=== PATIENT | male | born 1930 | race Caucasian/White ===

== ENCOUNTER 2017-07-02 06:18 | Inpatient (IN) | payer OTHER ==
[~2017-07-02] VITALS: Ht 182.9 cm; Wt 108.2 kg
[~2017-07-02 06:18] MED LIST: ASPI325T39 PO; BRIN3SUS OPR; CARBSOL4 OPB; CARV12.52 PO; CHOL20009 PO; CYAN500T13 PO; CYCL10TA6 PO; DOCU100C31 PO; DSY50 PO; GABA300C19 PO; HYT/2 PO; INSU100I SC; INSUINJ8 SC; LUTE20CA PO; METF-384 PO; NTRGSL/4 UT; OMEP20CA59 PO; OXGN; SIMV40TA4 PO; SYMIN160 INH; ULT/50 PO
[2017-07-02] MEDS ORDERED: SODIUM CHLORIDE 0.9% 1000ML 500 ML IV STA (06:36)
[2017-07-02] MEDS ORDERED: PIPERACILLIN/TAZOBACTAM 4.5 GM/100ML D5W IV STA (06:42)
--- NOTE | 2017-07-02 06:50 | EMERGENCY ROOM VISIT NOTE ---
History Report prepared by Peter: Carla Lo Under the Supervision of: Dr. Johnie Shah M.D. First contact with patient: 06:37 Chief Complaint: WEAKNESS Stated Complaint: WEAKNESS/FALL Nursing Triage Summary: Pt arrived from home via EMS c/o frequent falls. Pt has fallen twice in the last 2 days. Pt states he was ambulating to the restroom this AM when he started to feel weak and he lowered himself into a chair. Pt states he was also treated Sunday at [facility] for UTI, continues to take Abx. EMS noted oxygen to be low. Pt states he usually wears oxygen at HS. Pulse ox 85% on RA, places on 4L via EMS, Pulse ox 95%. History of Present Illness The patient is an 87 year old male who presents to the Emergency Room with complaints of persistent weakness that began several days ago. Per nursing notes, the patient recently has been experiencing urinary symptoms (burning), noting that the patient was evaluated at [facility] yesterday for his symptoms. The patient's reports that the patient was started on Bactrim for his symptoms. The patient denies wearing a Coughlin Catheter, noting that he can urinate on his own when he sits down. The patient's states that the patient often gets UTIs, noting that his last one was a few months ago. The patient's states that the patient has had several recent falls, including one last night that caused a head injury. The patient denies any other injury from the falls. He denies any loss of consciousness with his falls, noting that he just becomes weak. The patient states that his tetanus is up to date. He denies any fever, headache, vomiting, or diarrhea. Per nursing notes that patient had an oxygen saturation of 85% on room air and was put on 2 liters of nasal cannula oxygen. Nursing notes report that the patient typically ears 2 liters of nasal cannula oxygen at night. Source of History: patient, spouse/significant other (), nursing staff Onset: several days ago Position: other (global) Quality: other (weakness) Timing: other (persistent) Associated Symptoms: + urinary symptoms, No LOC, No fevers, No headache, No vomiting, No diarrhea Review of Systems See HPI for pertinent positives & negatives. A total of 10 systems reviewed and were otherwise negative. Past Medical & Surgical Medical Problems: (1) Anemia (2) Aortic stenosis (3) Benign prostatic hyperplasia (4) Cerebrovascular disease (5) Chronic respiratory failure (6) Coronary artery disease (7) Diabetes mellitus, type II (8) Diabetic retinopathy (9) Dyslipidemia (10) Hyperhomocysteinemia (11) Hypertension Surgical Problems: (1) Status post cardiac catheterization (2) Status post cholecystectomy (3) Status post coronary artery bypass grafting Family History FH: cancer MOTHER FH: diabetes mellitus SISTER FH: heart disease FATHER Social History Smoking Status: Never Smoker Alcohol Use: occasionally Marital Status: , in relationship Occupation Status: retired Current/Historical Medications Scheduled Aspirin (Aspirin Ec), 325 MG PO DAILY Brinzolamide-Brimonidine Tartr (Simbrinza), 1 DROP OPR BID Carboxymethylcellulose Sodium (Theratears), 1 DROP OPB QID Carvedilol (Coreg), 0.5 TAB PO BID Cholecalciferol (Vitamin D), 2,000 INTER.UNIT PO DAILY Cyanocobalamin (Vitamin B12 500MCG), 1,000 MCG PO DAILY Cyclobenzaprine Hcl (Flexeril), 10 MG PO HS Docusate Sodium (Docusate Sodium), 100 MG PO BID Emollient (Eucerin Calming Daily Dvaid), 1 APPLN TOP DAILY Gabapentin (Neurontin), 400 MG PO TID Home O2 Therapy (Oxygen), 2 LITERS NA UD Insulin Human NPH (Novolin N), 50 UNITS SQ QAM Insulin Human NPH (Novolin N), 20 UNITS SQ QPM Lutein (Lutein), 20 MG PO DAILY Metformin Hcl (Glucophage), 1,000 MG PO BIDM Omeprazole (Prilosec), 20 MG PO DAILY Selenium Sulfide (Selsun), 1 APPLN EXT UD Simvastatin (Zocor), 0.5 TAB PO Q2D [Benzoyl Peroxide 10%], 1 APPLN TOP UD Scheduled PRN Hydrocortisone 1% (Hydrocortisone 1%), 1 APPLN TOP TID PRN for Itching Insulin Lispro (Human) (Humalog Kwikpen), SQ UD PRN for SLIDING SCALE Nitroglycerin (Nitrostat), 0.4 MG UT UD PRN for Chest Pain Tramadol Hcl (Ultram), 50 MG PO Q6H PRN for Pain Allergies Coded Allergies: Iodinated Diagnostic Agents (Verified Allergy, Severe, Edema-face/lips/ tongue. Hives/Rash., 07/02/17) Reported by PT. Formaldehyde (Verified Allergy, Intermediate, Hives/Rash, 01/09/14) Reported by PT. Aspirin (Verified Allergy, Unknown, Hallucinations, 07/02/17) Ciprofloxacin (Verified Allergy, Unknown, Hives, 07/02/17) Dipyridamole (Verified Allergy, Unknown, Hallucinations, 07/02/17) Lisinopril (Verified Allergy, Unknown, UNKNOWN, 07/02/17) Uncoded Allergies: yellow socks (Allergy, Intermediate, contact rash (formaldehyde used to preserve yellow color), 07/02/17) Physical Exam Vital Signs Date Time Temp Pulse Resp B/P (MAP) Pulse Ox O2 Delivery O2 Flow Rate FiO2 07/02/17 08:30 96 Room Air 4.0 07/02/17 08:18 82 07/02/17 08:10 82 18 117/60 96 Room Air 07/02/17 06:55 84 116/64 83 137/59 07/02/17 06:39 96 Nasal Cannula 4.0 07/02/17 06:39 Nasal Cannula 07/02/17 06:30 84 07/02/17 06:26 36.8 84 20 135/69 93 Nasal Cannula 5.0 Physical Exam GENERAL: Patient is in no acute distress. HEENT: Abrasion to the right forehead, no laceration requiring repair, mucous membranes dry, no scleral icterus, no nasal congestion NECK: No stridor, no adenopathy, no meningismus, trachea is midline. LUNGS: Clear to auscultation bilaterally, no wheeze, no rhonchi, breath sounds equal. HEART: 4/6 systolic murmur, regular rate and rhythm ABDOMEN: Soft, nontender, bowel sounds positive, no hernias, no peritonitis. EXTREMITIES: No cyanosis or edema, full range of motion of all the joints without pain or difficulty, no signs for acute trauma. NEUROLOGIC: Oriented x 3, no acute motor or sensory deficits, no focal weakness. SKIN: No rash, no jaundice, no diaphoresis. Medical Decision & Procedures ER Provider Diagnostic Interpretation: Radiology results as stated below per my review and radiologist interpretation: CHEST ONE VIEW PORTABLE CLINICAL HISTORY: Change in mental status. Weakness. COMPARISON STUDY: 02/06/2015 FINDINGS: The heart is enlarged. There are postsurgical changes of a midline sternotomy. There are right basilar airspace opacities with air bronchograms. This could represent a pneumonia or focal atelectasis. Clinical and radiographic follow-up is recommended. There is mild central vascular prominence without evidence of overt failure.[ No significant pleural effusions are visualized. IMPRESSION: 1. Cardiomegaly 2. Right basilar airspace opacities, atelectasis versus pneumonia. Clinical and radiographic follow-up is recommended Electronically signed by: Alfredito Callahan M.D. 07/02/2017 7:00 AM Dictated Date/Time: 07/02/2017 6:[address] SCAN OF THE BRAIN WITHOUT IV CONTRAST CLINICAL HISTORY: Change in mental status. Weakness. COMPARISON STUDY: CT of the brain dated 02/06/2015. TECHNIQUE: Unenhanced axial CT scan of the brain is performed from the vertex to the skull base. CT DOSE: 782.75 mGycm FINDINGS: Brain parenchyma: There are age-related involutional changes noting moderate subcortical and periventricular microangiopathic change. Left frontal encephalomalacia is unchanged and consistent with a remote infarct. Chronic lacunar infarcts are seen in the right thalamus and the left basal ganglia. There is no hemorrhage, mass effect, or evidence of acute territorial ischemia by CT criteria. Marley-white matter is preserved. No extra-axial fluid collection is seen. Ventricles, sulci, cisterns: Prominent secondary to involutional change. Intracranial vasculature: There is atherosclerotic calcification of the cavernous carotid and vertebral arteries. Calvarium: Unremarkable. Sinuses and mastoids: Trace mucosal thickening is seen in the maxillary antra. The remaining visualized paranasal sinuses are clear. The mastoid air cells are well pneumatized. Orbits: The bony orbits are grossly intact. There are bilateral ocular lens implants. IMPRESSION: Senescent change and remote left frontal infarct as above. There is no hemorrhage, mass effect, or evidence of acute territorial ischemia by CT criteria. Electronically signed by: Johnie Moore M.D. 07/02/2017 8:10 AM Dictated Date/Time: 07/02/2017 8:00 AM Laboratory Results 07/02/17 07:06 Red Blood Count 4.44, Mean Corpuscular Volume 86.7, Mean Corpuscular Hemoglobin 27.9, Mean Corpuscular Hemoglobin Concent 32.2, Mean Platelet Volume 10.8, Neutrophils (%) (Auto) 80.3, Lymphocytes (%) (Auto) 8.2, Monocytes (%) (Auto) 10.0, Eosinophils (%) (Auto) 1.0, Basophils (%) (Auto) 0.3, Neutrophils # (Auto ) 8.17, Lymphocytes # (Auto) 0.83, Monocytes # (Auto) 1.02, Eosinophils # (Auto ) 0.10, Basophils # (Auto) 0.03 07/02/17 07:06 Test 07/02/17 07:06 07/02/17 07:48 White Blood Count 10.17 K/uL (4.8-10.8) Red Blood Count 4.44 M/uL (4.7-6.1) Hemoglobin 12.4 g/dL (14.0-18.0) Hematocrit 38.5 % (42-52) Mean Corpuscular Volume 86.7 fL (80-100) Mean Corpuscular Hemoglobin 27.9 pg (25-34) Mean Corpuscular Hemoglobin Concent 32.2 g/dl (32-36) Platelet Count 162 K/uL (130-400) Mean Platelet Volume 10.8 fL (7.4-10.4) Neutrophils (%) (Auto) 80.3 % Lymphocytes (%) (Auto) 8.2 % Monocytes (%) (Auto) 10.0 % Eosinophils (%) (Auto) 1.0 % Basophils (%) (Auto) 0.3 % Neutrophils # (Auto) 8.17 K/uL (1.4-6.5) Lymphocytes # (Auto) 0.83 K/uL (1.2-3.4) Monocytes # (Auto) 1.02 K/uL (0.11-0.59) Eosinophils # (Auto) 0.10 K/uL (0-0.5) Basophils # (Auto) 0.03 K/uL (0-0.2) RDW Standard Deviation 47.6 fL (36.4-46.3) RDW Coefficient of Variation 14.8 % (11.5-14.5) Immature Granulocyte % (Auto) 0.2 % Immature Granulocyte # (Auto) 0.02 K/uL (0.00-0.02) Prothrombin Time 10.8 SECONDS (9.0-12.0) Prothromb Time International Ratio 1.0 (0.9-1.1) Activated Partial Thromboplast Time 26.8 SECONDS (21.0-31.0) Partial Thromboplastin Ratio 1.0 Anion Gap 9.0 mmol/L (3-11) Est Creatinine Clear Calc Drug Dose 49.2 ml/min Estimated GFR () 54.9 Estimated GFR (Non- 47.4 BUN/Creatinine Ratio 20.8 (10-20) Lactic Acid Level 1.9 mmol/L (0.4-2.0) Calcium Level 8.5 mg/dl (8.5-10.1) Magnesium Level 1.8 mg/dl (1.8-2.4) Total Bilirubin 0.5 mg/dl (0.2-1) Aspartate Amino Transf (AST/SGOT) 22 U/L (15-37) Alanine Aminotransferase (ALT/SGPT) 18 U/L (12-78) Alkaline Phosphatase 114 U/L (45-117) Troponin I 0.018 ng/ml (0-0.045) Total Protein 7.4 gm/dl (6.4-8.2) Albumin 3.2 gm/dl (3.4-5.0) Globulin 4.2 gm/dl (2.5-4.0) Albumin/Globulin Ratio 0.8 (0.9-2) Thyroid Stimulating Hormone (TSH) 2.230 uIu/ml (0.300-4.500) Urine Color YELLOW Urine Appearance TURBID (CLEAR) Urine pH 5.0 (4.5-7.5) Urine Specific [place] 1.022 (1.000-1.030) Urine Protein 1+ (NEG) Urine Glucose (UA) 3+ (NEG) Urine Ketones NEG (NEG) Urine Occult Blood 1+ (NEG) Urine Nitrite NEG (NEG) Urine Bilirubin NEG (NEG) Urine Urobilinogen NEG (NEG) Urine Leukocyte Esterase LARGE (NEG) Urine WBC (Auto) >30 /hpf (0-5) Urine RBC (Auto) 5-10 /hpf (0-4) Urine Hyaline Casts (Auto) 1-5 /lpf (0-5) Urine Epithelial Cells (Auto) 5-10 /lpf (0-5) Urine Bacteria (Auto) NEG (NEG) Laboratory results reviewed by me. Medications Administered Medications (Trade) Dose Ordered Sig/Dleoris Route Start Time Stop Time Status Last Admin Dose Admin Sodium Chloride 500 ml @ 999 mls/hr Q31M STAT IV 07/02/17 06:36 07/02/17 07:06 DC 07/02/17 07:09 999 MLS/HR Piperacillin Sod/ Tazobactam Sod (Zosyn Iv) 4.5 gm NOW STAT IV 07/02/17 06:42 07/02/17 06:43 DC 07/02/17 07:32 4.5 GM ECG Indication: weakness Rate (beats per minute): 84 Rhythm: sinus rhythm Findings: 1st degree AV block, PAC, no acute ischemic change ED Course 0636: Ordered Zosyn IV 4.5 gm IV. 0638: The patient was evaluated in room A2. A complete history and physical exam was performed. 0642: Ordered Zosyn IV 4.5 gm IV. 0807: I discussed the patients case with Silver Worthy. He is going to evaluate the patient for further treatment. 0815: I reevaluated the patient and he is doing well. I discussed the exam findings with him and his and I discussed the treatment plan. They verbalized complete understanding and agreement. The patient will be evaluated for further treatment. Medical Decision The patient is an 87 year old male who presents to the ED with complaints of weakness. Differential diagnoses considered include UTI, dehydration, sepsis, bacteremia, pneumonia, electrolyte imbalance, anemia, cardiac ischemia. There is no leukocytosis or concerning anemia. No significant electrolyte abnormality, kidney failure or hepatitis. The patient appears to be in a euthyroid state. Orthostatic vital signs are negative. Chest film shows possible atelectasis versus pneumonia, I favor atelectasis. Brain CT shows no acute bleed or mass effect. EKG shows a sinus rhythm, no acute ischemia. Cardiac enzyme testing times one is not consistent with acute cardiac injury. Urinalysis shows infection, urine culture and blood cultures are pending. Lactic acid level is not elevated making sepsis less likely. The patient received IV saline, IV Zosyn. Given the findings of UTI, given the weakness, given the failed outpatient treatment, admission/observation is warranted. I spoke to the patient and case management. The on-call hospitalist was consulted. Medication Reconcilliation Current Medication List: was personally reviewed by me Blood Pressure Screening Patient's blood pressure: Elevated blood pressure Blood pressure disposition: Elevated BP felt to be situational, Did not require urgent referral Consults Time Called: 0800 Consulting Physician: Silver Worthy Returned Call: [phone] I discussed the patients case with Silver Worthy. He is going to evaluate the patient for further treatment. Impression Primary Impression: Weakness Additional Impressions: Falling UTI (urinary tract infection) Failure of outpatient treatment Scribe Attestation The scribe's documentation has been prepared under my direction and personally reviewed by me in its entirety. I confirm that the note above accurately reflects all work, treatment, procedures, and medical decision making performed by me. Departure Information Dispostion Being Evaluated By Hospitalist Referrals Shin Dela Cruz MD (PCP) Problem Qualifiers
[2017-07-02] MEDS ORDERED: TAMS0.4C38 PO (06:54)
[2017-07-02] MEDS ORDERED: GABA1CAP5 PO (06:55)
[2017-07-02] MEDS ORDERED: SIMV20TA2 PO (06:55)
[2017-07-02] MEDS ORDERED: INSU100I2 SQ (06:57)
[2017-07-02] MEDS ORDERED: NVLNI SQ ×2 (06:57)
[2017-07-02] MEDS ORDERED: SLSS EXT (07:00)
[2017-07-02] MEDS ORDERED: EMOL1CRE10 TOP (07:00)
[2017-07-02] MEDS ORDERED: HYDCR1CL TOP (07:01)
--- NOTE | 2017-07-02 07:01 | DIAGNOSTIC IMAGING REPORT ---
CHEST ONE VIEW PORTABLE CLINICAL HISTORY: Change in mental status. Weakness. COMPARISON STUDY: 02/06/2015 FINDINGS: The heart is enlarged. There are postsurgical changes of a midline sternotomy. There are right basilar airspace opacities with air bronchograms. This could represent a pneumonia or focal atelectasis. Clinical and radiographic follow-up is recommended. There is mild central vascular prominence without evidence of overt failure.[ No significant pleural effusions are visualized. IMPRESSION: 1. Cardiomegaly 2. Right basilar airspace opacities, atelectasis versus pneumonia. Clinical and radiographic follow-up is recommended Electronically signed by: Alfredito Callahan M.D. 07/02/2017 7:00 AM Dictated Date/Time: 07/02/2017 6:58 AM
[2017-07-02] MEDS ORDERED: BENZOYL PEROXIDE 10% TOP (07:05)
[2017-07-02 07:26] LABS: BASO % 0.3 %; BASO ABS # 0.03 K/uL (0-0.2); COMPLETE YES; HEMATOCRIT 38.5 % (42-52); IG% 0.2 %; LYMPH % 8.2 %; LYMPH ABS # 0.83 K/uL (1.2-3.4); MEAN CELL VOLUME 86.7 fL (80-100); MEAN CORPUSCULAR HEMOGLOBIN 27.9 pg (25-34); MEAN CORPUSCULAR HGB CONC 32.2 g/dl (32-36); MEAN PLATELET VOLUME 10.8 fL (7.4-10.4); NEUT % 80.3 %; PLATELET COUNT 162 K/uL (130-400); RED BLOOD COUNT 4.44 M/uL (4.7-6.1); WHITE BLOOD COUNT 10.17 K/uL (4.8-10.8)
[2017-07-02 07:34] LABS: PROTHROMBIN TIME (PATIENT) 10.8 SECONDS (9.0-12.0)
[2017-07-02 07:43] LABS: BUN/CREATININE RATIO 20.8 (10-20); CALCIUM 8.5 mg/dl (8.5-10.1); CREATININE 1.33 mg/dl (0.60-1.40); MAGNESIUM 1.8 mg/dl (1.8-2.4); POTASSIUM 4.2 mmol/L (3.5-5.1)
[2017-07-02 07:54] LABS: ALB/GLOB RATIO 0.8 (0.9-2); THYROID STIMULATING HORMONE 2.23 uIu/ml (0.300-4.500)
[2017-07-02 07:58] LABS: MANUAL MICROSCOPIC REQUIRED? NO; REVIEW REQ? NO; URINE APPEARANCE TURBID (CLEAR); URINE BILIRUBIN NEG (NEG); URINE COLOR YELLOW; URINE NITRITE NEG (NEG); URINE SPECIFIC GRAVITY 1.022 (1.000-1.030); UROBILINOGEN NEG (NEG); ZZUR CULT IF INDIC CLEAN CATCH YES
--- NOTE | 2017-07-02 08:11 | DIAGNOSTIC IMAGING REPORT ---
CT SCAN OF THE BRAIN WITHOUT IV CONTRAST CLINICAL HISTORY: Change in mental status. Weakness. COMPARISON STUDY: CT of the brain dated 02/06/2015. TECHNIQUE: Unenhanced axial CT scan of the brain is performed from the vertex to the skull base. CT DOSE: 782.75 mGycm FINDINGS: Brain parenchyma: There are age-related involutional changes noting moderate subcortical and periventricular microangiopathic change. Left frontal encephalomalacia is unchanged and consistent with a remote infarct. Chronic lacunar infarcts are seen in the right thalamus and the left basal ganglia. There is no hemorrhage, mass effect, or evidence of acute territorial ischemia by CT criteria. Marley-white matter is preserved. No extra-axial fluid collection is seen. Ventricles, sulci, cisterns: Prominent secondary to involutional change. Intracranial vasculature: There is atherosclerotic calcification of the cavernous carotid and vertebral arteries. Calvarium: Unremarkable. Sinuses and mastoids: Trace mucosal thickening is seen in the maxillary antra. The remaining visualized paranasal sinuses are clear. The mastoid air cells are well pneumatized. Orbits: The bony orbits are grossly intact. There are bilateral ocular lens implants. IMPRESSION: Senescent change and remote left frontal infarct as above. There is no hemorrhage, mass effect, or evidence of acute territorial ischemia by CT criteria. Electronically signed by: Johnie Moore M.D. 07/02/2017 8:10 AM Dictated Date/Time: 07/02/2017 8:00 AM
[2017-07-02 08:30] VITALS: O2SAT 96; BMI 33.0
[2017-07-02] MEDS ORDERED: GLUCOSE 40% GEL 15 GM TUBE PO PRN (09:00)
[2017-07-02] MEDS ORDERED: ONDANSETRON INJ 2 MG/ML 2 ML VIAL IV PRN (09:00)
[2017-07-02] MEDS ORDERED: TRAMADOL HCL 50 MG TAB PO PRN (09:00)
[2017-07-02] MEDS ORDERED: ACETAMINOPHEN 325 MG TAB PO PRN (09:00)
[2017-07-02] MEDS ORDERED: DEXTROSE 50% 50 ML SYR IV PRN (09:00)
[2017-07-02] MEDS ORDERED: GLUCAGON FOR INJ 1 MG VIAL SQ PRN (09:00)
[2017-07-02] MEDS ORDERED: GLUCOSE 10 TABS/TUBE PO PRN (09:00)
[2017-07-02] MEDS ORDERED: PHARMACY GLYCEMIC MGMT CONSULT PRN (09:35)
[2017-07-02] MEDS ORDERED: PIPERACILL/TAZOBAC CONSULT ACTIVE PRN (09:45)
--- NOTE | 2017-07-02 09:54 | History and Physical ---
History & Physical Date & Time of Service: Jul 02, 2017 at 09:23 Chief Complaint: Weakness/Fall Primary Care Physician: Shin Dela Cruz MD History of Present Illness Source: patient, family, clinic records, hospital records This is an 87 year old male with a PMH of CAD s/p CABG x3, insulin dependent, uncontrolled DM2 with complications including macular degeneration, peripheral neuropathy, and dropped R foot - uses walker for ambulation at baseline; also has a hx. of HTN, HLD, aortic stenosis, orthostatic issues, BPH - presents with weakness and multiple falls. He states that he fell a few times over the weekend due to weakness. He was using the walker each time he fell, but just did not have the strength to stay standing. He went to urgent care on Sunday () and was given Bactrim for a UTI. He has had issues with urinary tract infections in the past. States he had a lot of dysuria and urinary frequency prior to starting Bactrim. He is now doing better with urination. He has a history of aortic stenosis with recent echo confirming no change in aortic valve. No other issues currently; denies shortness of breath or chest pain. Past Medical/Surgical History Medical Problems: (1) Anemia Status: Chronic (2) Aortic stenosis Permanent Comment: 1.1 cm2 by echo 2011 and cath 2012 Status: Chronic (3) Benign prostatic hyperplasia Status: Chronic (4) Cerebrovascular disease Permanent Comment: s/p stroke with right hemiparesis Status: Chronic (5) Chronic respiratory failure Permanent Comment: home O2 2 LPM at night + PRN Status: Chronic (6) Coronary artery disease Permanent Comment: PCI + stenting LAD 1997 CABG x 3 2000 cath 03/11/13 showed patent LAD graft, patent SVG to circ marginal, occluded SVG to RCA Status: Chronic (7) Diabetes mellitus, type II Status: Chronic (8) Diabetic retinopathy Status: Chronic (9) Dyslipidemia Status: Chronic (10) Hyperhomocysteinemia Status: Chronic (11) Hypertension Status: Chronic Surgical Problems: (1) Status post cardiac catheterization Permanent Comment: 03/11/[address] [facility] [address] [place]ant patent LAD graft, patent SVG to circ marginal, occluded SVG to RCA Status: Chronic (2) Status post cholecystectomy Status: Chronic (3) Status post coronary artery bypass grafting Permanent Comment: radial artery to LAD, SVG to circ marginal, SVG to RCA Status: Chronic Family History FH: cancer MOTHER FH: diabetes mellitus SISTER FH: heart disease FATHER Social History Smoking Status: Never Smoker Marital Status: , in relationship Housing status: lives with significant other Occupational Status: retired Immunizations History of Influenza Vaccine: Yes Influenza Vaccine Date: Jun 01, 2013 History of Tetanus Vaccine?: Yes History of Pneumococcal: Yes Pneumococcal Date: Jul 22, 1996 History of Hepatitis B Vaccine: No Allergies Coded Allergies: Iodinated Diagnostic Agents (Verified Allergy, Severe, Edema-face/lips/ tongue. Hives/Rash., 07/02/17) Reported by PT. Formaldehyde (Verified Allergy, Intermediate, Hives/Rash, 01/09/14) Reported by PT. Aspirin (Verified Allergy, Unknown, Hallucinations, 07/02/17) Ciprofloxacin (Verified Allergy, Unknown, Hives, 07/02/17) Dipyridamole (Verified Allergy, Unknown, Hallucinations, 07/02/17) Lisinopril (Verified Allergy, Unknown, UNKNOWN, 07/02/17) Uncoded Allergies: yellow socks (Allergy, Intermediate, contact rash (formaldehyde used to preserve yellow color), 07/02/17) Home Medications Scheduled Aspirin (Aspirin Ec), 325 MG PO DAILY Brinzolamide-Brimonidine Tartr (Simbrinza), 1 DROP OPR BID Carboxymethylcellulose Sodium (Theratears), 1 DROP OPB QID Carvedilol (Coreg), 0.5 TAB PO BID Cholecalciferol (Vitamin D), 2,000 INTER.UNIT PO DAILY Cyanocobalamin (Vitamin B12 500MCG), 1,000 MCG PO DAILY Cyclobenzaprine Hcl (Flexeril), 10 MG PO HS Docusate Sodium (Docusate Sodium), 100 MG PO BID Emollient (Eucerin Calming Daily David), 1 APPLN TOP DAILY Gabapentin (Neurontin), 400 MG PO TID Home O2 Therapy (Oxygen), 2 LITERS NA UD Insulin Human NPH (Novolin N), 50 UNITS SQ QAM Insulin Human NPH (Novolin N), 20 UNITS SQ QPM Lutein (Lutein), 20 MG PO DAILY Metformin Hcl (Glucophage), 1,000 MG PO BIDM Omeprazole (Prilosec), 20 MG PO DAILY Selenium Sulfide (Selsun), 1 APPLN EXT UD Simvastatin (Zocor), 0.5 TAB PO Q2D [Benzoyl Peroxide 10%], 1 APPLN TOP UD Scheduled PRN Hydrocortisone 1% (Hydrocortisone 1%), 1 APPLN TOP TID PRN for Itching Insulin Lispro (Human) (Humalog Kwikpen), SQ UD PRN for SLIDING SCALE Nitroglycerin (Nitrostat), 0.4 MG UT UD PRN for Chest Pain Tramadol Hcl (Ultram), 50 MG PO Q6H PRN for Pain Review of Systems Constitutional: + weakness, No fever, No chills, No sweats Respiratory: No cough, No sputum, No wheezing, No shortness of breath, No dyspnea on exertion, No dyspnea at rest, No hemoptysis Cardiovascular: No chest pain, No orthopnea, No PND, No edema, No palpitations Abdomen: No pain, No nausea, No vomiting, No diarrhea Musculoskeletal: No joint pain, No muscle pain, No swelling, No calf pain Genitourinary - Male: + dysuria, + urinary frequency, + urinary urgency, + urinary hesitancy, + urinary retention, No hematuria, No urinary incontinence Neurologic: + weakness, + numbness/tingling, + balance problems, No memory loss , No paralysis, No vertigo Psychiatric: No depression symptoms, No anxiety, No insomnia Endocrine: No fatigue Hematologic / Lymphatic: No abnormal bleeding/bruising Integumentary: No rash Allergic / Immunologic: No environmental allergies, No seasonal allergies Physical Exam Vital Signs Date Time Temp Pulse Resp B/P (MAP) Pulse Ox O2 Delivery O2 Flow Rate FiO2 07/02/17 08:18 82 07/02/17 08:10 82 18 117/60 96 Room Air 07/02/17 06:55 84 116/64 83 137/59 07/02/17 06:39 96 Nasal Cannula 4.0 07/02/17 06:39 Nasal Cannula 07/02/17 06:30 84 07/02/17 06:26 36.8 84 20 135/69 93 Nasal Cannula 5.0 General Appearance: no apparent distress Head: normocephalic, atraumatic, + pertinent finding (bruising noted on R forehead) Eyes: + pertinent finding (decreased visual acuity; chronic) ENT: + pertinent finding (hard of hearing; hearing aids in place) Neck: supple Respiratory/Chest: chest non-tender, lungs clear, normal breath sounds, no respiratory distress, no accessory muscle use Cardiovascular: regular rate, rhythm, no edema, + systolic murmur Abdomen/GI: normal bowel sounds, non tender, soft Back: no CVA tenderness, no muscle spasm Extremities/Musculoskelatal: normal inspection, no calf tenderness, normal capillary refill, no pedal edema, normal range of motion, + pertinent finding ( R dropped foot) Neurologic/Psych: no motor/sensory deficits, alert, normal mood/affect, oriented x 3 Skin: normal color Lymphatic: no adenopathy Diagnostics Laboratory Results Results Past 24 Hours Test 07/02/17 07:06 07/02/17 07:48 Range/Units White Blood Count 10.17 4.8-10.8 K/uL Red Blood Count 4.44 4.7-6.1 M/uL Hemoglobin 12.4 14.0-18.0 g/dL Hematocrit 38.5 42-52 % Mean Corpuscular Volume 86.7 80-100 fL Mean Corpuscular Hemoglobin 27.9 25-34 pg Mean Corpuscular Hemoglobin Concent 32.2 32-36 g/dl Platelet Count 162 130-400 K/uL Mean Platelet Volume 10.8 7.4-10.4 fL Neutrophils (%) (Auto) 80.3 % Lymphocytes (%) (Auto) 8.2 % Monocytes (%) (Auto) 10.0 % Eosinophils (%) (Auto) 1.0 % Basophils (%) (Auto) 0.3 % Neutrophils # (Auto) 8.17 1.4-6.5 K/uL Lymphocytes # (Auto) 0.83 1.2-3.4 K/uL Monocytes # (Auto) 1.02 0.11-0.59 K/uL Eosinophils # (Auto) 0.10 0-0.5 K/uL Basophils # (Auto) 0.03 0-0.2 K/uL RDW Standard Deviation 47.6 36.4-46.3 fL RDW Coefficient of Variation 14.8 11.5-14.5 % Immature Granulocyte % (Auto) 0.2 % Immature Granulocyte # (Auto) 0.02 0.00-0.02 K/uL Prothrombin Time 10.8 9.0-12.0 SECONDS Prothromb Time International Ratio 1.0 0.9-1.1 Activated Partial Thromboplast Time 26.8 21.0-31.0 SECONDS Partial Thromboplastin Ratio 1.0 Sodium Level 137 136-145 mmol/L Potassium Level 4.2 3.5-5.1 mmol/L Chloride Level 102 98-107 mmol/L Carbon Dioxide Level 26 21-32 mmol/L Anion Gap 9.0 3-11 mmol/L Blood Urea Nitrogen 28 7-18 mg/dl Creatinine 1.33 0.60-1.40 mg/dl Est Creatinine Clear Calc Drug Dose 49.2 ml/min Estimated GFR () 54.9 Estimated GFR (Non- 47.4 BUN/Creatinine Ratio 20.8 10-20 Random Glucose 151 70-99 mg/dl Lactic Acid Level 1.9 0.4-2.0 mmol/L Calcium Level 8.5 8.5-10.1 mg/dl Magnesium Level 1.8 1.8-2.4 mg/dl Total Bilirubin 0.5 0.2-1 mg/dl Aspartate Amino Transf (AST/SGOT) 22 15-37 U/L Alanine Aminotransferase (ALT/SGPT) 18 12-78 U/L Alkaline Phosphatase 114 45-117 U/L Troponin I 0.018 0-0.045 ng/ml Total Protein 7.4 6.4-8.2 gm/dl Albumin 3.2 3.4-5.0 gm/dl Globulin 4.2 2.5-4.0 gm/dl Albumin/Globulin Ratio 0.8 0.9-2 Thyroid Stimulating Hormone (TSH) 2.230 0.300-4.500 uIu/ml Urine Color YELLOW Urine Appearance TURBID CLEAR Urine pH 5.0 4.5-7.5 Urine Specific [place] 1.022 1.000-1.030 Urine Protein 1+ NEG Urine Glucose (UA) 3+ NEG Urine Ketones NEG NEG Urine Occult Blood 1+ NEG Urine Nitrite NEG NEG Urine Bilirubin NEG NEG Urine Urobilinogen NEG NEG Urine Leukocyte Esterase LARGE NEG Urine WBC (Auto) >30 0-5 /hpf Urine RBC (Auto) 5-10 0-4 /hpf Urine Hyaline Casts (Auto) 1-5 0-5 /lpf Urine Epithelial Cells (Auto) 5-10 0-5 /lpf Urine Bacteria (Auto) NEG NEG Microbiology Results 07/02/17 Blood Culture, Received Pending 07/02/17 Blood Culture, Received Pending 07/02/17 Urine Culture, Received Pending Diagnostic Radiology CT SCAN OF THE BRAIN WITHOUT IV CONTRAST CLINICAL HISTORY: Change in mental status. Weakness. COMPARISON STUDY: CT of the brain dated 02/06/2015. TECHNIQUE: Unenhanced axial CT scan of the brain is performed from the vertex to the skull base. CT DOSE: 782.75 mGycm FINDINGS: Brain parenchyma: There are age-related involutional changes noting moderate subcortical and periventricular microangiopathic change. Left frontal encephalomalacia is unchanged and consistent with a remote infarct. Chronic lacunar infarcts are seen in the right thalamus and the left basal ganglia. There is no hemorrhage, mass effect, or evidence of acute territorial ischemia by CT criteria. Marley-white matter is preserved. No extra-axial fluid collection is seen. Ventricles, sulci, cisterns: Prominent secondary to involutional change. Intracranial vasculature: There is atherosclerotic calcification of the cavernous carotid and vertebral arteries. Calvarium: Unremarkable. Sinuses and mastoids: Trace mucosal thickening is seen in the maxillary antra. The remaining visualized paranasal sinuses are clear. The mastoid air cells are well pneumatized. Orbits: The bony orbits are grossly intact. There are bilateral ocular lens implants. IMPRESSION: Senescent change and remote left frontal infarct as above. There is no hemorrhage, mass effect, or evidence of acute territorial ischemia by CT criteria. CHEST ONE VIEW PORTABLE CLINICAL HISTORY: Change in mental status. Weakness. COMPARISON STUDY: 02/06/2015 FINDINGS: The heart is enlarged. There are postsurgical changes of a midline sternotomy. There are right basilar airspace opacities with air bronchograms. This could represent a pneumonia or focal atelectasis. Clinical and radiographic follow-up is recommended. There is mild central vascular prominence without evidence of overt failure.[ No significant pleural effusions are visualized. IMPRESSION: 1. Cardiomegaly 2. Right basilar airspace opacities, atelectasis versus pneumonia. Clinical and radiographic follow-up is recommended EKG Sinus rhythm with 1st degree A-V block with Premature atrial complexes Left axis deviation Impression Assessment and Plan This is an 87 year old male with a PMH of CAD s/p CABG x3, insulin dependent, uncontrolled DM2 with complications including macular degeneration, peripheral neuropathy, and dropped R foot - uses walker for ambulation at baseline; also has a hx. of HTN, HLD, aortic stenosis, orthostatic issues, BPH - presents with weakness and multiple falls. Multiple Falls possibly secondary to UTI patient presents with multiple falls he has multiple risk factors for falling: * R foot drop * Peripheral Neuropathy * ambulatory dysfunction with walker use at baseline * macular degeneration and decreased visual acuity * severe aortic stenosis * recent UTI check blood cultures, urine culture monitor in tele PT/OT Zosyn for now - has had multiple organisms in the past, including PCN resistant Proteus and Quinolone resistant E. coli IVFs may need placement Hx. of CAD s/p CABG x3 no acute issues to note monitor in tele and trend enzymes recent echo performed showing good LVEF, with severe aortic stenosis cont. ASA, b-emani, statin Insulin Dependent DM2 last Ha1c > 9% Uses Novolin 70/30 at home (50 units in AM and 20 units in the PM for a total of 70 units) will switch to Lantus 20 units BID and sliding scale pharmacy glycemic control consultation HTN blood pressure stable; monitor check orthostatics DVT ppx subq heparin FULL CODE Advanced Directives Existing Living Will: Yes Existing Power of Supply Aide: Yes VTE Prophylaxis VTE Risk Assessment Done? Y/N: Yes Risk Level: Moderate
[2017-07-02 10:45] VITALS: BP 152/84; PULSE 85; TEMP 36.8; O2SAT 96
[2017-07-02 11:27] VITALS: BP 152/84; PULSE 85; TEMP 36.8; O2SAT 96
[2017-07-02] MEDS: SODIUM CHLORIDE 0.9% 1000ML 1,000 ML IV SCH ×2 (11:35→22:28)
--- NOTE | 2017-07-02 12:27 | Pharmacy Progress Note ---
Glycemic Control Intl Consult Date of Service Jul 02, 2017. Scope Glycemic Pharmacist consulted by Dr Mcclain on 07/02/17 for glycemic control and to write orders per [facility] inpatient glycemic control protocol Objective Weight (Kilograms): 110.300 Accuchecks BSG (last 24hrs): Test 07/02/17 07:06 07/02/17 11:16 Random Glucose 151 mg/dl (70-99) Bedside Glucose 220 mg/dl (70-99) Laboratory Data (last 24hrs) Test 07/02/17 07:06 Anion Gap 9.0 mmol/L BUN/Creatinine Ratio 20.8 Blood Urea Nitrogen 28 mg/dl Creatinine 1.33 mg/dl Potassium Level 4.2 mmol/L Sodium Level 137 mmol/L White Blood Count 10.17 K/uL Red Blood Count 4.44 M/uL Hemoglobin 12.4 g/dL Hematocrit 38.5 % Mean Corpuscular Volume 86.7 fL Mean Corpuscular Hemoglobin 27.9 pg Mean Corpuscular Hemoglobin Concent 32.2 g/dl Platelet Count 162 K/uL Mean Platelet Volume 10.8 fL Neutrophils (%) (Auto) 80.3 % Lymphocytes (%) (Auto) 8.2 % Monocytes (%) (Auto) 10.0 % Eosinophils (%) (Auto) 1.0 % Basophils (%) (Auto) 0.3 % Neutrophils # (Auto) 8.17 K/uL Lymphocytes # (Auto) 0.83 K/uL Monocytes # (Auto) 1.02 K/uL Eosinophils # (Auto) 0.10 K/uL Basophils # (Auto) 0.03 K/uL Recent Pertinent Medications Outpatient Anti-diabetic Regimen: * Novolin 70/30 - 50 units in morning and 20 units in evening * A1c = 8.9 % 02/07/15 Risk Factors for Insulin Resistance: * Infection: UTI? on Zosyn * Diet: type 2 diabetic diet Assessment & Plan ASSESSMENT: * ADA & AACE recommend a goal blood sugar range 140-180 mg/dl for the majority of critically ill & non-critically ill patients. However, more stringent targets may be selected in individual cases. Will utilize more stringent goal of 110-140 mg/dl based on patient age & comorbidities. Additionally, tighter glycemic control is warranted to facilitate infection healing. * Mr Go is an 87 y/o M with a PMH of CVA, CAD s/p CABG x 3, and anemia who presents with a several day history of weakness and falls. As an outpatient he was diagnosed with a UTI and given Bactrim. He did not take his insulin today. * For more appropriate glycemic control, the patient will be placed on Lantus + Novolog for duration of hospital stay. 70% of home dose (70 units) represents basal dosing. Will reduce dose by 20% to accommodate for patient admission so Lantus 20 units twice daily will be ordered (also correlates to weight-based stress of 2 dosing). * For correctional insulin, weight-based stress of 2 insulin will also be ordered. PLAN FOR INPATIENT GLYCEMIC CONTROL: * Basal insulin with LANTUS 20 units SQ BID * Correctional Insulin with NOVOLOG per scale ACHS or Q6hrs while NPO * Goal Range: Low 110 mg/dL - High 140 mg/dL * Correction Factor: 20 mg/dL/unit * Nutritional / Prandial insulin per carb ratio of 1 unit per 7 grams CHO consumed * Please note that the plan above was derived based on current level of insulin resistance and hospital stress. These recommendations are appropriate for inpatient admission only. Plan of care upon discharge will need to be reassessed to avoid potential outpatient hypo/hyperglycemia. Thank you.
[2017-07-02] MEDS: INSULIN GLARGINE SOLOSTAR 100 UNITS/ML 3 ML PEN SC SCH ×2 (12:35→20:30)
[2017-07-02] MEDS: INSULIN ASPART 100 UNITS/ML 3 ML PEN SC SCH ×3 (12:38→20:30)
[2017-07-02] MEDS: DOCUSATE SODIUM 100 MG CAP PO SCH ×2 (15:04→20:26)
[2017-07-02] MEDS: CARVEDILOL 12.5 MG TAB PO SCH ×2 (15:08→20:26)
[2017-07-02] MEDS: ASPIRIN 325 MG ECTAB PO SCH (15:10)
[2017-07-02] MEDS: PANTOprazole SOD 40 MG TAB PO SCH (15:11)
[2017-07-02] MEDS: CYANOCOBALAMIN 500 MCG TAB (VIT B-12) PO SCH (15:12)
[2017-07-02] MEDS: SIMVASTATIN 20 MG TAB PO SCH (15:13)
[2017-07-02] MEDS: PIPERACILL/TAZOBAC IV 3.375 GM in DEXTROSE 5% 100ML 100 ML IV SCH ×2 (15:14→22:01)
[2017-07-02] MEDS: GABAPENTIN 400 MG CAP PO SCH ×2 (15:14→20:26)
[2017-07-02] MEDS: HEPARIN SOD 5000 UNIT/0.5 ML CARP SQ SCH ×2 (15:15→20:31)
[2017-07-02 16:07] VITALS: BP 161/104; PULSE 86; TEMP 36.9; O2SAT 91
[2017-07-02 16:32] LABS: CKMB/CK RATIO 1.6 (0-3.0)
[2017-07-02 19:06] VITALS: BP 106/62; PULSE 86; TEMP 38.1; O2SAT 94
[2017-07-02 21:48] LABS: CKMB/CK RATIO 1.3 (0-3.0)
[2017-07-03] VITALS (8 sets, daily range): BP systolic 105–173; BP diastolic 53–75; PULSE 62–98; TEMP 36.4–37.3; O2SAT 93–99; BMI 32.8
[2017-07-03 03:23] LABS: HEMATOCRIT 34.9 % (42-52); MEAN CELL VOLUME 87.3 fL (80-100); MEAN CORPUSCULAR HEMOGLOBIN 27.3 pg (25-34); MEAN CORPUSCULAR HGB CONC 31.2 g/dl (32-36); MEAN PLATELET VOLUME 10.5 fL (7.4-10.4); PLATELET COUNT 144 K/uL (130-400); WHITE BLOOD COUNT 6.12 K/uL (4.8-10.8)
[2017-07-03 03:41] LABS: CALCIUM 7.7 mg/dl (8.5-10.1); CREATININE 1.52 mg/dl (0.60-1.40)
[2017-07-03] MEDS: PIPERACILL/TAZOBAC IV 3.375 GM in DEXTROSE 5% 100ML 100 ML IV SCH ×3 (05:09→21:11)
[2017-07-03] MEDS: HEPARIN SOD 5000 UNIT/0.5 ML CARP SQ SCH ×2 (05:10→21:18)
[2017-07-03 07:38] LABS: ESTIMATED AVERAGE GLUCOSE 217 mg/dl; HA1C FLAG Normal (Normal)
--- NOTE | 2017-07-03 08:22 | Pharmacy Progress Note ---
Glycemic Control Progress Note Date of Service Jul 03, 2017. Scope Glycemic Pharmacist consulted for glycemic control to write orders per [facility] inpatient glycemic control protocol. Objective Accuchecks BSG (last 24hrs): Test 07/02/17 11:16 07/02/17 16:20 07/02/17 20:01 07/03/17 03:16 Bedside Glucose 220 mg/dl (70-99) 159 mg/dl (70-99) 219 mg/dl (70-99) Random Glucose 258 mg/dl (70-99) Test 07/03/17 06:59 Bedside Glucose 230 mg/dl (70-99) HbA1c: Test 07/03/17 03:16 Hemoglobin A1c 9.2 % (4.5-5.6) H Recent Pertinent Medications The patient is currently receiving: * Basal insulin: Lantus 20 units every 12 hours * Correctional Insulin: Novolog Correction per scale ACHS Goal Range: Low 110 mg/dL - High 140 mg/dL Correction Factor: 20 mg/dL/unit * Prandial insulin: Per carb ratio of 1 unit per 7 grams CHO consumed * Oral Agents: None currently Outpatient Anti-Diabetic Meds Novolin N 50 units w/ breakfast + 20 units w/ dinner Humalog per sliding scale Metformin 1gm PO BID Assessment & Plan ASSESSMENT: 07/03/17 * A1c results from today (9.2%) show less than adequate control w/ outpt regimen * BSGs did initially respond to correctional and prandial insulin given yesterday w/ lunch, however later in the day BSG rebounded * Fasting BSG elevated this AM w/ 40 units of basal insulin on board, will titrate the basal insulin dose upwards * Post-prandial BSG control w/ current CR difficult to evaluate as only 1 meal consumed yesterday. Will adjust the dose slightly to allow for additional units of insulin w/ meals as I anticipate the patient's daily insulin requirement to be ~80-90 units/day when tolerating a full diet. PLAN FOR INPATIENT GLYCEMIC CONTROL: * Increasing Lantus to 24 units SQ BID * Changing correction factor to 18 mg/dl/unit * Changing carb ratio to 1 unit per 6 grams CHO consumed * Continue goal range of Low 110 mg/dL - High 140 mg/dL * Check BSG at 0200 and cover w/ Novolog as above * Please note that the plan above was derived based on current level of insulin resistance and hospital stress. These recommendations are appropriate for inpatient admission only. Plan of care upon discharge will need to be reassessed to avoid potential outpatient hypo/hyperglycemia. Thank you.
[2017-07-03] MEDS: DOCUSATE SODIUM 100 MG CAP PO SCH ×2 (08:46→21:11)
[2017-07-03] MEDS: CARVEDILOL 12.5 MG TAB PO SCH ×2 (08:46→21:12)
[2017-07-03] MEDS: PANTOprazole SOD 40 MG TAB PO SCH (08:47)
[2017-07-03] MEDS: GABAPENTIN 400 MG CAP PO SCH ×3 (08:47→21:12)
[2017-07-03] MEDS: CYANOCOBALAMIN 500 MCG TAB (VIT B-12) PO SCH (08:47)
[2017-07-03] MEDS: ASPIRIN 325 MG ECTAB PO SCH (08:47)
[2017-07-03] MEDS: INSULIN ASPART 100 UNITS/ML 3 ML PEN SC SCH ×4 (08:48→21:16)
[2017-07-03] MEDS ORDERED: INSULIN GLARGINE SOLOSTAR 100 UNITS/ML 3 ML PEN SC SCH (09:00)
--- NOTE | 2017-07-03 11:37 | Progress Note ---
Medicine Progress Note Date & Time of Visit: Jul 03, 2017 at 11:36. Subjective seen with Suad at bedside states he feels better today ambulating better, leg weakness has resolved denies dizziness, syncope denies abdominal pain, problems with urination, chills no other symptoms Objective Last 8 Hrs Date Time Temp Pulse Resp B/P (MAP) Pulse Ox O2 Delivery O2 Flow Rate FiO2 07/03/17 11:05 99 Nasal Cannula 2.5 07/03/17 08:12 37.3 66 12 150/73 (98) 99 Nasal Cannula 2.5 07/03/17 08:00 Nasal Cannula 5.0 07/03/17 04:13 36.4 62 20 125/66 (85) 93 Nasal Cannula 4.0 07/03/17 04:00 Nasal Cannula 5.0 Physical Exam: General- oriented x 2. not in distress, speaks in sentences with no effort Head- atraumatic Eyes- PERRL, EOMI, anicteric ENT- oropharynx clear Neck- supple, no JVD, no adenopathy, no thyromegaly Lungs- faint wheeze right base, no rales; clear on the left Heart- regular rhythm; no murmur, normal rate Abdomen- normal bowel sounds, soft, nontender, non distended Extremities- no pretibial edema, no calf tenderness; peripheral pulses intact Neuro- alert, oriented x 3; poor hearing, otherwise no other gross focal neuro deficits Skin- warm & dry Laboratory Results: Last 24 Hours Test 07/02/17 15:35 07/02/17 16:20 07/02/17 20:01 07/02/17 20:52 Total Creatine Kinase 193 U/L 217 U/L Creatine Kinase MB 3.1 ng/ml 2.8 ng/ml Creatine Kinase MB Ratio 1.6 1.3 Troponin I < 0.015 ng/ml 0.037 ng/ml Bedside Glucose 159 mg/dl 219 mg/dl Test 07/03/17 03:16 07/03/17 06:59 07/03/17 10:46 White Blood Count 6.12 K/uL Red Blood Count 4.00 M/uL Hemoglobin 10.9 g/dL Hematocrit 34.9 % Mean Corpuscular Volume 87.3 fL Mean Corpuscular Hemoglobin 27.3 pg Mean Corpuscular Hemoglobin Concent 31.2 g/dl RDW Standard Deviation 48.0 fL RDW Coefficient of Variation 14.9 % Platelet Count 144 K/uL Mean Platelet Volume 10.5 fL Sodium Level 134 mmol/L Potassium Level 4.0 mmol/L Chloride Level 100 mmol/L Carbon Dioxide Level 28 mmol/L Anion Gap 6.0 mmol/L Blood Urea Nitrogen 26 mg/dl Creatinine 1.52 mg/dl Est Creatinine Clear Calc Drug Dose 43.1 ml/min Estimated GFR () 46.7 Estimated GFR (Non- 40.3 BUN/Creatinine Ratio 17.0 Random Glucose 258 mg/dl Estimated Average Glucose 217 mg/dl Hemoglobin A1c 9.2 % Calcium Level 7.7 mg/dl Total Creatine Kinase 318 U/L Creatine Kinase MB 3.3 ng/ml Creatine Kinase MB Ratio 1.0 Troponin I 0.031 ng/ml Bedside Glucose 230 mg/dl 350 mg/dl Assessment & Plan This is an 87 year old male with a PMH of CAD s/p CABG x3, insulin dependent, uncontrolled DM2 with complications including macular degeneration, peripheral neuropathy, and dropped R foot - uses walker for ambulation at baseline; also has a hx. of HTN, HLD, aortic stenosis, orthostatic issues, BPH - presents with weakness and multiple falls. Multiple Falls likely secondary to UTI patient presents with multiple falls he has multiple risk factors for falling: * R foot drop * Peripheral Neuropathy * ambulatory dysfunction with walker use at baseline * macular degeneration and decreased visual acuity * severe aortic stenosis cultures: blood: negative so far urine: negative so far urine from Urgent Care 07/01/17: Strep, sens pending -- on Zosyn IV improving clinically ff up cultures -- check Orthostatic VS -- PT/OT in progress Acute Renal Failure -- crea increased to 1.5 on gentle IV fluids monitor Hx. of CAD s/p CABG x3 denies cardiac symptoms cardiac markers negative recent echo performed showing good LVEF, with severe aortic stenosis cont. ASA, b-emani, statin Insulin Dependent DM2 last Ha1c > 9% Uses Novolin 70/30 at home (50 units in AM and 20 units in the PM for a total of 70 units) on Lantus and [facility] pharmacy glycemic control on board HTN blood pressure stable; monitor check orthostatics DVT ppx subq heparin FULL CODE Disposition lives with at home PT/OT in progress may be able to go home with home health services PCP Dr. Dela Cruz Current Inpatient Medications: Current Inpatient Medications Medications (Trade) Dose Ordered Sig/Deloris Route Start Time Stop Time Status Last Admin Dose Admin Sodium Chloride 1,000 ml @ 60 mls/hr [id number] IV 07/02/17 08:54 07/03/17 18:00 07/02/17 22:28 80 MLS/HR Acetaminophen (Tylenol Tab) 650 mg Q4H PRN PO 07/02/17 09:00 08/01/17 08:59 07/02/17 20:33 650 MG Ondansetron HCl (Zofran Inj) 4 mg Q6H PRN IV 07/02/17 09:00 08/01/17 08:59 07/02/17 17:03 4 MG Insulin Aspart (novoLOG ASPART) SLIDING SCALE If C... ACHS SC 07/02/17 12:00 08/01/17 11:59 07/03/17 08:48 13 UNITS Glucose (Glucose 40% Gel) 15-30 GRAMS 15 GRAMS... UD PRN PO 07/02/17 09:00 08/01/17 08:59 Glucose (Glucose Chew Tab) 4-8 Tablets 4 Tabl... UD PRN PO 07/02/17 09:00 08/01/17 08:59 Dextrose (Dextrose 50% 50ML Syringe) 25-50ML OF 50% DW IV FOR... UD PRN IV 07/02/17 09:00 08/01/17 08:59 Glucagon (Glucagon Inj) 1 mg UD PRN SQ 07/02/17 09:00 08/01/17 08:59 Miscellaneous Information (Consult Glycemic Management Pharmacy) 1 ea UD PRN N/A 07/02/17 09:35 08/01/17 09:34 Aspirin (Ecotrin Tab) 325 mg DAILY PO 07/02/17 13:00 08/01/17 12:59 07/03/17 08:47 325 MG Carvedilol (Coreg Tab) 6.25 mg BID PO 07/02/17 13:00 08/01/17 12:59 07/03/17 08:46 6.25 MG Cyanocobalamin (Vitamin B-12 Tab) 1,000 mcg DAILY PO 07/02/17 13:00 08/01/17 12:59 07/03/17 08:47 1,000 MCG Docusate Sodium (coLACE CAP) 100 mg BID PO 07/02/17 13:00 08/01/17 12:59 07/03/17 08:46 100 MG Gabapentin (Neurontin Cap) 400 mg TID PO 07/02/17 14:00 08/01/17 13:59 07/03/17 08:47 400 MG Simvastatin (Zocor Tab) 10 mg Q2D@0900 PO 07/02/17 13:00 08/01/17 12:59 07/02/17 15:13 10 MG Tramadol HCl (Ultram Tab) 50 mg Q6H PRN PO 07/02/17 09:00 08/01/17 08:59 Pantoprazole Sodium (Protonix Tab) 40 mg QAM PO 07/02/17 13:00 08/01/17 12:59 07/03/17 08:47 40 MG Piperacillin Sod/ Tazobactam Sod 3.375 gm/Dextrose 115 ml @ 28.75 mls/ hr Q8H IV 07/02/17 14:00 07/12/17 13:59 07/03/17 05:09 28.75 MLS/HR Piperacillin Sod/ Tazobactam Sod (Consult) 1 ea UD PRN N/A 07/02/17 09:45 08/01/17 09:44 Insulin Glargine (Lantus Solostar Pen) 24 units Q12 SC 07/03/17 09:00 08/02/17 08:59 07/03/17 08:49 24 UNITS Insulin Aspart (novoLOG ASPART) SLIDING SCALE If C... TODAY@0200 ONCE SC 07/04/17 02:00 07/04/17 02:01 Heparin Sodium (Porcine) (Heparin Sq 5000 Unit/0.5ml) 5,000 unit Q12 SQ 07/03/17 21:00 08/01/17 13:59
[2017-07-03] MEDS ORDERED: INSULIN GLARGINE SOLOSTAR 100 UNITS/ML 3 ML PEN SC STA (12:07)
[2017-07-03] MEDS ORDERED: INSULIN REGULAR IV ONE (12:15)
[2017-07-03] MEDS: SODIUM CHLORIDE 0.9% 1000ML 1,000 ML IV SCH (13:49)
[2017-07-03] MEDS ORDERED: INSULIN HUMAN NPH SC ONE (20:30)
[2017-07-04] MEDS: INSULIN ASPART 100 UNITS/ML 3 ML PEN SC SCH ×4 (00:20→13:33)
[2017-07-04] MEDS ORDERED: INSULIN ASPART 100 UNITS/ML 3 ML PEN SC ONE (02:00)
[2017-07-04 04:00] VITALS: BP 128/67; PULSE 67; TEMP 36.6; O2SAT 94
[2017-07-04] MEDS: PIPERACILL/TAZOBAC IV 3.375 GM in DEXTROSE 5% 100ML 100 ML IV SCH ×2 (05:48→13:33)
[2017-07-04 06:44] LABS: BASO % 0.7 %; BASO ABS # 0.03 K/uL (0-0.2); COMPLETE YES; EOS % 3.4 %; HEMATOCRIT 36.6 % (42-52); IG% 0.2 %; LYMPH % 33.2 %; LYMPH ABS # 1.48 K/uL (1.2-3.4); MEAN CELL VOLUME 87.8 fL (80-100); MEAN CORPUSCULAR HEMOGLOBIN 27.6 pg (25-34); MEAN CORPUSCULAR HGB CONC 31.4 g/dl (32-36); MEAN PLATELET VOLUME 10.6 fL (7.4-10.4); MONO % 15.9 %; NEUT % 46.6 %; PLATELET COUNT 150 K/uL (130-400); RED BLOOD COUNT 4.17 M/uL (4.7-6.1); WHITE BLOOD COUNT 4.46 K/uL (4.8-10.8)
[2017-07-04 07:13] LABS: BUN/CREATININE RATIO 17.4 (10-20); CALCIUM 8.6 mg/dl (8.5-10.1); CREATININE 1.28 mg/dl (0.60-1.40); POTASSIUM 4.1 mmol/L (3.5-5.1)
[2017-07-04 07:43] VITALS: BP 153/68; PULSE 61; TEMP 36.2; O2SAT 99
[2017-07-04] MEDS: HEPARIN SOD 5000 UNIT/0.5 ML CARP SQ SCH (08:40)
[2017-07-04] MEDS: ASPIRIN 325 MG ECTAB PO SCH (08:41)
[2017-07-04] MEDS: CARVEDILOL 12.5 MG TAB PO SCH (08:43)
[2017-07-04] MEDS: PANTOprazole SOD 40 MG TAB PO SCH (08:43)
[2017-07-04] MEDS: SIMVASTATIN 20 MG TAB PO SCH (08:43)
[2017-07-04] MEDS: GABAPENTIN 400 MG CAP PO SCH ×2 (08:43→13:25)
[2017-07-04] MEDS: DOCUSATE SODIUM 100 MG CAP PO SCH (08:44)
[2017-07-04] MEDS: CYANOCOBALAMIN 500 MCG TAB (VIT B-12) PO SCH (08:44)
[2017-07-04] MEDS ORDERED: INSULIN HUMAN NPH SC SCH ×2 (09:00→21:00)
[2017-07-04 09:57] VITALS: O2SAT 86
--- NOTE | 2017-07-04 10:18 | Pharmacy Progress Note ---
Glycemic Control Progress Note Date of Service Jul 04, 2017. Scope Glycemic Pharmacist consulted for glycemic control to write orders per [facility] inpatient glycemic control protocol. Objective Accuchecks BSG (last 24hrs): Test 07/03/17 10:46 07/03/17 15:15 07/03/17 16:39 07/03/17 20:00 Bedside Glucose 350 mg/dl (70-99) 224 mg/dl (70-99) 251 mg/dl (70-99) 300 mg/dl (70-99) Test 07/03/17 23:59 07/04/17 04:08 07/04/17 05:52 07/04/17 07:04 Bedside Glucose 293 mg/dl (70-99) 210 mg/dl (70-99) 118 mg/dl (70-99) Random Glucose 169 mg/dl (70-99) HbA1c: Test 07/03/17 03:16 Hemoglobin A1c 9.2 % (4.5-5.6) H Recent Pertinent Medications The patient is currently receiving: * Basal insulin: NPH 50 units with breakfast + 20 units at bedtime * Correctional Insulin: Novolog Correction per scale ACHS Goal Range: Low 110 mg/dL - High 140 mg/dL Correction Factor: 10 mg/dL/unit * Prandial insulin: Per carb ratio of 1 unit per 4 grams CHO consumed * Oral Agents: None currently Outpatient Anti-Diabetic Meds Novolin-N 50 units SQ in the AM + 20 units SQ in the PM Humalog SQ per sliding scale Metformin 1gm PO BID Assessment & Plan ASSESSMENT: 07/03/17 * A1c results from today (9.2%) show less than adequate control w/ outpt regimen * BSGs did initially respond to correctional and prandial insulin given yesterday w/ lunch, however later in the day BSG rebounded * Fasting BSG elevated this AM w/ 40 units of basal insulin on board, will titrate the basal insulin dose upwards * Post-prandial BSG control w/ current CR difficult to evaluate as only 1 meal consumed yesterday. Will adjust the dose slightly to allow for additional units of insulin w/ meals as I anticipate the patient's daily insulin requirement to be ~80-90 units/day when tolerating a full diet. 07/04/17 * BSGs poorly controlled yesterday despite escalating doses of Lantus + Novolog. * BSGs did begin to trend down after lunchtime adjustments however quickly rebounded by bedtime. Patient's spouse stated the patient's glycemic control is poor when Lantus is used. Second shift pharmacist restarted the outpatient dose of NPH and gave a 50unit dose of NPH at bedtime last night given poor control during the day. * Over the last 24 hrs the patient has received 171 units of SQ insulin + 5 units IV Regular insulin, much more than his home regimen provides. * Fasting BSG 118 this AM after having received 50 units NPH last evening + 32 units of Lantus yesterday + 23 units of Novolog correction overnight. * He is highly insulin resistant. Plan is to continue the changes made last evening and see if he is better controlled w/ NPH at his home dose. * Will need to monitor for pre-dinner hypoglycemia as we are now providing prandial insulin w/ meals 3 times daily. NPH does have a peak, thus lunchtime prandial insulin requirements may be less than other meals. Will follow BSG pattern today and adjust PRN. PLAN FOR INPATIENT GLYCEMIC CONTROL: * Continue NPH 50 units AM + 20 units PM * Continue correction factor of 10 mg/dl/unit * Continue carb ratio of 1 unit per 4 grams CHO consumed * Continue goal range of Low 110 mg/dL - High 140 mg/dL * Check BSG at 0200 and cover w/ Novolog as above * Please note that the plan above was derived based on current level of insulin resistance and hospital stress. These recommendations are appropriate for inpatient admission only. Plan of care upon discharge will need to be reassessed to avoid potential outpatient hypo/hyperglycemia. Thank you.
[2017-07-04 10:53] VITALS: BP 129/61; PULSE 71; TEMP 36.9; O2SAT 98
[2017-07-04 11:37] VITALS: Ht 182.9 cm; Wt 108.2 kg
[2017-07-04 15:09] VITALS: BP 151/70; PULSE 65; TEMP 36.7; O2SAT 99
--- NOTE | 2017-07-04 15:31 | Progress Note ---
Medicine Progress Note Date & Time of Visit: Jul 04, 2017 at 15:22. Subjective patient seen resting in bed, comfortable alert, in good spirits states he feels better overall back to baseline denies abdominal pain, urinary problems, fever/chills, nausea/vomiting denies chest pain, dyspnea, palpitations, dizziness ambulating with no problems states he is ready and would like to be discharged today at bedside is agreeable Objective Last 8 Hrs Date Time Temp Pulse Resp B/P (MAP) Pulse Ox O2 Delivery O2 Flow Rate FiO2 07/04/17 15:09 36.7 65 20 151/70 (97) 99 Nasal Cannula 2.0 07/04/17 12:15 Nasal Cannula 3.0 07/04/17 10:53 36.9 71 20 129/61 (83) 98 Nasal Cannula 3.0 07/04/17 10:07 Nasal Cannula 3.0 07/04/17 09:57 86 07/04/17 07:43 36.2 61 18 153/68 (96) 99 Nasal Cannula 3.0 61 Physical Exam: General- oriented x 2. not in distress, speaks in sentences with no effort Eyes- EOMI, anicteric Neck- no JVD Lungs-clear breath sounds bilaterally, no rales/wheezing Heart- regular rhythm; no murmur, normal rate Abdomen- normal bowel sounds, soft, nontender, non distended Extremities- no pretibial edema, no calf tenderness Neuro- alert, oriented x 3; poor hearing, otherwise no other gross focal neuro deficits Skin- warm & dry Laboratory Results: Last 24 Hours Test 07/03/17 16:39 07/03/17 20:00 07/03/17 23:59 07/04/17 04:08 Bedside Glucose 251 mg/dl 300 mg/dl 293 mg/dl 210 mg/dl Test 07/04/17 05:52 07/04/17 07:04 07/04/17 10:54 White Blood Count 4.46 K/uL Red Blood Count 4.17 M/uL Hemoglobin 11.5 g/dL Hematocrit 36.6 % Mean Corpuscular Volume 87.8 fL Mean Corpuscular Hemoglobin 27.6 pg Mean Corpuscular Hemoglobin Concent 31.4 g/dl Platelet Count 150 K/uL Mean Platelet Volume 10.6 fL Neutrophils (%) (Auto) 46.6 % Lymphocytes (%) (Auto) 33.2 % Monocytes (%) (Auto) 15.9 % Eosinophils (%) (Auto) 3.4 % Basophils (%) (Auto) 0.7 % Neutrophils # (Auto) 2.08 K/uL Lymphocytes # (Auto) 1.48 K/uL Monocytes # (Auto) 0.71 K/uL Eosinophils # (Auto) 0.15 K/uL Basophils # (Auto) 0.03 K/uL RDW Standard Deviation 47.7 fL RDW Coefficient of Variation 14.9 % Immature Granulocyte % (Auto) 0.2 % Immature Granulocyte # (Auto) 0.01 K/uL Sodium Level 138 mmol/L Potassium Level 4.1 mmol/L Chloride Level 105 mmol/L Carbon Dioxide Level 26 mmol/L Anion Gap 7.0 mmol/L Blood Urea Nitrogen 22 mg/dl Creatinine 1.28 mg/dl Est Creatinine Clear Calc Drug Dose 50.7 ml/min Estimated GFR () 57.5 Estimated GFR (Non- 49.6 BUN/Creatinine Ratio 17.4 Random Glucose 169 mg/dl Calcium Level 8.6 mg/dl Bedside Glucose 118 mg/dl 147 mg/dl Assessment & Plan This is an 87 year old male with a PMH of CAD s/p CABG x3, insulin dependent, uncontrolled DM2 with complications including macular degeneration, peripheral neuropathy, and dropped R foot - uses walker for ambulation at baseline; also has a hx. of HTN, HLD, aortic stenosis, orthostatic issues, BPH - presents with weakness and multiple falls. Multiple Falls, likely secondary to UTI -patient presents with multiple falls -he has multiple risk factors for falling: * R foot drop * Peripheral Neuropathy * ambulatory dysfunction with walker use at baseline * macular degeneration and decreased visual acuity * severe aortic stenosis -cultures: blood: negative so far urine: negative so far urine from Urgent Care 07/01/17: Strep, sens to pen g, resistant to tetracycline -- given Zosyn IV x 2 days markedly improved clinically transition to Augmentin 875mg po BID x 7 days may need to repeat UA to confirm clearance -- ff up with PCP in 3-5 days Acute Renal Failure -- crea increased to 1.5 given gentle IV fluids crea back to baseline Hx. of CAD s/p CABG x3 denies cardiac symptoms cardiac markers negative recent echo performed showing good LVEF, with severe aortic stenosis cont. ASA, b-emani, statin Insulin Dependent DM2 a1c 9.2 Uses Novolin 70/30 at home (50 units in AM and 20 units in the PM for a total of 70 units) on Lantus and [facility] glycemic control consulted HTN blood pressure stable; monitor Disposition lives with at home PT recommends return home PCP Dr. Dela Cruz- ff up in 3-5 days Current Inpatient Medications: Current Inpatient Medications Medications (Trade) Dose Ordered Sig/Deloris Route Start Time Stop Time Status Last Admin Dose Admin Acetaminophen (Tylenol Tab) 650 mg Q4H PRN PO 07/02/17 09:00 08/01/17 08:59 07/02/17 20:33 650 MG Ondansetron HCl (Zofran Inj) 4 mg Q6H PRN IV 07/02/17 09:00 08/01/17 08:59 07/02/17 17:03 4 MG Insulin Aspart (novoLOG ASPART) SLIDING SCALE If C... ACHS SC 07/02/17 12:00 08/01/17 11:59 07/04/17 13:33 14 UNITS Glucose (Glucose 40% Gel) 15-30 GRAMS 15 GRAMS... UD PRN PO 07/02/17 09:00 08/01/17 08:59 Glucose (Glucose Chew Tab) 4-8 Tablets 4 Tabl... UD PRN PO 07/02/17 09:00 08/01/17 08:59 Dextrose (Dextrose 50% 50ML Syringe) 25-50ML OF 50% DW IV FOR... UD PRN IV 07/02/17 09:00 08/01/17 08:59 Glucagon (Glucagon Inj) 1 mg UD PRN SQ 07/02/17 09:00 08/01/17 08:59 Miscellaneous Information (Consult Glycemic Management Pharmacy) 1 ea UD PRN N/A 07/02/17 09:35 08/01/17 09:34 Aspirin (Ecotrin Tab) 325 mg DAILY PO 07/02/17 13:00 08/01/17 12:59 07/04/17 08:41 325 MG Carvedilol (Coreg Tab) 6.25 mg BID PO 07/02/17 13:00 08/01/17 12:59 07/04/17 08:43 6.25 MG Cyanocobalamin (Vitamin B-12 Tab) 1,000 mcg DAILY PO 07/02/17 13:00 08/01/17 12:59 07/04/17 08:44 1,000 MCG Docusate Sodium (coLACE CAP) 100 mg BID PO 07/02/17 13:00 08/01/17 12:59 07/04/17 08:44 100 MG Gabapentin (Neurontin Cap) 400 mg TID PO 07/02/17 14:00 08/01/17 13:59 07/04/17 13:25 400 MG Simvastatin (Zocor Tab) 10 mg Q2D@0900 PO 07/02/17 13:00 08/01/17 12:59 07/04/17 08:43 10 MG Tramadol HCl (Ultram Tab) 50 mg Q6H PRN PO 07/02/17 09:00 08/01/17 08:59 Pantoprazole Sodium (Protonix Tab) 40 mg QAM PO 07/02/17 13:00 08/01/17 12:59 07/04/17 08:43 40 MG Piperacillin Sod/ Tazobactam Sod 3.375 gm/Dextrose 115 ml @ 28.75 mls/ hr Q8H IV 07/02/17 14:00 07/12/17 13:59 07/04/17 13:33 28.75 MLS/HR Piperacillin Sod/ Tazobactam Sod (Consult) 1 ea UD PRN N/A 07/02/17 09:45 08/01/17 09:44 Heparin Sodium (Porcine) (Heparin Sq 5000 Unit/0.5ml) 5,000 unit Q12 SQ 07/03/17 21:00 08/01/17 13:59 07/04/17 08:40 5,000 UNIT Insulin Human NPH (novoLIN-N NPH) 50 units QAM SC 07/04/17 09:00 08/03/17 08:59 07/04/17 08:41 50 UNITS Insulin Human NPH (novoLIN-N NPH) 20 units PM SC 07/04/17 21:00 08/03/17 20:59 Insulin Aspart (novoLOG ASPART) SLIDING SCALE If C... TODAY@0200 ONCE SC 07/05/17 02:00 07/05/17 02:01
[2017-07-04] MEDS ORDERED: AMOX875T PO (15:33)
[2017-07-04] MEDS ORDERED: CYCL10TA6 PO (15:33)
--- NOTE | 2017-07-04 15:38 | Discharge Instructions ---
Discharge Instructions Date of Service Jul 04, 2017. Admission Reason for Admission: Aortic Stenosis, Uti Discharge Discharge Diagnosis / Problem: URINARY TRACT INFECTION Discharge Goals Goal(s): Diagnostic testing, Therapeutic intervention Activity Recommendations Activity Limitations: as noted below (INCREASE ACTIVITY GRADUALLY TOLERATED) . Instructions / Follow-Up Instructions / Follow-Up PLEASE REVIEW YOUR NEW MEDICATION- AUGMENTIN AND FOLLOW INSTRUCTIONS CAREFULLY. TAKE YOGURT OR PROBIOTIC DAILY WHILE ON ANTIBIOTICS, AND 1 WEEK AFTER FINISHING ANTIBIOTIC COURSE. CALL PRIMARY CARE PHYSICIAN OR RETURN TO ER IMMEDIATELY IF WITH RECURRENCE OF SYMPTOMS. FOLLOW UP WITH PRIMARY CARE PHYSICIAN DR. JOHN PAUL COOK (ASSOCIATE OF DR. ARMSTRONG) ON SUNDAY JULY 09, 2017 AT 10:05 AM. Current Hospital Diet Patient's current hospital diet: Diabetes Type 2 Diet Discharge Diet Recommended Diet: AHA Diet (Heart Healthy), Diabetes Type 2 Diet Pending Studies Studies pending at discharge: no Laboratory Results Hemoglobin A1c Test 07/03/17 03:16 Range/Units Estimated Average Glucose 217 mg/dl Hemoglobin A1c 9.2 H 4.5-5.6 % Medical Emergencies . Who to Call and When: Medical Emergencies: If at any time you feel your situation is an emergency, please call 911 immediately. . Non-Emergent Contact Non-Emergency issues call your: Primary Care Provider Call Non-Emergent contact if: you have a fever, your pain is not controlled, your pain is worsening, you have any medication questions . . "Provider Documentation" section prepared by Oumar Wells. . VTE Core Measure Inpt VTE Proph given/why not?: Unfractionated heparin SQ
--- NOTE | 2017-07-04 15:43 | Discharge Summary ---
Discharge Summary Date of Service Jul 04, 2017. Discharge Summary Admission Date: Jul 02, 2017 at 09:20 Discharge Date: Jul 04, 2017 Principal Diagnosis: WEAKNESS SECONDARY TO UTI- BETA STREP GROUP B (RECURRENT UTI'S) Secondary Diagnoses/Problems: Please refer to hospital course below. Procedures: CT SCAN OF THE BRAIN WITHOUT IV CONTRAST CLINICAL HISTORY: Change in mental status. Weakness. COMPARISON STUDY: CT of the brain dated 02/06/2015. TECHNIQUE: Unenhanced axial CT scan of the brain is performed from the vertex to the skull base. CT DOSE: 782.75 mGycm FINDINGS: Brain parenchyma: There are age-related involutional changes noting moderate subcortical and periventricular microangiopathic change. Left frontal encephalomalacia is unchanged and consistent with a remote infarct. Chronic lacunar infarcts are seen in the right thalamus and the left basal ganglia. There is no hemorrhage, mass effect, or evidence of acute territorial ischemia by CT criteria. Marley-white matter is preserved. No extra-axial fluid collection is seen. Ventricles, sulci, cisterns: Prominent secondary to involutional change. Intracranial vasculature: There is atherosclerotic calcification of the cavernous carotid and vertebral arteries. Calvarium: Unremarkable. Sinuses and mastoids: Trace mucosal thickening is seen in the maxillary antra. The remaining visualized paranasal sinuses are clear. The mastoid air cells are well pneumatized. Orbits: The bony orbits are grossly intact. There are bilateral ocular lens implants. IMPRESSION: Senescent change and remote left frontal infarct as above. There is no hemorrhage, mass effect, or evidence of acute territorial ischemia by CT criteria. CHEST ONE VIEW PORTABLE CLINICAL HISTORY: Change in mental status. Weakness. COMPARISON STUDY: 02/06/2015 FINDINGS: The heart is enlarged. There are postsurgical changes of a midline sternotomy. There are right basilar airspace opacities with air bronchograms. This could represent a pneumonia or focal atelectasis. Clinical and radiographic follow-up is recommended. There is mild central vascular prominence without evidence of overt failure.[ No significant pleural effusions are visualized. IMPRESSION: 1. Cardiomegaly 2. Right basilar airspace opacities, atelectasis versus pneumonia. Clinical and radiographic follow-up is recommended Pending Studies/Follow-Up: Please refer to hospital course below. Medication Reconciliation New Medications: Amoxicillin & Pot Clavulanate (Augmentin 875-125 mg) 1 Tab Tab 875 MG PO BID for 7 Days, #14 TAB 0 Refills Changed Medications: Cyclobenzaprine Hcl (Flexeril) 10 Mg Tab 10 MG PO HS PRN for muscle spasm for 10 Days, TAB (Medication details modified) Continued Medications: Aspirin (Aspirin Ec) 325 Mg Tab 325 MG PO DAILY Brinzolamide-Brimonidine Tartr (Simbrinza) 1 Batool Batool 1 DROP OPR BID Carboxymethylcellulose Sodium (Theratears) 0.25 % Lori 1 DROP OPB QID Carvedilol (Coreg) 12.5 Mg Tab 0.5 TAB PO BID Cholecalciferol (Vitamin D) 2,000 Unit Tab 2000 INTER.UNIT PO DAILY Cyanocobalamin (Vitamin B12 500MCG) 500 Mcg Tab 1000 MCG PO DAILY, TAB Docusate Sodium (Docusate Sodium) 100 Mg Cap 100 MG PO BID Emollient (Eucerin Calming Daily David) 1 Cre Cre 1 APPLN TOP DAILY Gabapentin (Neurontin) 400 Mg Cap 400 MG PO TID, CAP Home O2 Therapy (Oxygen) Gas 2 LITERS NA UD WITH EXERTION AND AT NIGHT. Hydrocortisone 1% (Hydrocortisone 1%) 90 Appln/30 Gm Cr 1 APPLN TOP TID PRN for Itching Insulin Human NPH (Novolin N) 100 Units/Ml Susp 50 UNITS SQ QAM Insulin Human NPH (Novolin N) 100 Units/Ml Susp 20 UNITS SQ QPM Insulin Lispro (Human) (Humalog Kwikpen) 100 Unit/Ml Inj SQ UD PRN for SLIDING SCALE Lutein (Lutein) 20 Mg Cap 20 MG PO DAILY Metformin Hcl (Glucophage) 1,000 Mg Tab 1000 MG PO BIDM, TAB Nitroglycerin (Nitrostat) 0.4 Mg Tab 0.4 MG UT UD PRN for Chest Pain PLACE ONE TABLET UNDER THE TONGUE EVERY 5 MINUTES FOR UP TO 3 DOSES IF NEEDED FOR CHEST PAIN. Omeprazole (Prilosec) 20 Mg Capcr 20 MG PO DAILY Selenium Sulfide (Selsun) 2.5 % Lot 1 APPLN EXT UD Simvastatin (Zocor) 20 Mg Tab 0.5 TAB PO Q2D, TAB Tramadol Hcl (Ultram) 50 Mg Tab 50 MG PO Q6H PRN for Pain PRN PAIN [Benzoyl Peroxide 10%] () 1 APPLN TOP UD Admission Information HPI (per Admitting provider): This is an 87 year old male with a PMH of CAD s/p CABG x3, insulin dependent, uncontrolled DM2 with complications including macular degeneration, peripheral neuropathy, and dropped R foot - uses walker for ambulation at baseline; also has a hx. of HTN, HLD, aortic stenosis, orthostatic issues, BPH - presents with weakness and multiple falls. He states that he fell a few times over the weekend due to weakness. He was using the walker each time he fell, but just did not have the strength to stay standing. He went to urgent care on Sunday () and was given Bactrim for a UTI. He has had issues with urinary tract infections in the past. States he had a lot of dysuria and urinary frequency prior to starting Bactrim. He is now doing better with urination. He has a history of aortic stenosis with recent echo confirming no change in aortic valve. No other issues currently; denies shortness of breath or chest pain. Physical Exam (per Admitting): General Appearance: no apparent distress Head: normocephalic, atraumatic, + pertinent finding (bruising noted on R forehead) Eyes: + pertinent finding (decreased visual acuity; chronic) ENT: + pertinent finding (hard of hearing; hearing aids in place) Neck: supple Respiratory/Chest: chest non-tender, lungs clear, normal breath sounds, no respiratory distress, no accessory muscle use Cardiovascular: regular rate, rhythm, no edema, + systolic murmur Abdomen/GI: normal bowel sounds, non tender, soft Back: no CVA tenderness, no muscle spasm Extremities/Musculoskelatal: normal inspection, no calf tenderness, normal capillary refill, no pedal edema, normal range of motion, + pertinent finding ( R dropped foot) Neurologic/Psych: no motor/sensory deficits, alert, normal mood/affect, oriented x 3 Skin: normal color Lymphatic: no adenopathy Hospital Course This is an 87 year old male with a PMH of CAD s/p CABG x3, insulin dependent, uncontrolled DM2 with complications including macular degeneration, peripheral neuropathy, and dropped R foot - uses walker for ambulation at baseline; also has a hx. of HTN, HLD, aortic stenosis, orthostatic issues, BPH - presents with weakness and multiple falls. Multiple Falls, likely secondary to UTI -patient presents with multiple falls -he has multiple risk factors for falling: * R foot drop * Peripheral Neuropathy * ambulatory dysfunction with walker use at baseline * macular degeneration and decreased visual acuity * severe aortic stenosis -cultures: blood: negative so far urine: negative so far urine from Urgent Care 07/01/17: Strep, sens to pen g, resistant to tetracycline -- given Zosyn IV x 2 days markedly improved clinically transition to Augmentin 875mg po BID x 7 days may need to repeat UA and Urine Culture to confirm clearance patient has recurrent UTIs -- ff up with PCP in 3-5 days Acute Renal Failure -- crea increased to 1.5 given gentle IV fluids crea back to baseline Hx. of CAD s/p CABG x3 denies cardiac symptoms cardiac markers negative recent echo performed showing good LVEF, with severe aortic stenosis cont. ASA, b-emani, statin Insulin Dependent DM2 a1c 9.2 Uses Novolin 70/30 at home (50 units in AM and 20 units in the PM for a total of 70 units) ff up as outpatient HTN blood pressure stable monitor Disposition lives with at home PT recommends return home PCP Dr. Armstrong- ff up in 3-5 days Total time spent on discharge = 30 minutes This includes examination of the patient, discharge planning, medication reconciliation, and communication with other providers. Discharge Instructions Discharge Instructions Date of Service Jul 04, 2017. Admission Reason for Admission: Aortic Stenosis, Uti Discharge Discharge Diagnosis / Problem: URINARY TRACT INFECTION Discharge Goals Goal(s): Diagnostic testing, Therapeutic intervention Activity Recommendations Activity Limitations: as noted below (INCREASE ACTIVITY GRADUALLY TOLERATED) . Instructions / Follow-Up Instructions / Follow-Up PLEASE REVIEW YOUR NEW MEDICATION- AUGMENTIN AND FOLLOW INSTRUCTIONS CAREFULLY. TAKE YOGURT OR PROBIOTIC DAILY WHILE ON ANTIBIOTICS, AND 1 WEEK AFTER FINISHING ANTIBIOTIC COURSE. CALL PRIMARY CARE PHYSICIAN OR RETURN TO ER IMMEDIATELY IF WITH RECURRENCE OF SYMPTOMS. FOLLOW UP WITH PRIMARY CARE PHYSICIAN DR. JOHN PAUL COOK (ASSOCIATE OF DR. ARMSTRONG) ON SUNDAY JULY 09, 2017 AT 10:05 AM. Current Hospital Diet Patient's current hospital diet: Diabetes Type 2 Diet Discharge Diet Recommended Diet: AHA Diet (Heart Healthy), Diabetes Type 2 Diet Pending Studies Studies pending at discharge: no Laboratory Results Hemoglobin A1c Test 07/03/17 03:16 Range/Units Estimated Average Glucose 217 mg/dl Hemoglobin A1c 9.2 H 4.5-5.6 % Medical Emergencies . Who to Call and When: Medical Emergencies: If at any time you feel your situation is an emergency, please call 911 immediately. . Non-Emergent Contact Non-Emergency issues call your: Primary Care Provider Call Non-Emergent contact if: you have a fever, your pain is not controlled, your pain is worsening, you have any medication questions . . "Provider Documentation" section prepared by Oumar Wells. . VTE Core Measure Inpt VTE Proph given/why not?: Unfractionated heparin SQ
[2017-07-04 15:49] VITALS: BP 151/70; PULSE 65; TEMP 36.7; O2SAT 99
[2017-07-05] MEDS ORDERED: INSULIN ASPART 100 UNITS/ML 3 ML PEN SC ONE (02:00)
== END 2017-07-04 16:10 | disposition home health service (06) | DRG 690 ==
LOC: C.EDA 06:18 → EDBD 06:18 → C.2E 09:20 → ENRESERV 09:59
PROVIDERS: ADMIT Family Medicine; ATTEND Internal Medicine
DX: N39.0 Urinary tract infection, site not specified (principal); J96.10 Chronic respiratory failure, unspecified whether with hypoxia or hypercapnia; N40.0 Benign prostatic hyperplasia without lower urinary tract symptoms; I67.9 Cerebrovascular disease, unspecified; I25.10 Atherosclerotic heart disease of native coronary artery without angina pectoris; H35.30 Unspecified macular degeneration; E11.9 Type 2 diabetes mellitus without complications; E78.5 Hyperlipidemia, unspecified; I10 Essential (primary) hypertension; M21.371 Foot drop, right foot; G62.9 Polyneuropathy, unspecified; Z87.440 Personal history of urinary (tract) infections; Z90.49 Acquired absence of other specified parts of digestive tract; Z91.81 History of falling; Z79.82 Long term (current) use of aspirin; Z79.4 Long term (current) use of insulin; Z80.9 Family history of malignant neoplasm, unspecified; Z83.3 Family history of diabetes mellitus; Z82.49 Family history of ischemic heart disease and other diseases of the circulatory system

== ENCOUNTER 2018-01-02 19:25 | Observation (INO) | payer OTHER ==
[~2018-01-02] VITALS: Ht 182.9 cm; Wt 103.0 kg
[~2018-01-02 19:25] MED LIST changes: -ASPI325T39 PO; -CARBSOL4 OPB; -CYAN500T13 PO; -DSY50 PO; +EMOL1CRE10 TOP; +FLM4 PO; +GABA-1220 PO; -GABA300C19 PO; +HYDCR1CL TOP; -HYT/2 PO; -INSU100I SC; +INSU100I2 SQ; -INSUINJ8 SC; +LVQ750 PO; +NF1094 PO; +NVLNI SQ; +NYST100033 TOP; +SIMV20TA2 PO; -SIMV40TA4 PO; +SLSS EXT; -SYMIN160 INH; -ULT/50 PO
[2018-01-02] MEDS ORDERED: SODIUM CHLORIDE 0.9% 1000ML 1,000 ML IV STA (19:43)
[2018-01-02 20:06] LABS: BASO % 0.5 %; BASO ABS # 0.03 K/uL (0-0.2); EOS % 2.8 %; EOS ABS # 0.16 K/uL (0-0.5); HEMATOCRIT 42.1 % (42-52); IG# 0.01 K/uL (0.00-0.02); LYMPH % 37.5 %; LYMPH ABS # 2.12 K/uL (1.2-3.4); MEAN CELL VOLUME 85.9 fL (80-100); MEAN CORPUSCULAR HEMOGLOBIN 28.6 pg (25-34); MEAN CORPUSCULAR HGB CONC 33.3 g/dl (32-36); MEAN PLATELET VOLUME 11.6 fL (7.4-10.4); MONO % 8.7 %; MONO ABS # 0.49 K/uL (0.11-0.59); NEUT % 50.3 %; NEUT ABS # 2.85 K/uL (1.4-6.5); PLATELET COUNT 161 K/uL (130-400); RED CELL DISTRIBUTION WIDTH CV 14.8 % (11.5-14.5); RED CELL DISTRIBUTION WIDTH SD 46.5 fL (36.4-46.3); WHITE BLOOD COUNT 5.66 K/uL (4.8-10.8)
--- NOTE | 2018-01-02 20:08 | DIAGNOSTIC IMAGING REPORT ---
CHEST ONE VIEW PORTABLE CLINICAL HISTORY: 87 years-old Male presenting with EVALUATE WEAKNESS. TECHNIQUE: Portable upright AP view of the chest was obtained. COMPARISON: 07/17/2017. FINDINGS: Median sternotomy wires unchanged. Atherosclerosis of the aortic arch. Cardiac silhouette moderately enlarged, unchanged. Pulmonary vascular prominence. Bronchial wall thickening. Prominent lung markings with a mid to basilar hazy opacity. Trace bilateral pleural effusions suggested. No large pneumothorax. IMPRESSION: 1. Cardiomegaly with findings suggestive of volume overload and congestive change/early pulmonary edema. Electronically signed by: Karthik Espinoza M.D. 01/02/2018 8:06 PM Dictated Date/Time: 01/02/2018 8:05 PM
[2018-01-02 20:24] LABS: PTT PATIENT 24.7 SECONDS (21.0-31.0)
[2018-01-02] MEDS ORDERED: ULT/50 PO (20:25)
[2018-01-02] MEDS ORDERED: CYAN500T13 PO (20:25)
[2018-01-02] MEDS ORDERED: ASPI325T39 PO (20:25)
[2018-01-02] MEDS ORDERED: CARBSOL4 OPB (20:25)
[2018-01-02 20:29] LABS: ALBUMIN 3.6 gm/dl (3.4-5.0); CALCIUM 9.1 mg/dl (8.5-10.1); CREATININE 1.08 mg/dl (0.60-1.40); POTASSIUM 3.4 mmol/L (3.5-5.1)
[2018-01-02 20:38] LABS: CKMB 2.9 ng/ml (0.5-3.6); TOTAL PROTEIN 8.2 gm/dl (6.4-8.2)
--- NOTE | 2018-01-02 20:46 | DIAGNOSTIC IMAGING REPORT ---
HEAD WITHOUT CONTRAST (CT) CLINICAL HISTORY: 87 years-old Male presenting with EVALUATE WEAKNESS, altered mental status. TECHNIQUE: Multidetector CT imaging of the head was performed without the use of intravenous contrast. IV contrast: None. A dose lowering technique was used consistent with the principles of ALARA (as low as reasonably achievable). COMPARISON: 07/15/2017. CT DOSE (mGy.cm): The estimated cumulative dose is 537.48 mGy.cm. FINDINGS: Equipment Validation Specialist topogram: Unremarkable. Proportional ventricular and sulcal prominence, likely age-related parenchymal volume loss. Periventricular and subcortical white matter hypoattenuation, nonspecific but likely indicative of chronic small vessel ischemic change. Old infarct noted in the left frontal region near the vertex. Old lacunar infarct in the left basal ganglia also noted. No mass effect or midline shift. No hemorrhage or acute territorial infarct. No extra-axial fluid collection. Paranasal sinuses and mastoid air cells clear. Calvarium intact. Bilateral shosh[place]-bannock lenses are absent. IMPRESSION: 1. No significant change compared to the prior study. No acute intracranial abnormality. Electronically signed by: Karthik Espinoza M.D. 01/02/2018 8:44 PM Dictated Date/Time: 01/02/2018 8:42 PM
[2018-01-02] MEDS ORDERED: POTASSIUM CHLORIDE 10 MEQ TABCR PO STA (22:07)
[2018-01-02] MEDS ORDERED: CYCL10TA6 PO (22:11)
[2018-01-02] MEDS ORDERED: GABA-1220 PO ×2 (22:11)
[2018-01-02] MEDS ORDERED: INSU100I SC (22:11)
[2018-01-02] MEDS ORDERED: OMEP20CA9 PO (22:25)
[2018-01-02] MEDS ORDERED: CARV6.252 PO (22:25)
[2018-01-02] MEDS ORDERED: CHOL2000 PO (22:25)
[2018-01-02] MEDS ORDERED: SIMV10TA5 PO (22:25)
[2018-01-02] MEDS ORDERED: CYAN100020 PO (22:25)
[2018-01-02] MEDS ORDERED: FINA5TAB PO (22:26)
[2018-01-02] MEDS ORDERED: ZIOPTAN OPR (22:42)
[2018-01-02] MEDS ORDERED: ACET-1311 PO (22:43)
[2018-01-02] MEDS ORDERED: CARVEDILOL 3.125 MG TAB ONE (23:06)
[2018-01-02] MEDS ORDERED: IV FLUIDS COMPLETED PRN (23:15)
[2018-01-02] MEDS ORDERED: ASPIRIN 81 MG ECTAB PO STA (23:21)
[2018-01-02] MEDS ORDERED: INSULIN ASPART 100 UNITS/ML 3 ML PEN SC ONE (23:21)
[2018-01-02] MEDS ORDERED: GLUCOSE 40% GEL 15 GM TUBE PO PRN (23:30)
[2018-01-02] MEDS ORDERED: GLUCOSE 10 TABS/TUBE PO PRN (23:30)
[2018-01-02] MEDS ORDERED: SIMVASTATIN 10 MG TAB PO SCH (23:30)
[2018-01-02] MEDS ORDERED: GLUCAGON FOR INJ 1 MG VIAL SQ PRN (23:30)
[2018-01-02] MEDS ORDERED: PROCHLORPERAZINE INJ 5 MG in SYRINGE 4 ML IV PRN (23:30)
[2018-01-02] MEDS ORDERED: DEXTROSE 50% 50 ML SYR IV PRN (23:30)
[2018-01-02] MEDS ORDERED: DOCUSATE SODIUM 100 MG CAP PO PRN (23:30)
[2018-01-02] MEDS ORDERED: ACETAMINOPHEN 325 MG TAB PO PRN (23:30)
[2018-01-02] MEDS ORDERED: NITROGLYCERIN 0.4 MG SL PER TAB CHARGE SL PRN (23:30)
[2018-01-02] MEDS ORDERED: CARVEDILOL 3.125 MG TAB PO STA (23:30)
[2018-01-02] MEDS ORDERED: TRAMADOL HCL 50 MG TAB PO PRN ×2 (23:30→23:45)
[2018-01-02] MEDS ORDERED: MAGNESIUM SULFATE 1GM / D5W 1 GM in PREMIXED IN D5W 100 ML IV STA (23:46)
[2018-01-02 23:50] VITALS: BP 218/115; PULSE 73; TEMP 36.9; O2SAT 92; BMI 31.0
[2018-01-02] MEDS ORDERED: NSS + 20MEQ KCL 1000ML 1,000 ML IV ONE (23:59)
[2018-01-03] VITALS (12 sets, daily range): BP systolic 128–203; BP diastolic 64–102; PULSE 63–96; TEMP 36.5–37.1; O2SAT 95–97; Ht 182.9 cm; Wt 103.0 kg
--- NOTE | 2018-01-03 02:43 | EMERGENCY ROOM VISIT NOTE ---
History Report prepared by Peter: Jaguar Penaloza Under the Supervision of: Dr. August Church M.D. First contact with patient: 19:31 Chief Complaint: ALTERED MENTAL STATUS Stated Complaint: ALTERED MENTAL STATUS History of Present Illness The patient is a 87 year old male who presents to the Emergency Room with complaints of resolved altered mental status that began 2.5 hours ago. The patient is accompanied by his who states that the patient was normal today until they both when grocery shopping. She reports he was in the car and started to become mentally altered. His states the patient did not know who she was or where he was. She states he kept repeating "Thank you Simone". His states the patient started to come back to normal in the ambulance on his way to the ED. The patient states he currently feels "a little off". The patient denies LOC, headache, fevers, chills, diaphoresis, visual changes, neck pain, chest pain, breathing difficulties, nausea, vomiting, abdominal pain, back pain, melena, hematochezia, urinary symptoms, numbness, weakness, lymphadenopathy, rash, or other complaints. His reports the patient has a history of UTI and C. Diff. Source of History: patient, spouse/significant other Onset: 2.5 hours ago Position: other (global) Quality: other (confused) Timing: resolved Review of Systems See HPI for pertinent positives and negatives. A total of ten systems were reviewed and were otherwise negative. Past Medical & Surgical Medical Problems: (1) Aortic stenosis (2) Benign prostatic hyperplasia (3) Cerebrovascular disease (4) Chronic respiratory failure (5) Coronary artery disease (6) Diabetes mellitus, type II (7) Diabetic foot ulcer (8) Diabetic peripheral neuropathy associated with type 2 diabetes mellitus (9) Diabetic retinopathy (10) Dyslipidemia (11) Foot deformity (12) Foot drop (13) History of diabetic ulcer of foot (14) Hyperhomocysteinemia (15) Hypertension (16) Hypertensive urgency (17) Loss of sensation Surgical Problems: (1) Status post cardiac catheterization (2) Status post cholecystectomy (3) Status post coronary artery bypass grafting Family History FH: cancer MOTHER FH: diabetes mellitus SISTER FH: heart disease FATHER Social History Smoking Status: Never Smoker Alcohol Use: occasionally Drug Use: none Marital Status: in relationship Occupation Status: retired Current/Historical Medications Scheduled Acetaminophen (Tylenol), 325 MG PO AMHS Carvedilol (Coreg), 6.25 MG PO BID Cholecalciferol (Vitamin D3), 2,000 INTER.UNIT PO DAILY Cyanocobalamin (Vitamin B12), 1,000 MCG PO DAILY Cyclobenzaprine Hcl (Flexeril), 10 MG PO HS Emollient (Eucerin Calming Daily David), 1 APPLN TOP DAILY Finasteride (Proscar), 5 MG PO DAILY Gabapentin (Neurontin), 400 MG PO TID Home O2 Therapy (Oxygen), 2 LITERS NA UD Insulin Human NPH (Novolin N), 50 UNITS SQ QAM Insulin Human NPH (Novolin N), 17 UNITS SQ QPM Insulin Lispro (Human) (Humalog), 1 DOSE SC UD Lutein (Lutein), 20 MG PO DAILY Nystatin (Topical) (Nystatin), 1 APPLN TOP UD Omeprazole (Prilosec), 20 MG PO DAILY Selenium Sulfide (Selsun), 1 APPLN EXT UD Simvastatin (Zocor), 10 MG PO Q2D Tamsulosin HCl (Tamsulosin HCl), 0.4 MG PO DAILY [Zioptan], 1 DROP OPR HS Scheduled PRN Docusate Sodium (Docusate Sodium), 100 MG PO DAILY PRN for Constipation Hydrocortisone 1% (Hydrocortisone 1%), 1 APPLN TOP TID PRN for Itching Nitroglycerin (Nitrostat), 0.4 MG UT UD PRN for Chest Pain Tramadol Hcl (Ultram), 50 MG PO Q6H PRN for Pain Allergies Coded Allergies: Iodinated Diagnostic Agents (Verified Allergy, Severe, Edema-face/lips/ tongue. Hives/Rash., 07/15/17) Reported by PT. Formaldehyde (Verified Allergy, Intermediate, Hives/Rash, 01/09/14) Reported by PT. Ciprofloxacin (Verified Allergy, Unknown, Hives, 07/15/17) Dipyridamole (Verified Allergy, Unknown, Hallucinations, 07/15/17) Lisinopril (Verified Allergy, Unknown, UNKNOWN, 07/15/17) Uncoded Allergies: yellow socks (Allergy, Intermediate, contact rash (formaldehyde used to preserve yellow color), 07/02/17) Physical Exam Vital Signs Date Time Temp Pulse Resp B/P (MAP) Pulse Ox O2 Delivery O2 Flow Rate FiO2 01/02/18 22:58 73 18 201/120 93 Room Air 01/02/18 21:08 71 18 178/81 92 Room Air 01/02/18 20:02 72 01/02/18 19:40 92 Room Air 01/02/18 19:36 37.2 70 18 175/85 92 Room Air Physical Exam GENERAL: Awake, alert, well appearing, no distress HENT: Normocephalic, atraumatic. TM's normal. Oropharynx unremarkable. EYES: PERRL. EOMI. Normal conjunctiva. Sclera non-icteric. NECK: Supple. No nuchal rigidity. FROM. No bruit. RESPIRATORY: Breath sounds equal. No wheezes. No rhonchi. Normal respiratory effort. CARDIAC: Normal rate. Regular rhythm. Systolic ejection murmur. No rubs. No JVD. GI: Soft, non distended. No tenderness to palpation. No rebound or guarding. No masses. RECTAL: Deferred. MUSCULOSKELETAL: Unremarkable. No edema. No discoloration. Gross motor strength symmetric. Dropped foot on the right. NEURO: Cranial nerves 2-12 grossly intact. Normal sensorium. No sensory or motor deficits noted. Speech normal. No pronator drift. Gait normal. Negative rhomberg. No drift. SKIN: No rash or jaundice noted. LYMPH: No adenopathy. Medical Decision & Procedures ER Provider Diagnostic Interpretation: Radiology results as stated below per my review and radiologist interpretation: HEAD WITHOUT CONTRAST (CT) CLINICAL HISTORY: 87 years-old Male presenting with EVALUATE WEAKNESS, altered mental status. TECHNIQUE: Multidetector CT imaging of the head was performed without the use of intravenous contrast. IV contrast: None. A dose lowering technique was used consistent with the principles of ALARA (as low as reasonably achievable). COMPARISON: 07/15/2017. CT DOSE (mGy.cm): The estimated cumulative dose is 537.48 mGy.cm. FINDINGS: Esthetician topogram: Unremarkable. Proportional ventricular and sulcal prominence, likely age-related parenchymal volume loss. Periventricular and subcortical white matter hypoattenuation, nonspecific but likely indicative of chronic small vessel ischemic change. Old infarct noted in the left frontal region near the vertex. Old lacunar infarct in the left basal ganglia also noted. No mass effect or midline shift. No hemorrhage or acute territorial infarct. No extra-axial fluid collection. Paranasal sinuses and mastoid air cells clear. Calvarium intact. Bilateral three affiliated lenses are absent. IMPRESSION: 1. No significant change compared to the prior study. No acute intracranial abnormality. Electronically signed by: Karthik Espinoza M.D. 01/02/2018 8:44 PM Dictated Date/Time: 01/02/2018 8:42 PM CHEST ONE VIEW PORTABLE CLINICAL HISTORY: 87 years-old Male presenting with EVALUATE WEAKNESS. TECHNIQUE: Portable upright AP view of the chest was obtained. COMPARISON: 07/17/2017. FINDINGS: Median sternotomy wires unchanged. Atherosclerosis of the aortic arch. Cardiac silhouette moderately enlarged, unchanged. Pulmonary vascular prominence. Bronchial wall thickening. Prominent lung markings with a mid to basilar hazy opacity. Trace bilateral pleural effusions suggested. No large pneumothorax. IMPRESSION: 1. Cardiomegaly with findings suggestive of volume overload and congestive change/early pulmonary edema. Electronically signed by: Karthik Espinoza M.D. 01/02/2018 8:06 PM Dictated Date/Time: 01/02/2018 8:05 PM Laboratory Results 01/02/18 19:05 Red Blood Count 4.90, Mean Corpuscular Volume 85.9, Mean Corpuscular Hemoglobin 28.6, Mean Corpuscular Hemoglobin Concent 33.3, Mean Platelet Volume 11.6, Neutrophils (%) (Auto) 50.3, Lymphocytes (%) (Auto) 37.5, Monocytes (%) (Auto) 8.7, Eosinophils (%) (Auto) 2.8, Basophils (%) (Auto) 0.5, Neutrophils # (Auto) 2.85, Lymphocytes # (Auto) 2.12, Monocytes # (Auto) 0.49, Eosinophils # (Auto) 0.16, Basophils # (Auto) 0.03 01/02/18 19:05 Test 01/02/18 19:05 White Blood Count 5.66 K/uL (4.8-10.8) Red Blood Count 4.90 M/uL (4.7-6.1) Hemoglobin 14.0 g/dL (14.0-18.0) Hematocrit 42.1 % (42-52) Mean Corpuscular Volume 85.9 fL (80-100) Mean Corpuscular Hemoglobin 28.6 pg (25-34) Mean Corpuscular Hemoglobin Concent 33.3 g/dl (32-36) Platelet Count 161 K/uL (130-400) Mean Platelet Volume 11.6 fL (7.4-10.4) Neutrophils (%) (Auto) 50.3 % Lymphocytes (%) (Auto) 37.5 % Monocytes (%) (Auto) 8.7 % Eosinophils (%) (Auto) 2.8 % Basophils (%) (Auto) 0.5 % Neutrophils # (Auto) 2.85 K/uL (1.4-6.5) Lymphocytes # (Auto) 2.12 K/uL (1.2-3.4) Monocytes # (Auto) 0.49 K/uL (0.11-0.59) Eosinophils # (Auto) 0.16 K/uL (0-0.5) Basophils # (Auto) 0.03 K/uL (0-0.2) RDW Standard Deviation 46.5 fL (36.4-46.3) RDW Coefficient of Variation 14.8 % (11.5-14.5) Immature Granulocyte % (Auto) 0.2 % Immature Granulocyte # (Auto) 0.01 K/uL (0.00-0.02) Prothrombin Time 10.7 SECONDS (9.0-12.0) Prothromb Time International Ratio 1.0 (0.9-1.1) Activated Partial Thromboplast Time 24.7 SECONDS (21.0-31.0) Partial Thromboplastin Ratio 1.0 Urine Color YELLOW Urine Appearance CLEAR (CLEAR) Urine pH 8.0 (4.5-7.5) Urine Specific [place] 1.014 (1.000-1.030) Urine Protein NEG (NEG) Urine Glucose (UA) 3+ (NEG) Urine Ketones NEG (NEG) Urine Occult Blood NEG (NEG) Urine Nitrite NEG (NEG) Urine Bilirubin NEG (NEG) Urine Urobilinogen NEG (NEG) Urine Leukocyte Esterase NEG (NEG) Anion Gap 5.0 mmol/L (3-11) Est Creatinine Clear Calc Drug Dose 58.2 ml/min Estimated GFR () 70.6 Estimated GFR (Non- 61.0 BUN/Creatinine Ratio 17.0 (10-20) Calcium Level 9.1 mg/dl (8.5-10.1) Magnesium Level 1.6 mg/dl (1.8-2.4) Total Bilirubin 0.7 mg/dl (0.2-1) Direct Bilirubin 0.2 mg/dl (0-0.2) Aspartate Amino Transf (AST/SGOT) 30 U/L (15-37) Alanine Aminotransferase (ALT/SGPT) 35 U/L (12-78) Alkaline Phosphatase 169 U/L (45-117) Total Creatine Kinase 118 U/L (39-308) Creatine Kinase MB 2.9 ng/ml (0.5-3.6) Creatine Kinase MB Ratio 2.5 (0-3.0) Troponin I 0.031 ng/ml (0-0.045) Pro-B-Type Natriuretic Peptide 1240 pg/ml (0-1800) Total Protein 8.2 gm/dl (6.4-8.2) Albumin 3.6 gm/dl (3.4-5.0) Lipase 46 U/L (73-393) Thyroid Stimulating Hormone (TSH) 2.380 uIu/ml (0.300-4.500) Laboratory results reviewed by me Medications Administered Medications (Trade) Dose Ordered Sig/Deloris Route Start Time Stop Time Status Last Admin Dose Admin Sodium Chloride 1,000 ml @ 125 mls/hr Q8H STAT IV 01/02/18 19:43 01/02/18 23:35 DC 01/02/18 19:53 125 MLS/HR Potassium Chloride (Klor-Con M10) 20 meq NOW STAT PO 01/02/18 22:07 01/02/18 22:10 DC 01/02/18 22:07 20 MEQ ECG Per My Interpretation Indication: altered mental status Rate (beats per minute): 70 Rhythm: normal sinus Findings: 1st degree AV block, LBBB (incomplete), left axis deviation, other ( Premature supraventricular complex) ED Course 1934: The patient was evaluated in room B05. A complete history and physical exam was performed. 1942: Ordered Sodium Chloride 1000 ml 125 mls/hr IV. 2204: I reevaluated the patient and he is doing well. I updated him on his results and treatment plan. He will be further evaluated. 2205: I discussed the patients case with Dr. Ayala, [facility] Hospitalist. He understands the patients condition and agrees to accept the patient. The patient will be further evaluated. Medical Decision Prior records/ancillary studies reviewed and summarized above. Nursing notes reviewed and agree them. Additional history obtained from family. The patient's history was concerning for altered mental status. Differential diagnosis: Etiologies such as infection, hypoglycemia, electrolyte abnormalities, cardiac sources, intracerebral event, toxicologic, neurologic, as well as others were entertained. Physical examination: As above. Nonfocal. Oriented. ER treatment provided: IV Lock Normal saline hydration at 125 mL an hour. On reassessment the patient felt well. Diagnostics interpretation by me: ECG: Sinus as above. The labs revealed an unremarkable CBC, chemistry panel, and urinalysis. Imaging studies: CT scan and chest x-ray as above. Consultation: A consultation was placed with the hospitalist. The case was discussed and diagnostics were reviewed. The patient was evaluated in the ER for further treatment. Medication Reconcilliation Current Medication List: was personally reviewed by me Blood Pressure Screening Patient's blood pressure: Elevated blood pressure Referred to Hospitalist Consults Time Called: 2203 [facility] Returned Call: 2205 I discussed the [facility] case with [facility] He understands the patients condition and agrees to accept the patient. The patient will be further evaluated. Impression Primary Impression: Altered mental status Scribe Attestation The scribe's documentation has been prepared under my direction and personally reviewed by me in its entirety. I confirm that the note above accurately reflects all work, treatment, procedures, and medical decision making performed by me. Departure Information Dispostion Being Evaluated By Hospitalist Referrals Shin Dela Cruz MD (PCP) Patient Instructions [facility]
[2018-01-03 06:22] LABS: BASO % 0.4 %; BASO ABS # 0.02 K/uL (0-0.2); EOS % 2.4 %; EOS ABS # 0.12 K/uL (0-0.5); HEMATOCRIT 37.9 % (42-52); HEMOGLOBIN 12.3 g/dL (14.0-18.0); IG# 0.01 K/uL (0.00-0.02); LYMPH % 41.9 %; LYMPH ABS # 2.07 K/uL (1.2-3.4); MEAN CELL VOLUME 85.2 fL (80-100); MEAN CORPUSCULAR HEMOGLOBIN 27.6 pg (25-34); MEAN CORPUSCULAR HGB CONC 32.5 g/dl (32-36); MEAN PLATELET VOLUME 11.2 fL (7.4-10.4); MONO % 9.9 %; MONO ABS # 0.49 K/uL (0.11-0.59); NEUT % 45.2 %; NEUT ABS # 2.23 K/uL (1.4-6.5); PLATELET COUNT 134 K/uL (130-400); RED CELL DISTRIBUTION WIDTH CV 14.9 % (11.5-14.5); RED CELL DISTRIBUTION WIDTH SD 46.2 fL (36.4-46.3); WHITE BLOOD COUNT 4.94 K/uL (4.8-10.8)
[2018-01-03 06:49] LABS: ALBUMIN 2.9 gm/dl (3.4-5.0); CALCIUM 8.4 mg/dl (8.5-10.1); CREATININE 1.05 mg/dl (0.60-1.40); POTASSIUM 3.8 mmol/L (3.5-5.1)
[2018-01-03 06:52] LABS: TOTAL PROTEIN 6.9 gm/dl (6.4-8.2)
[2018-01-03] MEDS ORDERED: INSULIN HUMAN NPH SQ SCH (08:00)
[2018-01-03] MEDS: FINASTERIDE 5 MG TAB PO SCH (08:17)
[2018-01-03] MEDS: TAMSULOSIN HCL 0.4 MG CAP PO SCH (08:17)
[2018-01-03] MEDS: GABAPENTIN 400 MG CAP PO SCH ×3 (08:17→21:39)
[2018-01-03] MEDS: PANTOprazole SOD 40 MG TAB PO SCH (08:18)
[2018-01-03] MEDS: CARVEDILOL 6.25 MG TAB PO SCH ×2 (08:18→21:39)
[2018-01-03] MEDS: ENOXAPARIN 40 MG/0.4 ML SYR SC SCH (08:19)
[2018-01-03] MEDS: INSULIN ASPART 100 UNITS/ML 3 ML PEN SC SCH ×4 (08:27→21:00)
--- NOTE | 2018-01-03 08:44 | HISTORY & PHYSICAL EXAMINATION ---
DATE OF ADMISSION: 01/02/2018 PRIMARY CARE DOCTOR: Dr. Dela Cruz. [facility] in [place] (Dr. Camilo Koch) CHIEF COMPLAINT: Altered mental status as per partner. History obtained from the patient, partner, and records. Limited history from patient due to marked hearing impairment. HISTORY OF PRESENT ILLNESS: Medical history is significant for recurrent CVA, CAD sp CABG, status post stenting, hx of aortic stenosis, chronic resp failure secondary to COPD, on home O2 at night and as needed, DM2, insulin requiring, chronic anemia (baseline hemoglobin of 11), past tobacco abuse. Recent confinement in last July 2017 for weakness, C. diff colitis, diabetic foot ulcer. Patient had just returned from [place] last week Patient was seen by [place] PCP prior to departure. Right toe wound noted. Wound care recommended. This afternoon, patient noted to be confused and was not acting normal as per partner. Patient just kept on saying "Thank you Simone, thank you Simone". No chest pain, no shortness of breath. Usual L facial asymmetry as per partner. Blood pressure high at home as per partner. Patient was brought to the Emergency Room. Received IV fluids. Current mentation at baseline. MEDICAL HISTORY: As above. Patient's aspirin stopped by [place] doctors as per "because of kidney issues" SURGERIES: He has had CABG, cholecystectomy, skin cancer surgery, cataract surgery, tracheostomy. HOME MEDICATIONS: Include Zosyn, Zocor, Ultram, Flomax, Novolin, Humalog, Lutein, Nitrostat, Nystatin, Prilosec, brinzolamide, Coreg, vitamin D3, B12, Flexeril, docusate sodium, Proscar, Neurontin, oxygen, Novolin N. ALLERGIES: ALLERGIC TO DIPYRIDAMOLE, AGGRENOX, FORMALDEHYDE, CIPROFLOXACIN, LISINOPRIL, DYE FAMILY HISTORY: Parkinson's. PERSONAL AND SOCIAL HISTORY: Past tobacco abuse. No EtOH intake, retired experimental outboard motors mechanic. Lives with his /partner. REVIEW OF SYSTEMS: Cannot be fully obtained. PHYSICAL EXAMINATION: VITAL SIGNS: Blood pressure was noted to be 201/120, pulse rate 70, RR 18, sats 90 on room air. GENERAL: Noted to be obese, hard of hearing, in no respiratory distress, oriented. SKIN: Normal color, warm. HEENT: Alopecia . Pale palpebral conjunctivae, no ptosis. L facial asymmetry noted on speech (chronic as per partner) NECK: Short neck, supple. CHEST: Decreased effort. No tenderness. HEART: Regular rate and rhythm, systolic murmur. ABDOMEN: Some distention, nontender. EXTREMITIES: No edema, no tenderness. Dressing on the right toe. NEUROLOGIC: Coherent, except for old facial asymmetry, hearing impairment, Equal MMTs, gait and stance not assessed. LABORATORY: Hemoglobin was noted to be 14, white blood cell count 5.6, platelets 161. Sodium noted to be 138, potassium 3.4, chloride noted to be 103, CO2 30, BUN 18, creatinine 1, glucose was noted to be 137. Normal BNP. Hemoglobin A1c from 05/2017 was 9.2. UA clear. IMAGING: CT head, no significant change, old infarct, left frontal. Chest x-ray, congestion. EKG as per my interpretation, rate 70, NSR, first-degree AVblock, PVCs, some ST depressions in the lateral leads, PRWP. ASSESSMENT: 1. Transient encephalopathy multifactorial : hypertensive urgency mild dehydration (hemoconcentration on CBC) Home medications (Flexeril, Gabapentin) possibly contributory. 2. Coronary artery disease status post CABG/stenting 3. history recurrent CVA (home ASA stopped as per patient partner by [place] doctors secondary to " kidney issues") 4. hx severe TTE 2016 5. DM2, on insulin suboptimal control as per recent inpatient hemoglobin A1c Occasional hypoglycemic episodes at home as per . 6. Chronic respiratory failure secondary to COPD on home O2. Pulmonary status at baseline. 7. Past tobacco abuse 8. Diabetic foot wound, R, no sepsis 9. Hypokalemia secondary to home insulin PLAN: Observation PCU. Facilitate antihypertensive meds and titrate as needed. Gentle IV hydration. Hold parameters for gabapentin, home Flexeril for sedation and confusion. Resume the patient's home ASA for secondary CAD, CVA prevention (Patient partner agreeable to baby ASA.) Retrieve recent outpatient visit records from patient PCP in [place]. Replace K PT, OT evaluation. Basal insulin. ISS BG goal 140; patient due for HgA1c recheck. Wound care nurse consult RE diabetic foot wound, R. DVT prophylaxis with Lovenox subQ. Full code. Patient's partner is requesting for updates from providers. Ms. Suad Mar at [phone]. [facility]
[2018-01-03] MEDS ORDERED: PHARMACY GLYCEMIC MGMT CONSULT PRN (09:11)
[2018-01-03 09:35] LABS: HEMOGLOBIN A1C 10.1 % (4.5-5.6)
--- NOTE | 2018-01-03 09:50 | Progress Note ---
Medicine Progress Note Date & Time of Visit: Jan 03, 2018 at 09:50. Subjective Seen resting in bed, comfortable, alert, oriented 2, answering all questions appropriately Patient significant other is at the bedside, states patient is at his baseline mental state now Patient recalls that he was very confused yesterday said they were driving back from groceries, she started to note the patient was confused and disoriented, to the point that he could not get out of the car when they got home Patient's confusion lasted for about an hour and a half He apparently started to improve while being observed in the ER No similar episodes in the past Patient regularly takes medications as supervised by his significant other Aspirin has been discontinued about 2 weeks ago by his physician in [place] due to concerns of renal dysfunction On my exam, patient is already alert and oriented Denies having any focal weakness or numbness Denies chest pain, shortness of breath, palpitations, dizziness No fevers or chills, abdominal pain, problems with urination Objective Last 8 Hrs Date Time Temp Pulse Resp B/P (MAP) Pulse Ox O2 Delivery O2 Flow Rate FiO2 01/03/18 07:09 36.6 63 20 148/77 (100) 97 Nasal Cannula 2.0 01/03/18 04:17 36.6 65 20 155/64 (94) 97 Nasal Cannula 2.0 01/03/18 04:00 Nasal Cannula 2.0 Physical Exam: General-oriented 3, not in distress, speaking in sentences, no accessory muscle use Head- atraumatic Eyes- PERRL, EOMI, anicteric ENT- oropharynx clear Neck- supple, no JVD, no adenopathy, no thyromegaly; carotids +2/2, no bruits appreciated Lungs- clear breath sounds bilaterally, no rales or wheezes Heart-normal rate, regular rhythm, grade 4 out of 6 holosystolic murmur Abdomen- normal bowel sounds, soft, nontender, nondistended Extremities- no pretibial edema, no calf tenderness; peripheral pulses intact Neuro- alert, oriented x 3; PERRL, EOMI; no facial palsy; no dysarthria; motor 5 /5 bilaterally; sensation 100% all extremities Skin- warm & dry Laboratory Results: Last 24 Hours Test 01/02/18 19:05 01/03/18 00:01 01/03/18 00:24 01/03/18 06:05 White Blood Count 5.66 K/uL 4.94 K/uL Red Blood Count 4.90 M/uL 4.45 M/uL Hemoglobin 14.0 g/dL 12.3 g/dL Hematocrit 42.1 % 37.9 % Mean Corpuscular Volume 85.9 fL 85.2 fL Mean Corpuscular Hemoglobin 28.6 pg 27.6 pg Mean Corpuscular Hemoglobin Concent 33.3 g/dl 32.5 g/dl Platelet Count 161 K/uL 134 K/uL Mean Platelet Volume 11.6 fL 11.2 fL Neutrophils (%) (Auto) 50.3 % 45.2 % Lymphocytes (%) (Auto) 37.5 % 41.9 % Monocytes (%) (Auto) 8.7 % 9.9 % Eosinophils (%) (Auto) 2.8 % 2.4 % Basophils (%) (Auto) 0.5 % 0.4 % Neutrophils # (Auto) 2.85 K/uL 2.23 K/uL Lymphocytes # (Auto) 2.12 K/uL 2.07 K/uL Monocytes # (Auto) 0.49 K/uL 0.49 K/uL Eosinophils # (Auto) 0.16 K/uL 0.12 K/uL Basophils # (Auto) 0.03 K/uL 0.02 K/uL RDW Standard Deviation 46.5 fL 46.2 fL RDW Coefficient of Variation 14.8 % 14.9 % Immature Granulocyte % (Auto) 0.2 % 0.2 % Immature Granulocyte # (Auto) 0.01 K/uL 0.01 K/uL Prothrombin Time 10.7 SECONDS Prothromb Time International Ratio 1.0 Activated Partial Thromboplast Time 24.7 SECONDS Partial Thromboplastin Ratio 1.0 Urine Color YELLOW Urine Appearance CLEAR Urine pH 8.0 Urine Specific [place] 1.014 Urine Protein NEG Urine Glucose (UA) 3+ Urine Ketones NEG Urine Occult Blood NEG Urine Nitrite NEG Urine Bilirubin NEG Urine Urobilinogen NEG Urine Leukocyte Esterase NEG Sodium Level 138 mmol/L 136 mmol/L Potassium Level 3.4 mmol/L 3.8 mmol/L Chloride Level 103 mmol/L 105 mmol/L Carbon Dioxide Level 30 mmol/L 27 mmol/L Anion Gap 5.0 mmol/L 4.0 mmol/L Blood Urea Nitrogen 18 mg/dl 15 mg/dl Creatinine 1.08 mg/dl 1.05 mg/dl Est Creatinine Clear Calc Drug Dose 58.2 ml/min 60.5 ml/min Estimated GFR () 70.6 73.1 Estimated GFR (Non- 61.0 63.1 BUN/Creatinine Ratio 17.0 14.4 Random Glucose 137 mg/dl 203 mg/dl Estimated Average Glucose 243 mg/dl Hemoglobin A1c 10.1 % Calcium Level 9.1 mg/dl 8.4 mg/dl Magnesium Level 1.6 mg/dl 1.8 mg/dl Total Bilirubin 0.7 mg/dl 0.5 mg/dl Direct Bilirubin 0.2 mg/dl 0.2 mg/dl Aspartate Amino Transf (AST/SGOT) 30 U/L 23 U/L Alanine Aminotransferase (ALT/SGPT) 35 U/L 27 U/L Alkaline Phosphatase 169 U/L 136 U/L Total Creatine Kinase 118 U/L Creatine Kinase MB 2.9 ng/ml Creatine Kinase MB Ratio 2.5 Troponin I 0.031 ng/ml Pro-B-Type Natriuretic Peptide 1240 pg/ml Total Protein 8.2 gm/dl 6.9 gm/dl Albumin 3.6 gm/dl 2.9 gm/dl Lipase 46 U/L Thyroid Stimulating Hormone (TSH) 2.380 uIu/ml Bedside Glucose 68 mg/dl 73 mg/dl Test 01/03/18 07:24 Bedside Glucose 175 mg/dl Date/Time Source Procedure Growth Status 01/02/18 19:05 Urine , Clean Catch Urine Culture Pending Received Assessment & Plan 87-year-old male with history of coronary artery disease status post CABG, diabetes, hypertension, CVA, severe aortic stenosis, presenting with an episode of altered mental status. TRANSIENT ENCEPHALOPATHY Rule out acute CVA versus TIA Apparently aspirin has been discontinued 2 weeks ago by his physician in [place] for concerns of renal dysfunction No other new medications has been added recently Blood pressure was elevated at the ER upon arrival, but the patient takes his medications regularly, and the blood pressure improved with no additional blood pressure medicines administered Symptoms concerning for possible TIA Brain MRI cannot be tolerated by the patient according to the Repeat CT head ordered Plavix added to aspirin Neurology consulted 2. Coronary artery disease status post CABG/stenting No cardiac symptoms 3. history recurrent CVA (home ASA stopped as per patient partner by [place] doctors secondary to " kidney issues") 4. hx severe TTE 2017 Denies presyncope/syncope 5. DM2, on insulin Pharmacy glycemic control 6. Chronic respiratory failure secondary to COPD on home O2. Pulmonary status at baseline. 7. Past tobacco abuse 8. Diabetic foot wound, R, no sepsis DVT prophylaxis with Lovenox subQ. Disposition Pending PT OT ordered Usually lives with significant other at home Current Inpatient Medications: Current Inpatient Medications Medications (Trade) Dose Ordered Sig/Deloris Route Start Time Stop Time Status Last Admin Dose Admin Carvedilol (Coreg Tab) 6.25 mg BID PO 01/03/18 09:00 02/02/18 08:59 01/03/18 08:18 6.25 MG Miscellaneous (Iv Fluids Completed) 1 ea PRN PRN N/A 01/02/18 23:15 01/02/19 23:14 Potassium Chloride/Sodium Chloride 1,000 ml @ 60 mls/hr [id number] ONCE IV 01/02/18 23:59 01/03/18 16:38 01/03/18 00:29 60 MLS/HR Enoxaparin Sodium (Lovenox Inj) 40 mg Q24H SC 01/03/18 09:00 02/02/18 08:59 01/03/18 08:19 40 MG Acetaminophen (Tylenol Tab) 650 mg Q4H PRN PO 01/02/18 23:30 02/01/18 23:29 Nitroglycerin (Nitrostat Tab) 0.4 mg UD PRN SL 01/02/18 23:30 02/01/18 23:29 Insulin Aspart (novoLOG ASPART) SLIDING SCALE If C... ACHS SC 01/03/18 06:30 02/02/18 06:59 01/03/18 08:27 2 UNITS Glucose (Glucose 40% Gel) 15-30 GRAMS 15 GRAMS... UD PRN PO 01/02/18 23:30 02/01/18 23:29 Glucose (Glucose Chew Tab) 4-8 Tablets 4 Tabl... UD PRN PO 01/02/18 23:30 02/01/18 23:29 Dextrose (Dextrose 50% 50ML Syringe) 25-50ML OF 50% DW IV FOR... UD PRN IV 01/02/18 23:30 02/01/18 23:29 Glucagon (Glucagon Inj) 1 mg UD PRN SQ 01/02/18 23:30 02/01/18 23:29 Prochlorperazine Edisylate 5 mg/ Syringe 5 ml @ 5 mls/min Q6H PRN IV 01/02/18 23:30 02/01/18 23:29 Docusate Sodium (coLACE CAP) 100 mg DAILY PRN PO 01/02/18 23:30 02/01/18 23:29 Finasteride (Proscar Tab) 5 mg DAILY PO 01/03/18 09:00 02/02/18 08:59 01/03/18 08:17 5 MG Gabapentin (Neurontin Cap) 400 mg TID PO 01/03/18 09:00 02/02/18 08:59 01/03/18 08:17 400 MG Simvastatin (Zocor Tab) 10 mg Q2D@2100 PO 01/02/18 23:30 02/01/18 23:29 01/03/18 00:42 10 MG Tamsulosin HCl (Flomax Cap) 0.4 mg DAILY PO 01/03/18 09:00 02/02/18 08:59 01/03/18 08:17 0.4 MG Pantoprazole Sodium (Protonix Tab) 40 mg QAM PO 01/03/18 09:00 02/02/18 08:59 01/03/18 08:18 40 MG Miscellaneous Information (Order Awaiting Action) 1 ea QS N/A 01/03/18 08:00 02/02/18 07:59 Aspirin (Ecotrin Tab) 81 mg QAM PO 01/04/18 09:00 02/03/18 08:59 Tramadol HCl (Ultram Tab) not relieved by tylenol @ Q6H PRN PO 01/02/18 23:45 02/01/18 23:29 Insulin Human NPH (novoLIN-N NPH) 5 units BIDM SQ 01/03/18 08:00 02/02/18 07:59 01/03/18 08:28 5 UNITS Miscellaneous Information (Consult Glycemic Management Pharmacy) 1 ea UD PRN N/A 01/03/18 09:11 02/02/18 09:10
[2018-01-03] MEDS ORDERED: INSULIN HUMAN NPH SQ ONE ×2 (10:00→17:00)
--- NOTE | 2018-01-03 10:16 | Pharmacy Progress Note ---
Glycemic Control Intl Consult Date of Service Jan 03, 2018. Scope Glycemic Pharmacist consulted by Dr Wells on 01/03 for glycemic control and to write orders per [facility] inpatient glycemic control protocol Objective Weight (Kilograms): 103.600 Accuchecks BSG (last 24hrs): Test 01/02/18 19:05 01/03/18 00:01 01/03/18 00:24 01/03/18 06:05 Random Glucose 137 mg/dl (70-99) 203 mg/dl (70-99) Bedside Glucose 68 mg/dl (70-99) 73 mg/dl (70-99) Test 01/03/18 07:24 Bedside Glucose 175 mg/dl (70-99) Laboratory Data (last 24hrs) Test 01/02/18 19:05 01/03/18 06:05 Anion Gap 5.0 mmol/L 4.0 mmol/L BUN/Creatinine Ratio 17.0 14.4 Blood Urea Nitrogen 18 mg/dl 15 mg/dl Creatinine 1.08 mg/dl 1.05 mg/dl Hemoglobin A1c 10.1 % Potassium Level 3.4 mmol/L 3.8 mmol/L Sodium Level 138 mmol/L 136 mmol/L White Blood Count 5.66 K/uL 4.94 K/uL Red Blood Count 4.90 M/uL 4.45 M/uL Hemoglobin 14.0 g/dL 12.3 g/dL Hematocrit 42.1 % 37.9 % Mean Corpuscular Volume 85.9 fL 85.2 fL Mean Corpuscular Hemoglobin 28.6 pg 27.6 pg Mean Corpuscular Hemoglobin Concent 33.3 g/dl 32.5 g/dl Platelet Count 161 K/uL 134 K/uL Mean Platelet Volume 11.6 fL 11.2 fL Neutrophils (%) (Auto) 50.3 % 45.2 % Lymphocytes (%) (Auto) 37.5 % 41.9 % Monocytes (%) (Auto) 8.7 % 9.9 % Eosinophils (%) (Auto) 2.8 % 2.4 % Basophils (%) (Auto) 0.5 % 0.4 % Neutrophils # (Auto) 2.85 K/uL 2.23 K/uL Lymphocytes # (Auto) 2.12 K/uL 2.07 K/uL Monocytes # (Auto) 0.49 K/uL 0.49 K/uL Eosinophils # (Auto) 0.16 K/uL 0.12 K/uL Basophils # (Auto) 0.03 K/uL 0.02 K/uL HbA1c Test 01/02/18 19:05 Hemoglobin A1c 10.1 % (4.5-5.6) H Recent Pertinent Medications Outpatient Anti-diabetic Regimen: * NPH 50 units qAM, 17 units QPM, Humalog Sliding Scale * A1c = 10.1 % 01/02/18 The patient is currently receiving: * Basal insulin: NPH 5 units BID * Correctional Insulin: Novolog Correction per scale ACHS Goal Range: Low 140 mg/dL - High 180 mg/dL Correction Factor: 25 mg/dL/unit * Prandial insulin: Per carb ratio of 1 unit per 15 grams CHO consumed Risk Factors for Insulin Resistance: * Diet: T2DM, AHA Assessment & Plan ASSESSMENT: * 87 yo male with type 2 diabetes admitted for altered mental status * Past medical history for CVA, CAD post stenting, CABG, COPD w/ home O2, diabetic foot ulcer * Hypoglycemic episode overnight resolved PLAN FOR INPATIENT GLYCEMIC CONTROL: * Increasing NPH to 35 units this AM, 15 units with dinner * Changing correction factor to 20 mg/dl/unit * Changing carb ratio to 1 unit per 7 grams CHO consumed * Continuing goal range to Low 140 mg/dL - High 180 mg/dL * Please note that the plan above was derived based on current level of insulin resistance and hospital stress. These recommendations are appropriate for inpatient admission only. Plan of care upon discharge will need to be reassessed to avoid potential outpatient hypo/hyperglycemia. Thank you.
--- NOTE | 2018-01-03 10:48 | DIAGNOSTIC IMAGING REPORT ---
HEAD WITHOUT CONTRAST (CT) CT DOSE: 614.27 mGy.cm HISTORY: Stroke r/o cva TECHNIQUE: Multiaxial CT images of the head were performed without the use of intravenous contrast. A dose lowering technique was utilized adhering to the principles of ALARA. Comparison: 01/02/2018 Findings: The paranasal sinuses and mastoid air cells are clear. The calvarium and skull base are intact. The ventricles and sulci are within normal limits. There is no mass, hematoma, midline shift, or acute infarct. Findings of considerable chronic small vessel change. Several scattered old regions of infarction. Moderate chronic small vessel change. No evidence for acute intracranial hemorrhage. Impression: No acute intracranial abnormality. Chronic ischemic and small vessel change. No change from the prior study. The above report was generated using voice recognition software. It may contain grammatical, syntax or spelling errors. Electronically signed by: Elías Basilio M.D. 01/03/2018 10:46 AM Dictated Date/Time: 01/03/2018 10:44 AM
--- NOTE | 2018-01-03 15:05 | Neurology Consultation ---
Neurology Consultation Date of Consultation: Jan 03, 2018. Attending Physician: Oumar Wells MD Primary Care Physician: Shin Dela Cruz MD Reason for Consultation: episode of confusion, r/o TIA History of Present Illness Source: patient, family, spouse Bairon is a 87 year old male with PMH recurrent CVA with, secondary CAD, status post stenting, chronic resp failure secondary to COPD, on home O2 at night and as needed, diabetes type, insulin requiring, chronic anemia, baseline hemoglobin of 11, past tobacco abuse, previous CAD, status post CABG and legally blind. He had an admission 07/2017 for weakness, C. diff colitis, diabetic foot ulcer. His states they returned from [place] last week, . He was not acting normal 01/02 very confused. She states he was saying " Thank you Simone, thank you Simone". She brought him to the ED and received fluid. Past Medical/Surgical History Medical Problems: (1) Altered mental status Status: Acute (2) Failure of outpatient treatment Status: Acute (3) Falling Status: Acute (4) Generalized weakness Status: Acute (5) Hypomagnesemia Status: Acute (6) Weakness Status: Acute Family History Father: heart disease Mother: cancer Sibling(s): diabetes, pertinent history of Social History Smoking Status: Never smoker Drug Use: none Marital Status: in relationship Occupation Status: retired Allergies Coded Allergies: Iodinated Diagnostic Agents (Verified Allergy, Severe, Edema-face/lips/ tongue. Hives/Rash., 07/15/17) Reported by PT. Formaldehyde (Verified Allergy, Intermediate, Hives/Rash, 01/09/14) Reported by PT. Ciprofloxacin (Verified Allergy, Unknown, Hives, 07/15/17) Dipyridamole (Verified Allergy, Unknown, Hallucinations, 07/15/17) Lisinopril (Verified Allergy, Unknown, UNKNOWN, 07/15/17) Uncoded Allergies: yellow socks (Allergy, Intermediate, contact rash (formaldehyde used to preserve yellow color), 07/02/17) Current Inpatient Medications Current Inpatient Medications Medications (Trade) Dose Ordered Sig/Deloris Route Start Time Stop Time Status Last Admin Dose Admin Carvedilol (Coreg Tab) 6.25 mg BID PO 01/03/18 09:00 02/02/18 08:59 01/03/18 08:18 6.25 MG Miscellaneous (Iv Fluids Completed) 1 ea PRN PRN N/A 01/02/18 23:15 01/02/19 23:14 Potassium Chloride/Sodium Chloride 1,000 ml @ 60 mls/hr [id number] ONCE IV 01/02/18 23:59 01/03/18 16:38 01/03/18 00:29 60 MLS/HR Enoxaparin Sodium (Lovenox Inj) 40 mg Q24H SC 01/03/18 09:00 02/02/18 08:59 01/03/18 08:19 40 MG Acetaminophen (Tylenol Tab) 650 mg Q4H PRN PO 01/02/18 23:30 02/01/18 23:29 Nitroglycerin (Nitrostat Tab) 0.4 mg UD PRN SL 01/02/18 23:30 02/01/18 23:29 Insulin Aspart (novoLOG ASPART) SLIDING SCALE If C... ACHS SC 01/03/18 06:30 02/02/18 06:59 01/03/18 13:18 6 UNITS Glucose (Glucose 40% Gel) 15-30 GRAMS 15 GRAMS... UD PRN PO 01/02/18 23:30 02/01/18 23:29 Glucose (Glucose Chew Tab) 4-8 Tablets 4 Tabl... UD PRN PO 01/02/18 23:30 02/01/18 23:29 Dextrose (Dextrose 50% 50ML Syringe) 25-50ML OF 50% DW IV FOR... UD PRN IV 01/02/18 23:30 02/01/18 23:29 Glucagon (Glucagon Inj) 1 mg UD PRN SQ 01/02/18 23:30 02/01/18 23:29 Prochlorperazine Edisylate 5 mg/ Syringe 5 ml @ 5 mls/min Q6H PRN IV 01/02/18 23:30 02/01/18 23:29 Docusate Sodium (coLACE CAP) 100 mg DAILY PRN PO 01/02/18 23:30 02/01/18 23:29 Finasteride (Proscar Tab) 5 mg DAILY PO 01/03/18 09:00 02/02/18 08:59 01/03/18 08:17 5 MG Gabapentin (Neurontin Cap) 400 mg TID PO 01/03/18 09:00 02/02/18 08:59 01/03/18 08:17 400 MG Simvastatin (Zocor Tab) 10 mg Q2D@2100 PO 01/02/18 23:30 02/01/18 23:29 01/03/18 00:42 10 MG Tamsulosin HCl (Flomax Cap) 0.4 mg DAILY PO 01/03/18 09:00 02/02/18 08:59 01/03/18 08:17 0.4 MG Pantoprazole Sodium (Protonix Tab) 40 mg QAM PO 01/03/18 09:00 02/02/18 08:59 01/03/18 08:18 40 MG Miscellaneous Information (Order Awaiting Action) 1 ea QS N/A 01/03/18 08:00 02/02/18 07:59 Aspirin (Ecotrin Tab) 81 mg QAM PO 01/04/18 09:00 02/03/18 08:59 Tramadol HCl (Ultram Tab) not relieved by tylenol @ Q6H PRN PO 01/02/18 23:45 02/01/18 23:29 Miscellaneous Information (Consult Glycemic Management Pharmacy) 1 ea UD PRN N/A 01/03/18 09:11 02/02/18 09:10 Insulin Human NPH (novoLIN-N NPH) 15 units QDD ONCE SQ 01/03/18 17:00 01/03/18 17:01 Physical Exam Vital Signs (Past 24 Hrs): Date Time Temp Pulse Resp B/P (MAP) Pulse Ox O2 Delivery O2 Flow Rate FiO2 01/03/18 12:00 95 Nasal Cannula 2.0 01/03/18 11:44 37.1 70 20 177/91 (119) 95 01/03/18 08:00 97 Nasal Cannula 2.0 01/03/18 07:09 36.6 63 20 148/77 (100) 97 Nasal Cannula 2.0 01/03/18 04:17 36.6 65 20 155/64 (94) 97 Nasal Cannula 2.0 01/03/18 04:00 Nasal Cannula 2.0 01/03/18 01:15 68 156/75 (102) 01/03/18 00:15 203/102 (135) 01/02/18 23:50 36.9 73 20 218/115 92 Room Air 01/02/18 23:20 195/115 01/02/18 22:58 73 18 201/120 93 Room Air 01/02/18 21:08 71 18 178/81 92 Room Air 01/02/18 20:02 72 01/02/18 19:40 92 Room Air 01/02/18 19:36 37.2 70 18 175/85 92 Room Air Physical Exam: Constitutional: appearance ill appearing Ears, Nose, Mouth and Throat: staring gauze decreased blink Cardiovascular: normal S-1 and S-2 and regular rate and rhythm Respiratory: clear to auscultation (CTA) and no rales, rhonchi or wheeze Musculoskeletal: no peripheral edema and good distal pulses Skin: no stigmata of neurocutaneous disease noted and normal and intact Eyes: extraocular muscles intact (EOMI) and pupils equal, round and reactive to light (PERRL) NEUROLOGIC EXAMINATION: Mental status: Alert and interactive Oriented to full date and location Oriented to person Speech fluent with no evidence of aphasia Cranial Nerves smile eye brow raise, symmetric Reflexes: Deep tendon reflexes were symmetrical and graded 2/5 UE, decreased LE plantar absent Sensory: decreased sensation from knees to toes, cool touch, vibration. GT proprioception absent Coordination: unable to finger to nose due to vision Gait/Stance: Posture standing bedside and helped by DIGITAL FIELD SERVICE TECHNICIAN to get into bed max assist Motor: Negative for pronator drift of out stretched arms with eyes closed. Strength: biceps triceps hand director [employer] on aging bilaterally 5/5, hip flex 5/5 bilaterally R plantar ext absent, left intact Laboratory Results Past 24 Hours: 01/03/18 06:05 Red Blood Count 4.45, Mean Corpuscular Volume 85.2, Mean Corpuscular Hemoglobin 27.6, Mean Corpuscular Hemoglobin Concent 32.5, Mean Platelet Volume 11.2, Neutrophils (%) (Auto) 45.2, Lymphocytes (%) (Auto) 41.9, Monocytes (%) (Auto) 9.9, Eosinophils (%) (Auto) 2.4, Basophils (%) (Auto) 0.4, Neutrophils # (Auto) 2.23, Lymphocytes # (Auto) 2.07, Monocytes # (Auto) 0.49, Eosinophils # (Auto) 0.12, Basophils # (Auto) 0.02 01/03/18 06:05 Test 01/02/18 19:05 01/03/18 06:05 01/03/18 11:12 Prothrombin Time 10.7 SECONDS (9.0-12.0) Prothromb Time International Ratio 1.0 (0.9-1.1) Activated Partial Thromboplast Time 24.7 SECONDS (21.0-31.0) Partial Thromboplastin Ratio 1.0 Urine Color YELLOW Urine Appearance CLEAR (CLEAR) Urine pH 8.0 (4.5-7.5) Urine Specific [place] 1.014 (1.000-1.030) Urine Protein NEG (NEG) Urine Glucose (UA) 3+ (NEG) Urine Ketones NEG (NEG) Urine Occult Blood NEG (NEG) Urine Nitrite NEG (NEG) Urine Bilirubin NEG (NEG) Urine Urobilinogen NEG (NEG) Urine Leukocyte Esterase NEG (NEG) Estimated Average Glucose 243 mg/dl Hemoglobin A1c 10.1 % (4.5-5.6) Total Creatine Kinase 118 U/L (39-308) Creatine Kinase MB 2.9 ng/ml (0.5-3.6) Creatine Kinase MB Ratio 2.5 (0-3.0) Troponin I 0.031 ng/ml (0-0.045) Pro-B-Type Natriuretic Peptide 1240 pg/ml (0-1800) Lipase 46 U/L (73-393) Thyroid Stimulating Hormone (TSH) 2.380 uIu/ml (0.300-4.500) White Blood Count 4.94 K/uL (4.8-10.8) Red Blood Count 4.45 M/uL (4.7-6.1) Hemoglobin 12.3 g/dL (14.0-18.0) Hematocrit 37.9 % (42-52) Mean Corpuscular Volume 85.2 fL (80-100) Mean Corpuscular Hemoglobin 27.6 pg (25-34) Mean Corpuscular Hemoglobin Concent 32.5 g/dl (32-36) Platelet Count 134 K/uL (130-400) Mean Platelet Volume 11.2 fL (7.4-10.4) Neutrophils (%) (Auto) 45.2 % Lymphocytes (%) (Auto) 41.9 % Monocytes (%) (Auto) 9.9 % Eosinophils (%) (Auto) 2.4 % Basophils (%) (Auto) 0.4 % Neutrophils # (Auto) 2.23 K/uL (1.4-6.5) Lymphocytes # (Auto) 2.07 K/uL (1.2-3.4) Monocytes # (Auto) 0.49 K/uL (0.11-0.59) Eosinophils # (Auto) 0.12 K/uL (0-0.5) Basophils # (Auto) 0.02 K/uL (0-0.2) RDW Standard Deviation 46.2 fL (36.4-46.3) RDW Coefficient of Variation 14.9 % (11.5-14.5) Immature Granulocyte % (Auto) 0.2 % Immature Granulocyte # (Auto) 0.01 K/uL (0.00-0.02) Anion Gap 4.0 mmol/L (3-11) Est Creatinine Clear Calc Drug Dose 60.5 ml/min Estimated GFR () 73.1 Estimated GFR (Non- 63.1 BUN/Creatinine Ratio 14.4 (10-20) Calcium Level 8.4 mg/dl (8.5-10.1) Magnesium Level 1.8 mg/dl (1.8-2.4) Total Bilirubin 0.5 mg/dl (0.2-1) Direct Bilirubin 0.2 mg/dl (0-0.2) Aspartate Amino Transf (AST/SGOT) 23 U/L (15-37) Alanine Aminotransferase (ALT/SGPT) 27 U/L (12-78) Alkaline Phosphatase 136 U/L (45-117) Total Protein 6.9 gm/dl (6.4-8.2) Albumin 2.9 gm/dl (3.4-5.0) Bedside Glucose 196 mg/dl (70-99) Imaging CT head- 01/02- Proportional ventricular and sulcal prominence, likely age- related parenchymal volume loss. Periventricular and subcortical white matter hypoattenuation, nonspecific but likely indicative of chronic small vessel ischemic change. Old infarct noted in the left frontal region near the vertex. Old lacunar infarct in the left basal ganglia also noted. No mass effect or midline shift. No hemorrhage or acute territorial infarct. No extra-axial fluid collection. Paranasal sinuses and mastoid air cells clear. Calvarium intact. Bilateral lower brule lenses are absent. CXR- . Cardiomegaly with findings suggestive of volume overload and congestive change/early pulmonary edema. CT head -01/01- No acute intracranial abnormality. Chronic ischemic and small vessel change. No change from the prior study Impression 87 year old acute confusion, chronic gait issues, legally blind Plan 1. CT head with no new acute findings- MRI refused 2. cardiology - strong history of aortic stenosis Dr Ward who follows patient feels there is not further intervention needed at this time- if primary team feels he would benefit from carotid doppler will defer 3. patient and feels he is back to his baseline 4. chronic foot ulcer - wound care is managing 5. may have been dehydrated fluid resuscitation helped with MS 6. no one sided weakness, slurred speech new facial droop report by patient 7. folate, B12, RPR, for reversible causes of confusion TSH within normal limits. 8. PT/OT for any discharge needs 9. EEG - ordered further recommendations to follow I have seen and discussed above patient with Dr Ligia Coley, neurology Pt with hx of prior stroke, sudden confusion, dysarthria, difficulty understanding what is being said. No headache or sz activity. Asa was dced 2 weeks ago. Exam is surprisingly nonfocal given his significant vasc disease on CT. Pt declines MRI and would not be a candidate for carotid surgery given significant heart disease, therefore will not order carotid. Rec EEG, resume asa. ELENA Coley MD
[2018-01-04] VITALS (8 sets, daily range): BP systolic 119–163; BP diastolic 74–82; PULSE 62–76; TEMP 36.3–37; O2SAT 93–99
[2018-01-04] MEDS ORDERED: INSULIN HUMAN NPH SQ SCH ×2 (08:00→17:00)
[2018-01-04] MEDS: GABAPENTIN 400 MG CAP PO SCH ×2 (08:26→14:00)
[2018-01-04] MEDS: TAMSULOSIN HCL 0.4 MG CAP PO SCH (08:26)
[2018-01-04] MEDS: ENOXAPARIN 40 MG/0.4 ML SYR SC SCH (08:26)
[2018-01-04] MEDS: PANTOprazole SOD 40 MG TAB PO SCH (08:26)
[2018-01-04] MEDS: FINASTERIDE 5 MG TAB PO SCH (08:27)
[2018-01-04] MEDS: CARVEDILOL 6.25 MG TAB PO SCH (08:27)
[2018-01-04] MEDS: INSULIN ASPART 100 UNITS/ML 3 ML PEN SC SCH ×2 (08:31→12:57)
[2018-01-04] MEDS ORDERED: ASPIRIN 81 MG ECTAB PO SCH (09:00)
--- NOTE | 2018-01-04 10:54 | Pharmacy Progress Note ---
Pharmacy Glycemic Short Note 2 Date of Service Jan 04, 2018. Outpatient Anti-diabetic Regimen: * NPH 50 units qAM, 17 units QPM * Humalog Sliding Scale * A1c = 10.1% (01/02/18) ASSESSMENT: 01/04/18: * Fasting BSG looked good this morning, but is elevated pre-lunch. * Will adjust Novolog parameters to provide additional prandial coverage. * Patient is currently receiving slightly less NPH than his home dose. Will continue to adjust if needed. 01/03/18 * 87 yo male with type 2 diabetes admitted for altered mental status * Past medical history for CVA, CAD post stenting, CABG, COPD w/ home O2, diabetic foot ulcer * Hypoglycemic episode overnight resolved PLAN FOR INPATIENT GLYCEMIC CONTROL: * Basal insulin * NPH 45 units SQ qAM, 15 units SQ qPM * Bolus insulin * NovoLog per scale ACHS or Q6hrs while NPO * Goal Range: Low 120 mg/dL - High 160 mg/dL * Correction Factor: 15 mg/dL/unit * Nutritional / Prandial insulin per carb ratio of 1 unit per 5 grams CHO consumed PLAN FOR DISCHARGE: * Current A1c (10.1%) indicates sub-optimal glycemic control. * Target A1c for this 87yo patient with multiple comorbidities would likely be closer to ~8.5%. * Consider adjusting insulin regimen on discharge to decrease hyperglycemia. * as long as patient does not report having episodes of hypoglycemia at home * Recommend f/u with PCP/ferry hand JEREMIAH after discharge to work toward optimizing A1c. * Please note that the plan above was derived based on current level of insulin resistance and hospital stress. These recommendations are appropriate for inpatient admission only. Plan of care upon discharge will need to be reassessed to avoid potential outpatient hypo/hyperglycemia. Thank you.
--- NOTE | 2018-01-04 15:02 | Neurology Progress Notes ---
Neurology Progress Note Date of Service Jan 04, 2018. Sonya Waddell is a 87 year old male with PMH recurrent CVA with, secondary CAD, status post stenting, chronic resp failure secondary to COPD, on home O2 at night and as needed, diabetes type, insulin requiring, chronic anemia, baseline hemoglobin of 11, past tobacco abuse, previous CAD, status post CABG and legally blind. He had an admission 07/2017 for weakness, C. diff colitis, diabetic foot ulcer. His states they returned from [place] last week, . He was not acting normal 01/02 very confused. She states he was saying " Thank you Simone, thank you Simone". She brought him to the ED and received fluid. Today he is sleeping and his partner who is bedside states he is at his baseline. no new complaints no other episodes of confusion Objective Date Time Temp Pulse Resp B/P (MAP) Pulse Ox O2 Delivery O2 Flow Rate FiO2 01/04/18 14:56 36.3 76 18 125/75 (92) 94 Room Air 01/04/18 12:00 93 2.0 01/04/18 11:43 37.0 72 18 119/77 (91) 99 2.0 01/04/18 08:00 93 Room Air 2.0 01/04/18 07:38 36.3 62 18 162/82 (108) 93 Room Air 01/04/18 04:20 36.5 62 20 163/74 (103) 98 Nasal Cannula 2.0 01/04/18 04:00 Nasal Cannula 2.0 01/04/18 00:00 97 Nasal Cannula 2.0 01/03/18 23:33 36.5 68 20 152/84 (106) 97 2.0 01/03/18 20:00 97 Nasal Cannula 2.0 01/03/18 19:28 36.8 96 19 128/80 (96) 97 Nasal Cannula 2.0 01/03/18 16:00 97 Nasal Cannula 2.0 01/03/18 15:17 36.8 70 20 136/84 (101) 96 Nasal Cannula 2.0 Last 24 Hours Test 01/03/18 16:11 01/03/18 21:14 01/04/18 06:28 01/04/18 07:27 Bedside Glucose 194 mg/dl 145 mg/dl 108 mg/dl Vitamin B12 Level 927 pg/mL Folate 21.27 ng/mL Test 01/04/18 11:43 Bedside Glucose 271 mg/dl EEG-global slowing with no epileptic focus Exam: gen: sleeping normal respiratory effort CV RRR Impression / Plan 87 year old acute confusion, chronic gait issues, legally blind 1. CT head with no new acute findings- MRI refused 2. cardiology - strong history of aortic stenosis Dr Ward who follows patient feels there is not further intervention needed at this time- if primary team feels he would benefit from carotid doppler will defer 3. patient and feels he is back to his baseline 4. chronic foot ulcer - wound care is managing 5. may have been dehydrated fluid resuscitation helped with MS 6. no one sided weakness, slurred speech new facial droop report by patient 7. folate, B12, RPR, for reversible causes of confusion TSH within normal limits. 8. PT/OT for any discharge needs 9. EEG - no focal seizures will sign off for now will be available for further in put as needed. will see in our office as needed. I have seen and discussed above patient with Dr August Arriaga, neurology Above reviewed patient seen and history reviewed eeg normal but event could have been a partial seizure with ictal confusion At this time however he is back to his baseline state and will in all likelihood be discharged so neurology does not need a follow up unless the event recurs and in that case a oysterman 72 hour eeg would be needed We can see as needed August Arriaga MD
[2018-01-04] MEDS ORDERED: ASPI-320 PO (15:59)
--- NOTE | 2018-01-04 16:09 | Discharge Instructions ---
Discharge Instructions Date of Service Jan 04, 2018. Admission Reason for Admission: Hypertensive Urgency Discharge Discharge Diagnosis / Problem: EPISODE OF ALTERED MENTAL STATUS Discharge Goals Goal(s): Diagnostic testing, Therapeutic intervention Activity Recommendations Activity Limitations: as noted below (NO HEAVY EXERTION UNTIL RE-EVALUATED BY PRIMARY CARE PHYSICIAN.) Lifting Limitations: until after follow-up appointment Exercise/Sports Limitations: until after follow-up appointment Driving or Machine Use: NO DRIVING UNTIL RE-EVALUATED BY PRIMARY CARE PHYSICIAN. . Instructions / Follow-Up Instructions / Follow-Up . Who to Call and When: Medical Emergencies: Call 911 immediately if you experience any of the following warning signs and symptoms of Stroke: * Sudden numbness or weakness of the face, arm or leg, especially on one side of the body * Sudden confusion, trouble speaking or understanding * Sudden trouble seeing in one or both eyes * Sudden trouble walking, dizziness, loss of balance or coordination * Sudden severe headache with no cause Do not delay calling 911 if you experience any warning signs or symptoms of a stroke. Delay in seeking medical attention may affect what treatments can be given to you. PLEASE REVIEW YOUR NEW MEDICATION LIST AND FOLLOW INSTRUCTIONS CAREFULLY. ALWAYS TAKE ASPIRIN WITH FULL STOMACH. CALL 911 IMMEDIATELY IF WITH RECURRENCE OF SYMPTOMS. ENSURE ADEQUATE DAILY FLUID INTAKE. FOLLOW UP WITH DR. RYAN (ASSOCIATE OF DR. ARMSTRONG) ON Sunday01/09/18 AT 10:45AM. Current Hospital Diet Patient's current hospital diet: Diabetes Type 2 Diet, AHA Diet (Heart Healthy) Discharge Diet Recommended Diet: AHA Diet (Heart Healthy), Diabetes Type 2 Diet Procedures Procedures Performed: CT HEAD Pending Studies Studies pending at discharge: no Laboratory Results Hemoglobin A1c Test 01/02/18 19:05 Range/Units Estimated Average Glucose 243 mg/dl Hemoglobin A1c 10.1 H 4.5-5.6 % Medical Emergencies . Who to Call and When: Medical Emergencies: If at any time you feel your situation is an emergency, please call 911 immediately. . Non-Emergent Contact Non-Emergency issues call your: Primary Care Provider Call Non-Emergent contact if: you have a fever, you have any medication questions . . "Provider Documentation" section prepared by Oumar Wells. .
--- NOTE | 2018-01-04 16:55 | Progress Note ---
Medicine Progress Note Date & Time of Visit: Jan 04, 2018 at 16:46. Subjective seen resting in bed, comfortable, alert, oriented 3, answering all questions appropriately significant other at the bedside, states patient is back to his baseline mental status No recurrence of confusion, dysarthria Denies any other focal neurologic deficits Denies other symptoms States he is ready and would like to be discharged today Objective Last 8 Hrs Date Time Temp Pulse Resp B/P (MAP) Pulse Ox O2 Delivery O2 Flow Rate FiO2 01/04/18 16:28 36.3 76 18 94 Room Air 01/04/18 14:56 36.3 76 18 125/75 (92) 94 Room Air 01/04/18 12:00 93 2.0 01/04/18 11:43 37.0 72 18 119/77 (91) 99 2.0 Physical Exam: General-oriented 3, not in distress, speaking in sentences, no accessory muscle use Eyes- anicteric Neck- supple, no JVD Lungs- clear breath sounds bilaterally Heart-normal rate, regular rhythm, grade 4 out of 6 holosystolic murmur Abdomen- normal bowel sounds, soft, nontender, nondistended Extremities- no pretibial edema, no calf tenderness Neuro- alert, oriented x 3; decreased hearing but otherwise no other gross focal neurologic deficits Skin- warm & dry Laboratory Results: Last 24 Hours Test 01/03/18 21:14 01/04/18 06:28 01/04/18 07:27 01/04/18 11:43 Bedside Glucose 145 mg/dl 108 mg/dl 271 mg/dl Vitamin B12 Level 927 pg/mL Folate 21.27 ng/mL Assessment & Plan 87-year-old male with history of coronary artery disease status post CABG, diabetes, hypertension, CVA, severe aortic stenosis, presenting with an episode of altered mental status. TRANSIENT ENCEPHALOPATHY Possible TIA, component of dehydration Patient has a history of recurrent CVA, and has been on aspirin Apparently aspirin has been discontinued 2 weeks ago by his physician in [place] for concerns of renal dysfunction No other new medications has been added recently Blood pressure was elevated at the ER upon arrival, but the patient takes his medications regularly, and the blood pressure improved with no additional blood pressure medicines administered Initial CT head at the ER: Several old infarcts, no acute findings Repeat CT head on hospital day 2: No acute findings Brain MRI cannot be tolerated by the patient according to the Symptoms concerning for TIA, neurology consulted: Seen by Dr. Estrada and nurse practitioner Ligia Short Patient symptoms resolved and no recurrence during observation while admitted No further workup per neurology Recommend to resume aspirin 81 mg p.o. daily Follow-up with primary care physician in 3-5 days Coronary artery disease status post CABG/stenting No cardiac symptoms hx severe TTE 2017 Denies presyncope/syncope Follows with cardiology DM2, on insulin Resume usual regimen Follow-up as an outpatient Chronic respiratory failure secondary to COPD Pulmonary status at baseline. Past tobacco abuse Disposition Discharge to home Follow-up with PCP in 3-5 days Current Inpatient Medications: Current Inpatient Medications Medications (Trade) Dose Ordered Sig/Deloris Route Start Time Stop Time Status Last Admin Dose Admin Carvedilol (Coreg Tab) 6.25 mg BID PO 01/03/18 09:00 02/02/18 08:59 01/04/18 08:27 6.25 MG Miscellaneous (Iv Fluids Completed) 1 ea PRN PRN N/A 01/02/18 23:15 01/02/19 23:14 Enoxaparin Sodium (Lovenox Inj) 40 mg Q24H SC 01/03/18 09:00 02/02/18 08:59 01/04/18 08:26 40 MG Acetaminophen (Tylenol Tab) 650 mg Q4H PRN PO 01/02/18 23:30 02/01/18 23:29 Nitroglycerin (Nitrostat Tab) 0.4 mg UD PRN SL 01/02/18 23:30 02/01/18 23:29 Insulin Aspart (novoLOG ASPART) SLIDING SCALE If C... ACHS SC 01/03/18 06:30 02/02/18 06:59 01/04/18 12:57 23 UNITS Glucose (Glucose 40% Gel) 15-30 GRAMS 15 GRAMS... UD PRN PO 01/02/18 23:30 02/01/18 23:29 Glucose (Glucose Chew Tab) 4-8 Tablets 4 Tabl... UD PRN PO 01/02/18 23:30 02/01/18 23:29 Dextrose (Dextrose 50% 50ML Syringe) 25-50ML OF 50% DW IV FOR... UD PRN IV 01/02/18 23:30 02/01/18 23:29 Glucagon (Glucagon Inj) 1 mg UD PRN SQ 01/02/18 23:30 02/01/18 23:29 Prochlorperazine Edisylate 5 mg/ Syringe 5 ml @ 5 mls/min Q6H PRN IV 01/02/18 23:30 02/01/18 23:29 Docusate Sodium (coLACE CAP) 100 mg DAILY PRN PO 01/02/18 23:30 02/01/18 23:29 Finasteride (Proscar Tab) 5 mg DAILY PO 01/03/18 09:00 02/02/18 08:59 01/04/18 08:27 5 MG Gabapentin (Neurontin Cap) 400 mg TID PO 01/03/18 09:00 02/02/18 08:59 01/04/18 14:00 400 MG Simvastatin (Zocor Tab) 10 mg Q2D@2100 PO 01/02/18 23:30 02/01/18 23:29 01/03/18 00:42 10 MG Tamsulosin HCl (Flomax Cap) 0.4 mg DAILY PO 01/03/18 09:00 02/02/18 08:59 01/04/18 08:26 0.4 MG Pantoprazole Sodium (Protonix Tab) 40 mg QAM PO 01/03/18 09:00 02/02/18 08:59 01/04/18 08:26 40 MG Miscellaneous Information (Order Awaiting Action) 1 ea QS N/A 01/03/18 08:00 02/02/18 07:59 Aspirin (Ecotrin Tab) 81 mg QAM PO 01/04/18 09:00 02/03/18 08:59 01/04/18 08:27 81 MG Tramadol HCl (Ultram Tab) not relieved by tylenol @ Q6H PRN PO 01/02/18 23:45 02/01/18 23:29 Miscellaneous Information (Consult Glycemic Management Pharmacy) 1 ea UD PRN N/A 01/03/18 09:11 02/02/18 09:10 Insulin Human NPH (novoLIN-N NPH) 45 units QDB SQ 01/04/18 08:00 02/03/18 07:59 01/04/18 08:32 45 UNITS Insulin Human NPH (novoLIN-N NPH) 15 units QDD SQ 01/04/18 17:00 5/20/18 16:59
--- NOTE | 2018-01-04 16:59 | Discharge Summary ---
Discharge Summary Date of Service Jan 04, 2018. Discharge Summary Admission Date: Jan 02, 2018 at 22:59 Discharge Date: Jan 04, 2018 Discharge Disposition: Home Principal Diagnosis: TRANSIENT ENCEPHALOPATHY; Possible TIA, component of dehydration Secondary Diagnoses/Problems: Please refer to hospital course below. Procedures: HEAD WITHOUT CONTRAST (CT) CLINICAL HISTORY: 87 years-old Male presenting with EVALUATE WEAKNESS, altered mental status. TECHNIQUE: Multidetector CT imaging of the head was performed without the use of intravenous contrast. IV contrast: None. A dose lowering technique was used consistent with the principles of ALARA (as low as reasonably achievable). COMPARISON: 07/15/2017. CT DOSE (mGy.cm): The estimated cumulative dose is 537.48 mGy.cm. FINDINGS: Lead Recreation Assistant topogram: Unremarkable. Proportional ventricular and sulcal prominence, likely age-related parenchymal volume loss. Periventricular and subcortical white matter hypoattenuation, nonspecific but likely indicative of chronic small vessel ischemic change. Old infarct noted in the left frontal region near the vertex. Old lacunar infarct in the left basal ganglia also noted. No mass effect or midline shift. No hemorrhage or acute territorial infarct. No extra-axial fluid collection. Paranasal sinuses and mastoid air cells clear. Calvarium intact. Bilateral [place] lenses are absent. IMPRESSION: 1. No significant change compared to the prior study. No acute intracranial abnormality. HEAD WITHOUT CONTRAST (CT) CLINICAL HISTORY: 87 years-old Male presenting with EVALUATE WEAKNESS, altered mental status. TECHNIQUE: Multidetector CT imaging of the head was performed without the use of intravenous contrast. IV contrast: None. A dose lowering technique was used consistent with the principles of ALARA (as low as reasonably achievable). COMPARISON: 07/15/2017. CT DOSE (mGy.cm): The estimated cumulative dose is 537.48 mGy.cm. FINDINGS: Lead Recreation Assistant topogram: Unremarkable. Proportional ventricular and sulcal prominence, likely age-related parenchymal volume loss. Periventricular and subcortical white matter hypoattenuation, nonspecific but likely indicative of chronic small vessel ischemic change. Old infarct noted in the left frontal region near the vertex. Old lacunar infarct in the left basal ganglia also noted. No mass effect or midline shift. No hemorrhage or acute territorial infarct. No extra-axial fluid collection. Paranasal sinuses and mastoid air cells clear. Calvarium intact. Bilateral [place] lenses are absent. IMPRESSION: 1. No significant change compared to the prior study. No acute intracranial abnormality. EEG: no epileptogenic focus Consultations: Neurology Pending Studies/Follow-Up: Please refer to hospital course below. Medication Reconciliation New Medications: Aspirin (Aspirin EC Low Dose) 81 Mg Ectab 81 MG PO QAM for 30 Days with full stomach Continued Medications: Carvedilol (Coreg) 6.25 Mg Tab 6.25 MG PO BID, TAB Cholecalciferol (Vitamin D3) 2,000 Unit Cap 2000 INTER.UNIT PO DAILY, CAP Cyanocobalamin (Vitamin B12) 1,000 Mcg Tab 1000 MCG PO DAILY Docusate Sodium (Docusate Sodium) 100 Mg Cap 100 MG PO DAILY PRN for Constipation Emollient (Eucerin Calming Daily David) 1 Cre Cre 1 APPLN TOP DAILY Finasteride (Proscar) 5 Mg Tab 5 MG PO DAILY, TAB Gabapentin (Neurontin) 400 Mg Cap 400 MG PO TID, CAP Home O2 Therapy (Oxygen) Gas 2 LITERS NA UD WITH EXERTION AND AT NIGHT. Hydrocortisone 1% (Hydrocortisone 1%) 90 Appln/30 Gm Cr 1 APPLN TOP TID PRN for Itching Insulin Human NPH (Novolin N) 100 Units/Ml Susp 50 UNITS SQ QAM Insulin Human NPH (Novolin N) 100 Units/Ml Susp 17 UNITS SQ QPM Insulin Lispro (Human) (Humalog) 100 Unit/Ml Inj 1 DOSE SC UD COVERAGE NEEDED AND DIRECTED BY SLIDING SCALE Lutein (Lutein) 20 Mg Cap 20 MG PO DAILY Nitroglycerin (Nitrostat) 0.4 Mg Tab 0.4 MG UT UD PRN for Chest Pain PLACE ONE TABLET UNDER THE TONGUE EVERY 5 MINUTES FOR UP TO 3 DOSES IF NEEDED FOR CHEST PAIN. Nystatin (Topical) (Nystatin) 100,000 Unit/Gm Pow 1 APPLN TOP UD APPLY TO SCROTUM NEEDED Omeprazole (Prilosec) 20 Mg Cap 20 MG PO DAILY, CAP Selenium Sulfide (Selsun) 2.5 % Lot 1 APPLN EXT UD Simvastatin (Zocor) 10 Mg Tab 10 MG PO Q2D, TAB Tamsulosin HCl (Tamsulosin HCl) 0.4 Mg Cap 0.4 MG PO DAILY Tramadol Hcl (Ultram) 50 Mg Tab 50 MG PO Q6H PRN for Pain [Zioptan] () 1 DROP OPR HS Discontinued Medications: Acetaminophen (Tylenol) 325 Mg Tab 325 MG PO AMHS, TAB Cyclobenzaprine Hcl (Flexeril) 10 Mg Tab 10 MG PO HS, TAB Admission Information HPI (per Admitting provider): CHIEF COMPLAINT: Altered mental status as per partner. History obtained from the patient, partner, and records. Limited history from patient due to marked hearing impairment. HISTORY OF PRESENT ILLNESS: Medical history is significant for recurrent CVA, CAD sp CABG, status post stenting, hx of aortic stenosis, chronic resp failure secondary to COPD, on home O2 at night and as needed, DM2, insulin requiring, chronic anemia (baseline hemoglobin of 11), past tobacco abuse. Recent confinement in last July 2017 for weakness, C. diff colitis, diabetic foot ulcer. Patient had just returned from [place] last week Patient was seen by [place] PCP prior to departure. Right toe wound noted. Wound care recommended. This afternoon, patient noted to be confused and was not acting normal as per partner. Patient just kept on saying "Thank you Simone, thank you Simone". No chest pain, no shortness of breath. Usual L facial asymmetry as per partner. Blood pressure high at home as per partner. Patient was brought to the Emergency Room. Received IV fluids. Current mentation at baseline. Physical Exam (per Admitting): VITAL SIGNS: Blood pressure was noted to be 201/120, pulse rate 70, RR 18, sats 90 on room air. GENERAL: Noted to be obese, hard of hearing, in no respiratory distress, oriented. SKIN: Normal color, warm. HEENT: Alopecia . Pale palpebral conjunctivae, no ptosis. L facial asymmetry noted on speech (chronic as per partner) NECK: Short neck, supple. CHEST: Decreased effort. No tenderness. HEART: Regular rate and rhythm, systolic murmur. ABDOMEN: Some distention, nontender. EXTREMITIES: No edema, no tenderness. Dressing on the right toe. NEUROLOGIC: Coherent, except for old facial asymmetry, hearing impairment, Equal MMTs, gait and stance not assessed. Hospital Course 87-year-old male with history of coronary artery disease status post CABG, diabetes, hypertension, CVA, severe aortic stenosis, presenting with an episode of altered mental status. TRANSIENT ENCEPHALOPATHY Possible TIA, component of dehydration Patient has a history of recurrent CVA, and has been on aspirin Apparently aspirin has been discontinued 2 weeks ago by his physician in [place] for concerns of renal dysfunction No other new medications has been added recently Blood pressure was elevated at the ER upon arrival, but the patient takes his medications regularly, and the blood pressure improved with no additional blood pressure medicines administered Initial CT head at the ER: Several old infarcts, no acute findings Repeat CT head on hospital day 2: No acute findings Brain MRI cannot be tolerated by the patient according to the EEG: no epileptogenic focus Symptoms concerning for TIA, neurology consulted: Seen by Dr. Estrada and nurse practitioner Ligia Short Patient symptoms resolved and no recurrence during observation while admitted No further workup per neurology Recommend to resume aspirin 81 mg p.o. daily Follow-up with primary care physician in 3-5 days Coronary artery disease status post CABG/stenting No cardiac symptoms History of severe aortic stenosis Denies presyncope/syncope Follows with cardiology DM2, on insulin Resume usual regimen Follow-up as an outpatient Chronic respiratory failure secondary to COPD Pulmonary status at baseline. Past tobacco abuse Disposition Discharge to home Follow-up with PCP in 3-5 days Total time spent on discharge = 30 minutes This includes examination of the patient, discharge planning, medication reconciliation, and communication with other providers. Discharge Instructions Discharge Instructions Date of Service Jan 04, 2018. Admission Reason for Admission: Hypertensive Urgency Discharge Discharge Diagnosis / Problem: EPISODE OF ALTERED MENTAL STATUS Discharge Goals Goal(s): Diagnostic testing, Therapeutic intervention Activity Recommendations Activity Limitations: as noted below (NO HEAVY EXERTION UNTIL RE-EVALUATED BY PRIMARY CARE PHYSICIAN.) Lifting Limitations: until after follow-up appointment Exercise/Sports Limitations: until after follow-up appointment Driving or Machine Use: NO DRIVING UNTIL RE-EVALUATED BY PRIMARY CARE PHYSICIAN. . Instructions / Follow-Up Instructions / Follow-Up . Who to Call and When: Medical Emergencies: Call 911 immediately if you experience any of the following warning signs and symptoms of Stroke: * Sudden numbness or weakness of the face, arm or leg, especially on one side of the body * Sudden confusion, trouble speaking or understanding * Sudden trouble seeing in one or both eyes * Sudden trouble walking, dizziness, loss of balance or coordination * Sudden severe headache with no cause Do not delay calling 911 if you experience any warning signs or symptoms of a stroke. Delay in seeking medical attention may affect what treatments can be given to you. PLEASE REVIEW YOUR NEW MEDICATION LIST AND FOLLOW INSTRUCTIONS CAREFULLY. ALWAYS TAKE ASPIRIN WITH FULL STOMACH. CALL 911 IMMEDIATELY IF WITH RECURRENCE OF SYMPTOMS. ENSURE ADEQUATE DAILY FLUID INTAKE. FOLLOW UP WITH DR. RYAN (ASSOCIATE OF DR. ARMSTRONG) ON Sunday01/09/18 AT 10:45AM. Current Hospital Diet Patient's current hospital diet: Diabetes Type 2 Diet, AHA Diet (Heart Healthy) Discharge Diet Recommended Diet: AHA Diet (Heart Healthy), Diabetes Type 2 Diet Procedures Procedures Performed: CT HEAD Pending Studies Studies pending at discharge: no Laboratory Results Hemoglobin A1c Test 01/02/18 19:05 Range/Units Estimated Average Glucose 243 mg/dl Hemoglobin A1c 10.1 H 4.5-5.6 %
--- NOTE | 2018-01-07 07:43 | ELECTROENCEPHALOGRAPH REPORT ---
REQUESTING PHYSICIANS: Ligia Coley MD and Ligia Short PA-C CLINICAL DIAGNOSIS: Acute confusional episode. EEG DIAGNOSIS: Essentially normal during wakefulness, but a very technically limited study due to muscle movement artifacts. DESCRIPTION OF TRACING: This EEG was done as a bedside recording. No clear activation procedure utilized. A video analysis of patient movement and behavior is obtained and drowsiness and light sleep were not seen. The video does document quite a bit of muscle movement artifact reflected in the EEG leads as well. Between these episodes; however, the tracing is interpretable and reveals evidence for a background rhythm in the lower alpha range of about 9 Hz of maximum frequency and up to 20-30 microvolts of maximum amplitude. This is maximum posterior head regions and bilaterally symmetrical. Polymorphic mid frequency to slightly lower frequency modest amplitude theta activity is seen over all head regions, maximum in the central regions in a symmetrical fashion and occasional waveforms in the delta range are seen, but rhythmic or focal. Beta activity is seen bifrontally. At no time during the tracing is there evidence for clearcut potentially epileptogenic activity in the form of polyspike or spike wave bursts, focal sharp waves, or focal spikes. INTERPRETATION: This EEG is essentially normal during wakefulness without evidence for focal or generalized encephalopathy, despite the history of a prior left middle cerebral artery infarction and reveals no evidence for potentially epileptogenic activity, although the absence of the latter does not exclude the diagnosis of seizure disorder.
== END 2018-01-04 16:59 | disposition home or self-care (01) ==
LOC: EDBD 19:25 → C.EDB 19:27 → C.MED 22:59 → ENRESERV 23:07
PROVIDERS: ADMIT Internal Medicine; ATTEND Internal Medicine
DX: E86.0 Dehydration (principal); G93.40 Encephalopathy, unspecified; E11.42 Type 2 diabetes mellitus with diabetic polyneuropathy; E11.319 Type 2 diabetes mellitus with unspecified diabetic retinopathy without macular edema; E87.6 Hypokalemia; J44.9 Chronic obstructive pulmonary disease, unspecified; L97.519 Non-pressure chronic ulcer of other part of right foot with unspecified severity; E78.5 Hyperlipidemia, unspecified; R26.89 Other abnormalities of gait and mobility; N40.0 Benign prostatic hyperplasia without lower urinary tract symptoms; E72.11 Homocystinuria; H54.8 Legal blindness, as defined in USA; E11.621 Type 2 diabetes mellitus with foot ulcer; I35.0 Nonrheumatic aortic (valve) stenosis; J96.10 Chronic respiratory failure, unspecified whether with hypoxia or hypercapnia; I25.10 Atherosclerotic heart disease of native coronary artery without angina pectoris; I10 Essential (primary) hypertension; M21.371 Foot drop, right foot; Z90.49 Acquired absence of other specified parts of digestive tract; Z79.4 Long term (current) use of insulin; Z83.3 Family history of diabetes mellitus; Z82.49 Family history of ischemic heart disease and other diseases of the circulatory system; Z86.73 Personal history of transient ischemic attack (TIA), and cerebral infarction without residual deficits; Z79.82 Long term (current) use of aspirin; Z79.899 Other long term (current) drug therapy; Z91.041 Radiographic dye allergy status; Z88.8 Allergy status to other drugs, medicaments and biological substances; Z88.1 Allergy status to other antibiotic agents; Z95.1 Presence of aortocoronary bypass graft; Z87.891 Personal history of nicotine dependence

== ENCOUNTER 2018-09-13 18:29 | Inpatient (IN) ==
--- NOTE | 2018-09-13 18:47 | Emergency Department Note ---
Entered by Rosaura Carballo acting as a scribe for Durga Gutierres DO History of Present Illness General Chief complaint: Fever Stated complaint: FEVER, POSSIBLE UTI Source: patient and family () History of Present Illness Onset (ago): hour(s) (Prior to arrival) Location: abdomen Severity: similar to prior episodes Pain Consistency: + other (persistent) Quality: + other (Dysuria) Relieved By: + medication (Amoxicillin) Exacerbated By: + movement Associated symptoms: + fever/chills; no nausea/vomiting and no other (Abdominal pain, back pain, lower extremity edema) The patient is a 88 year old male who presents to the Emergency Room with complaints of persistent dysuria starting [employer]. The patient reports that he has a fever. He notes that he had surgery 1 day ago and was not experiencing any of these symptoms. He states that he usually uses 2L of oxygen via nasal cannula at home. The patients reports that the patient had been taking Amoxicillin for his reoccurring UTIs. She explains that the patients PCP is on vacation and that the patient was not able to get another prescription for his Amoxicillin and was advised to come into the ED. The patient denies vomiting, abdominal pain, back pain and lower extremity edema. Home Medications Home Medications Medication Instructions Recorded Confirmed Type Novolin R Regular U-100 Insuln 50 units SC DAILYBB 09/13/18 09/13/18 History amoxicillin 500 mg PO TID 09/13/18 09/13/18 History aspirin [Aspir-81] 81 mg PO DAILY 09/13/18 09/13/18 History benzoyl peroxide 1 applic TOPICAL DAILY PRN 09/13/18 09/13/18 History brinzolamide-brimonidine 1 drp OPR BID 09/13/18 09/13/18 History [Simbrinza] carboxymethylcellulose sodium 1 drp OPHTHALMIC (EYE) QID 09/13/18 09/13/18 History [TheraTears] carvedilol [Coreg] 6.25 mg PO BID 09/13/18 09/13/18 History cholecalciferol (vitamin D3) 2,000 unit PO DAILY 09/13/18 09/13/18 History [Vitamin D3] cyanocobalamin (vitamin B-12) 1,000 mcg PO DAILY 09/13/18 09/13/18 History cyclobenzaprine 10 mg PO HS 09/13/18 09/13/18 History docusate sodium 100 mg PO DAILY 09/13/18 09/13/18 History emollient combination no.69 1 applic TOPICAL UD 09/13/18 09/13/18 History [Eucerin Skin Calming] finasteride 5 mg PO DAILY 09/13/18 09/13/18 History gabapentin 400 mg PO TID 09/13/18 09/13/18 History hydrocortisone 1 applic TOPICAL BID 09/13/18 09/13/18 History insulin aspart U-100 [Novolog 0 unit SUBCUT TIDM 09/13/18 09/13/18 History U-100 Insulin aspart] insulin regular human [Novolin R 13 unit SUBCUT DAILYBD 09/13/18 09/13/18 History Regular U-100 Insuln] lutein 20 mg PO DAILY 09/13/18 09/13/18 History metformin 1,000 mg PO BIDM 09/13/18 09/13/18 History nitroglycerin [Nitrostat] 0.4 mg SUBLINGUAL UD PRN 09/13/18 09/13/18 History nystatin 1 applic TOPICAL UD PRN 09/13/18 09/13/18 History oxybutynin chloride [Ditropan XL] 10 mg PO DAILY 09/13/18 09/13/18 History selenium sulfide 1 applic TOPICAL UD 09/13/18 09/13/18 History simvastatin [Zocor] 10 mg PO PM 09/13/18 09/13/18 History tamsulosin 0.4 mg PO DAILY 09/13/18 09/13/18 History tramadol [Ultram] 50 mg PO Q6 PRN 09/13/18 09/13/18 History Allergies Allergy/AdvReac Type Severity Reaction Status Date / Time Iodinated Contrast- Oral and Allergy Severe Edema-face/lips/tongue. Verified 19:52 IV Dye Hives/Rash. formaldehyde Allergy Intermediate Hives/Rash Verified 09/13/18 19:52 Cipro Allergy Unknown Hives Verified 07/15/17 11:48 dipyridamole Allergy Unknown Hallucinati Verified 09/13/18 19:52 ons lisinopril Allergy Unknown UNKNOWN Verified 09/13/18 19:52 ciprofloxacin AdvReac Unknown CONSTIPATIO Verified 09/13/18 19:52 N yellow socks Allergy Intermediate contact Uncoded 09/13/18 19:52 rash (formaldehyde used to preserve yellow color) Past Med/Surg History Medical History Coronary artery disease (Chronic) "PCI + stenting LAD 1997 CABG x 3 2000 cath 03/11/13 showed patent LAD graft, patent SVG to circ marginal, occluded SVG to RCA" Hypertension (Chronic) Benign prostatic hyperplasia (Chronic) Diabetes mellitus, type II (Chronic) Chronic respiratory failure (Chronic) "home O2 2 LPM at night + PRN" Dyslipidemia (Chronic) Hyperhomocysteinemia (Chronic) Diabetic retinopathy (Chronic) Cerebrovascular disease (Chronic) "s/p stroke with right hemiparesis" Aortic stenosis (Chronic) "1.1 cm2 by echo 2011 and cath 2012" Surgical History Status post coronary artery bypass grafting (Chronic) "radial artery to LAD, SVG to circ marginal, SVG to RCA" Status post cardiac catheterization (Chronic) "03/11/[address] [facility] [address] Durant patent LAD graft, patent SVG to circ marginal, occluded SVG to RCA" Status post cholecystectomy (Chronic) Social History Current Living Situation: Significant Other Feels Safe at Home: Yes Safety Concerns: Feels Safe At This Time Smoking Status: Never smoker Hx Alcohol Use: Yes ("very rarely") Hx Substance Use: No Beliefs That Will Affect Care: None Preferred Language: Syrian [employer] Required: No Review of Systems See HPI for pertinent positives & negatives. and A total of 10 systems reviewed and were otherwise negative Physical Exam Vital Signs Vital Signs - 24 hr 09/13/18 19:12 09/13/18 20:45 09/13/18 21:20 Temperature 37.4 C 36.8 C Temperature Source Oral Oral Sepsis Recent Fever Within 48 Hours Yes Sepsis New/Unexplained Change in Mental Status No Sepsis Action Taken by Nursing No Action Required Pulse Rate 84 Pulse Rate [Apical] 78 77 Respiratory Rate 19 15 Respiratory Effort / Characteristics Non-Labored Respiratory Depth Normal Respiratory Pattern Regular Blood Pressure 145/83 H Blood Pressure [Left Arm] 123/71 Blood Pressure Mean 103 Blood Pressure Mean [Left Arm] 88 Pulse Oximetry 94 92 92 Oxygen Delivery Method Nasal Cannula Nasal Cannula Nasal Cannula Oxygen Flow Rate 3 3 3 09/13/18 22:16 09/13/18 22:38 12/28/18 22:50 Temperature 37.4 C Temperature Source Oral Sepsis Recent Fever Within 48 Hours Sepsis New/Unexplained Change in Mental Status Sepsis Action Taken by Nursing Pulse Rate 74 Pulse Rate [Apical] 75 75 Respiratory Rate 15 20 20 Respiratory Effort / Characteristics Spontaneous Respiratory Depth Normal Respiratory Pattern Regular Blood Pressure 123/64 Blood Pressure [Left Arm] 151/92 H 155/85 H Blood Pressure Mean Blood Pressure Mean [Left Arm] 111 108 Pulse Oximetry 95 98 94 Oxygen Delivery Method Nasal Cannula Nasal Cannula Nasal Cannula Oxygen Flow Rate 3 3 3 GENERAL: Patient is listless but responds to questions. Patient is able to follow commands. EYES: The conjunctivae are clear. The pupils are round and reactive. EARS, NOSE, MOUTH AND THROAT: The nose is without any evidence of any deformity. Mucous membranes are moist tongue is midline NECK: The neck is nontender and supple. RESPIRATORY: Normal respiratory effort is noted there is no evidence of wheezing rhonchi or rales CARDIOVASCULAR: Regular rate and rhythm was noted to auscultation. There was a systolic murmur appreciated. GASTROINTESTINAL: The abdomen is soft. Bowel sounds are present in all quadrants. Abdomen is nontender MUSCULOSKELETAL/EXTREMITIES: There is no evidence of gross deformity full range of motion is noted in the hips and shoulders SKIN: Pedal edema was noted bilaterally. There is a wound dressing on the right upper extremity. There is edema distal to this. NEUROLOGIC: Patient is oriented to person place and situation. Strength is symmetric but diminished. Course 183: Past medical records reviewed. The patient was evaluated in room B6, and a complete history and physical examination were performed. 2100: I reevaluated the patient at this time. 2107: I reviewed the patient's case with Dr. Chris Sheppard hospitalist. He will evaluate the patient for further management. Administered Medications Sodium Chloride (Nss 1000ml) 1,000 mls @ 80 mls/hr IV .[id number] COUNTS INCLUDE 234 BEDS AT THE [facility] Stop: 10/13/18 23:11 Last Admin: 09/13/18 23:56 Dose: 80 mls/hr Vancomycin HCl 2,500 mg/ (Sodium Chloride) 550 mls @ 200 mls/hr IV TODAY@0000 COUNTS INCLUDE 234 BEDS AT THE [facility] Stop: 09/14/18 02:44 Last Admin: 09/13/18 23:57 Dose: 200 mls/hr Insulin Glargine (Lantus Solostar Pen) 18 units SC BID COUNTS INCLUDE 234 BEDS AT THE [facility] Stop: 10/14/18 00:14 Last Admin: 09/14/18 00:21 Dose: 18 units Miscellaneous (Order Awaiting Action) 1 ea N/A QS OREN Stop: 10/14/18 00:00 Last Admin: 09/14/18 00:09 Dose: Not Given Discontinued Medications Sodium Chloride (Nss 1000ml) 1,000 mls @ 999 mls/hr IV .Q1H1M ONE Stop: 09/13/18 21:57 Last Infusion: 09/13/18 22:16 Dose: 0 mls/hr Admin: 09/13/18 21:07 Dose: 999 mls/hr Ceftriaxone Sodium (Rocephin) 1,000 mg in 50 mls @ 100 mls/hr IV NOW STA Stop: 09/13/18 21:26 Last Infusion: 09/13/18 21:47 Dose: 0 mls/hr Admin: 09/13/18 21:07 Dose: 100 mls/hr Magnesium Sulfate/Dextrose (Magnesium Sulfate / D5w) 1 gm in 100 mls @ 100 mls/ hr IV ONE ONE Stop: 09/13/18 22:04 Last Infusion: 09/13/18 22:30 Dose: 0 mls/hr Admin: 09/13/18 21:27 Dose: 100 mls/hr Cefepime HCl 2,000 mg/ Syringe 20 mls @ 5.5 mls/min IV TODAY@0000 OREN Stop: 09/14/18 00:04 Last Admin: 09/13/18 23:56 Dose: 5.5 mls/min Insulin Aspart (Novolog Flexpen) 0 units SC NOW STA Stop: 09/13/18 23:42 Last Admin: 09/14/18 00:04 Dose: 9 units Medical Decision Making Differential Diagnosis Differential includes viral illness, influenza, streptococcal pharyngitis, meningitis, pneumonia, sinusitis, UTI, pyelonephritis, otitis media. Medical Records Attestation: I reviewed the patient's medical records. Home Medications Current Medication List: was personally reviewed by me Laboratory Data Attestation: I reviewed the patient's lab results. Result diagrams: 09/13/18 18:15 09/13/18 18:15 Lab Results 12/28/18 12/28/18 12/28/18 Range/Units 18:15 18:15 18:15 WBC 9.09 (4.8-10.8) K/uL RBC 4.51 L (4.7-6.1) M/uL Hgb 12.6 L (14.0-18.0) g/dL Hct 40.2 L (42-52) % MCV 89.1 (80-100) fL MCH 27.9 (25-34) pg MCHC 31.3 L (32-36) g/dL RDW Std Deviation 47.3 H (36.4-46.3) fL RDW Coeff of Arjun 14.5 (11.5-14.5) % Plt Count 145 (130-400) K/uL MPV 12.0 H (7.4-10.4) fL Immature Gran % (Auto) 0.4 % Neut % (Auto) 71.5 % Lymph % (Auto) 14.9 % [place] % (Auto) 10.8 % Eos % (Auto) 2.2 % Baso % (Auto) 0.2 % Immature Gran # (Auto) 0.04 H (0.00-0.02) K/uL Neut # (Auto) 6.50 (1.4-6.5) K/uL Lymph # (Auto) 1.35 (1.2-3.4) K/uL [place] # (Auto) 0.98 H (0.11-0.59) K/uL Eos # (Auto) 0.20 (0-0.5) K/uL Baso # (Auto) 0.02 (0-0.2) K/uL ESR (0-14) mm/hr PT Cancelled INR Cancelled APTT Cancelled PTT Ratio Cancelled Sodium 130 L (136-145) mmol/L Potassium 5.0 (3.5-5.1) mmol/L Chloride 94 L (98-107) mmol/L Carbon Dioxide 27 (21-32) mmol/L Anion Gap 9.0 (3-11) BUN 27 H (7-18) mg/dl Creatinine 1.59 H (0.6-1.4) mg/dl Est Cr Clr Drug Dosing Not Reportable Est GFR ( Amer) 44.0 Est GFR (Non-Af Amer) 37.9 BUN/Creatinine Ratio 16.9 (10-20) Glucose 337 H (70-99) mg/dl POC Glucose (70-99) Lactate (0.4-2.0) mmol/L Calcium 8.5 (8.5-10.1) mg/dl Magnesium 1.4 L (1.8-2.4) mg/dl Total Bilirubin 0.8 (0.1-1) mg/dl AST 20 (15-37) U/L ALT 21 (12-78) U/L Alkaline Phosphatase 124 H (45-117) U/L Troponin I < 0.015 (0-0.045) ng/ml C-Reactive Protein 11.00 H (0-0.29) mg/dl Total Protein 7.4 (6.4-8.2) gm/dl Albumin 3.1 L (3.4-5.0) gm/dl Globulin 4.3 H (2.5-4.0) gm/dl Albumin/Globulin Ratio 0.7 L (0.9-2) Beta-Hydroxybutyric Acd 3.01 H (0.2-2.81) mg/dl Urine Color Urine Appearance (Clear) Urine pH (4.5-7.5) Ur Specific [place] (1.000-1.030) Urine Protein (Negative) Urine Glucose (UA) (Negative) Urine Ketones (Negative) Urine Blood (Negative) Urine Nitrite (Negative) Urine Bilirubin (Negative) Urine Urobilinogen (Negative) Ur Leukocyte Esterase (Negative) Urine WBC (Auto) (0-5) /hpf Urine RBC (Auto) (0-4) /hpf U Hyaline Cast (Auto) (0-5) /lpf U Epithel Cells (Auto) (0-5) /lpf Urine Bacteria (Auto) (Negative) 09/13/18 09/13/18 09/13/18 Range/Units 18:15 19:05 19:45 WBC (4.8-10.8) K/uL RBC (4.7-6.1) M/uL Hgb (14.0-18.0) g/dL Hct (42-52) % MCV (80-100) fL MCH (25-34) pg MCHC (32-36) g/dL RDW Std Deviation (36.4-46.3) fL RDW Coeff of Arjun (11.5-14.5) % Plt Count (130-400) K/uL MPV (7.4-10.4) fL Immature Gran % (Auto) % Neut % (Auto) % Lymph % (Auto) % [place] % (Auto) % Eos % (Auto) % Baso % (Auto) % Immature Gran # (Auto) (0.00-0.02) K/uL Neut # (Auto) (1.4-6.5) K/uL Lymph # (Auto) (1.2-3.4) K/uL [place] # (Auto) (0.11-0.59) K/uL Eos # (Auto) (0-0.5) K/uL Baso # (Auto) (0-0.2) K/uL ESR 71 H (0-14) mm/hr PT INR APTT PTT Ratio Sodium (136-145) mmol/L Potassium (3.5-5.1) mmol/L Chloride (98-107) mmol/L Carbon Dioxide (21-32) mmol/L Anion Gap (3-11) BUN (7-18) mg/dl Creatinine (0.6-1.4) mg/dl Est Cr Clr Drug Dosing Est GFR ( Amer) Est GFR (Non-Af Amer) BUN/Creatinine Ratio (10-20) Glucose (70-99) mg/dl POC Glucose (70-99) Lactate 1.2 (0.4-2.0) mmol/L Calcium (8.5-10.1) mg/dl Magnesium (1.8-2.4) mg/dl Total Bilirubin (0.1-1) mg/dl AST (15-37) U/L ALT (12-78) U/L Alkaline Phosphatase (45-117) U/L Troponin I (0-0.045) ng/ml C-Reactive Protein (0-0.29) mg/dl Total Protein (6.4-8.2) gm/dl Albumin (3.4-5.0) gm/dl Globulin (2.5-4.0) gm/dl Albumin/Globulin Ratio (0.9-2) Beta-Hydroxybutyric Acd (0.2-2.81) mg/dl Urine Color Yellow Urine Appearance Turbid H (Clear) Urine pH 5.0 (4.5-7.5) Ur Specific [place] 1.023 (1.000-1.030) Urine Protein 1+ H (Negative) Urine Glucose (UA) 3+ H (Negative) Urine Ketones Trace H (Negative) Urine Blood 2+ H (Negative) Urine Nitrite Negative (Negative) Urine Bilirubin Negative (Negative) Urine Urobilinogen Negative (Negative) Ur Leukocyte Esterase 2+ H (Negative) Urine WBC (Auto) >30 H (0-5) /hpf Urine RBC (Auto) 10-30 H (0-4) /hpf U Hyaline Cast (Auto) 0 (0-5) /lpf U Epithel Cells (Auto) 5-10 H (0-5) /lpf Urine Bacteria (Auto) 4+ H (Negative) 09/14/18 Range/Units 00:02 WBC (4.8-10.8) K/uL RBC (4.7-6.1) M/uL Hgb (14.0-18.0) g/dL Hct (42-52) % MCV (80-100) fL MCH (25-34) pg MCHC (32-36) g/dL RDW Std Deviation (36.4-46.3) fL RDW Coeff of Arjun (11.5-14.5) % Plt Count (130-400) K/uL MPV (7.4-10.4) fL Immature Gran % (Auto) % Neut % (Auto) % Lymph % (Auto) % [place] % (Auto) % Eos % (Auto) % Baso % (Auto) % Immature Gran # (Auto) (0.00-0.02) K/uL Neut # (Auto) (1.4-6.5) K/uL Lymph # (Auto) (1.2-3.4) K/uL [place] # (Auto) (0.11-0.59) K/uL Eos # (Auto) (0-0.5) K/uL Baso # (Auto) (0-0.2) K/uL ESR (0-14) mm/hr PT INR APTT PTT Ratio Sodium (136-145) mmol/L Potassium (3.5-5.1) mmol/L Chloride (98-107) mmol/L Carbon Dioxide (21-32) mmol/L Anion Gap (3-11) BUN (7-18) mg/dl Creatinine (0.6-1.4) mg/dl Est Cr Clr Drug Dosing Est GFR ( Amer) Est GFR (Non-Af Amer) BUN/Creatinine Ratio (10-20) Glucose (70-99) mg/dl POC Glucose 292 H (70-99) Lactate (0.4-2.0) mmol/L Calcium (8.5-10.1) mg/dl Magnesium (1.8-2.4) mg/dl Total Bilirubin (0.1-1) mg/dl AST (15-37) U/L ALT (12-78) U/L Alkaline Phosphatase (45-117) U/L Troponin I (0-0.045) ng/ml C-Reactive Protein (0-0.29) mg/dl Total Protein (6.4-8.2) gm/dl Albumin (3.4-5.0) gm/dl Globulin (2.5-4.0) gm/dl Albumin/Globulin Ratio (0.9-2) Beta-Hydroxybutyric Acd (0.2-2.81) mg/dl Urine Color Urine Appearance (Clear) Urine pH (4.5-7.5) Ur Specific [place] (1.000-1.030) Urine Protein (Negative) Urine Glucose (UA) (Negative) Urine Ketones (Negative) Urine Blood (Negative) Urine Nitrite (Negative) Urine Bilirubin (Negative) Urine Urobilinogen (Negative) Ur Leukocyte Esterase (Negative) Urine WBC (Auto) (0-5) /hpf Urine RBC (Auto) (0-4) /hpf U Hyaline Cast (Auto) (0-5) /lpf U Epithel Cells (Auto) (0-5) /lpf Urine Bacteria (Auto) (Negative) Imaging Data Radiologist's Impression: Radiology results as stated below per my review and the radiologist's interpretation: CT head/brain wo con CLINICAL HISTORY: 88 years-old Male with confused. Acutely altered mental status TECHNIQUE: Multiple axial CT images of the head were obtained without contrast. A dose lowering technique was utilized adhering to the principles of ALARA. CT DOSE: 614.27 mGy.cm COMPARISON: CT head 03/18/2018. FINDINGS: No acute intracranial hemorrhage, midline shift, intracranial mass, hydrocephalus, territorial ischemia or abnormal extra-axial collection. Moderate atrophy with extensive chronic microvascular ischemic changes. Encephalomalacia about the left frontal lobe redemonstrated from remote infarction. Remote lacunar infarctions about the basal ganglia. The calvarium is intact. Mastoid air cells and middle ear cavities are clear. Mild mucosal thickening of the maxillary sinuses. Rightward bowing and spurring of the nasal septum. Prior bilateral cataract repair. Soft tissues are unremarkable. IMPRESSION: No acute intracranial abnormality. The above report was generated using voice recognition software. It may contain grammatical, syntax or spelling errors. Electronically signed by: Bryce Flynn M.D. 09/13/2018 8:28 PM XR chest 1V portable HISTORY: 88 years-old Male fever acute fever COMPARISON: Chest radiograph 03/18/2018 TECHNIQUE: Portable AP view of the chest FINDINGS: Cardiac and ankle with pulmonary vascular congestion. Prior median sternotomy. Trace bilateral pleural effusions. No pneumothorax. Interstitial coarsening with subsegmental bibasilar opacities. Linear scarring/atelectasis about the right midlung, unchanged. Hypoinflated lungs. Degenerative changes about the shoulders and spine. IMPRESSION: 1. Cardiomegaly with mild pulmonary edema. 2. Trace pleural effusions. 3. Subsegmental bibasilar opacities suggest atelectasis or pneumonitis. The above report was generated using voice recognition software. It may contain grammatical, syntax or spelling errors. Electronically signed by: Bryce Flynn M.D. 09/13/2018 7:32 PM [address] AND PELVIS CT WITHOUT CONTRAST CT DOSE: 987.90 mGy.cm HISTORY: Acute nausea and vomiting vomiting TECHNIQUE: Multiaxial CT images of the abdomen and pelvis were performed without contrast. A dose lowering technique was utilized adhering to the principles of ALARA. COMPARISON STUDY: CT abdomen and pelvis 03/18/2018. FINDINGS: Bibasilar subpleural reticular opacities redemonstrated compatible with fibrosis. No pneumatosis or pneumoperitoneum. Imaged cardiac chambers are moderately enlarged. Prior median sternotomy. Coronary arterial and mitral annular calcifications are partially imaged. Calcified granulomata about the hepatic and splenic parenchyma. Liver is otherwise unremarkable. Prior cholecystectomy. Mild dilation of the common bile duct, likely postsurgical. Adrenal glands are unremarkable. Moderate to severe generalized pancreatic atrophy with scattered parenchymal calcifications suggesting sequela of chronic pancreatitis. Mild cortical thinning of the bilateral kidneys with mild atrophy and mild perinephric stranding. Mild prominence about the mid and distal portions of the left ureter. No obstructing urolith or hydronephrosis. Circumferential wall thickening of the urinary bladder with perivesicular stranding. Prostamegaly. Small fat filled left inguinal hernia. Extensive calcification of the aorta without aneurysm. Likely reactive retroperitoneal lymph nodes measure up to 7 mm. No bowel obstruction. Scattered air-fluid levels noted throughout the small bowel. No bowel wall thickening. Appendix appears normal. No ascites. Soft tissues appear unremarkable. No suspicious lytic or blastic bony lesions. Degenerative changes of the spine and pelvis. Age-indeterminate 20% anterior endplate compression deformity of the L3 vertebral body, progressed from comparison. No retropulsion. IMPRESSION: 1. Prostamegaly with moderate circumferential wall thickening of the urinary bladder and associated perivesicular stranding. Correlate with urinalysis to exclude cystitis. 2. No bowel obstruction or focal bowel wall thickening. 3. Prior cholecystectomy. 4. Anterior endplate compression deformity of the L3 vertebral body has progressively worsened from 03/18/2018 suggesting acute or subacute injury without retropulsion. Correlate with patient history and point tenderness. 5. Additional findings as above. Electronically signed by: Bryce Flynn M.D. 09/13/2018 8:39 PM ECG Data Attestation: I personally reviewed and interpreted this ECG as follows: Indication: weakness Rate (beats per minute): 79 Rhythm: sinus rhythm Findings: + other (Poor R wave progression) and + 1st degree AV block Comparison ECG Date: from (03/18/18) Change: no significant change Blood Pressure Blood Pressure Findings: Normal blood pressure Blood Pressure Disposition: further management by hospitalist [facility] Jae The patient is an 88-year-old male who presented to the emergency department for an evaluation of altered mental status. The patient was brought to the emergency department by ambulance at the request of his significant other. The patient has a history of chronic urinary tract infections. He does have some bladder outlet obstruction issues and I would wonder how much of his condition is secondary to a chronic urinary retention status. The patient was found to have signs of urinary tract infection. He was treated with IV fluids and IV antibiotics. I discussed his other laboratory and radiographic studies with him and his significant other. He does appear to have some signs of higher tract infection. He was also found to have low magnesium. For this reason I discussed his case with the on-call [facility] hospitalist. They have agreed to evaluate the patient in the emergency department for further management and disposition. The patient was reevaluated multiple times. He was feeling much better on subsequent reevaluation. Impression & Plan Acute pyelonephritis, Altered mental status, Hypomagnesemia, Acute urinary retention Discharge Plan Visit Data *Final* Discharge Date/Time: 09/13/18 22:38 Chief Complaint: Fever Stated Complaint: FEVER, POSSIBLE UTI ED Provider: Durga Gutierres Discharge Problem: Acute pyelonephritis, Altered mental status, Hypomagnesemia, Acute urinary retention Patient Disposition: Admitted As Inpatient Discharge Instructions Interventions: ED Discharge Assessment Last Done: 09/13/18 22:38 The scribe's documentation has been prepared under my direction and personally reviewed by me in its entirety. I confirm that the note above accurately reflects all work, treatment, procedures, and medical decision making performed by me.
[2018-09-13 19:00] LABS: Basophils # (auto) 0.02 K/uL (0-0.2); Basophils % (auto) 0.2 %; Eosinophils % (auto) 2.2 %; Hematocrit (blood only) 40.2 % (42-52); Hemoglobin 12.6 g/dL (14.0-18.0); Immature Granulocytes # (auto) 0.04 K/uL (0.00-0.02); Immature Granulocytes % (auto) 0.4 %; Lymphocytes # (auto) 1.35 K/uL (1.2-3.4); Lymphocytes % (auto) 14.9 %; Mean Corpuscular Hgb Conc 31.3 g/dL (32-36); Mean Corpuscular Volume 89.1 fL (80-100); Monocytes # (auto) 0.98 K/uL (0.11-0.59); Monocytes % (auto) 10.8 %; Neutrophils % (auto) 71.5 %; Platelet Count 145 K/uL (130-400); RDW Coefficient of Variation 14.5 % (11.5-14.5); RDW Standard Deviation 47.3 fL (36.4-46.3); Red Blood Count 4.51 M/uL (4.7-6.1); White Blood Count 9.09 K/uL (4.8-10.8)
[2018-09-13 19:17] LABS: Alanine Aminotransferase 21 U/L (12-78); Albumin Level 3.1 gm/dl (3.4-5.0); Aspartate Aminotransferase 20 U/L (15-37); BUN Creatinine Ratio 16.9 (10-20); Blood Urea Nitrogen 27 mg/dl (7-18); Calcium 8.5 mg/dl (8.5-10.1); Carbon Dioxide 27 mmol/L (21-32); Chloride 94 mmol/L (98-107); Est GFR (Non-African American) 37.9; Glucose 337 mg/dl (70-99); Magnesium 1.4 mg/dl (1.8-2.4); Sodium 130 mmol/L (136-145)
[2018-09-13 19:19] LABS: Albumin Globulin Ratio 0.7 (0.9-2); Bilirubin,Total 0.8 mg/dl (0.1-1); Globulin 4.3 gm/dl (2.5-4.0); Total Protein 7.4 gm/dl (6.4-8.2)
[2018-09-13 19:27] LABS: Alkaline Phosphatase 124 U/L (45-117); Troponin I < 0.015 ng/ml (0-0.045)
--- NOTE | 2018-09-13 19:33 | XRay Report ---
XR chest 1V portable HISTORY: 88 years-old Male fever acute fever COMPARISON: Chest radiograph 03/18/2018 TECHNIQUE: Portable AP view of the chest FINDINGS: Cardiac and ankle with pulmonary vascular congestion. Prior median sternotomy. Trace bilateral pleura l effusions. No pneumothorax. Interstitial coarsening with subsegmental bibasilar opacities. Linear s carring/atelectasis about the right midlung, unchanged. Hypoinflated lungs. Degenerative changes about the shoulders and spine. IMPRESSION: 1. Cardiomegaly with mild pulmonary edema. 2. Trace pleural effusions. 3. Subsegmental bibasilar opacities suggest atelectasis or pneumonitis. The above report was generated using voice recognition software. It may contain grammatical, syntax o r spelling errors. Electronically signed by: Bryce Flynn M.D. 09/13/2018 7:32 PM
[2018-09-13 19:35] LABS: Appearance Urine Turbid (Clear); Bacteria Urine Automated 4+ (Negative); Bilirubin Urine Negative (Negative); Cast Urine Automated 0 /lpf (0-5); Color Urine Yellow; Glucose Urine UA 3+ (Negative); Ketones Urine Trace (Negative); Leukocyte Esterase Urine 2+ (Negative); Nitrite Urine Negative (Negative); Protein Urine 1+ (Negative); Specific Gravity Urine 1.023 (1.000-1.030); Urobilinogen Urine Negative (Negative); WBC Urine Automated >30 /hpf (0-5)
--- NOTE | 2018-09-13 20:29 | CT Scan Report ---
CT head/brain wo con CLINICAL HISTORY: 88 years-old Male with confused. Acutely altered mental status TECHNIQUE: Multiple axial CT images of the head were obtained without contrast. A dose lowering tech nique was utilized adhering to the principles of ALARA. CT DOSE: 614.27 mGy.cm COMPARISON: CT head 03/18/2018. FINDINGS: No acute intracranial hemorrhage, midline shift, intracranial mass, hydrocephalus, territorial ischem ia or abnormal extra-axial collection. Moderate atrophy with extensive chronic microvascular ischemic changes. Encephalomalacia about the left frontal lobe redemonstrated from remote infarction. Remote lacunar infarctions about the basal ganglia. The calvarium is intact. Mastoid air cells and middle ear cavities are clear. Mild mucosal thickenin g of the maxillary sinuses. Rightward bowing and spurring of the nasal septum. Prior bilateral catara ct repair. Soft tissues are unremarkable. IMPRESSION: No acute intracranial abnormality. The above report was generated using voice recognition software. It may contain grammatical, syntax o r spelling errors. Electronically signed by: Bryce Flynn M.D. 09/13/2018 8:28 PM
--- NOTE | 2018-09-13 20:40 | CT Scan Report ---
ABDOMEN AND PELVIS CT WITHOUT CONTRAST CT DOSE: 987.90 mGy.cm HISTORY: Acute nausea and vomiting vomiting TECHNIQUE: Multiaxial CT images of the abdomen and pelvis were performed without contrast. A dose lo wering technique was utilized adhering to the principles of ALARA. COMPARISON STUDY: CT abdomen and pelvis 03/18/2018. FINDINGS: Bibasilar subpleural reticular opacities redemonstrated compatible with fibrosis. No pneumatosis or p neumoperitoneum. Imaged cardiac chambers are moderately enlarged. Prior median sternotomy. Coronary a rterial and mitral annular calcifications are partially imaged. Calcified granulomata about the hepatic and splenic parenchyma. Liver is otherwise unremarkable. Prio r cholecystectomy. Mild dilation of the common bile duct, likely postsurgical. Adrenal glands are unr emarkable. Moderate to severe generalized pancreatic atrophy with scattered parenchymal calcification s suggesting sequela of chronic pancreatitis. Mild cortical thinning of the bilateral kidneys with mild atrophy and mild perinephric stranding. Mil d prominence about the mid and distal portions of the left ureter. No obstructing urolith or hydronep hrosis. Circumferential wall thickening of the urinary bladder with perivesicular stranding. Prostame braden. Small fat filled left inguinal hernia. Extensive calcification of the aorta without aneurysm. L ikely reactive retroperitoneal lymph nodes measure up to 7 mm. No bowel obstruction. Scattered air-fl uid levels noted throughout the small bowel. No bowel wall thickening. Appendix appears normal. No as cites. Soft tissues appear unremarkable. No suspicious lytic or blastic bony lesions. Degenerative ch anges of the spine and pelvis. Age-indeterminate 20% anterior endplate compression deformity of the L 3 vertebral body, progressed from comparison. No retropulsion. IMPRESSION: 1. Prostamegaly with moderate circumferential wall thickening of the urinary bladder and associated perivesicular stranding. Correlate with urinalysis to exclude cystitis. 2. No bowel obstruction or focal bowel wall thickening. 3. Prior cholecystectomy. 4. Anterior endplate compression deformity of the L3 vertebral body has progressively worsened from suggesting acute or subacute injury without retropulsion. Correlate with patient history and point tenderness. 5. Additional findings as above. Electronically signed by: Bryce Flynn M.D. 09/13/2018 8:39 PM
[2018-09-13] MEDS ORDERED: cefTRIAXone SODIUM 1,000 MG/50 ML BAG IV STA (20:57)
[2018-09-13] MEDS ORDERED: SODIUM CHLORIDE 0.9% 1000ML 1,000 ML IV ONE (20:57)
[2018-09-13] MEDS ORDERED: MAGNESIUM SULFATE / D5W 1 GM/100 ML BAG IV ONE (21:05)
[2018-09-13] MEDS ORDERED: NYSTATIN CR 15 GM TUBE EXT PRN (23:12)
[2018-09-13] MEDS ORDERED: VANCOMYCIN HCL 1,000 MG in SODIUM CHLORIDE 0.9% 250 ML IV SCH (23:12)
[2018-09-13] MEDS ORDERED: ONDANSETRON INJ 2 MG/ML 2 ML VIAL IV PRN (23:12)
[2018-09-13] MEDS ORDERED: NITROGLYCERIN SL 0.4 MG/TAB TAB SL PRN (23:12)
[2018-09-13] MEDS ORDERED: ACETAMINOPHEN 325 MG TAB PO PRN (23:12)
[2018-09-13] MEDS ORDERED: VANCOMYCIN CONSULT ACTIVE PRN (23:12)
[2018-09-13] MEDS ORDERED: CEFEPIME CONSULT ACTIVE PRN (23:32)
[2018-09-13] MEDS ORDERED: INSULIN ASPART 100 UNITS/ML 3 ML PEN SC STA (23:41)
[2018-09-13] MEDS ORDERED: PHARMACY GLYCEMIC MGMT CONSULT PRN (23:44)
[2018-09-13] MEDS ORDERED: GLUCAGON FOR INJ 1 MG VIAL SQ PRN (23:48)
[2018-09-13] MEDS ORDERED: DEXTROSE 50% 50 ML SYRINGE IV PRN (23:48)
[2018-09-13] MEDS ORDERED: GLUCOSE 10 TABS/TUBE PO PRN (23:48)
[2018-09-13] MEDS ORDERED: CARBOHYDRATES FOR HYPOGLYCEMIA PO PRN (23:48)
[2018-09-13] MEDS ORDERED: GLUCOSE 40% GEL 15 GM TUBE PO PRN (23:48)
[2018-09-13] MEDS: SODIUM CHLORIDE 0.9% 1000ML 1,000 ML IV SCH (23:56)
[2018-09-14] MEDS ORDERED: CEFEPIME 2,000 MG in SYRINGE 7.5 ML IV SCH
[2018-09-14] MEDS ORDERED: VANCOMYCIN HCL 2,500 MG in SODIUM CHLORIDE 0.9% 500 ML IV SCH
[2018-09-14] MEDS ORDERED: INSULIN GLARGINE SOLOSTAR 100 UNITS/ML 3 ML PEN SC SCH (00:15)
[2018-09-14] MEDS ORDERED: INSULIN ASPART 100 UNITS/ML 3 ML PEN SC SCH (04:00)
[2018-09-14 05:58] LABS: Basophils # (auto) 0.02 K/uL (0-0.2); Basophils % (auto) 0.3 %; Eosinophils # (auto) 0.21 K/uL (0-0.5); Eosinophils % (auto) 2.9 %; Hematocrit (blood only) 37.9 % (42-52); Hemoglobin 12.4 g/dL (14.0-18.0); Immature Granulocytes # (auto) 0.01 K/uL (0.00-0.02); Immature Granulocytes % (auto) 0.1 %; Lymphocytes # (auto) 1.85 K/uL (1.2-3.4); Mean Corpuscular Hgb Conc 32.7 g/dL (32-36); Mean Corpuscular Volume 87.9 fL (80-100); Mean Platelet Volume 11.1 fL (7.4-10.4); Monocytes # (auto) 0.82 K/uL (0.11-0.59); Monocytes % (auto) 11.5 %; Neutrophils # (auto) 4.21 K/uL (1.4-6.5); Neutrophils % (auto) 59.2 %; Platelet Count 134 K/uL (130-400); RDW Coefficient of Variation 14.3 % (11.5-14.5); RDW Standard Deviation 46.3 fL (36.4-46.3); Red Blood Count 4.31 M/uL (4.7-6.1); White Blood Count 7.12 K/uL (4.8-10.8)
[2018-09-14] MEDS ORDERED: [UNRECOGNIZED DRUG - OTHER] SC SCH (06:30)
[2018-09-14] MEDS ORDERED: INSULIN REGULAR SC SCH (06:30)
[2018-09-14 06:31] LABS: BUN Creatinine Ratio 19.4 (10-20); Creatinine Clr Calc Pharmacy 55.4 ml/min; Est GFR (African American) 65.7; Est GFR (Non-African American) 56.7; Magnesium 1.8 mg/dl (1.8-2.4); Potassium 4.3 mmol/L (3.5-5.1)
[2018-09-14 06:33] LABS: Albumin Level 2.8 gm/dl (3.4-5.0); Bilirubin Direct 0.2 mg/dl (0-0.2); Bilirubin,Total 0.6 mg/dl (0.1-1)
[2018-09-14 06:46] LABS: Estimated Average Glucose 237 mg/dl
--- NOTE | 2018-09-14 06:58 | History and Physical Report ---
DATE OF ADMISSION: 09/13/2018 CHIEF COMPLAINT: Altered mental status, UTI. HISTORY OF PRESENT ILLNESS: An 88-year-old male with past medical history significant for diabetes with diabetic retinopathy, tunnel vision, seborrheic dermatitis, actinic keratoses, CAD s/p CABG, CVA, type 2 diabetes, hyperlipidemia, aortic stenosis, B12 deficiency, hypertension, BPH, GERD, major depression, was brought in by because of lethargy. Patient has a history of recurrent UTIs. He has issues with micturition, he wets himself most of the time. His uses pull ups. He goes to bathroom frequently in small amounts. He has issues with urinary retention. He follows with the [facility]. He is on medications which were not helping much. A couple of days ago, he was having burning micturition, and called the PCP office, they wanted to come to the office for prescribed antibiotic, which did not happen, and since today morning, patient was getting more lethargic. He slept whole day until 3:00 p.m., and also, he sat on the chair and he was drowsy, which is why the patient's brought him to the ER. He is afebrile. Blood pressure is okay. Urinalysis was positive. Currently, patient is very hard of hearing, resting comfortably, hemodynamically stable. Denies any belly pain. He has no nausea, but he was a little nauseous earlier. Denies any chest pain, no shortness of breath, no cough, no fever, no chills, no headaches, no runny nose, no sore throat, no difficulty swallowing. Normal bowel movements. He has a history of constipation, he says he has on and off constipation. Ambulates with the help of walker. On and off he has some difficulty swallowing because of a history of tracheostomy in the past. ALLERGIES: AGGRENOX, IV DIAGNOSTIC AGENTS, CIPROFLOXACIN, LISINOPRIL FORMALDEHYDE. PAST MEDICAL HISTORY: As mentioned above. PAST SURGICAL HISTORY: CABG, colonoscopy, cholecystectomy, removal of the ear lesions, bilateral cataract surgeries, status post tracheostomy after extended period of vent after CABG, treatment of extensive retinopathy with photocoagulation, vitrectomy with laser coagulation, history of skin lesion excision on the right arm. MEDICATIONS: Patient is on amoxicillin 500 mg p.o. t.i.d., Ditropan XL 10 mg p.o. daily, tramadol 50 mg p.o. q.6 h. p.r.n., Flexeril 10 mg p.o. daily, Proscar 5 mg p.o. daily, cortisone 1% b.i.d., Colace 100 mg p.o. daily, metformin 1000 mg p.o. b.i.d., brimonidine 1 drop into right eye b.i.d., aspirin 81 mg p.o. daily, gabapentin 400 mg p.o. t.i.d., insulin regular human 15 units in the a.m. and 30 units in the p.m., NovoLog sliding scale, Coreg 6.25 mg b.i.d., Zocor 10 mg p.o. daily, Flomax 0.4 mg p.o. daily, carboxymethylcellulose 0.25% one drop into both eyes q.i.d., cyanocobalamin 500 mcg daily, Eucerin daily, nystatin cream p.r.n., Lutein 20 mg p.o. daily, nitroglycerin 0.4 mg sublingual p.r.n., vitamin D 2000 units p.o. daily, oxygen 2 L at bedtime. FAMILY HISTORY: Significant for mother who has cancer, father who has heart disorder. Sister has diabetes and arthritis. SOCIAL HISTORY: No smoking history. Alcohol occasional. No drug use. REVIEW OF SYSTEMS: As per HPI. Rest of review of systems negative. PHYSICAL EXAMINATION: GENERAL: Patient is obese, not in acute distress, oriented, somewhat drowsy. VITAL SIGNS: Temperature 36.8, pulse 75, respiratory 15, blood pressure 151/92, oxygen saturation 95% on 3 L. HEENT: No pallor, no icterus. Pupils equal, round, and reactive to light. NECK: No JVD, no neck masses, no carotid bruits. CARDIOVASCULAR SYSTEM: S1 and S2 heard. Systolic ejection murmur in the aortic area heard. RESPIRATORY SYSTEM: Normal AP diameter. No accessory muscle use. No wheezing, no crackles. GASTROINTESTINAL: Abdomen is soft, bowel sounds present, nontender, no distention. CENTRAL NERVOUS SYSTEM: Alert and oriented. Nonfocal. EXTREMITIES: No edema seen. Status post right arm skin lesion excision, in dressing. LABORATORY DATA: WBC 9, hemoglobin 12.6, hematocrit 40.2, platelets 145. Sodium 130, potassium 5, chloride 94, CO2 of 27, BUN 27, creatinine 1.59, serum glucose 337. Lactate 1.2. Calcium 8.5, magnesium 1.4. Total bilirubin 0.8, AST 20, ALT 21, alkaline phosphatase 124. C-reactive protein 11. Urinalysis positive for leukocyte esterase. IMAGING: CT of his head: No acute intracranial abnormalities seen. Chest x-ray: Cardiomegaly, with mild pulmonary edema, trace pleural effusions, subsegmental bibasilar atelectasis. CT of the abdomen and pelvis: Prostatomegaly with moderate circumferential wall thickening of the urinary bladder as well as perivesical stranding correlating with urinalysis to exclude cystitis, no bowel obstruction or focal bowel wall thickening, prior cholecystectomy, anterior endplate compression deformity of L3 vertebral body. EKG: Sinus rhythm with first degree AV block with rate of 79, no acute ST changes seen. ASSESSMENT AND PLAN: This is an 88-year-old male presents with lethargy, most likely secondary to urinary tract infection. 1. Lethargy, most likely secondary to urinary tract infection, history of recurrent urinary tract infection, history of benign prostatic hyperplasia, history of chronic urinary retention, mostly wets himself. Family uses pull overs. Follows with [facility]. It was difficult to catheterize in the ER, we will check a bladder scan q. shift to monitor retention.He is able to urinate in small amounts for now. Will empirically place him on IV vancomycin and IV cefepime. Follow the cultures. Could be early sepsis. Closely monitor on the tele floor. Consult Urology for further recommendations. 2. Chronic urinary retention. Positive for benign prostatic hyperplasia. Continue home medications of Proscar, Flomax, and Ditropan. Await urology inputs. 3. Skin lesion excision recently on right arm, , seems to be benign. Needs daily dressing . Consult Wound care . 4. Hypomagnesemia. Will replace. 5. Hyponatremia. Continue gentle fluids. Will follow the labs in the a.m. 6. Aortic stenosis. Monitor for any volume overload. Patient has been given fluids. 7. Diabetes. Continue his home Novolin, insulin sliding scale, hold metformin, monitor blood sugars, follow HbA1c. Will consult pharmacy for glycemic management. 8. Ambulatory dysfunction. Patient walks with a walker at home. PT/OT when patient is stable. 9. History of coronary artery disease, status post coronary artery bypass graft. Patient is on aspirin, Coreg, and statin. Currently stable. 10. History of hypertension, on Coreg. Will monitor the blood pressure. 11. Hyperlipidemia, on statin. 12. Obesity, nocturnal hypoxia. Oxygen at bedtime. 13. Deep venous thrombosis prophylaxis. Sequential compression devices for now. 14. Disposition: Admit to tele floor. PT/OT prior to discharge. Social Service to help with discharge planning. Level 1 full code only if there is chance of recovery, only for a short period of time. MTDD
--- NOTE | 2018-09-14 08:16 | Pharmacy Report ---
Pharmacy Abx Dose Short Note - Date of Service September 14, 2018 - Assessment & Plan Assessment * 88 year old M receiving VANCOMYCIN + CEFEPIME for treatment of complicated UTI , concern for early sepsis * Pt does have a h/o recurrent UTIs, BPH, urinary incontinence and urinary retention * UA suggestive of infection, UCx pending, BLCX's also pending * HUA resolving (SCr 1.6-->1.14) * Currently afebrile, non-hypotensive, non-tachycardic Plan Vancomycin * 2500mg load (~24mg/kg) x 1 given overnight * Maint dose: 1500mg (~14mg/kg) IV Q 18 hrs * Goal trough level for UTI : 10 to 20 mcg/mL * Will check trough level w/ 3rd dose if therapy not d/c'd prior * P'kinetic estimates: Vd 0.7L/kg, half-life ~14 hrs (possibly less given improving renal fxn over last 24 hrs) Cefepime * Current dose of 2gm IV Q 24 hrs acceptable for eCrCl 30-60cc/min; no change needed Pharmacy will continue to follow and will adjust dose/frequency as necessary. Thank you.
[2018-09-14] MEDS: CARVEDILOL 6.25 MG TAB PO SCH ×2 (08:30→21:09)
[2018-09-14] MEDS: DOCUSATE SODIUM 100 MG CAP PO SCH (08:30)
[2018-09-14] MEDS: TAMSULOSIN HCL 0.4 MG CAP PO SCH (08:30)
[2018-09-14] MEDS: ASPIRIN 81 MG ECTAB PO SCH (08:30)
[2018-09-14] MEDS: GABAPENTIN 400 MG CAP PO SCH ×3 (08:30→21:07)
[2018-09-14] MEDS: CYANOCOBALAMIN 500 MCG TABLET (VITAMIN B-12) PO SCH (08:31)
[2018-09-14] MEDS: SIMBRINZA~NON-FORMULARY PATIENT'S OWN MED OP SCH ×2 (08:31→21:06)
[2018-09-14] MEDS: CHOLECALCIFEROL 1,000 UNITS TAB PO SCH (08:32)
[2018-09-14] MEDS: FINASTERIDE 5 MG TAB PO SCH (08:32)
[2018-09-14] MEDS: INSULIN ASPART 100 UNITS/ML 3 ML PEN SC SCH ×5 (08:36→23:58)
[2018-09-14] MEDS ORDERED: EUCERIN CR 120 GM JAR TOP PRN (09:00)
[2018-09-14] MEDS ORDERED: NON-FORMULARY MEDICATION (Lutein [Lutein] 20 MG) PO SCH (09:00)
[2018-09-14] MEDS ORDERED: NovoLIN-N (NPH) PER UNIT CHARGE SQ STA (09:54)
[2018-09-14] MEDS: ARTIFICIAL TEARS OP SCH ×4 (10:04→21:06)
[2018-09-14] MEDS: SODIUM CHLORIDE 0.9% 1000ML 1,000 ML IV SCH (12:39)
--- NOTE | 2018-09-14 14:48 | Pharmacy Report ---
Glycemic Control Consultation - Date of Service September 14, 2018 - Scope Scope: Glycemic Pharmacist consulted by Dr Perez on 09/14/18 for glycemic control and to write orders per [facility] inpatient glycemic control protocol - Objective Weight: 106.5 kg Accuchecks BSG (last 24hrs): 09/13/18 09/14/18 09/14/18 18:15 00:02 03:41 Glucose 337 H POC Glucose 292 H 212 H 09/14/18 09/14/18 09/14/18 05:23 07:31 11:24 Glucose 207 H POC Glucose 214 H 213 H Laboratory Data (last 24hrs): 09/13/18 09/14/18 18:15 05:23 Potassium 5.0 4.3 Carbon Dioxide 27 27 Anion Gap 9.0 6.0 Creatinine 1.59 H 1.14 D Est Cr Clr Drug Dosing Not Reportable 55.4 Beta-Hydroxybutyric Acd 3.01 H HbA1c: Hemoglobin A1c 9.9 % (4.5-5.6) H 09/14/18 05:23 - Recent Pertinent Medications Outpatient Anti-diabetic Regimen: * NPH 50u AM 13u PM, Novolog SSI, Metformin * A1c = 9.9 % 09/14/18 - Assessment & Plan Assessment & Plan: ASSESSMENT: * Mr. Go is an 88yo M p/w AMS, cUTI, early sepsis. His PMHx is consistent with DM-II, CAD, CVA, HLD, among others. He is known to the pharmacy glycemic service from previous admissions. Will continue with NPH for his metabolic coverage. He was admitted overnight. BSGs all in the low 200s. Unable to obtain last doses of insulin. * Sustained hyperglycemia likely 2/2 to physiologic stress response to infxn and possible basal deficiency. PLAN FOR INPATIENT GLYCEMIC CONTROL: * Holding outpatient oral diabetes medications * Basal insulin * Lantus NPH 45 units given this AM SQ * NPH scale on for tonight * give 10 units for BSGs <180mg/dL * give 15 units for BSGs >/=180mg/dL * Bolus insulin * NovoLog per scale ACHS or Q6hrs while NPO * Goal Range: Low 110 mg/dL - High 140 mg/dL * Correction Factor: 20 mg/dL/unit * Nutritional / Prandial insulin per carb ratio of 1 unit per 7 grams CHO consumed * 00,04 checks * Please note that the plan above was derived based on current level of insulin resistance and hospital stress. These recommendations are appropriate for inpatient admission only. Plan of care upon discharge will need to be reassessed to avoid potential outpatient hypo/hyperglycemia. Thank you.
[2018-09-14] MEDS ORDERED: NovoLIN-R INSULIN PER UNIT CHARGE SQ SCH (15:30)
--- NOTE | 2018-09-14 16:48 | Urology Consultation ---
Date of Consultation September 14, 2018 Assessment & Plan (1) Acute pyelonephritis: Pt has recurrent urinary infection. Cultures pending. Broad spectrum abx started. Await results. In the future, may be reasonable to consider daily abx for prophylaxis. (2) Acute urinary retention: Continue to check PVRs every shift. As long as volume is less than 350cc, will hold off on oshea catheter. History of Present Illness Attending Physician: August Garrett MD 88 y/o male with hx of BPH and recurrent UTIs presents with UTI and possible sepsis. Pt reports sxs began several days ago. Worsening urge, freq, and dysuria. Pt has urinary incont at baseline and wears depends to stay dry. He has had several UTIs over the last year. He is being admitted for treatment of UTI. He is very hard of hearing. Recent weakness and mailase. In the ED, attempts were made at catheterizing with a oshea but were unsuccessful. Subsequent PVRs have been within normal range of 200-300cc. Urine appears susp for another infx. Culture sent. Started on broad spec abx. Allergies Allergy/AdvReac Type Severity Reaction Status Date / Time Iodinated Contrast- Oral and Allergy Severe Edema-face/lips/tongue. Verified 19:52 IV Dye Hives/Rash. formaldehyde Allergy Intermediate Hives/Rash Verified 09/13/18 19:52 Cipro Allergy Unknown Hives Verified 07/15/17 11:48 dipyridamole Allergy Unknown Hallucinati Verified 09/13/18 19:52 ons lisinopril Allergy Unknown UNKNOWN Verified 09/13/18 19:52 ciprofloxacin AdvReac Unknown CONSTIPATIO Verified 09/13/18 19:52 N yellow socks Allergy Intermediate contact Uncoded 09/13/18 19:52 rash (formaldehyde used to preserve yellow color) Home Medications Home Medications Medication Instructions Recorded Confirmed Type Novolin R Regular U-100 Insuln 50 units SC DAILYBB 09/13/18 09/13/18 History amoxicillin 500 mg PO TID 09/13/18 09/13/18 History aspirin [Aspir-81] 81 mg PO DAILY 09/13/18 09/13/18 History benzoyl peroxide 1 applic TOPICAL DAILY PRN 09/13/18 09/13/18 History brinzolamide-brimonidine 1 drp OPR BID 09/13/18 09/13/18 History [Simbrinza] carboxymethylcellulose sodium 1 drp OPHTHALMIC (EYE) QID 09/13/18 09/13/18 History [TheraTears] carvedilol [Coreg] 6.25 mg PO BID 09/13/18 09/13/18 History cholecalciferol (vitamin D3) 2,000 unit PO DAILY 09/13/18 09/13/18 History [Vitamin D3] cyanocobalamin (vitamin B-12) 1,000 mcg PO DAILY 09/13/18 09/13/18 History cyclobenzaprine 10 mg PO HS 09/13/18 09/13/18 History docusate sodium 100 mg PO DAILY 09/13/18 09/13/18 History emollient combination no.69 1 applic TOPICAL UD 09/13/18 09/13/18 History [Eucerin Skin Calming] finasteride 5 mg PO DAILY 09/13/18 09/13/18 History gabapentin 400 mg PO TID 09/13/18 09/13/18 History hydrocortisone 1 applic TOPICAL BID 09/13/18 09/13/18 History insulin aspart U-100 [Novolog 0 unit SUBCUT TIDM 09/13/18 09/13/18 History U-100 Insulin aspart] insulin regular human [Novolin R 13 unit SUBCUT DAILYBD 09/13/18 09/13/18 History Regular U-100 Insuln] lutein 20 mg PO DAILY 09/13/18 09/13/18 History metformin 1,000 mg PO BIDM 09/13/18 09/13/18 History nitroglycerin [Nitrostat] 0.4 mg SUBLINGUAL UD PRN 09/13/18 09/13/18 History nystatin 1 applic TOPICAL UD PRN 09/13/18 09/13/18 History oxybutynin chloride [Ditropan XL] 10 mg PO DAILY 09/13/18 09/13/18 History selenium sulfide 1 applic TOPICAL UD 09/13/18 09/13/18 History simvastatin [Zocor] 10 mg PO PM 09/13/18 09/13/18 History tamsulosin 0.4 mg PO DAILY 09/13/18 09/13/18 History tramadol [Ultram] 50 mg PO Q6 PRN 09/13/18 09/13/18 History Patient History Medical History Coronary artery disease (Chronic) "PCI + stenting LAD 1997 CABG x 3 2000 cath 03/11/13 showed patent LAD graft, patent SVG to circ marginal, occluded SVG to RCA" Hypertension (Chronic) Benign prostatic hyperplasia (Chronic) Diabetes mellitus, type II (Chronic) Chronic respiratory failure (Chronic) "home O2 2 LPM at night + PRN" Dyslipidemia (Chronic) Hyperhomocysteinemia (Chronic) Diabetic retinopathy (Chronic) Cerebrovascular disease (Chronic) "s/p stroke with right hemiparesis" Aortic stenosis (Chronic) "1.1 cm2 by echo 2011 and cath 2012" Surgical History Status post coronary artery bypass grafting (Chronic) "radial artery to LAD, SVG to circ marginal, SVG to RCA" Status post cardiac catheterization (Chronic) "03/11/13 [facility] Dr. Durant patent LAD graft, patent SVG to circ marginal, occluded SVG to RCA" Status post cholecystectomy (Chronic) Social History marital status: Current Living Situation: Significant Other Feels Safe at Home: Yes Safety Concerns: Feels Safe At This Time Smoking Status: Never smoker Hx Alcohol Use: Yes ("very rarely") Hx Substance Use: No Beliefs That Will Affect Care: None Communication Ability: very [place] Review of Systems All others reviewed in HPI and otherwise neg Physical Exam 2 Vital Signs (Past 24 Hours): Last Vital Signs Temp 37.0 C 09/14/18 15:05 Pulse 69 09/14/18 15:05 Resp 18 09/14/18 15:05 BP 124/60 09/14/18 15:05 Pulse Ox 94 09/14/18 15:05 Constitutional: WD/WN, vitals as above well developed Eyes: PERRL, conjunctivae normal, anicteric sclerae Cardiovascular: RRR, no murmur, no edema Gastrointestinal (Abdomen): normal bowel sounds, soft, nontender, no hepatosplenomegaly Skin: no rashes, warm and dry Genitourinary: no testicular masses, no penis abnormality Lymphatic: no cervical or axillary lymphadenopathy
[2018-09-14] MEDS ORDERED: INSULIN HUMAN NPH SC SCH (17:00)
[2018-09-14] MEDS ORDERED: INSULIN HUMAN NPH SC ONE (17:00)
[2018-09-14] MEDS ORDERED: VANCOMYCIN HCL 1,500 MG in SODIUM CHLORIDE 0.9% 500 ML IV SCH (18:00)
[2018-09-14] MEDS: SIMVASTATIN 20 MG TAB PO SCH (21:08)
[2018-09-14] MEDS: CYCLOBENZAPRINE HCL 10 MG TAB PO SCH (21:08)
--- NOTE | 2018-09-14 21:29 | Hospitalist Progress Note ---
Date of Service September 14, 2018 Assessment & Plan (1) Urinary tract infection: Presented to ED with confusion, dysuria, urinary frequency / urgency. UA showed leukocyte esterase, WBC's, RBC's, bacteria. CT demonstrated prostatomegaly and probable cystitis. May have prostatitis. Receiving IV vancomycin and cefepime. Urine culture growing gamma strep, not enterococcus. DC vancomycin; continue cefepime. Urolology consulted. (2) Benign prostatic hyperplasia: Continue tamsulosin and finasteride. (3) Altered mental status: Probable encephalopathy secondary to UTI. Improved. (4) Coronary artery disease: No anginal symptoms. Continue usual meds. (5) Hypertension: Hemodynamically stable. (6) Chronic respiratory failure: Chronic hypoxic respiratory failure. Continue O2. (7) Diabetes mellitus, type II: FBS 214. Hgb A1C 9.9. Pharmacy consulted for glycemic management. (8) DVT prophylaxis: No anticoagulants at this time due to hematuria and attempted urethral catheterization. SCD's. Ambulate. (9) Discharge planning issues: Anticipated discharge to home. Internal medicine follow-up with Dr. Dela Cruz. Also follow-up at [facility]. Cardiology follow-up with Dr. Ward. Subjective Recheck for confusion, urinary symptoms, and other problems. Patient was seen in his room around 1400. Family visiting. Feels better today. Less confused. Dysuria improved. Still experiencing urinary urgency. T-max since admission 37.4. No chest pain. No cough or shortness of breath. No nausea or vomiting. No diarrhea. Physical Exam 2 Vital Signs (Past 24 Hours): Last Vital Signs Temp 37.2 C 09/14/18 19:27 Pulse 68 09/14/18 19:27 Resp 18 09/14/18 19:27 BP 150/76 H 09/14/18 19:27 Pulse Ox 94 09/14/18 19:27 Constitutional: no acute distress Respiratory: no respiratory distress Auscultation: lungs clear to auscultation bilaterally Cardiovascular: Rate/Rhythm: regular rate and regular rhythm Heart Sounds: + murmur (III/ systolic murmur at base); no gallop and no cardiac rub Vessels: no JVD Extremities: + edema (1+ pretibial); no calf tenderness Gastrointestinal (Abdomen): normal bowel sounds, soft, nontender, no hepatosplenomegaly Skin: no rashes, warm and dry Psychiatric: Orientation: alert and oriented x 3 (essentially oriented x 3; missed day of week by 1 day) Results & Data Laboratory Results Short CBC 09/14/18 Range/Units 05:23 WBC 7.12 (4.8-10.8) K/uL Hgb 12.4 L (14.0-18.0) g/dL Hct 37.9 L (42-52) % Plt Count 134 (130-400) K/uL BMP 09/14/18 05:23 Sodium 133 L Potassium 4.3 Chloride 100 Carbon Dioxide 27 BUN 22 H Creatinine 1.14 D Glucose 207 H Calcium 8.0 L Liver Function 09/14/18 Range/Units 05:23 Total Bilirubin 0.6 (0.1-1) mg/dl Direct Bilirubin 0.2 (0-0.2) mg/dl AST 19 (15-37) U/L ALT 18 (12-78) U/L Alkaline Phosphatase 102 (45-117) U/L Albumin 2.8 L (3.4-5.0) gm/dl _ (1) Altered mental status Altered mental status type: unspecified Coma depth: Coma timing: Qualified Code(s): R41.82 - Altered mental status, unspecified
[2018-09-15] MEDS: SODIUM CHLORIDE 0.9% 1000ML 1,000 ML IV SCH ×2 (02:09→13:55)
[2018-09-15] MEDS: INSULIN ASPART 100 UNITS/ML 3 ML PEN SC SCH ×5 (04:08→20:24)
[2018-09-15 05:11] LABS: BUN Creatinine Ratio 17.1 (10-20); Calcium 8.1 mg/dl (8.5-10.1); Creatinine Clr Calc Pharmacy 68.6 ml/min; Est GFR (African American) 85.2; Est GFR (Non-African American) 73.5; Potassium 4.1 mmol/L (3.5-5.1)
[2018-09-15] MEDS ORDERED: INSULIN HUMAN NPH SC SCH (07:30)
[2018-09-15] MEDS: CARVEDILOL 6.25 MG TAB PO SCH ×2 (07:53→20:17)
[2018-09-15] MEDS: DOCUSATE SODIUM 100 MG CAP PO SCH (07:53)
[2018-09-15] MEDS: ARTIFICIAL TEARS OP SCH ×4 (07:53→20:18)
[2018-09-15] MEDS: ASPIRIN 81 MG ECTAB PO SCH (07:54)
[2018-09-15] MEDS: SIMBRINZA~NON-FORMULARY PATIENT'S OWN MED OP SCH ×2 (07:54→20:23)
[2018-09-15] MEDS: FINASTERIDE 5 MG TAB PO SCH (07:54)
[2018-09-15] MEDS: CHOLECALCIFEROL 1,000 UNITS TAB PO SCH (07:54)
[2018-09-15] MEDS: TAMSULOSIN HCL 0.4 MG CAP PO SCH (07:54)
[2018-09-15] MEDS: CYANOCOBALAMIN 500 MCG TABLET (VITAMIN B-12) PO SCH (07:54)
[2018-09-15] MEDS: GABAPENTIN 400 MG CAP PO SCH ×3 (07:54→20:16)
[2018-09-15] MEDS ORDERED: CEFEPIME 2,000 MG in SYRINGE 7.5 ML IV SCH ×2 (12:00)
--- NOTE | 2018-09-15 12:01 | Urology Progress Note ---
Date of Service September 15, 2018 Pt continues to have issues emptying bladder. Overnight PVR was 600cc. Attempts made at passing oshea were unsuccesful. Subsequent PVRs were lower, but still elevated. He denies any pain related to the bladder. Today he related a hx of traumatic oshea placement/removal in the past. Normally sees Dr. Cazares at the [facility]. Assessment & Plan (1) Acute pyelonephritis: Pt has recurrent urinary infection. Cultures pending. Broad spectrum abx started. Await results. In the future, may be reasonable to consider daily abx for prophylaxis. (2) Acute urinary retention: At the bedside today, cysto and oshea placement was performed. The patient has phimosis with distal urethral stricture. This was dilated and a 14F oshea was placed. Leave oshea for 5 days to allow healing. Can f/u as outpatient for void trial. Physical Exam 2 Vital Signs (Past 24 Hours): Last Vital Signs Temp 37.2 C 09/15/18 10:59 Pulse 81 09/15/18 10:59 Resp 22 09/15/18 10:59 BP 169/70 H 09/15/18 10:59 Pulse Ox 93 09/15/18 10:59 Constitutional: WD/WN, vitals as above well developed Eyes: PERRL, conjunctivae normal, anicteric sclerae Cardiovascular: RRR, no murmur, no edema Gastrointestinal (Abdomen): normal bowel sounds, soft, nontender, no hepatosplenomegaly Skin: no rashes, warm and dry Genitourinary: no testicular masses, no penis abnormality Lymphatic: no cervical or axillary lymphadenopathy
--- NOTE | 2018-09-15 13:41 | Pharmacy Report ---
Glycemic Control Progress Note - Date of Service September 15, 2018 - Scope Glycemic Pharmacist consulted for glycemic control to write orders per [facility] inpatient glycemic control protocol. - Objective Accuchecks BSG(last 24 hours):: 09/14/18 09/14/18 09/14/18 16:10 20:40 23:47 Glucose POC Glucose 75 100 H 139 H 09/15/18 09/15/18 09/15/18 03:56 04:33 07:37 Glucose 144 H POC Glucose 127 H 154 H 09/15/18 11:20 Glucose POC Glucose 246 H HbA1c:: Hemoglobin A1c 9.9 % (4.5-5.6) H 09/14/18 05:23 - Recent Pertinent Medications The patient is currently receiving: * Basal insulin: NPH units every 45 x 1 and lantus 18 units X 1 * Correctional Insulin: Novolog Correction per scale ACHS Goal Range: Low 140 mg/dL - High 180 mg/dL Correction Factor: 20 mg/dL/unit * Prandial insulin: Per carb ratio of 1 unit per 7 grams CHO consumed - Outpatient Anti-Diabetic Meds NPH 50 units in the morning and 13 units before dinner; Novolog scale metformin - Assessment & Plan ASSESSMENT: * See progress note from 09/14/18 for more background info, in short: * Pt receiving SQ basal bolus insulin regimen for hyperglycemia secondary to baseline DM (outpatient regimen on hold),stress/infection (possible UTI currently on cefepime). * Patient is currently receiving an average of 84 units of insulin per day * 63 units of basal insulin * 21 units of prandial/correctional insulin * BSGs ranging 75 - 214 mg/dl over the past 24hrs * Changes needed to insulin regimen: * AM Fasting BSG = 154 mg/dl. This is slightly above goal range for patient based on inpatient targets and co-morbidities. Therefore Basal insulin will be continued at different doses. Patient received only one dose of NPH yesterday secondary to lower blood sugars in the second half-of the day. Therefore will give lower dose of NPH this morning and start a scale of Lantus for this afternoon. Will leave a zero dose available. * Post-prandial BSGs trended downwards yesterday but it did not appear that carbohydrates were covered appropriately. Reviewed previous inpatient data and utilized parameters from those admissions. * Total daily dose = ~80 units. * Additional notes / comments: hold metformin while inpatient and has acute infection PLAN FOR INPATIENT GLYCEMIC CONTROL: * Starting NPH to 30 units in the morning and 0-15 units with dinner * 0 units if blood sugar under 140 mg/dl * 10 units if blood sugar 140-180 mg/dl * 15 units if blood sugar greater than 180 mg/dL * Changing correction factor to 15 mg/dl/unit * Changing carb ratio to 1 unit per 5 grams CHO consumed * Changing goal range to Low 110 mg/dL - High 140 mg/dL RECOMMENDATIONS FOR DISCHARGE: * Patient's HbA1C remains uncontrolled. Recommend working with outpatient provider to maximize insulin dosing. Patient may require more Novolog dosing with meals. Thank you.
--- NOTE | 2018-09-15 17:20 | Hospitalist Progress Note ---
Date of Service September 15, 2018 Assessment & Plan (1) Urinary tract infection: Presented to ED with confusion, dysuria, urinary frequency / urgency. UA showed leukocyte esterase, WBC's, RBC's, bacteria. CT demonstrated prostatomegaly and probable cystitis. May have prostatitis. Urolology consulted. Initially received IV vancomycin and cefepime. Urine culture growing group B beta hemolytic strep. Change antibiotic therapy to amoxicillin. (2) Benign prostatic hyperplasia: Continue tamsulosin and finasteride. (3) Urinary retention: Significant postvoid residuals. Underlying BPH; may have urethral disease as well. Staff unable to pass Coughlin. Continue tamsulosin and finasteride. Further management per Urology. (4) Altered mental status: Probable encephalopathy secondary to UTI. Improved. (5) Coronary artery disease: No anginal symptoms. Continue usual meds. (6) Hypertension: Hemodynamically stable. (7) Chronic respiratory failure: Chronic hypoxic respiratory failure. Continue O2. (8) Diabetes mellitus, type II: Hgb A1C 9.9. Pharmacy consulted for glycemic management. FBS this morning = 154. (9) DVT prophylaxis: No anticoagulants at this time due to hematuria and attempted urethral catheterization. SCD's. Ambulate. (10) Discharge planning issues: Anticipated discharge to home. Internal medicine follow-up with Dr. Dela Cruz. Also follow-up at [facility]. Cardiology follow-up with Dr. Ward. Subjective Recheck for confusion, urinary symptoms, and other problems. Patient was seen in his room around 1010. Life partner visiting. Confused last night, better this morning. No fever. Dysuria improved. Still experiencing urinary urgency. Post void residuals vary, but have been > 500 mls. No chest pain. No cough or shortness of breath. No nausea or vomiting. No diarrhea. Physical Exam 2 Vital Signs (Past 24 Hours): Last Vital Signs Temp 37.2 C 09/15/18 10:59 Pulse 81 09/15/18 10:59 Resp 22 09/15/18 10:59 BP 169/70 H 09/15/18 10:59 Pulse Ox 93 09/15/18 10:59 Constitutional: no acute distress Respiratory: no respiratory distress Auscultation: lungs clear to auscultation bilaterally Cardiovascular: Rate/Rhythm: regular rate and regular rhythm Heart Sounds: + murmur (III/ systolic murmur at base); no gallop and no cardiac rub Vessels: no JVD Extremities: + edema (1+ pretibial); no calf tenderness Gastrointestinal (Abdomen): normal bowel sounds, soft, nontender, no hepatosplenomegaly Skin: no rashes, warm and dry Psychiatric: Orientation: alert and oriented x 3 (essentially oriented x 3; thought that it was Sat instead of Sun) Results & Data Laboratory Results [facility] 09/15/18 04:33 Sodium 137 Potassium 4.1 Chloride 105 Carbon Dioxide 26 BUN 16 Creatinine 0.92 Glucose 144 H Calcium 8.1 L Microbiology 09/13/18 19:05 Urine Culture - Final Urine,Clean Catch Group B Beta Strep 09/13/18 19:56 Blood Culture - Preliminary Blood No growth to date. 09/13/18 19:45 Blood Culture - Preliminary Blood No growth to date. _ (1) Altered mental status Altered mental status type: unspecified Coma depth: Coma timing: Qualified Code(s): R41.82 - Altered mental status, unspecified
[2018-09-15] MEDS: INSULIN HUMAN NPH SC SCH (17:45)
[2018-09-15] MEDS: SIMVASTATIN 20 MG TAB PO SCH (20:17)
[2018-09-15] MEDS: AMOXICILLIN 500 MG CAP PO SCH (20:19)
[2018-09-15] MEDS: CYCLOBENZAPRINE HCL 10 MG TAB PO SCH (20:19)
[2018-09-16 06:58] LABS: BUN Creatinine Ratio 12.3 (10-20); Calcium 8.8 mg/dl (8.5-10.1); Creatinine Clr Calc Pharmacy 68.9 ml/min; Est GFR (African American) 86.3; Est GFR (Non-African American) 74.5; Potassium 3.6 mmol/L (3.5-5.1)
[2018-09-16] MEDS: ARTIFICIAL TEARS OP SCH ×4 (08:54→22:14)
[2018-09-16] MEDS: SIMBRINZA~NON-FORMULARY PATIENT'S OWN MED OP SCH ×2 (08:55→22:13)
[2018-09-16] MEDS: GABAPENTIN 400 MG CAP PO SCH ×3 (08:55→22:15)
[2018-09-16] MEDS: AMOXICILLIN 500 MG CAP PO SCH ×3 (08:55→22:15)
[2018-09-16] MEDS: CHOLECALCIFEROL 1,000 UNITS TAB PO SCH (08:56)
[2018-09-16] MEDS: ASPIRIN 81 MG ECTAB PO SCH (08:56)
[2018-09-16] MEDS: CARVEDILOL 6.25 MG TAB PO SCH ×2 (08:56→22:13)
[2018-09-16] MEDS: DOCUSATE SODIUM 100 MG CAP PO SCH (08:56)
[2018-09-16] MEDS: CYANOCOBALAMIN 500 MCG TABLET (VITAMIN B-12) PO SCH (08:56)
[2018-09-16] MEDS: FINASTERIDE 5 MG TAB PO SCH (08:56)
[2018-09-16] MEDS: TAMSULOSIN HCL 0.4 MG CAP PO SCH (08:57)
[2018-09-16] MEDS: INSULIN HUMAN NPH SC SCH ×2 (08:58→17:43)
[2018-09-16] MEDS: INSULIN ASPART 100 UNITS/ML 3 ML PEN SC SCH ×4 (09:50→22:13)
[2018-09-16] MEDS ORDERED: POLYETHYLENE (MIRALAX) 17 GM PACK PO PRN (09:52)
[2018-09-16] MEDS ORDERED: TRAMADOL HCL 50 MG TABLET PO PRN (09:57)
--- NOTE | 2018-09-16 09:57 | Hospitalist Progress Note ---
Date of Service September 16, 2018 Assessment & Plan (1) Urinary tract infection: Presented to ED with confusion, dysuria, urinary frequency / urgency. UA showed leukocyte esterase, WBC's, RBC's, bacteria. CT demonstrated prostatomegaly and probable cystitis. May have prostatitis. Urolology consulted. Initially received IV vancomycin and cefepime. Urine culture grew group B beta hemolytic strep. Changed antibiotic therapy to amoxicillin. (2) Benign prostatic hyperplasia: Continue tamsulosin and finasteride. (3) Urinary retention: Significant postvoid residuals. Underlying BPH; may have urethral disease as well. Staff unable to pass Coughlin. Persistent urinary retention. Coughlin cath placed by Urology. Continue tamsulosin and finasteride. Will probably need to be discharged with catheter. Catheter placement was very uncomfortable- will need analgesics before re- insertion in future. Further management per Urology. (4) Altered mental status: Probable encephalopathy secondary to UTI. Improved. (5) Coronary artery disease: No anginal symptoms. Continue usual meds. (6) Hypertension: Hemodynamically stable. (7) Chronic respiratory failure: Chronic hypoxic respiratory failure. Continue O2. (8) Diabetes mellitus, type II: Hgb A1C 9.9. Pharmacy consulted for glycemic management. FBS this morning = 146. (9) DVT prophylaxis: No anticoagulants at this time due to hematuria and attempted urethral catheterization. SCD's. Ambulate. (10) Discharge planning issues: Anticipated discharge to home. Internal Medicine follow-up with Dr. Dela Cruz. Also followed by Dr. Padilla at [facility] and Urologist at [facility]. Cardiology follow-up with Dr. Ward. Subjective Recheck for confusion, urinary symptoms, and other problems. Patient was seen in his room around 0940. Life partner visiting. Coughlin cath placed by Urology yesterday for persistent urinary retention. No problems with confusion last night. No fever. No chest pain. No cough or shortness of breath. No nausea or vomiting. No BM for 2 days. Physical Exam 2 Vital Signs (Past 24 Hours): Last Vital Signs Temp 37.2 C 09/16/18 07:37 Pulse 79 09/16/18 07:37 Resp 22 09/16/18 07:37 BP 180/77 H 09/16/18 07:37 Pulse Ox 93 12/31/18 07:37 Constitutional: no acute distress Respiratory: no respiratory distress Auscultation: lungs clear to auscultation bilaterally Cardiovascular: Rate/Rhythm: regular rate and regular rhythm Heart Sounds: + murmur (III/ systolic murmur at base); no gallop and no cardiac rub Vessels: no JVD Extremities: + edema (1+ pretibial); no calf tenderness Gastrointestinal (Abdomen): normal bowel sounds, soft, nontender, no hepatosplenomegaly Musculoskeletal: SCD's applied. Skin: no rashes, warm and dry Psychiatric: Orientation: alert and oriented x 3 Results & Data Laboratory Results [facility] 09/16/18 05:56 Sodium 138 Potassium 3.6 Chloride 105 Carbon Dioxide 25 BUN 11 Creatinine 0.91 Glucose 137 H Calcium 8.8 _ (1) Altered mental status Altered mental status type: unspecified Coma depth: Coma timing: Qualified Code(s): R41.82 - Altered mental status, unspecified
[2018-09-16] MEDS: CYCLOBENZAPRINE HCL 10 MG TAB PO SCH (22:14)
[2018-09-16] MEDS: SIMVASTATIN 20 MG TAB PO SCH (22:27)
[2018-09-17 06:51] LABS: BUN Creatinine Ratio 15.1 (10-20); Creatinine Clr Calc Pharmacy 61.4 ml/min; Est GFR (African American) 75.2; Est GFR (Non-African American) 64.9; Potassium 3.5 mmol/L (3.5-5.1)
[2018-09-17] MEDS: FINASTERIDE 5 MG TAB PO SCH (07:37)
[2018-09-17] MEDS: GABAPENTIN 400 MG CAP PO SCH ×3 (07:37→20:37)
[2018-09-17] MEDS: AMOXICILLIN 500 MG CAP PO SCH ×3 (07:37→20:37)
[2018-09-17] MEDS: CYANOCOBALAMIN 500 MCG TABLET (VITAMIN B-12) PO SCH (07:38)
[2018-09-17] MEDS: CHOLECALCIFEROL 1,000 UNITS TAB PO SCH (07:38)
[2018-09-17] MEDS: CARVEDILOL 6.25 MG TAB PO SCH ×2 (07:38→20:37)
[2018-09-17] MEDS: TAMSULOSIN HCL 0.4 MG CAP PO SCH (07:39)
[2018-09-17] MEDS: ARTIFICIAL TEARS OP SCH ×4 (07:39→20:37)
[2018-09-17] MEDS: ASPIRIN 81 MG ECTAB PO SCH (07:39)
[2018-09-17] MEDS: SIMBRINZA~NON-FORMULARY PATIENT'S OWN MED OP SCH ×2 (07:40→20:38)
[2018-09-17] MEDS: DOCUSATE SODIUM 100 MG CAP PO SCH ×2 (07:50→09:30)
[2018-09-17] MEDS: INSULIN HUMAN NPH SC SCH ×3 (09:15→18:21)
[2018-09-17] MEDS: INSULIN ASPART 100 UNITS/ML 3 ML PEN SC SCH ×4 (09:17→21:42)
--- NOTE | 2018-09-17 10:49 | Hospitalist Progress Note ---
Date of Service September 17, 2018 Assessment & Plan (1) Urinary tract infection: Presented to ED with confusion, dysuria, urinary frequency / urgency. UA showed leukocyte esterase, WBC's, RBC's, bacteria. CT demonstrated prostatomegaly and probable cystitis. May have prostatitis. Urolology consulted. Initially received IV vancomycin and cefepime. Urine culture grew group B beta hemolytic strep. Changed antibiotic therapy to amoxicillin. (2) Benign prostatic hyperplasia: Continue tamsulosin and finasteride. (3) Urinary retention: Significant postvoid residuals. Underlying BPH; may have urethral disease as well. Staff unable to pass Coughlin. Persistent urinary retention. Coughlin cath placed by Urology. Continue tamsulosin and finasteride. Will probably need to be discharged with catheter. Catheter placement was very uncomfortable- will need analgesics before re- insertion in future. Further management per Urology. (4) Altered mental status: Probable encephalopathy secondary to UTI. Improved. (5) Coronary artery disease: No anginal symptoms. Continue usual meds. (6) Hypertension: Hemodynamically stable. (7) Chronic respiratory failure: Chronic hypoxic respiratory failure. Continue O2. (8) Diabetes mellitus, type II: Hgb A1C 9.9. Pharmacy consulted for glycemic management. FBS this morning = 164. (9) DVT prophylaxis: No anticoagulants at this time due to hematuria and attempted urethral catheterization. SCD's. Ambulate. (10) Discharge planning issues: Anticipated discharge to home with services. Internal Medicine follow-up with Dr. Dela Cruz. Also followed by Dr. Padilla at [facility] and Urologist at [facility]. Cardiology follow-up with Dr. Ward. Subjective Recheck for confusion, urinary symptoms, and other problems. Patient was seen in his room around 0940. Life partner visiting. Worked with PT yesterday. No problems with Coughlin cath- feels better since it was placed. Confusion improved. No fever. No chest pain. No cough or shortness of breath. No nausea or vomiting. Moving bowels. Physical Exam 2 Vital Signs (Past 24 Hours): Last Vital Signs Temp 37.1 C 09/17/18 08:00 Pulse 81 09/17/18 08:00 Resp 18 09/17/18 08:00 BP 169/80 H 09/17/18 08:00 Pulse Ox 94 09/17/18 08:00 Constitutional: no acute distress Respiratory: no respiratory distress Auscultation: lungs clear to auscultation bilaterally Cardiovascular: Rate/Rhythm: regular rate and regular rhythm Heart Sounds: + murmur (III/ systolic murmur at base); no gallop and no cardiac rub Vessels: no JVD Extremities: + edema (1+ pretibial); no calf tenderness Gastrointestinal (Abdomen): normal bowel sounds, soft, nontender, no hepatosplenomegaly Skin: no rashes, warm and dry Psychiatric: Orientation: alert and oriented x 3 Genitourinary: + external exam abnormal (Coughlin cath draining clear urine.) Results & Data Laboratory Results [facility] 09/17/18 06:01 Sodium 137 Potassium 3.5 Chloride 104 Carbon Dioxide 25 BUN 15 Creatinine 1.02 Glucose 185 H Calcium 9.0 _ (1) Altered mental status Altered mental status type: unspecified Coma depth: Coma timing: Qualified Code(s): R41.82 - Altered mental status, unspecified
--- NOTE | 2018-09-17 14:30 | Pharmacy Report ---
Pharmacy Glycemic Short Note 2 - Date of Service September 17, 2018 - Glycemic Short BSG Results (Last 24 hours): 09/16/18 09/16/18 09/17/18 16:37 20:37 06:01 Glucose 185 H POC Glucose 195 H 273 H 09/17/18 09/17/18 07:50 11:59 Glucose POC Glucose 164 H 220 H ASSESSMENT: See progress note from 09/14/18 for more background info, in short: 09-17-18: * Patient received total of 108 units of insulin yesterday, 45 of which were NPH * BSGs yesterday elevated throughout the day - tend to increase throughout the day; This am fasting BSG 164 mg/dL - will increase NPH dose this am since anticipate BSGs to rise * BSG at lunchtime 220 mg/dL - will further tighten CR to provide additional coverage and continue to trend PLAN FOR INPATIENT GLYCEMIC CONTROL: * Hold outpatient oral diabetes medications * NPH - increase morning from 30 to 35 units * continue with same scale for dinner: -NPH 0 units for BSG less than 140 mg/dL -NPH 10 units for BSG 140-180 mg/dL -NPH 15 units for BSG greater 180 mg/dL * Bolus insulin - adjusted CR * NovoLog per scale ACHS or Q6hrs while NPO * Goal Range: Low 110 mg/dL - High 140 mg/dL * Correction Factor: 15 mg/dL/unit * Nutritional / Prandial insulin per carb ratio of 1 unit per 3.5 grams CHO consumed
[2018-09-17] MEDS: CYCLOBENZAPRINE HCL 10 MG TAB PO SCH (20:37)
[2018-09-17] MEDS: SIMVASTATIN 20 MG TAB PO SCH (20:37)
[2018-09-18 05:51] LABS: Hematocrit (blood only) 40.6 % (42-52); Hemoglobin 13.1 g/dL (14.0-18.0); Mean Corpuscular Hgb Conc 32.3 g/dL (32-36); Mean Corpuscular Volume 87.1 fL (80-100); Mean Platelet Volume 10.5 fL (7.4-10.4); Platelet Count 171 K/uL (130-400); RDW Coefficient of Variation 14.4 % (11.5-14.5); RDW Standard Deviation 45.5 fL (36.4-46.3); Red Blood Count 4.66 M/uL (4.7-6.1); White Blood Count 6.24 K/uL (4.8-10.8)
[2018-09-18 06:12] LABS: Calcium 8.6 mg/dl (8.5-10.1); Creatinine Clr Calc Pharmacy 61.2 ml/min; Est GFR (African American) 76.1; Est GFR (Non-African American) 65.6; Potassium 4.1 mmol/L (3.5-5.1)
--- NOTE | 2018-09-18 07:30 | XRay Report ---
XR chest 1V portable CLINICAL HISTORY: suspected aspiration dyspnea COMPARISON STUDY: 09/13/2018 FINDINGS: Mild cardiomegaly. This is improved from the prior exam. Diminished pulmonary vasculature. Persistent basilar parenchymal prominence. IMPRESSION: Improving congestive failure. The above report was generated using voice recognition software. It may contain grammatical, syntax or spelling errors. Electronically signed by: Elías Basilio M.D. 09/18/2018 7:28 AM
[2018-09-18] MEDS: INSULIN HUMAN NPH SC SCH ×2 (08:05→17:02)
[2018-09-18] MEDS: TAMSULOSIN HCL 0.4 MG CAP PO SCH (08:07)
[2018-09-18] MEDS: DOCUSATE SODIUM 100 MG CAP PO SCH (08:07)
[2018-09-18] MEDS: CYANOCOBALAMIN 500 MCG TABLET (VITAMIN B-12) PO SCH (08:07)
[2018-09-18] MEDS: AMOXICILLIN 500 MG CAP PO SCH ×3 (08:07→19:30)
[2018-09-18] MEDS: SIMBRINZA~NON-FORMULARY PATIENT'S OWN MED OP SCH ×2 (08:07→19:31)
[2018-09-18] MEDS: CARVEDILOL 6.25 MG TAB PO SCH ×2 (08:07→19:30)
[2018-09-18] MEDS: GABAPENTIN 400 MG CAP PO SCH ×3 (08:07→19:30)
[2018-09-18] MEDS: ASPIRIN 81 MG ECTAB PO SCH (08:07)
[2018-09-18] MEDS: FINASTERIDE 5 MG TAB PO SCH (08:07)
[2018-09-18] MEDS: ARTIFICIAL TEARS OP SCH ×4 (08:08→19:30)
[2018-09-18] MEDS: CHOLECALCIFEROL 1,000 UNITS TAB PO SCH (08:08)
[2018-09-18] MEDS: INSULIN ASPART 100 UNITS/ML 3 ML PEN SC SCH ×4 (08:14→20:57)
--- NOTE | 2018-09-18 10:03 | Urology Progress Note ---
Date of Service September 18, 2018 Assessment & Plan (1) Urinary retention: long standing problem we might want to keep the Oshea catheter indefinitely could be changed monthly in office Present on Admission?: Yes (2) Acquired urinary meatal stenosis: had a urethral dilation and oshea placement difficult over a wire with all the stenosis isolated to the distal ureter. This is quite likely to recur so we might want to keep oshea in and change it monthly to avoid having to do another dilation procedure like he had this weekend. Present on Admission?: Yes Subjective patient sleeping, stirred minimally when I examined Oshea catheter. Offered no vocalization or communication. Patients sig other at bedside and agitated about dietary concerns. Patient might have had an aspiration last night right after dinner. A swallowing study is anticipated soon. His oshea is in place and has had the securing device changed twice. His initial adhesive disc fell off. A leg strap was tried next and fell down and pulled on catheter. He now has a new adhesive patch and it seems to be functioning. Review of Systems Unobtainable due to reduced consciousness Physical Exam 2 Vital Signs (Past 24 Hours): Last Vital Signs Temp 36.8 C 09/18/18 08:00 Pulse 78 09/18/18 08:00 Resp 18 09/18/18 08:00 BP 145/84 H 09/18/18 08:00 Pulse Ox 95 09/18/18 08:00 Genitourinary: 14 fr silastic oshea in place draining mostly clear urine with some old blood in the dependent tubing. Left thigh adhesive strap securing device adequately.
--- NOTE | 2018-09-18 13:11 | Pharmacy Report ---
Pharmacy Glycemic Short Note 2 - Date of Service September 18, 2018 - Glycemic Short BSG Results (Last 24 hours): 09/17/18 09/17/18 09/18/18 16:48 21:03 05:28 Glucose 199 H POC Glucose 96 153 H 09/18/18 09/18/18 07:27 11:19 Glucose POC Glucose 182 H 273 H ASSESSMENT: See progress note from 09/14/18 for more background info, in short: 09-18-18: * Patient received a total of 74 units of insulin yesterday with decent BSG control: * 35 units of basal * 39 units of bolus * Fasting BSG was elevated today, 182 mg/dL. I suspect this is partially due to evening NPH being held on 09/17 for BSG less than 140 mg/dL. I will edit the NPH PM scale so that [place] receives a minimum of 5 units. * Lunchtime BSG continues to be elevated despite tightening Novolog carb ratio yesterday. * Will tighten correction factor and carb ratio with breakfast only in attempt to combat lunchtime BSG elevation PLAN FOR INPATIENT GLYCEMIC CONTROL: * Hold outpatient oral diabetes medications * NPH - increase * NPH 35 units SQ qAM * NPH per scale SQ @ dinner: -NPH 5 units for BSG less than 100 mg/dL -NPH 7 units for BSG 100-180 mg/dL -NPH 12 units for BSG greater 180 mg/dL * Bolus insulin * NovoLog per scale ACHS or Q6hrs while NPO * Goal Range: Low 110 mg/dL - High 140 mg/dL Breakfast: * Correction Factor: 12 mg/dL/unit * Nutritional / Prandial insulin per carb ratio of 1 unit per 3 grams CHO consumed Lunch/dinner/HS: * Correction Factor: 15 mg/dL/unit * Nutritional / Prandial insulin per carb ratio of 1 unit per 3.5 grams CHO consumed PLAN FOR DISCHARGE: * A1c of 9.9% is above goal * Consider the addition of a set dose of Novolog with meals (patient currently only takes Novolog at dinnertime) * start at 5 units SQ AC and titrate per outpatient provider
--- NOTE | 2018-09-18 14:48 | Hospitalist Progress Note ---
Date of Service September 18, 2018 Assessment & Plan (1) Urinary tract infection: Complicated UTI in setting of Urinary retention/urethral meatal stenosis CT demonstrated prostatomegaly and probable cystitis. Urine Culture: group B beta hemolytic strep. Received IV vancomycin and cefepime. Changed antibiotic therapy to amoxicillin. Appreciate Urology Input (2) Benign prostatic hyperplasia: Continue tamsulosin, finasteride. (3) Urinary retention: Urinary meatal stenosis Underlying BPH S/P Urethral dilatation and oshea placement Plan to continue oshea Appreciate Urology Input Needs monthly oshea replaced at Urology office as outpatient continue tamsulosin and finasteride Plan to discontinue Ditropan (4) Altered mental status: Probable encephalopathy secondary to UTI. Mental status Improved. Syncopal Episode: Possible aspiration Speech and swallow eval Tele monitor: PACs, PVCs monitor electrolytes (5) Coronary artery disease: No anginal symptoms. Continue home meds. (6) Hypertension: Stable. Monitor (7) Chronic respiratory failure: Chronic hypoxic respiratory failure Continue O2 (8) Diabetes mellitus, type II: Hgb A1C 9.9. Pharmacy consulted for glycemic management. Monitor BGs (9) DVT prophylaxis: SCD's Re: Hematuria (10) Discharge planning issues: Patient/family prefers to be discharged home Needs home with home health services. Internal Medicine follow-up with Dr. Dela Cruz. Also followed by Dr. Padilla at [facility] and Urologist at [facility]. Cardiology follow-up with Dr. Ward. Subjective Patient is seen and examined at bedside Reports chronic cough Speech and swallow eval planned today Patient offers no complaints Urology following Denies chest pain, dyspnea, dizziness PACs, PVCs on monitor Physical Exam 2 Vital Signs (Past 24 Hours): Last Vital Signs Temp 36.7 C 09/18/18 11:45 Pulse 78 09/18/18 11:45 Resp 18 09/18/18 11:45 BP 92/58 L 09/18/18 11:45 Pulse Ox 95 09/18/18 13:54 Physical Exam: Physical Exam: Vitals signs as noted above General Appearance:Moderately built and nourished, no apparent distress Head: normocephalic, Atraumatic Eyes: normal inspection, EOMI Neck: supple, Trachea midline Respiratory/Chest: Normal breath sounds, CTA Cardiovascular: S1, S2, +systolic murmur Abdomen/GI:Soft, Non tender, Bowel sounds present Extremities/Musculoskelatal:normal inspection, Trace edema Neurologic/Psych:AAOX3, grossly no focal neurological deficits Skin: normal color, warm Results & Data Laboratory Results Short CBC 09/18/18 Range/Units 05:28 WBC 6.24 (4.8-10.8) K/uL Hgb 13.1 L (14.0-18.0) g/dL Hct 40.6 L (42-52) % Plt Count 171 (130-400) K/uL BMP 09/18/18 05:28 Sodium 137 Potassium 4.1 D Chloride 105 Carbon Dioxide 27 BUN 16 Creatinine 1.01 Glucose 199 H Calcium 8.6 _ (1) Altered mental status Altered mental status type: unspecified Coma depth: Coma timing: Qualified Code(s): R41.82 - Altered mental status, unspecified
[2018-09-18] MEDS: POLYETHYLENE (MIRALAX) 17 GM PACK PO PRN (14:49)
[2018-09-18] MEDS: CYCLOBENZAPRINE HCL 10 MG TAB PO SCH (19:30)
[2018-09-18] MEDS: SIMVASTATIN 20 MG TAB PO SCH (19:30)
[2018-09-19 06:44] LABS: BUN Creatinine Ratio 20.5 (10-20); Calcium 8.6 mg/dl (8.5-10.1); Creatinine Clr Calc Pharmacy 64.7 ml/min; Est GFR (African American) 80.9; Est GFR (Non-African American) 69.8; Magnesium 1.8 mg/dl (1.8-2.4); Potassium 3.9 mmol/L (3.5-5.1)
[2018-09-19] MEDS ORDERED: INSULIN ASPART 100 UNITS/ML 3 ML PEN SC SCH (07:30)
[2018-09-19] MEDS: CHOLECALCIFEROL 1,000 UNITS TAB PO SCH (08:35)
[2018-09-19] MEDS: CARVEDILOL 6.25 MG TAB PO SCH (08:35)
[2018-09-19] MEDS: ASPIRIN 81 MG ECTAB PO SCH (08:36)
[2018-09-19] MEDS: FINASTERIDE 5 MG TAB PO SCH (08:36)
[2018-09-19] MEDS: AMOXICILLIN 500 MG CAP PO SCH ×2 (08:36→15:30)
[2018-09-19] MEDS: TAMSULOSIN HCL 0.4 MG CAP PO SCH (08:36)
[2018-09-19] MEDS: CYANOCOBALAMIN 500 MCG TABLET (VITAMIN B-12) PO SCH (08:36)
[2018-09-19] MEDS: GABAPENTIN 400 MG CAP PO SCH ×2 (08:36→15:30)
[2018-09-19] MEDS: ARTIFICIAL TEARS OP SCH ×2 (08:38→12:37)
[2018-09-19] MEDS: SIMBRINZA~NON-FORMULARY PATIENT'S OWN MED OP SCH (08:39)
--- NOTE | 2018-09-19 08:47 | Pharmacy Report ---
Pharmacy Glycemic Short Note 2 - Date of Service September 19, 2018 - Glycemic Short BSG Results (Last 24 hours): 09/18/18 09/18/18 09/18/18 11:19 16:21 20:23 Glucose POC Glucose 273 H 130 H 161 H 09/19/18 09/19/18 05:42 07:33 Glucose 121 H POC Glucose 134 H ASSESSMENT: See progress note from 09/14/18 for more background info, in short: 09-19-18: * Patient received a total of 99 units of insulin yesterday with decent BSG control (42 units of basal/57 units of bolus) * Fasting BSG significantly improved today after increasing evening NPH dose. * Lunchtime BSG has also improved but remains above goal. Will further increase evening NPH dose. PLAN FOR INPATIENT GLYCEMIC CONTROL: * NPH * NPH 35 units SQ qAM * NPH per scale SQ @ dinner - increase -NPH 7 units for BSG less than 100 mg/dL -NPH 9 units for BSG 100-180 mg/dL -NPH 12 units for BSG greater 180 mg/dL * Bolus insulin * NovoLog per scale ACHS or Q6hrs while NPO * Goal Range: Low 110 mg/dL - High 140 mg/dL Breakfast: * Correction Factor: 12 mg/dL/unit * Nutritional / Prandial insulin per carb ratio of 1 unit per 3 grams CHO consumed Lunch/dinner/HS: * Correction Factor: 15 mg/dL/unit * Nutritional / Prandial insulin per carb ratio of 1 unit per 3.5 grams CHO consumed PLAN FOR DISCHARGE: * A1c of 9.9% is above goal * Consider the addition of a set dose of Novolog with meals (patient currently only takes Novolog at dinnertime) * start at 5 units SQ AC and titrate per outpatient provider
[2018-09-19] MEDS: INSULIN HUMAN NPH SC SCH (08:48)
[2018-09-19] MEDS: DOCUSATE SODIUM 100 MG CAP PO SCH (10:41)
[2018-09-19 11:32] VITALS: BP 111/73; TEMP 98.2
[2018-09-19] MEDS: INSULIN ASPART 100 UNITS/ML 3 ML PEN SC SCH (12:37)
--- NOTE | 2018-09-19 13:49 | Hospitalist Progress Note ---
Date of Service September 19, 2018 Assessment & Plan (1) Urinary tract infection: Complicated UTI in setting of Urinary retention/urethral meatal stenosis CT demonstrated prostatomegaly and probable cystitis. Urine Culture: group B beta hemolytic strep. Received IV vancomycin and cefepime. Changed antibiotic therapy to amoxicillin. Appreciate Urology Input (2) Benign prostatic hyperplasia: Continue tamsulosin, finasteride. (3) Urinary retention: Urinary meatal stenosis Underlying BPH S/P Urethral dilatation and oshea placement Plan to continue oshea Appreciate Urology Input Needs monthly oshea replaced at Urology office as outpatient continue tamsulosin and finasteride Plan to discontinue Ditropan upon discharge (4) Altered mental status: Probable encephalopathy secondary to UTI. Mental status back to baseline Syncopal Episode: Possible aspiration Speech and swallow eval Tele monitor: PACs, PVCs Short run of NSVT, asymptomatic, No recurrence Discussed with cardiology monitor electrolytes Advised patient to follow up with Cardiology upon discharge Continue Coreg (5) Coronary artery disease: No anginal symptoms. Continue home meds. (6) Hypertension: Stable. Monitor (7) Chronic respiratory failure: Chronic hypoxic respiratory failure Continue O2 (8) Diabetes mellitus, type II: Hgb A1C 9.9. Pharmacy consulted for glycemic management. Monitor BGs (9) DVT prophylaxis: SCD's Re: Hematuria (10) Discharge planning issues: Patient/family prefers to be discharged home with Home Health today Internal Medicine follow-up with Dr. Dela Cruz. Also followed by Dr. Padilla at [facility] and Urologist at [facility]. Cardiology follow-up with Dr. Ward. Subjective Patient is seen and examined at bedside Doing much better today Offers no complaints today Family at bedside Reports chronic cough No issues with swallowing Denies chest pain, dyspnea, dizziness Physical Exam 2 Vital Signs (Past 24 Hours): Last Vital Signs Temp 36.8 C 09/19/18 11:04 Pulse 81 09/19/18 11:04 Resp 20 09/19/18 11:04 BP 111/73 09/19/18 11:04 Pulse Ox 91 09/19/18 11:04 Physical Exam: Physical Exam: Vitals signs as noted above General Appearance:Moderately built and nourished, no apparent distress Head: normocephalic, Atraumatic Eyes: normal inspection, EOMI Neck: supple, Trachea midline Respiratory/Chest: Normal breath sounds, CTA Cardiovascular: S1, S2, +systolic murmur Abdomen/GI:Soft, Non tender, Bowel sounds present Extremities/Musculoskelatal:normal inspection, Trace edema Neurologic/Psych:AAOX3, grossly no focal neurological deficits Skin: normal color, warm Results & Data Laboratory Results [facility] 09/19/18 05:42 Sodium 138 Potassium 3.9 Chloride 105 Carbon Dioxide 27 BUN 20 H Creatinine 0.96 Glucose 121 H Calcium 8.6 _ (1) Altered mental status Altered mental status type: unspecified Coma depth: Coma timing: Qualified Code(s): R41.82 - Altered mental status, unspecified
[2018-09-19] MEDS: POLYETHYLENE (MIRALAX) 17 GM PACK PO PRN (13:57)
--- NOTE | 2018-09-19 14:00 | Discharge Summary ---
Date of Service September 19, 2018 Admission HPI Per Admitting Provider DATE OF ADMISSION: 09/13/2018 CHIEF COMPLAINT: Altered mental status, UTI. HISTORY OF PRESENT ILLNESS: An 88-year-old male with past medical history significant for diabetes with diabetic retinopathy, tunnel vision, seborrheic dermatitis, actinic keratoses, CAD s/p CABG, CVA, type 2 diabetes, hyperlipidemia, aortic stenosis, B12 deficiency, hypertension, BPH, GERD, major depression, was brought in by because of lethargy. Patient has a history of recurrent UTIs. He has issues with micturition, he wets himself most of the time. His uses pull ups. He goes to bathroom frequently in small amounts. He has issues with urinary retention. He follows with the [facility]. He is on medications which were not helping much. A couple of days ago, he was having burning micturition, and called the PCP office, they wanted to come to the office for prescribed antibiotic, which did not happen, and since today morning, patient was getting more lethargic. He slept whole day until 3:00 p.m., and also, he sat on the chair and he was drowsy, which is why the patient's brought him to the ER. He is afebrile. Blood pressure is okay. Urinalysis was positive. Currently, patient is very hard of hearing, resting comfortably, hemodynamically stable. Denies any belly pain. He has no nausea, but he was a little nauseous earlier. Denies any chest pain, no shortness of breath, no cough, no fever, no chills, no headaches, no runny nose, no sore throat, no difficulty swallowing. Normal bowel movements. He has a history of constipation, he says he has on and off constipation. Ambulates with the help of walker. On and off he has some difficulty swallowing because of a history of tracheostomy in the past. Admission Exam Per Admitting Provider PHYSICAL EXAMINATION: GENERAL: Patient is obese, not in acute distress, oriented, somewhat drowsy. VITAL SIGNS: Temperature 36.8, pulse 75, respiratory 15, blood pressure 151/92, oxygen saturation 95% on 3 L. HEENT: No pallor, no icterus. Pupils equal, round, and reactive to light. NECK: No JVD, no neck masses, no carotid bruits. CARDIOVASCULAR SYSTEM: S1 and S2 heard. Systolic ejection murmur in the aortic area heard. RESPIRATORY SYSTEM: Normal AP diameter. No accessory muscle use. No wheezing, no crackles. GASTROINTESTINAL: Abdomen is soft, bowel sounds present, nontender, no distention. CENTRAL NERVOUS SYSTEM: Alert and oriented. Nonfocal. EXTREMITIES: No edema seen. Status post right arm skin lesion excision, in dressing. Principal Diagnosis Discharge Information Discharge Diagnosis Complicated UTI Metabolic Encephalopathy Urinary retention/urethral meatal stenosis Discharge Goals Decrease discomfort,Improve disease control, Improve function Discharge Activity Limitations Resume your previous activity Discharge Data Allergies Allergy/AdvReac Type Severity Reaction Status Date / Time Iodinated Contrast- Oral and Allergy Severe Edema-face/lips/tongue. Verified 19:52 IV Dye Hives/Rash. formaldehyde Allergy Intermediate Hives/Rash Verified 09/13/18 19:52 Cipro Allergy Unknown Hives Verified 07/15/17 11:48 dipyridamole Allergy Unknown Hallucinati Verified 09/13/18 19:52 ons lisinopril Allergy Unknown UNKNOWN Verified 09/13/18 19:52 ciprofloxacin AdvReac Unknown CONSTIPATIO Verified 09/13/18 19:52 N yellow socks Allergy Intermediate contact Uncoded 09/13/18 19:52 rash (formaldehyde used to preserve yellow color) Consultations 09/13/18 21:20 ED Decision to Admit Stat 09/13/18 23:12 Consult Case Management - Discharge Planning Routine 09/14/18 08:00 Consult Urology Routine 09/16/18 10:01 Consult Case Management - Discharge Planning Routine Procedures Performed CT ABD: 1. Prostamegaly with moderate circumferential wall thickening of the urinary bladder and associated perivesicular stranding. Correlate with urinalysis to exclude cystitis. 2. No bowel obstruction or focal bowel wall thickening. 3. Prior cholecystectomy. 4. Anterior endplate compression deformity of the L3 vertebral body has progressively worsened from 03/18/2018 suggesting acute or subacute injury without retropulsion. Correlate with patient history and point tenderness. 5. Additional findings as above. CT head: No acute intracranial abnormality. CXR: 1. Cardiomegaly with mild pulmonary edema. 2. Trace pleural effusions. 3. Subsegmental bibasilar opacities suggest atelectasis or pneumonitis. Ordered Studies 09/13/18 18:34 CT abd pelvis wo con Stat 09/13/18 18:38 CT head/brain wo con Stat Hospital Course (1) Urinary tract infection: Complicated UTI in setting of Urinary retention/urethral meatal stenosis CT demonstrated prostatomegaly and probable cystitis. Urine Culture: group B beta hemolytic strep. Received IV vancomycin and cefepime. Changed antibiotic therapy to amoxicillin. Appreciate Urology Input (2) Benign prostatic hyperplasia: Continue tamsulosin, finasteride. (3) Urinary retention: Urinary meatal stenosis Underlying BPH S/P Urethral dilatation and oshea placement Plan to continue oshea Appreciate Urology Input Needs monthly oshea replaced at Urology office as outpatient continue tamsulosin and finasteride Plan to discontinue Ditropan upon discharge (4) Altered mental status: Probable encephalopathy secondary to UTI. Mental status back to baseline Syncopal Episode: Possible aspiration Speech and swallow eval Tele monitor: PACs, PVCs Short run of NSVT, asymptomatic, No recurrence Discussed with cardiology monitor electrolytes Advised patient to follow up with Cardiology upon discharge Continue Coreg (5) Coronary artery disease: No anginal symptoms. Continue home meds. (6) Hypertension: Stable. Monitor (7) Chronic respiratory failure: Chronic hypoxic respiratory failure Continue O2 (8) Diabetes mellitus, type II: Hgb A1C 9.9. Pharmacy consulted for glycemic management. Monitor BGs (9) DVT prophylaxis: SCD's Re: Hematuria (10) Discharge planning issues: Patient/family prefers to be discharged home with Home Health today Internal Medicine follow-up with Dr. Dela Cruz. Also followed by Dr. Padilla at [facility] and Urologist at [facility]. Cardiology follow-up with Dr. Ward. Total Time Total Time Spent Total Time Spent (In Minutes): 39 minutes Total Time Includes: Examination of the Patient, Discharge Planning, Medication Reconciliation, Communication With Other Providers and Other Discharge Plan Discharge Items Patient Disposition: Home - Home Health Services Reason For Visit: AMS,UTI Discharge Diagnosis: Complicated UTI Metabolic Encephalopathy Urinary retention/urethral meatal stenosis Discharge Goals: Decrease discomfort, Improve disease control and Improve function Activity: Resume your previous activity Non-emergency contact: Primary Care Provider and Urologist Call non-emergency contact if: you have any medication questions, your symptoms worsen, your pain is not controlled, your pain is worsening, your pain is unusual for you and you have a fever Diet: Carb Consistent or DM2 and Heart Healthy Addtl Provider Instructions: Follow up with your PCP on 09/23/18 at 10:45AM Follow up with your [employer] on 09/26/18 at 12:45AM Follow up with your Urologist at [facility] in 2 weeks Get Urinary Catheter changed monthly as per the recommendations from your Urologist Complete the antibiotic course as prescribed You are discontinued on Oxybutynin (Ditropan) as you have developed Urinary retention Seek immediate medical attention if your symptoms reoccur or worsen Prescriptions: New amoxicillin 500 mg Capsule 500 mg PO TID 3 Days Qty: 9 RF: 0 Continue cyclobenzaprine 10 mg Tablet 10 mg PO HS RF: 0 carvedilol [Coreg] 12.5 mg Tablet 6.25 mg PO BID RF: 0 hydrocortisone 1 % Lotion 1 applic TOPICAL BID RF: 0 gabapentin 400 mg Capsule 400 mg PO TID RF: 0 aspirin [Aspir-81] 81 mg Tablet,Delayed Release (Dr/Ec) 81 mg PO DAILY RF: 0 tramadol [Ultram] 50 mg tablet 50 mg PO Q6 PRN (Reason: Pain, Moderate) RF: 0 carboxymethylcellulose sodium [TheraTears] 0.25 % Drops 1 drp OPHTHALMIC (EYE) QID RF: 0 benzoyl peroxide 10 % Lotion 1 applic TOPICAL DAILY PRN (Reason: WHEN SHOWERS) RF: 0 cyanocobalamin (vitamin B-12) 500 mcg Tablet 1,000 mcg PO DAILY RF: 0 tamsulosin 0.4 mg Capsule 0.4 mg PO DAILY RF: 0 simvastatin [Zocor] 20 mg Tablet 10 mg PO PM RF: 0 metformin 1,000 mg Tablet 1,000 mg PO BIDM RF: 0 nystatin 100,000 unit/gram Cream 1 applic TOPICAL UD PRN (Reason: Unknown) RF: 0 nitroglycerin [Nitrostat] 0.4 mg Tablet, Sublingual 0.4 mg Sublingual UD PRN (Reason: Chest Pain) RF: 0 docusate sodium 100 mg Tablet 100 mg PO DAILY RF: 0 finasteride 5 mg Tablet 5 mg PO DAILY RF: 0 lutein 20 mg Capsule 20 mg PO DAILY RF: 0 cholecalciferol (vitamin D3) [Vitamin D3] 2,000 unit Capsule 2,000 unit PO DAILY RF: 0 emollient combination no.69 [Eucerin Skin Calming] Cream 1 applic topical UD RF: 0 brinzolamide-brimonidine [Simbrinza] 1-0.2 % Drops,Suspension 1 drp OPR BID RF: 0 selenium sulfide 2.5 % Lotion 1 applic topical UD RF: 0 insulin NPH isoph U-100 human [Humulin N NPH U-100 Insulin] 100 unit/mL Suspension SUBCUT BID RF: 0 insulin aspart U-100 [Novolog Flexpen U-100 Insulin] 100 unit/mL Insulin Pen subcut QDD RF: 0 Discontinued amoxicillin 500 mg capsule 500 mg PO TID RF: 0 oxybutynin chloride [Ditropan XL] 10 mg Tablet Extended Release 24hr 10 mg PO DAILY RF: 0 Stand-Alone Forms: [facility] Discharge Orders: Discharge Order (Routine); Ordered 09/19/18 Ordered By: Barry Rodriguez Admission Data Admit Date/Time: 09/13/18 22:09 Attending Provider: Barry Rodriguez Admit Provider: Kane Perez Primary Care Provider: Shin Dela Cruz Other Providers: Kane Perez ; Claudine Lares ; August Garrett Service: Telemetry Other Interventions: Discharge Summary Assessment (RN) Last Done: 09/19/18 14:19 Pending Studies at Discharge: No DC Date/Time DO NOT enter until pt leaves facility: 09/19/18 17:19
[2018-09-19 14:23] VITALS: PULSE 78
[2018-09-19 15:50] VITALS: O2SAT 92
== END 2018-09-19 17:19 | disposition home health service (06) | DRG 689 ==
LOC: ED 18:29 → SUATTDRO 22:09 → 2E 22:09 → 4E 09-15 15:26 → 2S 09-17 18:23

== ENCOUNTER 2018-10-29 21:14 | Inpatient (IN) ==
[2018-10-29 22:03] LABS: Appearance Urine Clear (Clear); Bacteria Urine Automated Negative (Negative); Bilirubin Urine Negative (Negative); Color Urine Yellow; Glucose Urine UA Trace (Negative); Ketones Urine Trace (Negative); Leukocyte Esterase Urine Trace (Negative); Nitrite Urine Negative (Negative); Specific Gravity Urine 1.016 (1.000-1.030); Urobilinogen Urine Negative (Negative); pH Urine 7.5 (4.5-7.5)
[2018-10-29 22:07] LABS: Protein Urine Trace (Negative)
[2018-10-29 22:10] LABS: Basophils # (auto) 0.01 K/uL (0-0.2); Basophils % (auto) 0.1 %; Eosinophils # (auto) 0.08 K/uL (0-0.5); Hematocrit (blood only) 39.8 % (42-52); Hemoglobin 12.9 g/dL (14.0-18.0); Immature Granulocytes # (auto) 0.01 K/uL (0.00-0.02); Immature Granulocytes % (auto) 0.1 %; Lymphocytes # (auto) 1.17 K/uL (1.2-3.4); Lymphocytes % (auto) 15.2 %; Mean Corpuscular Hgb Conc 32.4 g/dL (32-36); Mean Corpuscular Volume 85.6 fL (80-100); Mean Platelet Volume 10.7 fL (7.4-10.4); Monocytes # (auto) 0.91 K/uL (0.11-0.59); Monocytes % (auto) 11.8 %; Neutrophils % (auto) 71.8 %; Platelet Count 179 K/uL (130-400); RDW Coefficient of Variation 14.3 % (11.5-14.5); RDW Standard Deviation 44.4 fL (36.4-46.3); Red Blood Count 4.65 M/uL (4.7-6.1); White Blood Count 7.68 K/uL (4.8-10.8)
--- NOTE | 2018-10-29 22:18 | CT Scan Report ---
CT head/brain wo con CT DOSE: 614.27 mGy.cm HISTORY: Mental status change confusion TECHNIQUE: Multiaxial CT images of the head were performed without the use of intravenous contrast. A dose lowering technique was utilized adhering to the principles of ALARA. Comparison: 09/13/2018 Findings: The paranasal sinuses and mastoid air cells are clear. The calvarium and skull base are int act. The ventricles and sulci are within normal limits. There is no mass, hematoma, midline shift, or acute infarct. Findings of generalized cerebral atrophy. Considerable chronic small vessel change th roughout both cerebral hemispheres. Impression: No acute intracranial abnormality. Extensive chronic changes as noted. The above report was generated using voice recognition software. It may contain grammatical, syntax or spelling errors. Electronically signed by: Elías Basilio M.D. 10/29/2018 10:16 PM
[2018-10-29 22:31] LABS: Albumin Level 2.7 gm/dl (3.4-5.0); Calcium 8.6 mg/dl (8.5-10.1); Creatinine Clr Calc Pharmacy 65.7 ml/min; Est GFR (African American) 81.9; Est GFR (Non-African American) 70.7; Potassium 4.1 mmol/L (3.5-5.1)
[2018-10-29 22:42] LABS: Albumin Globulin Ratio 0.6 (0.9-2); Bilirubin,Total 0.8 mg/dl (0.2-1); Globulin 4.5 gm/dl (2.5-4.0); Total Protein 7.2 gm/dl (6.4-8.2); Troponin I 0.016 ng/ml (0-0.045)
--- NOTE | 2018-10-29 22:47 | XRay Report ---
XR chest 1V portable CLINICAL HISTORY: weakness dyspnea COMPARISON STUDY: 09/18/2017 FINDINGS: Moderate cardiomegaly. Prior median sternotomy. Increased pulmonary vasculature. Diaphragms smooth. Chronic atelectasis right base. IMPRESSION: Developing congestive heart failure. The above report was generated using voice recognition software. It may contain grammatical, syntax or spelling errors. Electronically signed by: Elías Basilio M.D. 10/29/2018 10:46 PM
[2018-10-29] MEDS ORDERED: FUROSEMIDE 40 MG/4 ML VIAL IV STA (23:21)
--- NOTE | 2018-10-30 01:20 | Emergency Department Note ---
Entered by Johnie Ortega acting as a scribe for Sonido Sanchez M.D. History of Present Illness General Chief complaint: Confusion Stated complaint: CONFUSION Source: patient and family () History of Present Illness Provider complaint: Confusion Onset (ago): hour(s) Location: left and right Associated symptoms: + confusion and + loss of appetite; no shortness of breath Treatments prior to arrival: other The patient is a 88 year old male who presents to the Emergency Room with complaints of confusion. He denies complaint but is somewhat slow in answering. The patient's , who was bedside, states that the patient seemed "off" today, but was fine yesterday. She adds that the patient started to fall earlier prior to arrival, but she caught him. Did not strike his head. The adds that the patient complains to her that he does not feel right, but that he does not know what is wrong. The patient adds that he does not have an appetite and has not been eating much. The adds that the patient had a UTI 1 month ago and was hospitalized but not having the pain he had then today. Home Medications Home Medications Medication Instructions Recorded Confirmed Type aspirin [Aspir-81] 81 mg PO DAILY 09/13/18 10/29/18 History benzoyl peroxide 1 applic TOPICAL DAILY PRN 09/13/18 10/29/18 History brinzolamide-brimonidine 1 drp OPR BID 09/13/18 10/29/18 History [Simbrinza] carboxymethylcellulose sodium 1 drp OPHTHALMIC (EYE) QID 09/13/18 10/29/18 History [TheraTears] carvedilol [Coreg] 6.25 mg PO BID 09/13/18 10/29/18 History cholecalciferol (vitamin D3) 2,000 unit PO DAILY 09/13/18 10/29/18 History [Vitamin D3] cyanocobalamin (vitamin B-12) 1,000 mcg PO DAILY 09/13/18 10/29/18 History cyclobenzaprine 10 mg PO HS 09/13/18 10/29/18 History docusate sodium 100 mg PO DAILY 09/13/18 10/29/18 History emollient combination no.69 1 applic TOPICAL UD 09/13/18 10/29/18 History [Eucerin Skin Calming] finasteride 5 mg PO DAILY 09/13/18 10/29/18 History gabapentin 400 mg PO TID 09/13/18 10/29/18 History hydrocortisone 1 applic TOPICAL BID 09/13/18 10/29/18 History lutein 20 mg PO DAILY 09/13/18 10/29/18 History metformin 1,000 mg PO BIDM 09/13/18 10/29/18 History nitroglycerin [Nitrostat] 0.4 mg SUBLINGUAL UD PRN 09/13/18 10/29/18 History nystatin 1 applic TOPICAL UD PRN 09/13/18 10/29/18 History selenium sulfide 1 applic TOPICAL UD 09/13/18 10/29/18 History simvastatin [Zocor] 10 mg PO PM 09/13/18 10/29/18 History tamsulosin 0.4 mg PO DAILY 09/13/18 10/29/18 History tramadol [Ultram] 50 mg PO Q6 PRN 09/13/18 10/29/18 History insulin NPH isoph U-100 human 0 unit SUBCUT BID 09/16/18 10/29/18 History [Humulin N NPH U-100 Insulin] insulin aspart U-100 [Novolog 0 units SUBCUT QDD 09/16/18 10/29/18 History Flexpen U-100 Insulin] Allergies Allergy/AdvReac Type Severity Reaction Status Date / Time Iodinated Contrast- Oral and Allergy Severe Edema-face/lips/tongue. Verified 09/04 23:28 IV Dye Hives/Rash. formaldehyde Allergy Intermediate Hives/Rash Verified 10/29/18 23:28 Cipro Allergy Unknown Hives Verified 07/15/17 11:48 dipyridamole Allergy Unknown Hallucinati Verified 10/29/18 23:28 ons lisinopril Allergy Unknown UNKNOWN Verified 10/29/18 23:28 ciprofloxacin AdvReac Unknown CONSTIPATIO Verified 10/29/18 23:28 N yellow socks Allergy Intermediate contact Uncoded 10/29/18 23:28 rash (formaldehyde used to preserve yellow color) Past Med/Surg History Medical History Coronary artery disease (Chronic) "PCI + stenting LAD 1997 CABG x 3 2000 cath 03/11/13 showed patent LAD graft, patent SVG to circ marginal, occluded SVG to RCA" Hypertension (Chronic) Benign prostatic hyperplasia (Chronic) Diabetes mellitus, type II (Chronic) Chronic respiratory failure (Chronic) "home O2 2 LPM at night + PRN" Dyslipidemia (Chronic) Hyperhomocysteinemia (Chronic) Diabetic retinopathy (Chronic) Cerebrovascular disease (Chronic) "s/p stroke with right hemiparesis" Aortic stenosis (Chronic) "1.1 cm2 by echo 2011 and cath 2012" Arthritis COPD (chronic obstructive pulmonary disease) GERD (gastroesophageal reflux disease) Surgical History Status post coronary artery bypass grafting (Chronic) "radial artery to LAD, SVG to circ marginal, SVG to RCA" Status post cardiac catheterization (Chronic) "03/11/13 [facility] Dr. [place] patent LAD graft, patent SVG to circ marginal, occluded SVG to RCA" Status post cholecystectomy (Chronic) Hx of CABG Social History marital status: Current Living Situation: Spouse Other Information That Helps Us Care for You: No Feels Safe at Home: Yes Safety Concerns: Feels Safe At This Time Smoking Status: Never smoker Do You Dip or Chew Tobacco: No Second Hand Exposure: No Tobacco Cessation Education Requested by Patient: No Hx Alcohol Use: Yes ("very rarely") Alcohol type: beer and wine Alcohol Intake Frequency: holidays/special occasions only Hx Substance Use: No Beliefs That Will Affect Care: None Preferred Language: Slovak Communication Ability: Impaired Bookkeeper Receptionist Required: No Review of Systems See HPI for pertinent positives & negatives. and A total of 10 systems reviewed and were otherwise negative Physical Exam Vital Signs Vital Signs - 24 hr 10/29/18 21:22 10/29/18 21:24 10/29/18 21:28 Temperature 36.9 C Temperature Source Oral Sepsis Recent Fever Within 48 Hours No Sepsis Action Taken by Nursing No Action Required Pulse Rate 90 76 Pulse Rate [Finger] Respiratory Rate 18 18 Blood Pressure 147/104 H Blood Pressure [Right Arm] Blood Pressure Mean 118 Blood Pressure Mean [Right Arm] Pulse Oximetry 95 95 95 Oxygen Delivery Method Nasal Cannula Nasal Cannula Nasal Cannula Oxygen Flow Rate 2 2 2 10/29/18 22:41 10/29/18 23:25 10/30/18 01:42 Temperature 37.2 C Temperature Source Oral Sepsis Recent Fever Within 48 Hours Sepsis Action Taken by Nursing Pulse Rate Pulse Rate [Finger] 76 73 68 Respiratory Rate 18 18 16 Blood Pressure Blood Pressure [Right Arm] 159/84 H 123/59 L 168/98 H Blood Pressure Mean Blood Pressure Mean [Right Arm] 109 80 121 Pulse Oximetry 94 96 96 Oxygen Delivery Method Nasal Cannula Nasal Cannula Nasal Cannula Oxygen Flow Rate 2 2 GENERAL: Awake, alert, in no distress. Oriented to person and month, not year. HENT: Normocephalic, atraumatic. EYES: Normal conjunctiva. Sclera non-icteric. PERRL NECK: Supple. No nuchal rigidity. RESPIRATORY: Clear to auscultation. No wheezes. Normal respiratory effort. CARDIAC: Normal rate. Normal rhythm. Extremities warm and well perfused. GI: Soft, non-distended. No tenderness to palpation. No rebound or guarding. No masses. RECTAL: Deferred. : Coughlin catheter MUSCULOSKELETAL: Atraumatic. Chest examination reveals no tenderness. LOWER EXTREMITIES: Calves are equal size bilaterally and non-tender. No edema NEURO: Normal sensorium with limited peripheral vision. No sensory or motor deficits noted. No facial droop. No slurred speech, responses to questions slightly delayed SKIN: Warm and dry. No rash or jaundice noted. Course 2131: Past medical records reviewed. The patient was evaluated in room C07, and a complete history and physical examination were performed. 2335: I reviewed the patient's case with Dr. Peña. He will evaluate the patient for further management. Consultations Consultation #1: [id number]: I reviewed the patient's case with Dr. Popeye Vasques. He will evaluate the patient for further management. Time: 23:35 Administered Medications Discontinued Medications Furosemide (Lasix) 20 mg IV NOW STA Stop: 10/29/18 23:22 Last Admin: 10/29/18 23:25 Dose: 20 mg Medical Decision Making Differential Diagnosis Differential diagnosis: Etiologies such as metabolic, infection, hypoglycemia, electrolyte abnormalities , cardiac sources, intracerebral event, toxicologic, neurologic, as well as others were entertained. Medical Records Attestation: I reviewed the patient's medical records. Home Medications Current Medication List: was personally reviewed by me Laboratory Data Attestation: I reviewed the patient's lab results. Result diagrams: 10/29/18 21:56 10/29/18 21:56 Lab Results 10/29/18 10/29/18 10/29/18 Range/Units 21:27 21:43 21:56 WBC 7.68 (4.8-10.8) K/uL RBC 4.65 L (4.7-6.1) M/uL Hgb 12.9 L (14.0-18.0) g/dL Hct 39.8 L (42-52) % MCV 85.6 (80-100) fL MCH 27.7 (25-34) pg MCHC 32.4 (32-36) g/dL RDW Std Deviation 44.4 (36.4-46.3) fL RDW Coeff of Arjun 14.3 (11.5-14.5) % Plt Count 179 (130-400) K/uL MPV 10.7 H (7.4-10.4) fL Immature Gran % (Auto) 0.1 % Neut % (Auto) 71.8 % Lymph % (Auto) 15.2 % [place] % (Auto) 11.8 % Eos % (Auto) 1.0 % Baso % (Auto) 0.1 % Immature Gran # (Auto) 0.01 (0.00-0.02) K/uL Neut # (Auto) 5.50 (1.4-6.5) K/uL Lymph # (Auto) 1.17 L (1.2-3.4) K/uL [place] # (Auto) 0.91 H (0.11-0.59) K/uL Eos # (Auto) 0.08 (0-0.5) K/uL Baso # (Auto) 0.01 (0-0.2) K/uL Sodium (136-145) mmol/L Potassium (3.5-5.1) mmol/L Chloride (98-107) mmol/L Carbon Dioxide (21-32) mmol/L Anion Gap (3-11) BUN (7-18) mg/dl Creatinine (0.6-1.4) mg/dl Est Cr Clr Drug Dosing ml/min Est GFR ( Amer) Est GFR (Non-Af Amer) BUN/Creatinine Ratio (10-20) Glucose (70-99) mg/dl POC Glucose 125 H (70-99) Calcium (8.5-10.1) mg/dl Total Bilirubin (0.2-1) mg/dl AST (15-37) U/L ALT (12-78) U/L Alkaline Phosphatase (45-117) U/L Ammonia (11-32) umol/L Troponin I (0-0.045) ng/ml Total Protein (6.4-8.2) gm/dl Albumin (3.4-5.0) gm/dl Globulin (2.5-4.0) gm/dl Albumin/Globulin Ratio (0.9-2) TSH (0.300-4.500) uIu/ml Urine Color Yellow Urine Appearance Clear (Clear) Urine pH 7.5 (4.5-7.5) Ur Specific [place] 1.016 (1.000-1.030) Urine Protein Trace H (Negative) Urine Glucose (UA) Trace H (Negative) Urine Ketones Trace H (Negative) Urine Blood Trace H (Negative) Urine Nitrite Negative (Negative) Urine Bilirubin Negative (Negative) Urine Urobilinogen Negative (Negative) Ur Leukocyte Esterase Trace H (Negative) Urine WBC (Auto) 1-5 (0-5) /hpf Urine RBC (Auto) 0-4 (0-4) /hpf U Hyaline Cast (Auto) 1-5 (0-5) /lpf U Epithel Cells (Auto) 10-20 H (0-5) /lpf Urine Bacteria (Auto) Negative (Negative) 10/29/18 10/29/18 Range/Units 21:56 21:56 WBC (4.8-10.8) K/uL RBC (4.7-6.1) M/uL Hgb (14.0-18.0) g/dL Hct (42-52) % MCV (80-100) fL MCH (25-34) pg MCHC (32-36) g/dL RDW Std Deviation (36.4-46.3) fL RDW Coeff of Arjun (11.5-14.5) % Plt Count (130-400) K/uL MPV (7.4-10.4) fL Immature Gran % (Auto) % Neut % (Auto) % Lymph % (Auto) % [place] % (Auto) % Eos % (Auto) % Baso % (Auto) % Immature Gran # (Auto) (0.00-0.02) K/uL Neut # (Auto) (1.4-6.5) K/uL Lymph # (Auto) (1.2-3.4) K/uL [place] # (Auto) (0.11-0.59) K/uL Eos # (Auto) (0-0.5) K/uL Baso # (Auto) (0-0.2) K/uL Sodium 133 L (136-145) mmol/L Potassium 4.1 (3.5-5.1) mmol/L Chloride 98 (98-107) mmol/L Carbon Dioxide 26 (21-32) mmol/L Anion Gap 9.0 (3-11) BUN 18 (7-18) mg/dl Creatinine 0.95 (0.6-1.4) mg/dl Est Cr Clr Drug Dosing 65.7 ml/min Est GFR ( Amer) 81.9 Est GFR (Non-Af Amer) 70.7 BUN/Creatinine Ratio 19.0 (10-20) Glucose 145 H (70-99) mg/dl POC Glucose (70-99) Calcium 8.6 (8.5-10.1) mg/dl Total Bilirubin 0.8 (0.2-1) mg/dl AST 16 (15-37) U/L ALT 14 (12-78) U/L Alkaline Phosphatase 101 (45-117) U/L Ammonia 22.1 (11-32) umol/L Troponin I 0.016 (0-0.045) ng/ml Total Protein 7.2 (6.4-8.2) gm/dl Albumin 2.7 L (3.4-5.0) gm/dl Globulin 4.5 H (2.5-4.0) gm/dl Albumin/Globulin Ratio 0.6 L (0.9-2) TSH 2.360 (0.300-4.500) uIu/ml Urine Color Urine Appearance (Clear) Urine pH (4.5-7.5) Ur Specific [place] (1.000-1.030) Urine Protein (Negative) Urine Glucose (UA) (Negative) Urine Ketones (Negative) Urine Blood (Negative) Urine Nitrite (Negative) Urine Bilirubin (Negative) Urine Urobilinogen (Negative) Ur Leukocyte Esterase (Negative) Urine WBC (Auto) (0-5) /hpf Urine RBC (Auto) (0-4) /hpf U Hyaline Cast (Auto) (0-5) /lpf U Epithel Cells (Auto) (0-5) /lpf Urine Bacteria (Auto) (Negative) Imaging Data Radiologist's Impression: Radiology results as stated below per my review and the radiologist's interpretation: CT head/brain wo con CT DOSE: 614.27 mGy.cm HISTORY: Mental status change confusion TECHNIQUE: Multiaxial CT images of the head were performed without the use of intravenous contrast. A dose lowering technique was utilized adhering to the principles of ALARA. Comparison: 09/13/2018 Findings: The paranasal sinuses and mastoid air cells are clear. The calvarium and skull base are intact. The ventricles and sulci are within normal limits. There is no mass, hematoma, midline shift, or acute infarct. Findings of generalized cerebral atrophy. Considerable chronic small vessel change throughout both cerebral hemispheres. Impression: No acute intracranial abnormality. Extensive chronic changes as noted. The above report was generated using voice recognition software. It may contain grammatical, syntax or spelling errors. Electronically signed by: Elías Basilio M.D. 10/29/2018 10:16 PM XR chest 1V portable CLINICAL HISTORY: weakness dyspnea COMPARISON STUDY: 09/18/2017 FINDINGS: Moderate cardiomegaly. Prior median sternotomy. Increased pulmonary vasculature. Diaphragms smooth. Chronic atelectasis right base. IMPRESSION: Developing congestive heart failure. The above report was generated using voice recognition software. It may contain grammatical, syntax or spelling errors. Electronically signed by: Elías Basilio M.D. 10/29/2018 10:46 PM ECG Data Attestation: I personally reviewed and interpreted this ECG as follows: Indication: weakness Rate (beats per minute): 75 Rhythm: normal sinus Findings: + 1st degree AV block; no PVC, no ST depression and no ST elevation Comparison ECG Date: from (09/13/18) Change: no significant change Blood Pressure Blood Pressure Findings: Normal blood pressure MDM Narrative 88-year-old gentleman with a history of CAD, CVA, type 2 diabetes, UTIs with Coughlin presenting with due to confusion today. Was recently here about a month ago for UTI but denies any pain with this. Urinalysis was checked. No significant trauma or fevers reported. Benign abdomen. CT the head is complete along with laboratory studies looking for metabolic or encephalopathic causes for his confusion. CT the head is unremarkable without evidence of bleed or gross CVA. No significant leukocytosis. Urinalysis is unimpressive. Laboratory studies do not reveal any significant electrolyte abnormality. Chest x-ray does show some increased pulmonary vascular congestion given a small amount of Lasix. Patient is having slow improvement his mental status but does not appear to be in yen CHF exacerbation without increased oxygen requirement. Unsure what caused this but lives at home alone with his who does not feel couple taking his home. Discussed with the [facility] hospitalist for admission given his confusion. Impression & Plan Acute confusion, Pulmonary edema Discharge Plan Visit Data *Final* Discharge Date/Time: 10/30/18 01:05 Chief Complaint: Confusion Stated Complaint: CONFUSION ED Provider: Sonido Sanchez Discharge Problem: Acute confusion, Pulmonary edema Patient Disposition: Admitted As Inpatient Discharge Instructions Interventions: ED Discharge Assessment Last Done: 10/30/18 01:05 The reneeibe's documentation has been prepared under my direction and personally reviewed by me in its entirety. I confirm that the note above accurately reflects all work, treatment, procedures, and medical decision making performed by me.
[2018-10-30] MEDS ORDERED: ACETAMINOPHEN 325 MG TAB PO PRN (01:50)
[2018-10-30] MEDS ORDERED: ALUMINUM/MAGNESIUM SUSP 30 ML UDC PO PRN (01:50)
[2018-10-30] MEDS ORDERED: NYSTATIN CR 15 GM TUBE EXT PRN (01:50)
[2018-10-30] MEDS ORDERED: ONDANSETRON INJ 2 MG/ML 2 ML VIAL IV PRN (01:50)
[2018-10-30] MEDS ORDERED: NITROGLYCERIN SL 0.4 MG/TAB TAB SL PRN (01:50)
[2018-10-30] MEDS ORDERED: CEFEPIME CONSULT ACTIVE PRN (02:10)
[2018-10-30] MEDS ORDERED: PHARMACY GLYCEMIC MGMT CONSULT PRN (02:11)
[2018-10-30] MEDS ORDERED: SODIUM CHLORIDE 0.9% 1000ML 1,000 ML IV SCH (02:15)
[2018-10-30] MEDS: CEFEPIME 2,000 MG in SYRINGE 7.5 ML IV SCH ×2 (02:45→16:46)
[2018-10-30 03:12] LABS: HCO3 ABG 27 mmol/L (19-24); Oxygen Saturation ABG 94.2 % (90-95); PCO2 ABG 38 mmHg (35-46); PO2 ABG 69 mm/Hg (80-95); pH ABG 7.47 (7.35-7.45)
[2018-10-30 03:20] LABS: Allen Test Pos (Pos)
[2018-10-30 03:24] LABS: INR 1.1 (0.9-1.1); Prothrombin Time 11.3 Seconds (9.0-12.0)
[2018-10-30] MEDS ORDERED: EUCERIN CR 120 GM JAR EXT PRN (04:20)
[2018-10-30 05:44] LABS: Basophils # (auto) 0.02 K/uL (0-0.2); Basophils % (auto) 0.3 %; Eosinophils # (auto) 0.14 K/uL (0-0.5); Eosinophils % (auto) 1.9 %; Hematocrit (blood only) 39.6 % (42-52); Hemoglobin 12.8 g/dL (14.0-18.0); Immature Granulocytes # (auto) 0.01 K/uL (0.00-0.02); Immature Granulocytes % (auto) 0.1 %; Lymphocytes # (auto) 1.68 K/uL (1.2-3.4); Lymphocytes % (auto) 22.4 %; Mean Corpuscular Hgb Conc 32.3 g/dL (32-36); Mean Corpuscular Volume 86.3 fL (80-100); Mean Platelet Volume 10.8 fL (7.4-10.4); Monocytes # (auto) 0.83 K/uL (0.11-0.59); Monocytes % (auto) 11.1 %; Neutrophils # (auto) 4.81 K/uL (1.4-6.5); Neutrophils % (auto) 64.2 %; Platelet Count 179 K/uL (130-400); RDW Coefficient of Variation 14.3 % (11.5-14.5); RDW Standard Deviation 45.3 fL (36.4-46.3); Red Blood Count 4.59 M/uL (4.7-6.1); White Blood Count 7.49 K/uL (4.8-10.8)
[2018-10-30] MEDS ORDERED: CARBOHYDRATES FOR HYPOGLYCEMIA PO PRN (06:09)
[2018-10-30] MEDS ORDERED: GLUCOSE 40% GEL 15 GM TUBE PO PRN (06:09)
[2018-10-30] MEDS ORDERED: GLUCOSE 10 TABS/TUBE PO PRN (06:09)
[2018-10-30] MEDS ORDERED: DEXTROSE 50% 50 ML SYRINGE IV PRN (06:09)
[2018-10-30] MEDS ORDERED: GLUCAGON FOR INJ 1 MG VIAL IM PRN (06:09)
[2018-10-30 06:16] LABS: Calcium 8.5 mg/dl (8.5-10.1); Creatinine Clr Calc Pharmacy 62.7 ml/min; Est GFR (African American) 78.9; Est GFR (Non-African American) 68.1; Magnesium 1.4 mg/dl (1.8-2.4); Potassium 3.7 mmol/L (3.5-5.1)
[2018-10-30] MEDS: HEPARIN SOD 5,000 UNIT/0.5 ML VIAL SQ SCH ×3 (06:30→20:48)
--- NOTE | 2018-10-30 06:52 | History and Physical Report ---
DATE OF ADMISSION: 10/29/2018 CHIEF COMPLAINT: Confusion. HISTORY OF PRESENT ILLNESS: This is an 88-year-old male with past medical history significant for diabetes, diabetic retinopathy, tunnel vision, seborrheic dermatitis, actinic keratosis, coronary artery disease status post coronary artery bypass graft, cerebrovascular accident, type 2 diabetes, hyperlipidemia, aortic stenosis, B12 deficiency, hypertension, benign prostatic hypertrophy, gastroesophageal reflux disease, major depression, history of recurrent urinary tract infection, recently was in the hospital for altered mental status and urinary tract infection and had urinary retention with urethral meatal stenosis which was dilated by Urology and cultures grew group B beta hemolytic strep and was treated with intravenous vancomycin and cefepime and changed to amoxicillin and placed on Oshea and was discharged home and followed with Urology in the last week of September. At that time, he complained that he did not want to keep the Oshea for a long time and Urology wanted to try oshea for 1 more month and also gave thigh bag as recurrence of stricture is high because of his age as per Urology. He lives at home with the significant other. They yesterday after 25 years of living together. The patient walks with a walker and have home health coming to check on him. The patient today morning he complained that he was feeling weak in his legs and having some ambulatory dysfunction and later in the afternoon, he began to be getting more and more confused and that is the reason the brought him to the hospital. Patient is afebrile and no leukocytosis. Urinalysis noted no significant infection. The patient can tell his name, knows that he is in the hospital , but knows that he got yesterday,But could not tell dates.Did not eat much today, did not take his pills today, but his appetite was okay until yesterday. The patient was hard to hear and somewhat confused. The patient denies any headache. Denies any neck pain. No chest pain. No shortness of breath. No cough. No nausea. No abdominal pain. Normal bladder and bowel movements. Currently, resting comfortably, somewhat confused but hemodynamically stable. ALLERGIES: AGGRENOX, IODINATED DIAGNOSTIC AGENTS, CIPROFLOXACIN, LISINOPRIL AND FORMALDEHYDE. PAST MEDICAL HISTORY: As mentioned above. PAST SURGICAL HISTORY: Coronary artery bypass graft, colonoscopy, cholecystectomy, removal of the ear lesions, status post tracheostomy after being on prolonged vent after cabg, treatment of extensive retinopathy with photocoagulation, vitrectomy and laser coagulation and history of skin lesion excision in the right arm. MEDICATIONS: The patient is currently on tramadol 50 mg every 6 hours p.r.n., melatonin 10 mg p.o. at bedtime, Novolin N insulin 8 units before bedtime, Flexeril 10 mg p.o. at bedtime, Proscar 5 mg p.o. daily, Colace 100 mg p.o. daily, metformin 1000 mg p.o. b.i.d., brinzolamide brimonidine 1 drop in right eye b.i.d., aspirin 81 mg p.o. daily, gabapentin 400 mg p.o. t.i.d., Coreg 6.25 mg p.o. b.i.d., Zocor 10 mg p.o. at bedtime, Flomax 0.4 mg p.o. daily, cyanocobalamin 1000 mg p.o. daily, nystatin as directed, Lutein 20 mg p.o. daily, nitroglycerin 0.4 mg sublingual p.r.n., vitamin D 200 p.o. daily, oxygen 2 liters while exerting and at nighttime. FAMILY HISTORY: Significant for mother had cancer. Father has heart disorder. Sister with diabetes and arthritis. SOCIAL HISTORY: No smoking. No alcohol . No drug use. Lives with his significant other. REVIEW OF SYSTEMS: As per HPI, could not get complete review of systems. The patient is somewhat confused. PHYSICAL EXAMINATION: GENERAL: The patient is obese, somewhat confused. VITAL SIGNS: Temperature 36.9, pulse 73, respiratory rate 18, blood pressure 123/59 oxygen 96% on 2lt NC HEENT: No pallor. No icterus. Pupils are equal, round and react to light. NECK: No JVD. No neck masses. Neck is supple. No painful movements. CARDIOVASCULAR: S1, S2 heard. Regular rate and rhythm. ESM at aortic area RESPIRATORY SYSTEM: Normal breath sounds with no evidence accessory muscle use. No wheezing. No crackles. ABDOMEN: Soft. Bowel sounds present. Nontender. No distention. CENTRAL NERVOUS SYSTEM: Alert and awake and oriented to name and place, obeys simple commands.Moves extremities. EXTREMITIES: Moves extremities. No edema. No erythema. LABORATORY DATA: WBC 7.6, hemoglobin 12.9, hematocrit 39.6 and platelets 179. Sodium 133, potassium 4.1, chloride 98, bicarbonate 26, BUN 18, creatinine 0.95, serum glucose 145, calcium 8.6, total bilirubin 0.8, AST 16 and ALT 14. Alkaline phosphatase is 101. Ammonia 22. Troponin I less than 0.016. Thyroid stimulating hormone 2.3. Urinalysis, positive for protein, glucose, ketones, trace blood and positive leukocyte esterase, but negative for any bacteria. CT of the head, no intracranial abnormality seen, extensive chronic changes as noted. Chest x-ray developing congestive heart failure. Electrocardiogram, sinus rhythm with first-degree AV block with PAC rate of 75, incomplete left bundle-branch block and no acute changes seen. ASSESSMENT AND PLAN: This is an 88-year-old male who presents with confusion. 1. Confusion, altered mental status . Similar presentation in the recent past. At that time, he has urinary retention and urethral meatal strictures, status post dilation of stricture and Oshea catheter, follows with Urology and culture grew group B strep. This time also Urinalysis is positive for leukocyte esterase, but no bacteria seen, no white count and no fevers. We will empirically start him on I.V. cefepime. Follow urine and blood cultures. Gentle fluids. We will also get MRI of the head to rule out any intracranial findings as there are no obvious signs of infection at this time and closely monitor him on Tele floor. 2. Hx of urinary retention, benign prostatic hypertrophy, on Proscar and Flomax and on Oshea. Initial plan was to continue Oshea indefinitely But as he was not tolerating it well, Urology gave thigh bag and to monitor for one more month. Has appointment with Urology at the end of this month. 3. CHF? Hx of mild congestion on CXR. receive a dose of Lasix in ER. On gentle fluids as patient only on clears and somewhat confused. Monitor for volume overload. follow echo. 4. Diabetes. We will hold home Novolin and metformin . ISS. Pharmacy consult 5. Ambulatory dysfunction. Walks with the help of a walker at home. PT/OT when stable is requesting for a hospital bed at discharge. 6. history of coronary artery disease, status post coronary artery bypass graft, on aspirin, Coreg and statin. 7. history of hypertension, on Coreg. We will monitor the blood pressure. 8. History of hyperlipidemia ON statin 9. Obesity Nocturnal hypoxia on oxygen. Also uses oxygen on exertion 10. Deep venous thrombosis prophylaxis, on sequential compression devices and heparin subQ. 11. Disposition: Admit to Tele Floor. Expect to discharge home and followup with PCP. Level one full code if only chance of recovery and for short period of time.. MTDD
[2018-10-30] MEDS ORDERED: PERFLUTREN LIPID MICROSPHERE (DEFINITY) IV ONE (07:38)
[2018-10-30] MEDS ORDERED: SIMBRINZA~ORDER AWAITING ACTION SCH (08:00)
--- NOTE | 2018-10-30 08:27 | Hospitalist Progress Note ---
Date of Service October 30, 2018 Subjective 88-year-old male with past medical history significant for diabetes, diabetic retinopathy, tunnel vision, seborrheic dermatitis, actinic keratosis, coronary artery disease status post coronary artery bypass graft, cerebrovascular accident, type 2 diabetes, hyperlipidemia, aortic stenosis, B12 deficiency, hypertension, benign prostatic hypertrophy, gastroesophageal reflux disease, major depression, history of recurrent urinary tract infection, recently was in the hospital for altered mental status and urinary tract infection and had urinary retention with urethral meatal stenosis which was dilated by Urology and cultures grew group B beta hemolytic strep and was treated with intravenous vancomycin and cefepime and changed to amoxicillin and placed on Oshea and was discharged home and followed with Urology in the last week of September. At that time, he complained that he did not want to keep the Oshea for a long time and Urology wanted to try oshea for 1 more month and also gave thigh bag as recurrence of stricture is high because of his age as per Urology. He lives at home with the significant other. They yesterday after 25 years of living together. The patient walks with a walker and have home health coming to check on him. The patient today morning he complained that he was feeling weak in his legs and having some ambulatory dysfunction and later in the afternoon, he began to be getting more and more confused and that is the reason the brought him to the hospital. Patient is afebrile and no leukocytosis. Urinalysis noted no significant infection. The patient can tell his name, knows that he is in the hospital , but knows that he got yesterday,But could not tell dates.Did not eat much today, did not take his pills today, but his appetite was okay until yesterday. The patient was hard to hear and somewhat confused. The patient denies any headache. Denies any neck pain. No chest pain. No shortness of breath. No cough. No nausea. No abdominal pain. Normal bladder and bowel movements. Currently, resting comfortably, somewhat confused but hemodynamically stable. Assessment and [id number]-old male who presents with confusion. 1. Confusion, altered mental status. Similar presentation in the recent past. At that time, he had urinary retention and urethral strictures, status post dilation of stricture and Oshea catheter, follows with Urology Dr Lares and culture grew group B strep. This time also Urinalysis is positive for leukocyte esterase, but no bacteria seen, no white count and no fevers. We will empirically start him on I.V. cefepime. Follow urine and blood cultures. Gentle fluids. We will also get MRI of the head to rule out any intracranial findings as there are no obvious signs of infection at this time and closely monitor him on Tele floor. 2. Hx of urinary retention, benign prostatic hypertrophy, on Proscar and Flomax and chronic Oshea. Initial plan was to continue Oshea indefinitely, but as he was not tolerating it well, Urology gave thigh bag and to monitor for one more month. Has appointment with Urology at the end of this month. 3. CHF Hx of , Developing CHF on CXR. received a dose of Lasix in ER. Stop fluids, echo. 4. Diabetes. We will hold home Novolin and metformin . ISS. Pharmacy consult 5. Ambulatory dysfunction. Walks with the help of a walker at home. PT/OT. is requesting for a hospital bed at discharge. 6. Coronary artery disease, status post coronary artery bypass graft, on aspirin , Coreg and statin. 7. Hypertension, on Coreg. We will monitor the blood pressure. 8. Hyperlipidemia ON statin 9. Obesity Nocturnal hypoxia on oxygen. Also uses oxygen on exertion 10. Deep venous thrombosis prophylaxis, on sequential compression devices and heparin subQ. Disposition: Tele Floor. Expect to discharge home and followup with PCP. Level one full code if only chance of recovery and for short period of time. Await MRI Brain ROS-No Headache, No Visual Changes, No Nausea, No Vomiting, No Fever, No Chills , No Neck Pain or Stiffness, No Chest Pain, No Palpitations, No SOB, No LESLIE, No Cough, No Sputum, No Wheezing, No Abdominal Pain, No Diarrhea, No Hematemesis, No Hemoptysis, No Unexpected Weight Loss, No Flank pain, No Melena, No Hematochezia, No Frequency, No Urgency, No Burning, No Hematuria, No Rashes, No Diaphoresis. Appetite is Normal. legs weak yesterday Physical Exam Gen-AAO x 3, NAD, Afebrile, Weak, Obese Head-NCAT, EOMI, PERRLA, Anicteric Sclera, No Posterior Pharyngeal Erythema Neck-Supple, No JVD, No Thyromegaly, No Masses, No LAD, No Bruits Lungs-Clear to Auscultation Bilaterally, No Rales, No Rhonchi, No Wheezing, No Crepitus Chest-No S4, +S1, +S2, No S3, No Murmurs, No Rubs, No Gallops, No Ectopy Abdomen-Soft, Bowel Sounds Present, Non Tender, Non Distended, No Hepatomegaly, No Splenomegaly, No Palpable Masses, No Rebound, No Rigidity, No Guarding Musculoskeletal-Full Range of Motion Bilaterally, No CVAT Extremities-No Cyanosis, No Clubbing, No Edema Nuero-Cranial Nerves II-XII grossly intact, Motor WNL, DTRs WNL, Strength WNL, Non Focal Psych-Normal Mood Physical Exam 2 Vital Signs (Past 24 Hours): Last Vital Signs Temp 37.2 C 10/30/18 07:00 Pulse 68 10/30/18 07:00 Resp 20 10/30/18 07:00 BP 157/89 H 10/30/18 07:00 Pulse Ox 96 10/30/18 07:00 Results & Data Laboratory Results Allergies Iodinated Contrast- Oral and IV Dye Allergy (Severe, Verified 10/29/18 23:28) Edema-face/lips/tongue. Hives/Rash. formaldehyde Allergy (Intermediate, Verified 10/29/18 23:28) Hives/Rash Cipro Allergy (Unknown, Verified 07/15/17 11:48) Hives dipyridamole Allergy (Unknown, Verified 10/29/18 23:28) Hallucinations lisinopril Allergy (Unknown, Verified 10/29/18 23:28) UNKNOWN ciprofloxacin Adverse Reaction (Unknown, Verified 10/29/18 23:28) CONSTIPATION yellow socks Allergy (Intermediate, Uncoded 10/29/18 23:28) contact rash (formaldehyde used to preserve yellow color) Height/Weight/Isolation Height 6 ft Weight 100.4 kg Chemistry 10/29/18 10/30/18 21:56 05:17 Sodium 133 L 133 L Potassium 4.1 3.7 Chloride 98 99 Carbon Dioxide 26 28 Anion Gap 9.0 6.0 BUN 18 16 Creatinine 0.95 0.98 Glucose 145 H 224 H Urinalysis 10/29/18 21:43 Urine Color Yellow Urine Appearance Clear Urine pH 7.5 Ur Specific [place] 1.016 Urine Protein Trace H Urine Glucose (UA) Trace H Urine Ketones Trace H Urine Blood Trace H Urine Nitrite Negative Urine Bilirubin Negative Microbiology 10/30/18 02:10 Blood Blood Culture - Pending 10/30/18 02:10 Blood Blood Culture - Pending Diagnostic Findings CXR-Developing CHF
[2018-10-30] MEDS: CHOLECALCIFEROL 1,000 UNITS TAB PO SCH (08:41)
[2018-10-30] MEDS: DOCUSATE SODIUM 100 MG CAP PO SCH (08:41)
[2018-10-30] MEDS: INSULIN ASPART 100 UNITS/ML 3 ML PEN SC SCH ×4 (08:42→20:47)
[2018-10-30] MEDS: CARVEDILOL 6.25 MG TAB PO SCH ×2 (08:47→20:45)
[2018-10-30] MEDS: ASPIRIN 81 MG ECTAB PO SCH (08:47)
[2018-10-30] MEDS: GABAPENTIN 400 MG CAP PO SCH ×3 (08:48→20:44)
[2018-10-30] MEDS: TAMSULOSIN HCL 0.4 MG CAP PO SCH (08:48)
[2018-10-30] MEDS: FINASTERIDE 5 MG TAB PO SCH (08:48)
[2018-10-30] MEDS: CYANOCOBALAMIN 500 MCG TABLET (VITAMIN B-12) PO SCH (08:49)
[2018-10-30] MEDS: INSULIN HUMAN NPH SC SCH ×2 (09:09→17:35)
[2018-10-30] MEDS: TRAMADOL HCL 50 MG TABLET PO PRN (09:14)
--- NOTE | 2018-10-30 10:10 | Magnetic Resonance Report ---
Brain MRI WITHOUT CONTRAST HISTORY: confusion TECHNIQUE: Multiplanar multisequence MRI of the brain was performed without the use of contrast. COMPARISON STUDY: Head CT 10/29/2018. FINDINGS: There is no mass, hematoma, midline shift, or acute infarct. The mastoid air cells are shakira r. The ventricles and sulci demonstrate moderate to severe age-related involutional changes. Scattere d foci of T2 hyperintensity seen within the periventricular and subcortical white matter are nonspeci fic but suggestive of advanced microvascular ischemic changes. The major vascular flow voids at the s kull base are well-maintained. Mild mucosal thickening within the maxillary sinuses. No fluid levels. Moderate size area of encephalomalacia within the high convexity left frontal lobe consistent with a n old infarct. Old small infarcts within the bilateral basal ganglia, right thalamus, and ezio. IMPRESSION: 1. No acute intracranial abnormality. 2. Extensive atrophy and microvascular ischemic changes. 3. Old infarcts as described above. Electronically signed by: Bonifacio Moscoso M.D. 10/30/2018 10:08 AM
[2018-10-30] MEDS: MAGNESIUM OXIDE 400 MG TAB PO SCH ×3 (10:15→20:43)
[2018-10-30] MEDS: ASCORBIC ACID 500 MG TAB PO SCH ×2 (10:15→20:44)
[2018-10-30] MEDS: NYSTATIN POWDER 15GM BTL EXT SCH ×2 (10:16→20:45)
--- NOTE | 2018-10-30 13:39 | Pharmacy Report ---
Glycemic Control Consultation - Date of Service October 30, 2018 - Scope Scope: Glycemic Pharmacist consulted by Dr Perez on 10/30 for glycemic control and to write orders per [facility] inpatient glycemic control protocol - Objective Weight: 100.4 kg Accuchecks BSG (last 24hrs): 10/29/18 10/29/18 10/30/18 21:27 21:56 05:17 Glucose 145 H 224 H POC Glucose 125 H 10/30/18 10/30/18 07:12 11:20 Glucose POC Glucose 194 H 266 H Laboratory Data (last 24hrs): 10/29/18 10/30/18 21:56 05:17 Potassium 4.1 3.7 Carbon Dioxide 26 28 Anion Gap 9.0 6.0 Creatinine 0.95 0.98 Est Cr Clr Drug Dosing 65.7 62.7 - Recent Pertinent Medications Outpatient Anti-diabetic Regimen: * NPH 50 units qAM, 8 units w/ dinner * Novolog w/ dinner per SS * Metformin 1 gm BID * A1c = 9.9 % 09/14/18 Risk Factors for Insulin Resistance: * Infection: possible UTI, on cefepime * Diet: type 2 diabetes - Assessment & Plan Assessment & Plan: ASSESSMENT: * Mr. Go is an 88 y/o male admitted for confusion w/ possible UTI. He is a type 2 diabetic, known to the pharmacy glycemic service from previous admissions. A1c from August indicates diabetes is not well controlled and it was suggested on last admission to add more meal time insulin; however, it doesn 't look like this was done. * Will initiate inpatient insulin regimen similar to previous admission, using a tighter CF/CR until BSGs are better controlled. He may have missed his PM dose of NPH last night as he was admitted in the evening. PLAN FOR INPATIENT GLYCEMIC CONTROL: * Holding outpatient oral diabetes medications - can resume 1-2 days prior to discharge * Basal insulin * NPH 35 units w/ breakfast and 7 units w/ dinner * Bolus insulin - will need to loosen parameters once BSGs more controlled * NovoLog per scale ACHS or Q6hrs while NPO * Goal Range: Low 110 mg/dL - High 150 mg/dL * Correction Factor: 12 mg/dL/unit * Nutritional / Prandial insulin per carb ratio of 1 unit per 3 grams CHO consumed * Will wait until updated A1c is resulted prior to providing discharge recommendations * Please note that the plan above was derived based on current level of insulin resistance and hospital stress. These recommendations are appropriate for inpatient admission only. Plan of care upon discharge will need to be reassessed to avoid potential outpatient hypo/hyperglycemia. Thank you.
[2018-10-30] MEDS ORDERED: HYDROCORTISONE 1% OINT 30 GM TUBE EXT PRN (14:39)
[2018-10-30] MEDS: ARTIFICIAL TEARS OPR SCH (20:46)
[2018-10-30] MEDS: SIMBRINZA OP SCH (20:46)
[2018-10-30] MEDS ORDERED: CYCLOBENZAPRINE HCL 10 MG TAB PO SCH (21:00)
[2018-10-30] MEDS ORDERED: SIMVASTATIN 20 MG TAB PO SCH (21:00)
[2018-10-31] MEDS: CEFEPIME 2,000 MG in SYRINGE 7.5 ML IV SCH ×2 (04:27→16:23)
[2018-10-31 06:04] LABS: Hematocrit (blood only) 38.4 % (42-52); Hemoglobin 12.3 g/dL (14.0-18.0); Mean Corpuscular Volume 87.1 fL (80-100); Mean Platelet Volume 11.2 fL (7.4-10.4); Platelet Count 190 K/uL (130-400); RDW Coefficient of Variation 14.3 % (11.5-14.5); RDW Standard Deviation 45.6 fL (36.4-46.3); Red Blood Count 4.41 M/uL (4.7-6.1); White Blood Count 5.73 K/uL (4.8-10.8)
[2018-10-31] MEDS: HEPARIN SOD 5,000 UNIT/0.5 ML VIAL SQ SCH ×2 (06:31→12:38)
[2018-10-31 06:43] LABS: Albumin Level 2.4 gm/dl (3.4-5.0); BUN Creatinine Ratio 16.8 (10-20); Calcium 8.2 mg/dl (8.5-10.1); Creatinine Clr Calc Pharmacy 65.7 ml/min; Est GFR (African American) 84.1; Est GFR (Non-African American) 72.5; Estimated Average Glucose 252 mg/dl; Potassium 3.8 mmol/L (3.5-5.1)
[2018-10-31 06:46] LABS: Albumin Globulin Ratio 0.5 (0.9-2); Bilirubin,Total 0.6 mg/dl (0.2-1); Globulin 4.5 gm/dl (2.5-4.0); Total Protein 6.9 gm/dl (6.4-8.2)
[2018-10-31] MEDS: CYANOCOBALAMIN 500 MCG TABLET (VITAMIN B-12) PO SCH (08:11)
[2018-10-31] MEDS: ARTIFICIAL TEARS OPR SCH (08:11)
[2018-10-31] MEDS: ASPIRIN 81 MG ECTAB PO SCH (08:11)
[2018-10-31] MEDS: CHOLECALCIFEROL 1,000 UNITS TAB PO SCH (08:11)
[2018-10-31] MEDS: DOCUSATE SODIUM 100 MG CAP PO SCH (08:11)
[2018-10-31] MEDS: TAMSULOSIN HCL 0.4 MG CAP PO SCH (08:11)
[2018-10-31] MEDS: GABAPENTIN 400 MG CAP PO SCH ×2 (08:11→14:15)
[2018-10-31] MEDS: ASCORBIC ACID 500 MG TAB PO SCH (08:11)
[2018-10-31] MEDS: CARVEDILOL 6.25 MG TAB PO SCH (08:11)
[2018-10-31] MEDS: FINASTERIDE 5 MG TAB PO SCH (08:11)
[2018-10-31] MEDS: SIMBRINZA OP SCH (08:11)
[2018-10-31] MEDS: MAGNESIUM OXIDE 400 MG TAB PO SCH ×2 (08:11→14:15)
[2018-10-31] MEDS: NYSTATIN POWDER 15GM BTL EXT SCH (08:12)
[2018-10-31] MEDS: INSULIN HUMAN NPH SC SCH ×3 (08:12→17:27)
[2018-10-31] MEDS: INSULIN ASPART 100 UNITS/ML 3 ML PEN SC SCH ×3 (08:13→17:20)
--- NOTE | 2018-10-31 10:18 | Discharge Summary ---
Date of Service October 31, 2018 Admission HPI Per Admitting Provider This is an 88-year-old male with past medical history significant for diabetes, diabetic retinopathy, tunnel vision, seborrheic dermatitis, actinic keratosis, coronary artery disease status post coronary artery bypass graft, cerebrovascular accident, type 2 diabetes, hyperlipidemia, aortic stenosis, B12 deficiency, hypertension, benign prostatic hypertrophy, gastroesophageal reflux disease, major depression, history of recurrent urinary tract infection, recently was in the hospital for altered mental status and urinary tract infection and had urinary retention with urethral meatal stenosis which was dilated by Urology and cultures grew group B beta hemolytic strep and was treated with intravenous vancomycin and cefepime and changed to amoxicillin and placed on Oshea and was discharged home and followed with Urology in the last week of September. At that time, he complained that he did not want to keep the Oshea for a long time and Urology wanted to try oshea for 1 more month and also gave thigh bag as recurrence of stricture is high because of his age as per Urology. He lives at home with the significant other. They yesterday after 25 years of living together. The patient walks with a walker and have home health coming to check on him. The patient today morning he complained that he was feeling weak in his legs and having some ambulatory dysfunction and later in the afternoon, he began to be getting more and more confused and that is the reason the brought him to the hospital. Patient is afebrile and no leukocytosis. Urinalysis noted no significant infection. The patient can tell his name, knows that he is in the hospital , but knows that he got yesterday,But could not tell dates.Did not eat much today, did not take his pills today, but his appetite was okay until yesterday. The patient was hard to hear and somewhat confused. The patient denies any headache. Denies any neck pain. No chest pain. No shortness of breath. No cough. No nausea. No abdominal pain. Normal bladder and bowel movements. Currently, resting comfortably, somewhat confused but hemodynamically stable. Admission Exam Per Admitting Provider PHYSICAL EXAMINATION: GENERAL: The patient is obese, somewhat confused. VITAL SIGNS: Temperature 36.9, pulse 73, respiratory rate 18, blood pressure 123/59 oxygen 96% on 2lt NC HEENT: No pallor. No icterus. Pupils are equal, round and react to light. NECK: No JVD. No neck masses. Neck is supple. No painful movements. CARDIOVASCULAR: S1, S2 heard. Regular rate and rhythm. ESM at aortic area RESPIRATORY SYSTEM: Normal breath sounds with no evidence accessory muscle use. No wheezing. No crackles. ABDOMEN: Soft. Bowel sounds present. Nontender. No distention. CENTRAL NERVOUS SYSTEM: Alert and awake and oriented to name and place, obeys simple commands.Moves extremities. EXTREMITIES: Moves extremities. No edema. No erythema. Principal Diagnosis Foot Drop UTI Amb Dysfunction Old CVA HTN Chronic Oshea DM II BPH Discharge Exam ROS-No Headache, No Visual Changes, No Nausea, No Vomiting, No Fever, No Chills , No Neck Pain or Stiffness, No Chest Pain, No Palpitations, No SOB, No LESLIE, No Cough, No Sputum, No Wheezing, No Abdominal Pain, No Diarrhea, No Hematemesis, No Hemoptysis, No Unexpected Weight Loss, No Flank pain, No Melena, No Hematochezia, No Frequency, No Urgency, No Burning, No Hematuria, No Rashes, No Diaphoresis. Appetite is Normal. legs weak yesterday Physical Exam Gen-AAO x 3, NAD, Afebrile, Weak, Obese Head-NCAT, EOMI, PERRLA, Anicteric Sclera, No Posterior Pharyngeal Erythema Neck-Supple, No JVD, No Thyromegaly, No Masses, No LAD, No Bruits Lungs-Clear to Auscultation Bilaterally, No Rales, No Rhonchi, No Wheezing, No Crepitus Chest-No S4, +S1, +S2, No S3, No Murmurs, No Rubs, No Gallops, No Ectopy Abdomen-Soft, Bowel Sounds Present, Non Tender, Non Distended, No Hepatomegaly, No Splenomegaly, No Palpable Masses, No Rebound, No Rigidity, No Guarding Musculoskeletal-Full Range of Motion Bilaterally, No CVAT Extremities-No Cyanosis, No Clubbing, No Edema Nuero-Cranial Nerves II-XII grossly intact, Motor WNL, DTRs WNL, Strength WNL, Non Focal Psych-Normal Mood Discharge Data Allergies Allergy/AdvReac Type Severity Reaction Status Date / Time Iodinated Contrast- Oral and Allergy Severe Edema-face/lips/tongue. Verified 09/04 23:28 IV Dye Hives/Rash. formaldehyde Allergy Intermediate Hives/Rash Verified 10/29/18 23:28 Cipro Allergy Unknown Hives Verified 07/15/17 11:48 dipyridamole Allergy Unknown Hallucinati Verified 10/29/18 23:28 ons lisinopril Allergy Unknown UNKNOWN Verified 10/29/18 23:28 ciprofloxacin AdvReac Unknown CONSTIPATIO Verified 10/29/18 23:28 N yellow socks Allergy Intermediate contact Uncoded 10/29/18 23:28 rash (formaldehyde used to preserve yellow color) Consultations 10/29/18 23:35 ED Decision to Admit Stat 10/30/18 01:50 Consult Case Management - Discharge Planning Routine Allergies Iodinated Contrast- Oral and IV Dye Allergy (Severe, Verified 10/29/18 23:28) Edema-face/lips/tongue. Hives/Rash. formaldehyde Allergy (Intermediate, Verified 10/29/18 23:28) Hives/Rash Cipro Allergy (Unknown, Verified 07/15/17 11:48) Hives dipyridamole Allergy (Unknown, Verified 10/29/18 23:28) Hallucinations lisinopril Allergy (Unknown, Verified 10/29/18 23:28) UNKNOWN ciprofloxacin Adverse Reaction (Unknown, Verified 10/29/18 23:28) CONSTIPATION yellow socks Allergy (Intermediate, Uncoded 10/29/18 23:28) contact rash (formaldehyde used to preserve yellow color) Height/Weight/Isolation Height 6 ft Weight 99.2 kg Chemistry 10/29/18 10/30/18 10/31/18 21:56 05:17 05:23 Sodium 133 L 133 L 135 L Potassium 4.1 3.7 3.8 Chloride 98 99 101 Carbon Dioxide 26 28 31 Anion Gap 9.0 6.0 3.0 BUN 18 16 16 Creatinine 0.95 0.98 0.93 Glucose 145 H 224 H 115 H Urinalysis 10/29/18 21:43 Urine Color Yellow Urine Appearance Clear Urine pH 7.5 Ur Specific [place] 1.016 Urine Protein Trace H Urine Glucose (UA) Trace H Urine Ketones Trace H Urine Blood Trace H Urine Nitrite Negative Urine Bilirubin Negative Microbiology 10/30/18 02:10 Blood Blood Culture - Preliminary No growth to date. 10/30/18 02:10 Blood Blood Culture - Preliminary No growth to date. 10/30/18 12:05 Urine,Clean Catch Urine Culture - Pending Ordered Studies 10/29/18 21:35 CT head/brain wo con Stat 10/30/18 02:28 MR brain wo con Urgent Hospital Course (1) Acute confusion: 88-year-old male with past medical history significant for diabetes, diabetic retinopathy, tunnel vision, seborrheic dermatitis, actinic keratosis, coronary artery disease status post coronary artery bypass graft, cerebrovascular accident, type 2 diabetes, hyperlipidemia, aortic stenosis, B12 deficiency, hypertension, benign prostatic hypertrophy, gastroesophageal reflux disease, major depression, history of recurrent urinary tract infection, recently was in the hospital for altered mental status and urinary tract infection and had urinary retention with urethral meatal stenosis which was dilated by Urology and cultures grew group B beta hemolytic strep and was treated with intravenous vancomycin and cefepime and changed to amoxicillin and placed on Oshea and was discharged home and followed with Urology in the last week of September. At that time, he complained that he did not want to keep the Oshea for a long time and Urology wanted to try oshea for 1 more month and also gave thigh bag as recurrence of stricture is high because of his age as per Urology. He lives at home with the significant other. They yesterday after 25 years of living together. The patient walks with a walker and have home health coming to check on him. The patient today morning he complained that he was feeling weak in his legs and having some ambulatory dysfunction and later in the afternoon, he began to be getting more and more confused and that is the reason the brought him to the hospital. Patient is afebrile and no leukocytosis. Urinalysis noted no significant infection. The patient can tell his name, knows that he is in the hospital , but knows that he got yesterday,But could not tell dates.Did not eat much today, did not take his pills today, but his appetite was okay until yesterday. The patient was hard to hear and somewhat confused. The patient denies any headache. Denies any neck pain. No chest pain. No shortness of breath. No cough. No nausea. No abdominal pain. Normal bladder and bowel movements. Currently, resting comfortably, somewhat confused but hemodynamically stable. Confusion resolved c Abx and IVFs, MRI neg, DC home c HHC/HOT,HPT, Hosp bed Total Time Total Time Spent Total Time Spent (In Minutes): 50 mins Total Time Includes: Examination of the Patient, Discharge Planning, Medication Reconciliation and Communication With Other Providers Discharge Plan Discharge Items Patient Disposition: Home - Home Health Services Reason For Visit: CONFUSION Discharge Diagnosis: Foot Drop UTI Amb Dysfunction Old CVA HTN Chronic Oshea DM II BPH Condition: Fair Discharge Goals: Decrease discomfort, Improve function and Improve nutritional status Activity: Resume your previous activity Activity Comment: As tolerated Lifting: None Bathing: No limitations Sexual Activity: When tolerated Exercise/Sports: None Weightbearing: Left weightbearing and Right weightbearing Weightbearing Comment: As tolerated Non-emergency contact: Primary Care Provider Call non-emergency contact if: you have any medication questions and your symptoms worsen Follow-up/Referrals: Shin Dela Cruz MD [Primary Care Provider] - Diet: Carb Consistent or DM2 and Heart Healthy Fluids: 1500ml (6 cups) Addtl Provider Instructions: Close f/u. Prescriptions: New acetaminophen [Mapap (acetaminophen)] 325 mg Tablet 650 mg PO Q4H PRN (Reason: fever or pain) Qty: 100 RF: 0 ascorbic acid (vitamin C) [Vitamin C] 500 mg Tablet 1,000 mg PO BID Qty: 90 RF: 0 nystatin [Nystop] 100,000 unit/gram Powder 1 applic EXT BID Qty: 30 RF: 0 cefdinir 300 mg capsule 300 mg PO BID 10 Days Qty: 20 RF: 0 doxycycline monohydrate 100 mg capsule 100 mg PO BID 10 Days Qty: 20 RF: 0 Continue cyclobenzaprine 10 mg Tablet 10 mg PO HS RF: 0 carvedilol [Coreg] 12.5 mg Tablet 6.25 mg PO BID RF: 0 hydrocortisone 1 % Lotion 1 applic TOPICAL BID RF: 0 gabapentin 400 mg Capsule 400 mg PO TID RF: 0 aspirin [Aspir-81] 81 mg Tablet,Delayed Release (Dr/Ec) 81 mg PO DAILY RF: 0 tramadol [Ultram] 50 mg tablet 50 mg PO Q6 PRN (Reason: Pain, Moderate) RF: 0 carboxymethylcellulose sodium [TheraTears] 0.25 % Drops 1 drp OPHTHALMIC (EYE) QID RF: 0 benzoyl peroxide 10 % Lotion 1 applic TOPICAL DAILY PRN (Reason: WHEN SHOWERS) RF: 0 cyanocobalamin (vitamin B-12) 500 mcg Tablet 1,000 mcg PO DAILY RF: 0 tamsulosin 0.4 mg Capsule 0.4 mg PO DAILY RF: 0 simvastatin [Zocor] 20 mg Tablet 10 mg PO PM RF: 0 metformin 1,000 mg Tablet 1,000 mg PO BIDM RF: 0 nystatin 100,000 unit/gram Cream 1 applic TOPICAL UD PRN (Reason: Unknown) RF: 0 nitroglycerin [Nitrostat] 0.4 mg Tablet, Sublingual 0.4 mg Sublingual UD PRN (Reason: Chest Pain) RF: 0 docusate sodium 100 mg Tablet 100 mg PO DAILY RF: 0 finasteride 5 mg Tablet 5 mg PO DAILY RF: 0 lutein 20 mg Capsule 20 mg PO DAILY RF: 0 cholecalciferol (vitamin D3) [Vitamin D3] 2,000 unit Capsule 2,000 unit PO DAILY RF: 0 emollient combination no.69 [Eucerin Skin Calming] Cream 1 applic topical UD RF: 0 brinzolamide-brimonidine [Simbrinza] 1-0.2 % Drops,Suspension 1 drp OPR BID RF: 0 selenium sulfide 2.5 % Lotion 1 applic topical UD RF: 0 insulin NPH isoph U-100 human [Humulin N NPH U-100 Insulin] 100 unit/mL Suspension SUBCUT BID RF: 0 insulin aspart U-100 [Novolog Flexpen U-100 Insulin] 100 unit/mL Insulin Pen subcut QDD RF: 0 Stand-Alone Forms: [facility] Discharge Orders: Discharge Order (Routine); Ordered 10/31/18 Ordered By: Olivier Tinsley Admission Data Admit Date/Time: 10/30/18 00:25 Attending Provider: Olivier Tinsley Admit Provider: Kane Perez Primary Care Provider: Shin Dela Cruz Other Providers: Kane Perez Service: Telemetry
[2018-10-31] MEDS: TRAMADOL HCL 50 MG TABLET PO PRN (17:49)
--- NOTE | 2018-11-04 08:27 | Coding Query ---
PRESENT ON ADMISSION QUERY To promote full compliance with coding requirements relating to pateint care, physician participation is requested in all cases of media arts professor uncertainty. Please assist us with the question(s) below: Please place an X within the parenthesis (x). The following diagnosis listed in this patient's medical record require physician assistance to determine if they were present on admission (POA) or not. Please advise for each diagnosis whether it was present on admission, not present on admission, or if it was clinically undetermined. 1.(Detective Lieutenant insert Diagnosis and where it was documented in the record) ( x) Present On Admission ( ) Not Present On Admission ( ) Clinically Undetermined Please indicate laterality: (+Right foot drop Thank you Toña An *Definition of the present on admission (POA)-Present on admission is defined as present at the time the order for inpatient admission occurs. Conditions that develop during an outpatient encounter prior to a written order for inpatient admission (including emergency department, observation, or outpatient surgery) are considered present on admission. BRYCED
== END 2018-10-31 18:27 | disposition home health service (06) | DRG 565 ==
LOC: ED 21:14 → 2S 21:14

== ENCOUNTER 2018-11-01 22:49 | Observation (INO) ==
[2018-11-01] MEDS ORDERED: SODIUM CHLORIDE 0.9% 1000ML 1,000 ML IV SCH (23:30)
[2018-11-01] MEDS ORDERED: TAP WATER ENEMA PR STA (23:37)
[2018-11-01 23:54] LABS: Basophils # (auto) 0.03 K/uL (0-0.2); Basophils % (auto) 0.6 %; Eosinophils # (auto) 0.14 K/uL (0-0.5); Eosinophils % (auto) 2.6 %; Hematocrit (blood only) 42.1 % (42-52); Hemoglobin 13.9 g/dL (14.0-18.0); Immature Granulocytes # (auto) 0.01 K/uL (0.00-0.02); Immature Granulocytes % (auto) 0.2 %; Lymphocytes # (auto) 1.49 K/uL (1.2-3.4); Mean Corpuscular Volume 86.3 fL (80-100); Mean Platelet Volume 10.5 fL (7.4-10.4); Monocytes # (auto) 0.62 K/uL (0.11-0.59); Monocytes % (auto) 11.7 %; Neutrophils # (auto) 3.03 K/uL (1.4-6.5); Neutrophils % (auto) 56.9 %; Platelet Count 257 K/uL (130-400); RDW Coefficient of Variation 14.1 % (11.5-14.5); RDW Standard Deviation 44.3 fL (36.4-46.3); Red Blood Count 4.88 M/uL (4.7-6.1); White Blood Count 5.32 K/uL (4.8-10.8)
[2018-11-02 00:03] LABS: iSTAT Creatinine 0.8 mg/dl (0.6-1.3); iSTAT Hemoglobin 14.6 g/dl (14.0-18.0); iSTAT Ionized Calcium 1.08 mmol/l (1.12-1.32); iSTAT Potassium 3.7 mEq/L (3.3-5.0)
[2018-11-02 00:15] LABS: Alanine Aminotransferase 18 U/L (12-78); Aspartate Aminotransferase 24 U/L (15-37); Blood Urea Nitrogen 16 mg/dl (7-18); Calcium 8.8 mg/dl (8.5-10.1); Carbon Dioxide 29 mmol/L (21-32); Chloride 100 mmol/L (98-107); Creatinine Clr Calc Pharmacy 61.2 ml/min; Est GFR (African American) 76.1; Est GFR (Non-African American) 65.6; Glucose 174 mg/dl (70-99); Potassium 3.6 mmol/L (3.5-5.1); Sodium 136 mmol/L (136-145)
[2018-11-02 00:26] LABS: Albumin Globulin Ratio 0.6 (0.9-2); Alkaline Phosphatase 113 U/L (45-117); Bilirubin,Total 0.4 mg/dl (0.2-1); Creatine Kinase 162 U/L (39-308); Creatine Kinase MB 2.1 ng/ml (0.5-3.6); Globulin 5.2 gm/dl (2.5-4.0); Total Protein 8.2 gm/dl (6.4-8.2); Troponin I < 0.015 ng/ml (0-0.045)
[2018-11-02 00:41] LABS: NT Pro B Type Natriuretic Pept 1364 pg/ml (0-1800)
[2018-11-02 01:25] LABS: Appearance Urine Clear (Clear); Bilirubin Urine Negative (Negative); Blood Urine Negative (Negative); Color Urine Yellow; Glucose Urine UA 2+ (Negative); Ketones Urine Trace (Negative); Leukocyte Esterase Urine Negative (Negative); Nitrite Urine Negative (Negative); Protein Urine Negative (Negative); Specific Gravity Urine 1.015 (1.000-1.030); Urobilinogen Urine Negative (Negative); pH Urine 8.5 (4.5-7.5)
[2018-11-02] MEDS ORDERED: CARVEDILOL 3.125 MG TAB PO STA (03:12)
[2018-11-02 03:26] LABS: Magnesium 1.9 mg/dl (1.8-2.4)
--- NOTE | 2018-11-02 03:51 | History & Physical Report ---
Date of Service November 02, 2018 Assessment & Plan (1) Ambulatory dysfunction: /Functional disability Hypertension, elevated secondary to missed nighttime med hx recurrent CVA CAD sp CABG, status post stenting hx of aortic stenosis, chronic resp failure secondary to COPD, on home O2 at night, almost status at baseline DM2, insulin requiring, suboptimal control as of recent inpatient hemoglobin A1c of 10.4 this month past tobacco abuse OBS GMF Facilitate nighttime Coreg PT OT eval Social service RE discharge planning ( has expressed interest in having patient undergo rehab at [facility]) Pharmacy glycemic control consult. DVT prophylaxis. Lovenox subcu Full code Patient's requesting updates from providers. Mrs. Suad oG, contact #[phone]. History of Present Illness Chief Complaint: Cannot stand up as per patient/ Primary Care Provider: Shin Dela Cruz MD History obtained from the patient, , and records. Limited history from patient due to marked hearing impairment. Medical history is significant for recurrent CVA, CAD sp CABG, status post stenting, hx of aortic stenosis, chronic resp failure secondary to COPD, on home O2 at night and as needed, DM2, insulin requiring, mood disorder, past tobacco abuse. Recent confinement 2 days ago for confusion, foot drop, possible UTI. No growth on urine cultures. Patient discharged home yesterday, not sure if patient was strong enough to be discharged. Upon return home, patient found to be requiring more assistance, increased care needs. [facility] outpatient secondary social studies teacher in touch with patient's regarding possible SNF rehab placement. Patient brought by to ER for generalized weakness, AMS, inability to stand as per records. CT abdomen pelvis showed some stool retention, last BM was 3 days ago. Patient for tap water enema in the ER yielding copious stool output. Medical History as above Surgical History : CABG, cholecystectomy, tracheostomy, ear surgery, cataract surgery, vitrectomy Family History : Diabetes, heart disease Personal/Social history : Past tobacco abuse, occasional EtOH intake, retired mechanic assistant Allergies Allergy/AdvReac Type Severity Reaction Status Date / Time Iodinated Contrast- Oral and Allergy Severe Edema-face/lips/tongue. Verified 09/04 23:28 IV Dye Hives/Rash. formaldehyde Allergy Intermediate Hives/Rash Verified 10/29/18 23:28 Cipro Allergy Unknown Hives Verified 07/15/17 11:48 dipyridamole Allergy Unknown Hallucinati Verified 10/29/18 23:28 ons lisinopril Allergy Unknown UNKNOWN Verified 10/29/18 23:28 ciprofloxacin AdvReac Unknown CONSTIPATIO Verified 10/29/18 23:28 N yellow socks Allergy Intermediate contact Uncoded 10/29/18 23:28 rash (formaldehyde used to preserve yellow color) Home Medications Home Medications Medication Instructions Recorded Confirmed Type aspirin [Aspir-81] 81 mg PO DAILY 09/13/18 11/01/18 History benzoyl peroxide 1 applic TOPICAL DAILY PRN 09/13/18 11/01/18 History brinzolamide-brimonidine 1 drp OPR BID 09/13/18 11/01/18 History [Simbrinza] carboxymethylcellulose sodium 1 drp OPHTHALMIC (EYE) QID 09/13/18 11/01/18 History [TheraTears] carvedilol [Coreg] 6.25 mg PO BID 09/13/18 11/01/18 History cholecalciferol (vitamin D3) 2,000 unit PO DAILY 09/13/18 11/01/18 History [Vitamin D3] cyanocobalamin (vitamin B-12) 1,000 mcg PO DAILY 09/13/18 11/01/18 History cyclobenzaprine 10 mg PO HS 09/13/18 11/01/18 History docusate sodium 100 mg PO DAILY 09/13/18 11/01/18 History emollient combination no.69 1 applic TOPICAL UD 09/13/18 11/01/18 History [Eucerin Skin Calming] finasteride 5 mg PO DAILY 09/13/18 11/01/18 History gabapentin 400 mg PO TID 09/13/18 11/01/18 History hydrocortisone 1 applic TOPICAL BID 09/13/18 11/01/18 History lutein 20 mg PO DAILY 09/13/18 11/01/18 History metformin 1,000 mg PO BIDM 09/13/18 11/01/18 History nitroglycerin [Nitrostat] 0.4 mg SUBLINGUAL UD PRN 09/13/18 11/01/18 History nystatin 1 applic TOPICAL UD PRN 09/13/18 11/01/18 History selenium sulfide 1 applic TOPICAL UD 09/13/18 11/01/18 History simvastatin [Zocor] 10 mg PO PM 09/13/18 11/01/18 History tamsulosin 0.4 mg PO DAILY 09/13/18 11/01/18 History tramadol [Ultram] 50 mg PO Q6 PRN 09/13/18 11/01/18 History insulin NPH isoph U-100 human 0 unit SUBCUT BID 09/16/18 11/01/18 History [Humulin N NPH U-100 Insulin] insulin aspart U-100 [Novolog 0 units SUBCUT QDD 09/16/18 11/01/18 History Flexpen U-100 Insulin] acetaminophen [Mapap 650 mg PO Q4H PRN #100 tab 10/31/18 11/01/18 Rx (acetaminophen)] ascorbic acid (vitamin C) [Vitamin 1,000 mg PO BID #90 tab 10/31/18 11/01/18 Rx C] cefdinir 300 mg PO BID 10 Days #20 cap 10/31/18 11/01/18 Rx doxycycline monohydrate 100 mg PO BID 10 Days #20 cap 10/31/18 11/01/18 Rx nystatin [Nystop] 1 applic EXT BID #30 g 10/31/18 11/01/18 Rx Past Med/Surg History Medical History Cellulitis (Acute) "left foot" Foot ulcer due to secondary DM (Acute) Dyspnea (Acute) Clostridium difficile colitis (Acute) Foot deformity Foot drop Stroke (Acute) Loss of sensation Diabetic foot ulcer Diabetic peripheral neuropathy associated with type 2 diabetes mellitus History of diabetic ulcer of foot Hypertensive urgency Acute pyelonephritis (Acute) Altered mental status (Acute) Hypomagnesemia (Acute) Acute urinary retention (Acute) Urinary tract infection DVT prophylaxis Discharge planning issues Urinary retention Acquired urinary meatal stenosis Acute confusion (Acute) Pulmonary edema (Acute) Coronary artery disease (Chronic) "PCI + stenting LAD 1997 CABG x 3 2000 cath 03/11/13 showed patent LAD graft, patent SVG to circ marginal, occluded SVG to RCA" Hypertension (Chronic) Benign prostatic hyperplasia (Chronic) Diabetes mellitus, type II (Chronic) Chronic respiratory failure (Chronic) "home O2 2 LPM at night + PRN" Dyslipidemia (Chronic) Hyperhomocysteinemia (Chronic) Diabetic retinopathy (Chronic) Cerebrovascular disease (Chronic) "s/p stroke with right hemiparesis" Aortic stenosis (Chronic) "1.1 cm2 by echo 2011 and cath 2012" Arthritis COPD (chronic obstructive pulmonary disease) GERD (gastroesophageal reflux disease) Surgical History Status post coronary artery bypass grafting (Chronic) "radial artery to LAD, SVG to circ marginal, SVG to RCA" Status post cardiac catheterization (Chronic) "03/11/[address] [facility] [address] [place] patent LAD graft, patent SVG to circ marginal, occluded SVG to RCA" Status post cholecystectomy (Chronic) Hx of CABG Family History Other Family history non-contributory Social History marital status: Current Living Situation: Spouse Other Information That Helps Us Care for You: No Feels Safe at Home: Yes Safety Concerns: Feels Safe At This Time Smoking Status: Never smoker Second Hand Exposure: No Hx Alcohol Use: No Hx Substance Use: No Beliefs That Will Affect Care: None Communication Ability: Effective Review of Systems Could not be reliably obtained Physical Exam 2 Vital Signs (Past 24 Hours): Last Vital Signs Temp 37.0 C 11/01/18 22:55 Pulse 77 11/02/18 03:20 Resp 18 11/02/18 03:20 BP 184/97 H 11/02/18 03:20 Pulse Ox 98 11/02/18 03:20 Physical Exam: GENERAL: Slightly uncomfortable, lying on the left lateral decubitus position, obese no respiratory distress SKIN: Pallor , warm HEENT: Alopecia, pale palpebral conjunctivae, no ptosis, old facial asymmetry, dry buccal mucosa NECK : Supple, short, no tenderness CHEST : Decreased breath sounds , no tenderness HEART : RRR, systolic murmur ABDOMEN: Some distention, nontender EXTREMITIES : minimal LE swelling, no LE tenderness, no other conspicuous deformities noted NEUROLOGIC : Coherent, old facial asymmetry, hard of hearing, gait and stance not assessed Results & Data Laboratory Results Laboratory Results WBC 5.32 K/uL (4.8-10.8) 11/01/18 23:40 RBC 4.88 M/uL (4.7-6.1) 11/01/18 23:40 Hgb 13.9 g/dL (14.0-18.0) L 11/01/18 23:40 POC Hgb 14.6 g/dl (14.0-18.0) 11/01/18 23:50 Hct 42.1 % (42-52) 11/01/18 23:40 POC Hct 43 % (42-52) 11/01/18 23:50 MCV 86.3 fL (80-100) 11/01/18 23:40 MCH 28.5 pg (25-34) 11/01/18 23:40 MCHC 33.0 g/dL (32-36) 11/01/18 23:40 RDW Std Deviation 44.3 fL (36.4-46.3) 11/01/18 23:40 RDW Coeff of Arjun 14.1 % (11.5-14.5) 11/01/18 23:40 Plt Count 257 K/uL (130-400) 11/01/18 23:40 MPV 10.5 fL (7.4-10.4) H 11/01/18 23:40 Immature Gran % (Auto) 0.2 % 11/01/18 23:40 Neut % (Auto) 56.9 % 11/01/18 23:40 Lymph % (Auto) 28.0 % 11/01/18 23:40 [place] % (Auto) 11.7 % 11/01/18 23:40 Eos % (Auto) 2.6 % 11/01/18 23:40 Baso % (Auto) 0.6 % 11/01/18 23:40 Immature Gran # (Auto) 0.01 K/uL (0.00-0.02) 11/01/18 23:40 Neut # (Auto) 3.03 K/uL (1.4-6.5) 11/01/18 23:40 Lymph # (Auto) 1.49 K/uL (1.2-3.4) 11/01/18 23:40 [place] # (Auto) 0.62 K/uL (0.11-0.59) H 11/01/18 23:40 Eos # (Auto) 0.14 K/uL (0-0.5) 11/01/18 23:40 Baso # (Auto) 0.03 K/uL (0-0.2) 11/01/18 23:40 POC Sodium 140 mEq/L (135-144) 11/01/18 23:50 Sodium 136 mmol/L (136-145) 11/01/18 23:40 POC Potassium 3.7 mEq/L (3.3-5.0) 11/01/18 23:50 Potassium 3.6 mmol/L (3.5-5.1) 11/01/18 23:40 POC Chloride 97 mEq/L (101-112) L 11/01/18 23:50 Chloride 100 mmol/L (98-107) 11/01/18 23:40 Carbon Dioxide 29 mmol/L (21-32) 11/01/18 23:40 POC Total CO2 28 mEq/l (24-31) 11/01/18 23:50 Anion Gap 6.0 (3-11) 11/01/18 23:40 POC Anion Gap 19.0 mmol/L (16-25) 11/01/18 23:50 POC BUN 15 mg/dl (7-18) 11/01/18 23:50 BUN 16 mg/dl (7-18) 11/01/18 23:40 Creatinine 1.01 mg/dl (0.6-1.4) 11/01/18 23:40 POC Creatinine 0.8 mg/dl (0.6-1.3) 11/01/18 23:50 Est Cr Clr Drug Dosing 61.2 ml/min 11/01/18 23:40 Est GFR ( Amer) 76.1 11/01/18 23:40 Est GFR (Non-Af Amer) 65.6 11/01/18 23:40 BUN/Creatinine Ratio 16.0 (10-20) 11/01/18 23:40 Glucose 174 mg/dl (70-99) H 11/01/18 23:40 POC Glucose (other) 176 mg/dl (70-99) H 11/01/18 23:50 Calcium 8.8 mg/dl (8.5-10.1) 11/01/18 23:40 POC Ioniz Calcium Alejandrina 1.08 mmol/l (1.12-1.32) L 11/01/18 23:50 Magnesium 1.9 mg/dl (1.8-2.4) 11/01/18 23:40 Total Bilirubin 0.4 mg/dl (0.2-1) 11/01/18 23:40 AST 24 U/L (15-37) 11/01/18 23:40 ALT 18 U/L (12-78) 11/01/18 23:40 Alkaline Phosphatase 113 U/L (45-117) 11/01/18 23:40 Total Creatine Kinase 162 U/L (39-308) 11/01/18 23:40 CK-MB (CK-2) 2.1 ng/ml (0.5-3.6) 11/01/18 23:40 CK/CKMB % Calc 1.3 (0-3.0) 11/01/18 23:40 Troponin I < 0.015 ng/ml (0-0.045) 11/01/18 23:40 NT-Pro-B Natriuret Pep 1364 pg/ml (0-1800) 11/01/18 23:40 Total Protein 8.2 gm/dl (6.4-8.2) 11/01/18 23:40 Albumin 3.0 gm/dl (3.4-5.0) L 11/01/18 23:40 Globulin 5.2 gm/dl (2.5-4.0) H 11/01/18 23:40 Albumin/Globulin Ratio 0.6 (0.9-2) L 11/01/18 23:40 TSH 1.650 uIu/ml (0.300-4.500) 11/01/18 23:40 Urine Color Yellow 11/02/18 00:50 Urine Appearance Clear (Clear) 11/02/18 00:50 Urine pH 8.5 (4.5-7.5) H 11/02/18 00:50 Ur Specific [place] 1.015 (1.000-1.030) 11/02/18 00:50 Urine Protein Negative (Negative) 11/02/18 00:50 Urine Glucose (UA) 2+ (Negative) H 11/02/18 00:50 Urine Ketones Trace (Negative) H 11/02/18 00:50 Urine Blood Negative (Negative) 11/02/18 00:50 Urine Nitrite Negative (Negative) 11/02/18 00:50 Urine Bilirubin Negative (Negative) 11/02/18 00:50 Urine Urobilinogen Negative (Negative) 11/02/18 00:50 Ur Leukocyte Esterase Negative (Negative) 11/02/18 00:50 Diagnostic Findings Chest x-ray my interpretation, cardiomegaly, congestion CT head initial read no acute pathology CT of the pelvis initial read: No bowel obstruction. Normal appendix. Moderate stool in the rectum without significant wall thickening. [place] catheter balloon inflated within the prostate EKG as per my interpretation : 75, NSR, LAD, LAFB, no ischemia
[2018-11-02] MEDS ORDERED: GLUCAGON FOR INJ 1 MG VIAL SQ PRN (05:54)
[2018-11-02] MEDS ORDERED: TRAMADOL HCL 50 MG TABLET PO PRN (05:54)
[2018-11-02] MEDS ORDERED: GLUCOSE 40% GEL 15 GM TUBE PO PRN (05:54)
[2018-11-02] MEDS ORDERED: DEXTROSE 50% 50 ML SYRINGE IV PRN (05:54)
[2018-11-02] MEDS ORDERED: GLUCOSE 10 TABS/TUBE PO PRN (05:54)
[2018-11-02] MEDS ORDERED: ACETAMINOPHEN 325 MG TAB PO PRN (05:54)
[2018-11-02] MEDS ORDERED: PHARMACY GLYCEMIC MGMT CONSULT PRN (06:31)
--- NOTE | 2018-11-02 06:32 | Emergency Department Note ---
Entered by Adriana Huang acting as a scribe for History of Present Illness General Chief complaint: Leg Weakness, Bilateral Stated complaint: WEAKNESS, AMS Time Seen by Provider: 11/01/18 23:00 Source: patient History of Present Illness Onset (ago): day(s) (a few days ago) Location: lower extremity Pain Consistency: + other (worsening) Maximum Pain Intensity: 2 Quality: + other (weakness) Relieved By: not by other (Oxygen) Associated symptoms: + denies other symptoms (abdominal pain), + confusion and + other (feels like needs to move bowels but can't, difficulty walking) The patient is an 88 year old male who presents to the Emergency Room with complaints of worsening leg weakness starting a few days ago. The patients states that he has been so weak in his legs that he cannot even walk. She states that he was here in the ED for similar symptoms 3 days ago. She reports that since going home, he has been confused and alternating between upset and angry. She states that she has no idea why he is that way. She reports that he is normally on 2L O2 at all times, but when he started to become disoriented, she bumped his oxygen to 3L, but it offered no relief. The patient complains of feeling like he has to poop, but cant. He states that he has only had liquids for the past 5 days. The patient denies abdominal pain. Home Medications Home Medications Medication Instructions Recorded Confirmed Type aspirin [Aspir-81] 81 mg PO DAILY 09/13/18 11/01/18 History benzoyl peroxide 1 applic TOPICAL DAILY PRN 09/13/18 11/01/18 History brinzolamide-brimonidine 1 drp OPR BID 09/13/18 11/01/18 History [Simbrinza] carboxymethylcellulose sodium 1 drp OPHTHALMIC (EYE) QID 09/13/18 11/01/18 History [TheraTears] carvedilol [Coreg] 6.25 mg PO BID 09/13/18 11/01/18 History cholecalciferol (vitamin D3) 2,000 unit PO DAILY 09/13/18 11/01/18 History [Vitamin D3] cyanocobalamin (vitamin B-12) 1,000 mcg PO DAILY 09/13/18 11/01/18 History cyclobenzaprine 10 mg PO HS 09/13/18 11/01/18 History docusate sodium 100 mg PO DAILY 09/13/18 11/01/18 History emollient combination no.69 1 applic TOPICAL UD 09/13/18 11/01/18 History [Eucerin Skin Calming] finasteride 5 mg PO DAILY 09/13/18 11/01/18 History gabapentin 400 mg PO TID 09/13/18 11/01/18 History hydrocortisone 1 applic TOPICAL BID 09/13/18 11/01/18 History lutein 20 mg PO DAILY 09/13/18 11/01/18 History metformin 1,000 mg PO BIDM 09/13/18 11/01/18 History nitroglycerin [Nitrostat] 0.4 mg SUBLINGUAL UD PRN 09/13/18 11/01/18 History nystatin 1 applic TOPICAL UD PRN 09/13/18 11/01/18 History selenium sulfide 1 applic TOPICAL UD 09/13/18 11/01/18 History simvastatin [Zocor] 10 mg PO PM 09/13/18 11/01/18 History tamsulosin 0.4 mg PO DAILY 09/13/18 11/01/18 History tramadol [Ultram] 50 mg PO Q6 PRN 09/13/18 11/01/18 History insulin NPH isoph U-100 human 0 unit SUBCUT BID 09/16/18 11/01/18 History [Humulin N NPH U-100 Insulin] insulin aspart U-100 [Novolog 0 units SUBCUT QDD 09/16/18 11/01/18 History Flexpen U-100 Insulin] acetaminophen [Mapap 650 mg PO Q4H PRN #100 tab 10/31/18 11/01/18 Rx (acetaminophen)] ascorbic acid (vitamin C) [Vitamin 1,000 mg PO BID #90 tab 10/31/18 11/01/18 Rx C] cefdinir 300 mg PO BID 10 Days #20 cap 10/31/18 11/01/18 Rx doxycycline monohydrate 100 mg PO BID 10 Days #20 cap 10/31/18 11/01/18 Rx nystatin [Nystop] 1 applic EXT BID #30 g 10/31/18 11/01/18 Rx Allergies Allergy/AdvReac Type Severity Reaction Status Date / Time Iodinated Contrast- Oral and Allergy Severe Edema-face/lips/tongue. Verified 09/04 23:28 IV Dye Hives/Rash. formaldehyde Allergy Intermediate Hives/Rash Verified 10/29/18 23:28 Cipro Allergy Unknown Hives Verified 07/15/17 11:48 dipyridamole Allergy Unknown Hallucinati Verified 10/29/18 23:28 ons lisinopril Allergy Unknown UNKNOWN Verified 10/29/18 23:28 ciprofloxacin AdvReac Unknown CONSTIPATIO Verified 10/29/18 23:28 N yellow socks Allergy Intermediate contact Uncoded 10/29/18 23:28 rash (formaldehyde used to preserve yellow color) Past Med/Surg History Medical History Cellulitis (Acute) "left foot" Foot ulcer due to secondary DM (Acute) Dyspnea (Acute) Clostridium difficile colitis (Acute) Foot deformity Foot drop Stroke (Acute) Loss of sensation Diabetic foot ulcer Diabetic peripheral neuropathy associated with type 2 diabetes mellitus History of diabetic ulcer of foot Hypertensive urgency Acute pyelonephritis (Acute) Altered mental status (Acute) Hypomagnesemia (Acute) Acute urinary retention (Acute) Urinary tract infection DVT prophylaxis Discharge planning issues Urinary retention Acquired urinary meatal stenosis Acute confusion (Acute) Pulmonary edema (Acute) Coronary artery disease (Chronic) "PCI + stenting LAD 1997 CABG x 3 2000 cath 03/11/13 showed patent LAD graft, patent SVG to circ marginal, occluded SVG to RCA" Hypertension (Chronic) Benign prostatic hyperplasia (Chronic) Diabetes mellitus, type II (Chronic) Chronic respiratory failure (Chronic) "home O2 2 LPM at night + PRN" Dyslipidemia (Chronic) Hyperhomocysteinemia (Chronic) Diabetic retinopathy (Chronic) Cerebrovascular disease (Chronic) "s/p stroke with right hemiparesis" Aortic stenosis (Chronic) "1.1 cm2 by echo 2011 and cath 2012" Arthritis COPD (chronic obstructive pulmonary disease) GERD (gastroesophageal reflux disease) Surgical History Status post coronary artery bypass grafting (Chronic) "radial artery to LAD, SVG to circ marginal, SVG to RCA" Status post cardiac catheterization (Chronic) "03/11/[address] [facility] Dr. Durant patent LAD graft, patent SVG to circ marginal, occluded SVG to RCA" Status post cholecystectomy (Chronic) Hx of CABG Family History Other Family history non-contributory Social History marital status: Current Living Situation: Spouse Other Information That Helps Us Care for You: No Feels Safe at Home: Yes Safety Concerns: Feels Safe At This Time Smoking Status: Never smoker Second Hand Exposure: No Hx Alcohol Use: No Hx Substance Use: No Beliefs That Will Affect Care: None Preferred Language: Syriac Communication Ability: Effective Telephone Operator Chief Required: Yes Review of Systems See HPI for pertinent positives & negatives. and A total of 10 systems reviewed and were otherwise negative Physical Exam Vital Signs Vital Signs - 24 hr 11/01/18 22:55 11/01/18 23:00 11/02/18 00:06 Temperature 37.0 C Temperature Source Oral Sepsis Recent Fever Within 48 Hours No Sepsis Action Taken by Nursing No Action Required Pulse Rate 78 Pulse Rate [Right Finger] 77 Respiratory Rate 18 18 Respiratory Effort / Characteristics Non-Labored Spontaneous Non-Labored Spontaneous Respiratory Depth Normal Normal Respiratory Pattern Regular Regular Blood Pressure 157/101 H Blood Pressure [Right Arm] 207/94 H Blood Pressure Mean 119 Blood Pressure Mean [Right Arm] 131 Blood Pressure Position Lying Blood Pressure Position [Right Arm] Lying Pulse Oximetry 92 98 98 Oxygen Delivery Method Room Air Nasal Cannula Nasal Cannula Oxygen Flow Rate 2 2 11/02/18 01:34 11/02/18 03:20 11/02/18 04:09 Temperature Temperature Source Sepsis Recent Fever Within 48 Hours Sepsis Action Taken by Nursing Pulse Rate Pulse Rate [Right Finger] 79 77 79 Respiratory Rate 18 18 18 Respiratory Effort / Characteristics Non-Labored Spontaneous Non-Labored Spontaneous Non-Labored Spontaneous Respiratory Depth Normal Normal Normal Respiratory Pattern Regular Regular Regular Blood Pressure Blood Pressure [Right Arm] 198/102 H 184/97 H 176/109 H Blood Pressure Mean Blood Pressure Mean [Right Arm] 134 126 131 Blood Pressure Position Blood Pressure Position [Right Arm] Lying Lying Lying Pulse Oximetry 98 98 98 Oxygen Delivery Method Nasal Cannula Nasal Cannula Nasal Cannula Oxygen Flow Rate 2 2 2 11/02/18 05:16 Temperature Temperature Source Sepsis Recent Fever Within 48 Hours Sepsis Action Taken by Nursing Pulse Rate Pulse Rate [Right Finger] 77 Respiratory Rate 16 Respiratory Effort / Characteristics Non-Labored Spontaneous Respiratory Depth Normal Respiratory Pattern Regular Blood Pressure Blood Pressure [Right Arm] 149/86 H Blood Pressure Mean Blood Pressure Mean [Right Arm] 107 Blood Pressure Position Blood Pressure Position [Right Arm] Lying Pulse Oximetry 97 Oxygen Delivery Method Nasal Cannula Oxygen Flow Rate 2 GENERAL: Awake, alert, well-appearing, in no distress, hard of hearing. HENT: Normocephalic, atraumatic. Oropharynx unremarkable. EYES: Normal conjunctiva. Sclera non-icteric. NECK: Supple. No nuchal rigidity. FROM. No masses. RESPIRATORY: Clear to auscultation. No wheezes. No rales. Normal respiratory effort. CARDIAC: Normal rate. Normal rhythm. No murmurs. No rubs. Extremities warm and well perfused. Pulses equal. No JVD. GI: Soft, non-distended. No tenderness to palpation. No rebound or guarding. No masses. RECTAL: Large amount of stool in the rectal vault. Disimpacted by me at ths time. MUSCULOSKELETAL: Atraumatic. Chest examination reveals no tenderness. The back is symmetrical on inspection without obvious abnormality. There is no CVA tenderness to palpation. No joint edema. LOWER EXTREMITIES: Calves are equal size bilaterally and non-tender. No edema. No discoloration. NEURO: Normal sensorium. No sensory or motor deficits noted. Procedures Free Text Procedures DISIMPACTION: I disimpacted a large amount of stool from the rectal vault. Course 2309: Past medical records reviewed. The patient was evaluated in room B2, and a complete history and physical examination were performed. 2339: I reevaluated the patient and he is doing well. 0011: I reevaluated the patient and he is resting comfortably. 0045: I reevaluated the patient and he is moving his bowels profusely. 0205: I reevaluated the patient and discussed the test results with him. I discussed the treatment plan with him. He verbally agrees and understands. 0306: I reviewed the patient's case with Dr. Svetlana Vasques. He will evaluate the patient for further management. Consultations Consultation #1: I reviewed the patient's case with Dr. Svetlana Vasques. He will evaluate the patient for further management. Time: 03:06 Administered Medications Discontinued Medications Carvedilol (Coreg) 6.25 mg PO NOW STA Stop: 11/02/18 03:13 Last Admin: 11/02/18 04:00 Dose: 6.25 mg Sodium Chloride (Nss 1000ml) 1,000 mls @ 999 mls/hr IV .Q1H1M OREN Stop: 11/02/18 00:30 Last Infusion: 11/02/18 01:13 Dose: Admin: 11/01/18 23:44 Dose: 999 mls/hr Miscellaneous (Tap Water Enema) 1 ea TN NOW STA Stop: 11/01/18 23:38 Last Admin: 11/02/18 00:30 Dose: 1 ea Medical Decision Making Differential Diagnosis Etiologies such as metabolic, infection, hyp/hyperglycemia, electrolyte abnormalities, cardiac sources, intracerebral event, toxicologic, neurologic, as well as others were entertained. Medical Records Attestation: I reviewed the patient's medical records. Home Medications Current Medication List: was personally reviewed by me Laboratory Data Attestation: I reviewed the patient's lab results. Result diagrams: 11/01/18 23:40 11/01/18 23:40 Lab Results 11/01/18 11/01/18 11/01/18 Range/Units 23:40 23:40 23:50 WBC 5.32 (4.8-10.8) K/uL RBC 4.88 (4.7-6.1) M/uL Hgb 13.9 L (14.0-18.0) g/dL POC Hgb 14.6 (14.0-18.0) g/dl Hct 42.1 (42-52) % POC Hct 43 (42-52) % MCV 86.3 (80-100) fL MCH 28.5 (25-34) pg MCHC 33.0 (32-36) g/dL RDW Std Deviation 44.3 (36.4-46.3) fL RDW Coeff of Arjun 14.1 (11.5-14.5) % Plt Count 257 (130-400) K/uL MPV 10.5 H (7.4-10.4) fL Immature Gran % (Auto) 0.2 % Neut % (Auto) 56.9 % Lymph % (Auto) 28.0 % Stearns % (Auto) 11.7 % Eos % (Auto) 2.6 % Baso % (Auto) 0.6 % Immature Gran # (Auto) 0.01 (0.00-0.02) K/uL Neut # (Auto) 3.03 (1.4-6.5) K/uL Lymph # (Auto) 1.49 (1.2-3.4) K/uL Stearns # (Auto) 0.62 H (0.11-0.59) K/uL Eos # (Auto) 0.14 (0-0.5) K/uL Baso # (Auto) 0.03 (0-0.2) K/uL POC Sodium 140 (135-144) mEq/L Sodium 136 (136-145) mmol/L POC Potassium 3.7 (3.3-5.0) mEq/L Potassium 3.6 (3.5-5.1) mmol/L POC Chloride 97 L (101-112) mEq/L Chloride 100 (98-107) mmol/L Carbon Dioxide 29 (21-32) mmol/L POC Total CO2 28 (24-31) mEq/l Anion Gap 6.0 (3-11) POC Anion Gap 19.0 (16-25) mmol/L POC BUN 15 (7-18) mg/dl BUN 16 (7-18) mg/dl Creatinine 1.01 (0.6-1.4) mg/dl POC Creatinine 0.8 (0.6-1.3) mg/dl Est Cr Clr Drug Dosing 61.2 ml/min Est GFR ( Amer) 76.1 Est GFR (Non-Af Amer) 65.6 BUN/Creatinine Ratio 16.0 (10-20) Glucose 174 H (70-99) mg/dl POC Glucose (other) 176 H (70-99) mg/dl Calcium 8.8 (8.5-10.1) mg/dl POC Ioniz Calcium Alejandrina 1.08 L (1.12-1.32) mmol/l Magnesium 1.9 (1.8-2.4) mg/dl Total Bilirubin 0.4 (0.2-1) mg/dl AST 24 (15-37) U/L ALT 18 (12-78) U/L Alkaline Phosphatase 113 (45-117) U/L Total Creatine Kinase 162 (39-308) U/L CK-MB (CK-2) 2.1 (0.5-3.6) ng/ml CK/CKMB % Calc 1.3 (0-3.0) Troponin I < 0.015 (0-0.045) ng/ml NT-Pro-B Natriuret Pep 1364 (0-1800) pg/ml Total Protein 8.2 (6.4-8.2) gm/dl Albumin 3.0 L (3.4-5.0) gm/dl Globulin 5.2 H (2.5-4.0) gm/dl Albumin/Globulin Ratio 0.6 L (0.9-2) TSH 1.650 (0.300-4.500) uIu/ml Urine Color Urine Appearance (Clear) Urine pH (4.5-7.5) Ur Specific [place] (1.000-1.030) Urine Protein (Negative) Urine Glucose (UA) (Negative) Urine Ketones (Negative) Urine Blood (Negative) Urine Nitrite (Negative) Urine Bilirubin (Negative) Urine Urobilinogen (Negative) Ur Leukocyte Esterase (Negative) 11/02/18 Range/Units 00:50 WBC (4.8-10.8) K/uL RBC (4.7-6.1) M/uL Hgb (14.0-18.0) g/dL POC Hgb (14.0-18.0) g/dl Hct (42-52) % POC Hct (42-52) % MCV (80-100) fL MCH (25-34) pg MCHC (32-36) g/dL RDW Std Deviation (36.4-46.3) fL RDW Coeff of Arjun (11.5-14.5) % Plt Count (130-400) K/uL MPV (7.4-10.4) fL Immature Gran % (Auto) % Neut % (Auto) % Lymph % (Auto) % Stearns % (Auto) % Eos % (Auto) % Baso % (Auto) % Immature Gran # (Auto) (0.00-0.02) K/uL Neut # (Auto) (1.4-6.5) K/uL Lymph # (Auto) (1.2-3.4) K/uL Stearns # (Auto) (0.11-0.59) K/uL Eos # (Auto) (0-0.5) K/uL Baso # (Auto) (0-0.2) K/uL POC Sodium (135-144) mEq/L Sodium (136-145) mmol/L POC Potassium (3.3-5.0) mEq/L Potassium (3.5-5.1) mmol/L POC Chloride (101-112) mEq/L Chloride (98-107) mmol/L Carbon Dioxide (21-32) mmol/L POC Total CO2 (24-31) mEq/l Anion Gap (3-11) POC Anion Gap (16-25) mmol/L POC BUN (7-18) mg/dl BUN (7-18) mg/dl Creatinine (0.6-1.4) mg/dl POC Creatinine (0.6-1.3) mg/dl Est Cr Clr Drug Dosing ml/min Est GFR ( Amer) Est GFR (Non-Af Amer) BUN/Creatinine Ratio (10-20) Glucose (70-99) mg/dl POC Glucose (other) (70-99) mg/dl Calcium (8.5-10.1) mg/dl POC Ioniz Calcium Alejandrina (1.12-1.32) mmol/l Magnesium (1.8-2.4) mg/dl Total Bilirubin (0.2-1) mg/dl AST (15-37) U/L ALT (12-78) U/L Alkaline Phosphatase (45-117) U/L Total Creatine Kinase (39-308) U/L CK-MB (CK-2) (0.5-3.6) ng/ml CK/CKMB % Calc (0-3.0) Troponin I (0-0.045) ng/ml NT-Pro-B Natriuret Pep (0-1800) pg/ml Total Protein (6.4-8.2) gm/dl Albumin (3.4-5.0) gm/dl Globulin (2.5-4.0) gm/dl Albumin/Globulin Ratio (0.9-2) TSH (0.300-4.500) uIu/ml Urine Color Yellow Urine Appearance Clear (Clear) Urine pH 8.5 H (4.5-7.5) Ur Specific [place] 1.015 (1.000-1.030) Urine Protein Negative (Negative) Urine Glucose (UA) 2+ H (Negative) Urine Ketones Trace H (Negative) Urine Blood Negative (Negative) Urine Nitrite Negative (Negative) Urine Bilirubin Negative (Negative) Urine Urobilinogen Negative (Negative) Ur Leukocyte Esterase Negative (Negative) Imaging Data Attestation: I personally reviewed and interpreted this imaging study as follows : My Impression: 1 VIEW CHEST X-RAY: The results were interpreted by me. Congestion at the bases bilaterally. Previous sternotomy. No evidence of pneumonia. Unchanged from previous. Radiologist's Impression: Radiology results as stated below per my review and the radiologist's interpretation: CT HEAD: No acute infarction or hemorrhage. Radiologist: Ganesh Gold MD Study ready at 01:37 and initial results transmitted at 01:37. CT ABDOMEN & PELVIS Without Contrast: No bowel obstruction. Normal appendix. Moderate stool in the rectum without significant wall thickening. Coughlin catheter balloon inflated within the prostate. Radiologist: Ganesh Gold MD Study ready at 01:37 and initial results transmitted at 01:39. ECG Data Attestation: I personally reviewed and interpreted this ECG as follows: Indication: weakness Rate (beats per minute): 75 Rhythm: sinus rhythm Findings: + other (old anterior infarct) and + 1st degree AV block; no ST depression and no ST elevation Blood Pressure Blood Pressure Findings: Elevated blood pressure Blood Pressure Disposition: further management by hospitalist COLLEEN Narrative This is an 88-year-old male who presents emergency department complaining of bilateral leg weakness. In addition the patient is concerned that he is been unable to move his bowels. The patient was disimpacted by myself and then received an enema in the emergency department. CAT scan the abdomen pelvis does not show any acute process. The patient does not have any elevation in his white blood cell count. The patient's is refusing to take him home at this point and is demanding that he be admitted. I noted that to the that it would probably be only for observation as he does not have an elevation in his white blood cell count has a normal renal profile Impression & Plan Hypertension, Fecal impaction, Constipation Discharge Plan Visit Data *Final* Discharge Date/Time: 11/02/18 05:18 Chief Complaint: Leg Weakness, Bilateral Stated Complaint: WEAKNESS, AMS ED Provider: Sander Irene Discharge Problem: Hypertension, Fecal impaction, Constipation Patient Disposition: Admitted As Inpatient Discharge Instructions Interventions: ED Discharge Assessment Last Done: 11/02/18 05:18 The scribe's documentation has been prepared under my direction and personally reviewed by me in its entirety. I confirm that the note above accurately reflects all work, treatment, procedures, and medical decision making performed by me.
[2018-11-02] MEDS: INSULIN ASPART 100 UNITS/ML 3 ML PEN SC SCH ×4 (06:36→21:28)
[2018-11-02 07:11] LABS: INR 1.1 (0.9-1.1); Prothrombin Time 10.8 Seconds (9.0-12.0)
[2018-11-02] MEDS ORDERED: INSULIN HUMAN NPH SC SCH (08:00)
[2018-11-02] MEDS: CARVEDILOL 6.25 MG TAB PO SCH ×2 (08:06→21:29)
[2018-11-02] MEDS: TAMSULOSIN HCL 0.4 MG CAP PO SCH (08:06)
[2018-11-02] MEDS: FINASTERIDE 5 MG TAB PO SCH (08:06)
[2018-11-02] MEDS: ENOXAPARIN INJ 30 MG/0.3 ML SYR SQ SCH (08:06)
[2018-11-02] MEDS: GABAPENTIN 400 MG CAP PO SCH ×3 (08:06→21:29)
[2018-11-02] MEDS: ASPIRIN 81 MG ECTAB PO SCH (08:06)
[2018-11-02] MEDS: DOCUSATE SODIUM 100 MG CAP PO SCH (08:06)
[2018-11-02] MEDS ORDERED: CARVEDILOL 12.5 MG TAB PO SCH (09:00)
--- NOTE | 2018-11-02 09:52 | CT Scan Report ---
CT OF THE HEAD WITHOUT CONTRAST CLINICAL HISTORY: Altered mental status. COMPARISON STUDY: Head CT October 29, 2018 and MRI of the brain October 30, 2018. TECHNIQUE: Helical axial images of the head were obtained without IV contrast. Automated exposure con trol was utilized for the study. A dose lowering technique was utilized adhering to the principles o f ALARA. FINDINGS: No acute intracranial hemorrhage, midline shift or mass effect is present. Ventricular syst em is stable. Basilar cisterns are patent. There are no extra axial collections. There is moderate at rophy. Old left frontal lobe infarct is noted. White matter hypodensity suggests small vessel disease . Old right basal ganglia infarct is noted. There are no findings to suggest acute dural sinus thromb osis or acute territorial infarct. There is mild polypoid sinus mucosal thickening. There are no sign ificant calvarial abnormalities. IMPRESSION: No acute intracranial findings. Electronically signed by: Melo Mckeon M.D. 11/02/2018 9:51 AM
--- NOTE | 2018-11-02 10:34 | CT Scan Report ---
CT OF THE ABDOMEN AND PELVIS WITHOUT CONTRAST CLINICAL HISTORY: Rectal pain. COMPARISON STUDY: CT of the abdomen and pelvis September 13, 2018. TECHNIQUE: Axial images of the abdomen and pelvis were obtained without IV contrast. Images were revi ewed in the axial, sagittal, and coronal planes. Automated exposure control was utilized for the larissa dy. A dose lowering technique was utilized adhering to the principles of ALARA. FINDINGS: Extensive coronary artery calcification is noted. There is moderate cardiomegaly. There are median sternotomy wires. Evaluation of the abdomen and pelvis is suboptimal on this unenhanced exami nation. Unenhanced images of liver, spleen, adrenal glands and pancreas are unchanged. Pancreatic gla ndular calcifications suggest chronic pancreatitis. There are calcified granulomas within the spleen. Mild dilatation of the common bile duct is unchanged and likely related to previous cholecystectomy. Mild rectal wall thickening with mild perirectal infiltration is noted. There is a small to moderate amount stool within the rectum. There is no extraluminal gas. There is no abscess. Coughlin balloon jinny ears to be inflated within the prostatic urethra. Old L3 compression fracture is noted. IMPRESSION: 1. Mild rectal wall thickening with mild perirectal infiltration which represent a nonspecific procti tis. Small to moderate amount of stool within the rectum. Discussed with Dr. Jaramillo at time of dicta tion. 2. Coughlin balloon likely inflated within the prostatic urethra. The Coughlin should be repositioned. Electronically signed by: Melo Mckeon M.D. 11/02/2018 10:33 AM
--- NOTE | 2018-11-02 11:41 | XRay Report ---
XR chest 1V portable CLINICAL HISTORY: weakness COMPARISON STUDY: Chest radiograph October 29, 2018. FINDINGS: There are median sternotomy wires. There is no pneumothorax. No pleural effusion is noted. There is bibasilar interstitial thickening and opacities which are similar to previous exam. IMPRESSION: 1. No significant change in bibasilar interstitial thickening and opacities. 2. Cardiomegaly without overt pulmonary edema. Electronically signed by: Melo Mckeon M.D. 11/02/2018 11:40 AM
--- NOTE | 2018-11-02 11:51 | Pharmacy Report ---
Glycemic Control Consultation - Date of Service November 02, 2018 - Scope Scope: Glycemic Pharmacist consulted by Dr Hernandez on 11/02/18 for glycemic control and to write orders per [facility] inpatient glycemic control protocol - Objective Weight: 101.7 kg Accuchecks BSG (last 24hrs): 11/01/18 11/01/18 11/02/18 23:40 23:50 06:23 Glucose 174 H POC Glucose 124 H POC Glucose (other) 176 H 11/02/18 08:00 Glucose POC Glucose 166 H POC Glucose (other) Laboratory Data (last 24hrs): 11/01/18 23:40 Potassium 3.6 Carbon Dioxide 29 Anion Gap 6.0 Creatinine 1.01 Est Cr Clr Drug Dosing 61.2 - Recent Pertinent Medications Outpatient Anti-diabetic Regimen: * NPH 50 units with breakfast, 8 units with dinner * Novolog sliding scale with dinner * Metformin 1g PO BID * A1c = 10.4 % 10/31/18 Risk Factors for Insulin Resistance: Type 2 DM Diet - Assessment & Plan Assessment & Plan: ASSESSMENT: * 88 year old male admitted for ambulatory dysfunction, patient was just discharged 2 days ago, known to glycemic service. * Resume dosing from 10/31/18, as patient's blood sugars were well controlled prior to discharge. * Use NPH for basal, as patient uses NPH at home, and this will allow for easier transition when discharged. PLAN FOR INPATIENT GLYCEMIC CONTROL: * Holding outpatient oral diabetes medications * Basal insulin * NPH 35units SQ with breakfast * NPH 7 units with dinner * Bolus insulin * NovoLog per scale ACHS or Q6hrs while NPO * Goal Range: Low 120 mg/dL - High 150 mg/dL - slightly higher goal range d/t using NPH and pt's age & A1c * Correction Factor: 15 mg/dL/unit * Nutritional / Prandial insulin per carb ratio of 1 unit per 4 grams CHO consumed * Please note that the plan above was derived based on current level of insulin resistance and hospital stress. These recommendations are appropriate for inpatient admission only. Plan of care upon discharge will need to be reassessed to avoid potential outpatient hypo/hyperglycemia. Thank you.
--- NOTE | 2018-11-02 12:48 | Hospitalist Progress Note ---
Date of Service November 02, 2018 Assessment & Plan (1) Ambulatory dysfunction: /Functional disability Hypertension, elevated secondary to missed nighttime med hx recurrent CVA CAD sp CABG, status post stenting hx of aortic stenosis, chronic resp failure secondary to COPD, on home O2 at night, almost status at baseline DM2, insulin requiring, suboptimal control as of recent inpatient hemoglobin A1c of 10.4 this month past tobacco abuse OBS Discussed Case c PT and c RN Ramsey Michael during his last stay, I expressed that I thought best he go to acute rehab, I asked 4-5 times while RN present, she adamantly said she wanted him home, and was irritated that I was asking her if she was sure, It was reported to me that she felt forced out during the last DC, this is an insulting inaccuracy. GMF Facilitate nighttime Coreg PT OT eval Social service RE discharge planning ( has expressed interest in having patient undergo rehab at [facility]) Pharmacy glycemic control consult. DVT prophylaxis. Lovenox subcu Full code Patient's requesting updates from providers. Mrs. Suad Go, contact #[phone]. Subjective Medical history is significant for recurrent CVA, CAD sp CABG, status post stenting, hx of aortic stenosis, chronic resp failure secondary to COPD, on home O2 at night and as needed, DM2, insulin requiring, mood disorder, past tobacco abuse. Recent confinement 2 days ago for confusion, foot drop, possible UTI. No growth on urine cultures. Patient discharged home yesterday, not sure if patient was strong enough to be discharged. Upon return home, patient found to be requiring more assistance, increased care needs. [facility] outpatient administrator social welfare in touch with patient's regarding possible SNF rehab placement. Patient brought by to ER for generalized weakness, AMS, inability to stand as per records. CT abdomen pelvis showed some stool retention, last BM was 3 days ago. Patient for tap water enema in the ER yielding copious stool output. ROS-No Headache, No Visual Changes, No Nausea, No Vomiting, No Fever, No Chills , No Neck Pain or Stiffness, No Chest Pain, No Palpitations, No SOB, No LESLIE, No Cough, No Sputum, No Wheezing, No Abdominal Pain, No Diarrhea, No Hematemesis, No Hemoptysis, No Unexpected Weight Loss, No Flank pain, No Melena, No Hematochezia, No Frequency, No Urgency, No Burning, No Hematuria, No Rashes, No Diaphoresis. Appetite is Normal, C/O Weakness Physical Exam Gen-AAO x 3, NAD, Afebrile, [place] Head-NCAT, EOMI, PERRLA, Anicteric Sclera, No Posterior Pharyngeal Erythema Neck-Supple, No JVD, No Thyromegaly, No Masses, No LAD, No Bruits Lungs-Clear to Auscultation Bilaterally, No Rales, No Rhonchi, No Wheezing, No Crepitus Chest-No S4, +S1, +S2, No S3, No Murmurs, No Rubs, No Gallops, No Ectopy Abdomen-Soft, Bowel Sounds Present, Non Tender, Non Distended, No Hepatomegaly, No Splenomegaly, No Palpable Masses, No Rebound, No Rigidity, No Guarding Musculoskeletal-Full Range of Motion Bilaterally, No CVAT Extremities-No Cyanosis, No Clubbing, No Edema, Chronic Hyperpig changes Nuero-Cranial Nerves II-XII grossly intact, Motor WNL, DTRs WNL, Strength WNL, Non Focal Psych-Normal Mood Physical Exam 2 Vital Signs (Past 24 Hours): Last Vital Signs Temp 36.5 C 11/02/18 07:38 Pulse 77 11/02/18 07:38 Resp 18 11/02/18 07:38 BP 158/77 H 11/02/18 07:38 Pulse Ox 97 11/02/18 07:38 Results & Data Laboratory Results Allergies Iodinated Contrast- Oral and IV Dye Allergy (Severe, Verified 10/29/18 23:28) Edema-face/lips/tongue. Hives/Rash. formaldehyde Allergy (Intermediate, Verified 10/29/18 23:28) Hives/Rash Cipro Allergy (Unknown, Verified 07/15/17 11:48) Hives dipyridamole Allergy (Unknown, Verified 10/29/18 23:28) Hallucinations lisinopril Allergy (Unknown, Verified 10/29/18 23:28) UNKNOWN ciprofloxacin Adverse Reaction (Unknown, Verified 10/29/18 23:28) CONSTIPATION yellow socks Allergy (Intermediate, Uncoded 10/29/18 23:28) contact rash (formaldehyde used to preserve yellow color) Height/Weight/Isolation Height 6 ft Weight 101.7 kg Chemistry 11/01/18 23:40 Sodium 136 Potassium 3.6 Chloride 100 Carbon Dioxide 29 Anion Gap 6.0 BUN 16 Creatinine 1.01 Glucose 174 H Urinalysis 11/02/18 00:50 Urine Color Yellow Urine Appearance Clear Urine pH 8.5 H Ur Specific [place] 1.015 Urine Protein Negative Urine Glucose (UA) 2+ H Urine Ketones Trace H Urine Blood Negative Urine Nitrite Negative Urine Bilirubin Negative
[2018-11-02] MEDS: CARBOHYDRATES FOR HYPOGLYCEMIA PO PRN (17:04)
[2018-11-02] MEDS: INSULIN HUMAN NPH SC SCH (18:01)
[2018-11-02] MEDS ORDERED: INSULIN HUMAN NPH SC ONE (18:45)
--- NOTE | 2018-11-02 21:16 | Urology Progress Note ---
Date of Service November 02, 2018 Subjective called for non draining catheter and 300mL PVR. I spoke with nurse Elda by phone and asked her to deflate balloon and push in to hub and reinflate balloon. By the time I got to bedside at 9pm oshea was draining alden urine. Whil I watched he drained over 200mL alden urine. We repeated PVR and residual is zero. Patient is seeping soundly. call with further problems. Physical Exam 2 Vital Signs (Past 24 Hours): Last Vital Signs Temp 36.8 C 11/02/18 15:19 Pulse 69 11/02/18 15:19 Resp 18 11/02/18 15:19 BP 117/70 11/02/18 15:19 Pulse Ox 95 11/02/18 15:19
[2018-11-02] MEDS: SIMVASTATIN 20 MG TAB PO SCH (21:29)
[2018-11-02 21:41] LABS: Basophils # (auto) 0.02 K/uL (0-0.2); Basophils % (auto) 0.4 %; Eosinophils # (auto) 0.07 K/uL (0-0.5); Eosinophils % (auto) 1.3 %; Hematocrit (blood only) 43.4 % (42-52); Immature Granulocytes # (auto) 0.01 K/uL (0.00-0.02); Immature Granulocytes % (auto) 0.2 %; Lymphocytes # (auto) 1.73 K/uL (1.2-3.4); Lymphocytes % (auto) 31.6 %; Mean Corpuscular Hgb Conc 32.3 g/dL (32-36); Mean Corpuscular Volume 86.3 fL (80-100); Mean Platelet Volume 10.3 fL (7.4-10.4); Monocytes % (auto) 9.1 %; Neutrophils # (auto) 3.15 K/uL (1.4-6.5); Neutrophils % (auto) 57.4 %; Platelet Count 233 K/uL (130-400); RDW Coefficient of Variation 14.3 % (11.5-14.5); RDW Standard Deviation 44.7 fL (36.4-46.3); Red Blood Count 5.03 M/uL (4.7-6.1); White Blood Count 5.48 K/uL (4.8-10.8)
[2018-11-03 06:31] LABS: Basophils # (auto) 0.02 K/uL (0-0.2); Basophils % (auto) 0.4 %; Eosinophils # (auto) 0.17 K/uL (0-0.5); Eosinophils % (auto) 3.3 %; Hematocrit (blood only) 41.4 % (42-52); Hemoglobin 13.5 g/dL (14.0-18.0); Immature Granulocytes # (auto) 0.01 K/uL (0.00-0.02); Immature Granulocytes % (auto) 0.2 %; Lymphocytes # (auto) 1.87 K/uL (1.2-3.4); Lymphocytes % (auto) 36.2 %; Mean Corpuscular Hgb Conc 32.6 g/dL (32-36); Mean Corpuscular Volume 85.2 fL (80-100); Mean Platelet Volume 10.6 fL (7.4-10.4); Monocytes # (auto) 0.69 K/uL (0.11-0.59); Monocytes % (auto) 13.3 %; Neutrophils # (auto) 2.41 K/uL (1.4-6.5); Neutrophils % (auto) 46.6 %; Platelet Count 252 K/uL (130-400); RDW Coefficient of Variation 14.2 % (11.5-14.5); RDW Standard Deviation 44.6 fL (36.4-46.3); Red Blood Count 4.86 M/uL (4.7-6.1); White Blood Count 5.17 K/uL (4.8-10.8)
[2018-11-03 07:04] LABS: Calcium 8.9 mg/dl (8.5-10.1); Creatinine Clr Calc Pharmacy 65.7 ml/min; Est GFR (Non-African American) 71.6; Potassium 3.5 mmol/L (3.5-5.1)
[2018-11-03 07:24] LABS: Appearance Urine Cloudy (Clear); Bacteria Urine Automated Negative (Negative); Bilirubin Urine Negative (Negative); Blood Urine 3+ (Negative); Color Urine Dark Yellow; Glucose Urine UA Negative (Negative); Ketones Urine Trace (Negative); Leukocyte Esterase Urine Trace (Negative); Nitrite Urine Negative (Negative); Protein Urine 1+ (Negative); RBC Urine Automated >30 /hpf (0-4); Specific Gravity Urine 1.022 (1.000-1.030); Urobilinogen Urine Negative (Negative); pH Urine 5.5 (4.5-7.5)
[2018-11-03] MEDS: CARVEDILOL 6.25 MG TAB PO SCH ×2 (07:58→20:29)
[2018-11-03] MEDS: GABAPENTIN 400 MG CAP PO SCH ×3 (07:58→20:29)
[2018-11-03] MEDS: ASPIRIN 81 MG ECTAB PO SCH (07:58)
[2018-11-03] MEDS: DOCUSATE SODIUM 100 MG CAP PO SCH (07:59)
[2018-11-03] MEDS: ENOXAPARIN INJ 30 MG/0.3 ML SYR SQ SCH (07:59)
[2018-11-03] MEDS: TAMSULOSIN HCL 0.4 MG CAP PO SCH (07:59)
[2018-11-03] MEDS: FINASTERIDE 5 MG TAB PO SCH (07:59)
[2018-11-03] MEDS: INSULIN HUMAN NPH SC SCH ×2 (08:32→18:44)
[2018-11-03] MEDS: INSULIN ASPART 100 UNITS/ML 3 ML PEN SC SCH ×4 (08:33→20:31)
--- NOTE | 2018-11-03 08:41 | Hospitalist Progress Note ---
Date of Service November 03, 2018 Assessment & Plan (1) Ambulatory dysfunction: Functional disability Hypertension, elevated secondary to missed nighttime med hx recurrent CVA CAD sp CABG, status post stenting hx of aortic stenosis, chronic resp failure secondary to COPD, on home O2 at night, almost status at baseline DM2, insulin requiring, suboptimal control as of recent inpatient hemoglobin A1c of 10.4 this month past tobacco abuse OBS GMF DC 11/04 Facilitate nighttime Coreg PT OT eval Social service RE discharge planning ( has expressed interest in having patient undergo rehab at [facility]) Pharmacy glycemic control consult. DVT prophylaxis. Lovenox subcu Full code Patient's requesting updates from providers. Mrs. Suad Go, contact #[phone]. Subjective Medical history is significant for recurrent CVA, CAD sp CABG, status post stenting, hx of aortic stenosis, chronic resp failure secondary to COPD, on home O2 at night and as needed, DM2, insulin requiring, mood disorder, past tobacco abuse. Recent confinement 2 days ago for confusion, foot drop, possible UTI. No growth on urine cultures. Patient discharged home yesterday, not sure if patient was strong enough to be discharged. Upon return home, patient found to be requiring more assistance, increased care needs. [facility] outpatient geriatric social worker in touch with patient's regarding possible SNF rehab placement. Patient brought by to ER for generalized weakness, AMS, inability to stand as per records. CT abdomen pelvis showed some stool retention, last BM was 3 days ago. Patient for tap water enema in the ER yielding copious stool output. ROS-No Headache, No Visual Changes, No Nausea, No Vomiting, No Fever, No Chills , No Neck Pain or Stiffness, No Chest Pain, No Palpitations, No SOB, No LESLIE, No Cough, No Sputum, No Wheezing, No Abdominal Pain, No Diarrhea, No Hematemesis, No Hemoptysis, No Unexpected Weight Loss, No Flank pain, No Melena, No Hematochezia, No Frequency, No Urgency, No Burning, No Hematuria, No Rashes, No Diaphoresis. Appetite is Normal, C/O Weakness Physical Exam Gen-AAO x 3, NAD, Afebrile, [place] Head-NCAT, EOMI, PERRLA, Anicteric Sclera, No Posterior Pharyngeal Erythema Neck-Supple, No JVD, No Thyromegaly, No Masses, No LAD, No Bruits Lungs-Clear to Auscultation Bilaterally, No Rales, No Rhonchi, No Wheezing, No Crepitus Chest-No S4, +S1, +S2, No S3, No Murmurs, No Rubs, No Gallops, No Ectopy Abdomen-Soft, Bowel Sounds Present, Non Tender, Non Distended, No Hepatomegaly, No Splenomegaly, No Palpable Masses, No Rebound, No Rigidity, No Guarding Musculoskeletal-Full Range of Motion Bilaterally, No CVAT Extremities-No Cyanosis, No Clubbing, No Edema, Chronic Hyperpig changes Nuero-Cranial Nerves II-XII grossly intact, Motor WNL, DTRs WNL, Strength WNL, Non Focal Psych-Normal Mood Physical Exam 2 Vital Signs (Past 24 Hours): Last Vital Signs Temp 36.7 C 11/03/18 07:54 Pulse 63 11/03/18 07:54 Resp 20 11/03/18 07:54 BP 166/81 H 11/03/18 07:54 Pulse Ox 92 11/03/18 07:54 Results & Data Laboratory Results Current Diagnoses Difficulty in walking, not elsewhere classified (11/02/18) Allergies Iodinated Contrast- Oral and IV Dye Allergy (Severe, Verified 10/29/18 23:28) Edema-face/lips/tongue. Hives/Rash. formaldehyde Allergy (Intermediate, Verified 10/29/18 23:28) Hives/Rash Cipro Allergy (Unknown, Verified 07/15/17 11:48) Hives dipyridamole Allergy (Unknown, Verified 10/29/18 23:28) Hallucinations lisinopril Allergy (Unknown, Verified 10/29/18 23:28) UNKNOWN ciprofloxacin Adverse Reaction (Unknown, Verified 10/29/18 23:28) CONSTIPATION yellow socks Allergy (Intermediate, Uncoded 10/29/18 23:28) contact rash (formaldehyde used to preserve yellow color) Height/Weight/Isolation Height 6 ft Weight 101.7 kg Chemistry 11/01/18 11/03/18 23:40 05:50 Sodium 136 142 Potassium 3.6 3.5 Chloride 100 106 Carbon Dioxide 29 29 Anion Gap 6.0 7.0 BUN 16 17 Creatinine 1.01 0.94 Glucose 174 H 76 Urinalysis 11/02/18 11/03/18 00:50 07:00 Urine Color Yellow Dark Yellow Urine Appearance Clear Cloudy H Urine pH 8.5 H 5.5 Ur Specific [place] 1.015 1.022 Urine Protein Negative 1+ H Urine Glucose (UA) 2+ H Negative Urine Ketones Trace H Trace H Urine Blood Negative 3+ H Urine Nitrite Negative Negative Urine Bilirubin Negative Negative
[2018-11-03] MEDS: AMLODIPINE BESYLATE 5 MG TAB PO SCH (09:38)
--- NOTE | 2018-11-03 10:33 | Pharmacy Report ---
Pharmacy Glycemic Short Note 2 - Date of Service November 03, 2018 - Glycemic Short BSG Results (Last 24 hours): 11/02/18 11/02/18 11/02/18 11:47 16:55 16:56 Glucose POC Glucose 112 H 58 L* 53 L* 11/02/18 11/02/18 11/02/18 17:32 18:28 20:29 Glucose POC Glucose 77 102 H 124 H 11/03/18 11/03/18 05:50 07:25 Glucose 76 POC Glucose 82 OUTPATIENT ANTIDIABETIC REGIMEN: * NPH 50 units QAM; 8 units with dinner * Metformin 1000mg PO BID * Novolog SS with dinner ASSESSMENT: * Blood sugars dropped prior to dinner yesterday, likely too high of a dose of NPH in AM, will reduce. * Also loosen CR and CF slightly to prevent further hypoglycemia. PLAN FOR INPATIENT GLYCEMIC CONTROL: * Hold outpatient oral diabetes medications * Basal insulin * decrease: NPH 30units with breakfast * NPH 7 units with dinner * Bolus insulin * NovoLog per scale ACHS or Q6hrs while NPO * Goal Range: Low 120 mg/dL - High 150 mg/dL * loosen: Correction Factor: 20 mg/dL/unit * loosen: Nutritional / Prandial insulin per carb ratio of 1 unit per 5 grams CHO consumed
[2018-11-03] MEDS: CARBOHYDRATES FOR HYPOGLYCEMIA PO PRN (16:55)
[2018-11-03] MEDS ORDERED: INSULIN HUMAN NPH SC ONE (19:00)
[2018-11-03] MEDS: SIMVASTATIN 20 MG TAB PO SCH (20:30)
[2018-11-04 05:50] LABS: Hematocrit (blood only) 43.8 % (42-52); Hemoglobin 14.4 g/dL (14.0-18.0); Mean Corpuscular Hgb Conc 32.9 g/dL (32-36); Mean Corpuscular Volume 85.7 fL (80-100); Mean Platelet Volume 10.3 fL (7.4-10.4); Platelet Count 283 K/uL (130-400); RDW Coefficient of Variation 14.4 % (11.5-14.5); RDW Standard Deviation 44.6 fL (36.4-46.3); Red Blood Count 5.11 M/uL (4.7-6.1); White Blood Count 6.22 K/uL (4.8-10.8)
[2018-11-04 06:16] LABS: BUN Creatinine Ratio 17.7 (10-20); Calcium 8.7 mg/dl (8.5-10.1); Creatinine Clr Calc Pharmacy 67.2 ml/min; Est GFR (African American) 85.2; Est GFR (Non-African American) 73.5; Potassium 3.7 mmol/L (3.5-5.1)
[2018-11-04] MEDS: AMLODIPINE BESYLATE 5 MG TAB PO SCH (08:09)
[2018-11-04] MEDS: DOCUSATE SODIUM 100 MG CAP PO SCH (08:09)
[2018-11-04] MEDS: TAMSULOSIN HCL 0.4 MG CAP PO SCH (08:09)
[2018-11-04] MEDS: ASPIRIN 81 MG ECTAB PO SCH (08:09)
[2018-11-04] MEDS: GABAPENTIN 400 MG CAP PO SCH ×3 (08:09→22:09)
[2018-11-04] MEDS: FINASTERIDE 5 MG TAB PO SCH (08:09)
[2018-11-04] MEDS: ENOXAPARIN INJ 30 MG/0.3 ML SYR SQ SCH (08:10)
[2018-11-04] MEDS: INSULIN ASPART 100 UNITS/ML 3 ML PEN SC SCH ×5 (08:10→20:33)
[2018-11-04] MEDS: CARVEDILOL 6.25 MG TAB PO SCH ×2 (08:10→22:08)
[2018-11-04] MEDS: INSULIN HUMAN NPH SC SCH ×2 (08:10→18:29)
--- NOTE | 2018-11-04 10:25 | Pharmacy Report ---
Pharmacy Glycemic Short Note 2 - Date of Service November 04, 2018 - Glycemic Short BSG Results (Last 24 hours): 11/03/18 11/03/18 11/03/18 11:45 16:51 16:52 Glucose POC Glucose 189 H 61 L* 68 L* 11/03/18 11/03/18 11/04/18 17:13 20:21 05:35 Glucose 187 H POC Glucose 78 202 H 11/04/18 07:53 Glucose POC Glucose 290 H OUTPATIENT ANTIDIABETIC REGIMEN: * NPH 50 units QAM; 8 units with dinner * Metformin 1000mg PO BID * Novolog SS with dinner ASSESSMENT: * Mr. Go received 74 units of SQ insulin yesterday * His NPH was decreased yesterday due to hypoglycemia around dinnertime. Timing of hypoglycemia corresponds to peak effect of AM NPH dose. I suspect lunchtime carb coverage is also contributing to dinnertime hypoglycemia, therefore I will loosen Novolog carb coverage at lunch and HS to avoid further hypoglycemia. * Fasting BSG of 290 mg/dL is significantly elevated (124 and 82 mg/dL on previous days). I suspect this is partially due to decreased evening NPH dose yesterday. I will resume previous dose of 7 units. PLAN FOR INPATIENT GLYCEMIC CONTROL: * Hold outpatient oral diabetes medications * Basal insulin * NPH 30 units with breakfast * NPH 7 units with dinner * Bolus insulin - loosen carb coverage for lunch and HS * NovoLog per scale ACHS or Q6hrs while NPO * Goal Range: Low 120 mg/dL - High 150 mg/dL Breakfast and dinner: * Correction Factor: 15 mg/dL/unit * Nutritional / Prandial insulin per carb ratio of 1 unit per 5 grams CHO consumed Lunch and HS: * Correction Factor: 15 mg/dL/unit * Nutritional / Prandial insulin per carb ratio of 1 unit per 9 grams CHO consumed
--- NOTE | 2018-11-04 14:32 | Discharge Summary ---
Date of Service November 04, 2018 Admission HPI Per Admitting Provider History obtained from the patient, , and records. Limited history from patient due to marked hearing impairment. Medical history is significant for recurrent CVA, CAD sp CABG, status post stenting, hx of aortic stenosis, chronic resp failure secondary to COPD, on home O2 at night and as needed, DM2, insulin requiring, mood disorder, past tobacco abuse. Recent confinement 2 days ago for confusion, foot drop, possible UTI. No growth on urine cultures. Patient discharged home yesterday, not sure if patient was strong enough to be discharged. Upon return home, patient found to be requiring more assistance, increased care needs. [facility] outpatient social services aide in touch with patient's regarding possible SNF rehab placement. Patient brought by to ER for generalized weakness, AMS, inability to stand as per records. CT abdomen pelvis showed some stool retention, last BM was 3 days ago. Patient for tap water enema in the ER yielding copious stool output. Admission Exam Per Admitting Provider GENERAL: Slightly uncomfortable, lying on the left lateral decubitus position, obese no respiratory distress SKIN: Pallor , warm HEENT: Alopecia, pale palpebral conjunctivae, no ptosis, old facial asymmetry, dry buccal mucosa NECK : Supple, short, no tenderness CHEST : Decreased breath sounds , no tenderness HEART : RRR, systolic murmur ABDOMEN: Some distention, nontender EXTREMITIES : minimal LE swelling, no LE tenderness, no other conspicuous deformities noted NEUROLOGIC : Coherent, old facial asymmetry, hard of hearing, gait and stance not assessed Principal Diagnosis Ambulatory dysfunction Obesity with a BMI of 30 Hypertension Constipation Foot drop Diabetes History of CVA Diabetic neuropathy Diabetic foot ulcer Hypertensive urgency currently hypotensive History of urinary retention Hard of hearing Chronic respiratory failure Diabetic neuropathy Hyperhomocystinemia Discharge Exam ROS-No Headache, No Visual Changes, No Nausea, No Vomiting, No Fever, No Chills , No Neck Pain or Stiffness, No Chest Pain, No Palpitations, No SOB, No LESLIE, No Cough, No Sputum, No Wheezing, No Abdominal Pain, No Diarrhea, No Hematemesis, No Hemoptysis, No Unexpected Weight Loss, No Flank pain, No Melena, No Hematochezia, No Frequency, No Urgency, No Burning, No Hematuria, No Rashes, No Diaphoresis. Appetite is Normal, C/O Weakness Physical Exam Gen-AAO x 3, NAD, Afebrile, [place] Head-NCAT, EOMI, PERRLA, Anicteric Sclera, No Posterior Pharyngeal Erythema Neck-Supple, No JVD, No Thyromegaly, No Masses, No LAD, No Bruits Lungs-Clear to Auscultation Bilaterally, No Rales, No Rhonchi, No Wheezing, No Crepitus Chest-No S4, +S1, +S2, No S3, No Murmurs, No Rubs, No Gallops, No Ectopy Abdomen-Soft, Bowel Sounds Present, Non Tender, Non Distended, No Hepatomegaly, No Splenomegaly, No Palpable Masses, No Rebound, No Rigidity, No Guarding Musculoskeletal-Full Range of Motion Bilaterally, No CVAT Extremities-No Cyanosis, No Clubbing, No Edema, Chronic Hyperpig changes Nuero-Cranial Nerves II-XII grossly intact, Motor WNL, DTRs WNL, Strength WNL, Non Focal Psych-Normal Mood Discharge Data Allergies Allergy/AdvReac Type Severity Reaction Status Date / Time Iodinated Contrast- Oral and Allergy Severe Edema-face/lips/tongue. Verified 09/04 23:28 IV Dye Hives/Rash. formaldehyde Allergy Intermediate Hives/Rash Verified 10/29/18 23:28 Cipro Allergy Unknown Hives Verified 07/15/17 11:48 dipyridamole Allergy Unknown Hallucinati Verified 10/29/18 23:28 ons lisinopril Allergy Unknown UNKNOWN Verified 10/29/18 23:28 ciprofloxacin AdvReac Unknown CONSTIPATIO Verified 10/29/18 23:28 N yellow socks Allergy Intermediate contact Uncoded 10/29/18 23:28 rash (formaldehyde used to preserve yellow color) Consultations 11/02/18 02:40 ED Decision to Admit Stat 11/02/18 05:54 Consult Case Management - Discharge Planning Routine 11/02/18 20:28 Consult Urology Routine 11/03/18 08:41 Consult Case Management - Discharge Planning Routine Ordered Studies 11/01/18 23:18 CT head/brain wo con Urgent 11/02/18 00:29 CT abd pelvis wo con Urgent Current Diagnoses Difficulty in walking, not elsewhere classified (11/02/18) Allergies Iodinated Contrast- Oral and IV Dye Allergy (Severe, Verified 10/29/18 23:28) Edema-face/lips/tongue. Hives/Rash. formaldehyde Allergy (Intermediate, Verified 10/29/18 23:28) Hives/Rash Cipro Allergy (Unknown, Verified 07/15/17 11:48) Hives dipyridamole Allergy (Unknown, Verified 10/29/18 23:28) Hallucinations lisinopril Allergy (Unknown, Verified 10/29/18 23:28) UNKNOWN ciprofloxacin Adverse Reaction (Unknown, Verified 10/29/18 23:28) CONSTIPATION yellow socks Allergy (Intermediate, Uncoded 10/29/18 23:28) contact rash (formaldehyde used to preserve yellow color) Height/Weight/Isolation Height 6 ft Weight 101.7 kg Chemistry 11/03/18 11/04/18 05:50 05:35 Sodium 142 138 Potassium 3.5 3.7 Chloride 106 106 Carbon Dioxide 29 26 Anion Gap 7.0 6.0 BUN 17 16 Creatinine 0.94 0.92 Glucose 76 187 H Urinalysis 11/03/18 07:00 Urine Color Dark Yellow Urine Appearance Cloudy H Urine pH 5.5 Ur Specific [place] 1.022 Urine Protein 1+ H Urine Glucose (UA) Negative Urine Ketones Trace H Urine Blood 3+ H Urine Nitrite Negative Urine Bilirubin Negative Hospital Course (1) Ambulatory dysfunction: Functional disability Hypertension, elevated secondary to missed nighttime med hx recurrent CVA CAD sp CABG, status post stenting hx of aortic stenosis, chronic resp failure secondary to COPD, on home O2 at night, almost status at baseline DM2, insulin requiring, suboptimal control as of recent inpatient hemoglobin A1c of 10.4 this month past tobacco abuse DC 11/04, was unable to take care of him at home sick came back to the emergency room Facilitate nighttime Coreg PT/OT Social service RE discharge planning ( has expressed interest in having patient undergo rehab at [facility]) Full code Total Time Total Time Spent Total Time Spent (In Minutes): 45 mins Total Time Includes: Examination of the Patient, Discharge Planning, Medication Reconciliation and Communication With Other Providers Discharge Plan Discharge Items Patient Disposition: Transfer Intermediate Fac Reason For Visit: AMBULATORY DYFUNCTION Discharge Diagnosis: Ambulatory dysfunction Obesity with a BMI of 30 Hypertension Constipation Foot drop Diabetes History of CVA Diabetic neuropathy Diabetic foot ulcer Hypertensive urgency currently hypotensive History of urinary retention Hard of hearing Chronic respiratory failure Diabetic neuropathy Hyperhomocystinemia Condition: Fair Discharge Goals: Decrease discomfort, Improve function and Improve nutritional status Activity: Resume your previous activity Lifting: None Bathing: No limitations Sexual Activity: When tolerated Exercise/Sports: None Weightbearing: Left weightbearing and Right weightbearing Weightbearing Comment: With a walker Non-emergency contact: Primary Care Provider Call non-emergency contact if: you have any medication questions Diet: Carb Consistent or DM2 and Heart Healthy Addtl Provider Instructions: Multiple chronic problems to monitor Prescriptions: New carvedilol 6.25 mg Tablet 6.25 mg PO BID Qty: 20 RF: 0 acetaminophen [Mapap (acetaminophen)] 325 mg Tablet 650 mg PO Q4H PRN (Reason: fever or pain) Qty: 20 RF: 0 enoxaparin [Lovenox] 30 mg/0.3 mL Syringe 30 mg subcut QAM Qty: 30 RF: 0 insulin NPH isoph U-100 human [Novolin N NPH U-100 Insulin] 100 unit/mL Suspension 30 unit SC DAILY@0800 Qty: 15 RF: 0 insulin NPH isoph U-100 human [Novolin N NPH U-100 Insulin] 100 unit/mL Suspension 7 unit SC DAILY@1630 Qty: 15 RF: 0 insulin aspart U-100 [Novolog Flexpen U-100 Insulin] 100 unit/mL Insulin Pen SC 1130,2100 Qty: 4 RF: 0 Continue cyclobenzaprine 10 mg Tablet 10 mg PO HS RF: 0 hydrocortisone 1 % Lotion 1 applic TOPICAL BID RF: 0 aspirin [Aspir-81] 81 mg Tablet,Delayed Release (Dr/Ec) 81 mg PO DAILY RF: 0 tramadol [Ultram] 50 mg tablet 50 mg PO Q6 PRN (Reason: Pain, Moderate) RF: 0 carboxymethylcellulose sodium [TheraTears] 0.25 % Drops 1 drp OPHTHALMIC (EYE) QID RF: 0 benzoyl peroxide 10 % Lotion 1 applic TOPICAL DAILY PRN (Reason: WHEN SHOWERS) RF: 0 cyanocobalamin (vitamin B-12) 500 mcg Tablet 1,000 mcg PO DAILY RF: 0 tamsulosin 0.4 mg Capsule 0.4 mg PO DAILY RF: 0 simvastatin [Zocor] 20 mg Tablet 10 mg PO PM RF: 0 metformin 1,000 mg Tablet 1,000 mg PO BIDM RF: 0 nystatin 100,000 unit/gram Cream 1 applic TOPICAL UD PRN (Reason: Unknown) RF: 0 nitroglycerin [Nitrostat] 0.4 mg Tablet, Sublingual 0.4 mg Sublingual UD PRN (Reason: Chest Pain) RF: 0 docusate sodium 100 mg Tablet 100 mg PO DAILY RF: 0 finasteride 5 mg Tablet 5 mg PO DAILY RF: 0 lutein 20 mg Capsule 20 mg PO DAILY RF: 0 cholecalciferol (vitamin D3) [Vitamin D3] 2,000 unit Capsule 2,000 unit PO DAILY RF: 0 emollient combination no.69 [Eucerin Skin Calming] Cream 1 applic topical UD RF: 0 brinzolamide-brimonidine [Simbrinza] 1-0.2 % Drops,Suspension 1 drp OPR BID RF: 0 selenium sulfide 2.5 % Lotion 1 applic topical UD RF: 0 acetaminophen [Mapap (acetaminophen)] 325 mg Tablet 650 mg PO Q4H PRN (Reason: fever or pain) Qty: 100 RF: 0 ascorbic acid (vitamin C) [Vitamin C] 500 mg Tablet 1,000 mg PO BID Qty: 90 RF: 0 cefdinir 300 mg capsule 300 mg PO BID 10 Days Qty: 20 RF: 0 doxycycline monohydrate 100 mg capsule 100 mg PO BID 10 Days Qty: 20 RF: 0 Discontinued carvedilol [Coreg] 12.5 mg Tablet 6.25 mg PO BID RF: 0 insulin NPH isoph U-100 human [Humulin N NPH U-100 Insulin] 100 unit/mL Suspension SUBCUT BID RF: 0 insulin aspart U-100 [Novolog Flexpen U-100 Insulin] 100 unit/mL Insulin Pen subcut QDD RF: 0 nystatin [Nystop] 100,000 unit/gram Powder 1 applic EXT BID Qty: 30 RF: 0 Stand-Alone Forms: [facility] Discharge Orders: Discharge Order (Routine); Ordered 11/04/18 Ordered By: Olivier Tinsley Skilled Items Patient informed of condition?: Yes DNR: No Discharge Level of Care: Skilled Communicable Disease: No Discharge Prognosis: Improving Admission Data Admit Date/Time: 11/02/18 03:54 Attending Provider: Olivier Tinsley Admit Provider: Everett Ayala Primary Care Provider: Shin Dela Cruz Other Providers: Everett Ayala ; Claudine Lares Service: Medical Other Pending Studies at Discharge: No
[2018-11-04] MEDS ORDERED: POLYETHYLENE (MIRALAX) 17 GM PACK PO PRN (21:20)
[2018-11-04] MEDS: SIMVASTATIN 20 MG TAB PO SCH (22:09)
[2018-11-05] MEDS: ENOXAPARIN INJ 30 MG/0.3 ML SYR SQ SCH (08:03)
[2018-11-05] MEDS: AMLODIPINE BESYLATE 5 MG TAB PO SCH (08:04)
[2018-11-05] MEDS: ASPIRIN 81 MG ECTAB PO SCH (08:04)
[2018-11-05] MEDS: GABAPENTIN 400 MG CAP PO SCH ×3 (08:04→20:25)
[2018-11-05] MEDS: DOCUSATE SODIUM 100 MG CAP PO SCH (08:04)
[2018-11-05] MEDS: TAMSULOSIN HCL 0.4 MG CAP PO SCH (08:04)
[2018-11-05] MEDS: FINASTERIDE 5 MG TAB PO SCH (08:04)
[2018-11-05] MEDS: CARVEDILOL 6.25 MG TAB PO SCH ×2 (08:04→20:21)
[2018-11-05] MEDS: INSULIN ASPART 100 UNITS/ML 3 ML PEN SC SCH ×3 (08:51→20:10)
[2018-11-05] MEDS: INSULIN HUMAN NPH SC SCH ×2 (08:51→17:49)
[2018-11-05] MEDS ORDERED: INSULIN ASPART 100 UNITS/ML 3 ML PEN SC SCH (16:30)
[2018-11-05] MEDS: SIMVASTATIN 20 MG TAB PO SCH (20:24)
[2018-11-06] MEDS: AMLODIPINE BESYLATE 5 MG TAB PO SCH (07:29)
[2018-11-06] MEDS: ENOXAPARIN INJ 30 MG/0.3 ML SYR SQ SCH (07:29)
[2018-11-06] MEDS: FINASTERIDE 5 MG TAB PO SCH (07:30)
[2018-11-06] MEDS: GABAPENTIN 400 MG CAP PO SCH (07:30)
[2018-11-06] MEDS ORDERED: INSULIN ASPART 100 UNITS/ML 3 ML PEN SC SCH (07:30)
[2018-11-06] MEDS: CARVEDILOL 6.25 MG TAB PO SCH (07:30)
[2018-11-06] MEDS: ASPIRIN 81 MG ECTAB PO SCH (07:30)
[2018-11-06] MEDS: TAMSULOSIN HCL 0.4 MG CAP PO SCH (07:30)
[2018-11-06] MEDS: DOCUSATE SODIUM 100 MG CAP PO SCH (07:30)
[2018-11-06 08:32] VITALS: TEMP 98.4; O2SAT 93
[2018-11-06] MEDS: INSULIN HUMAN NPH SC SCH (08:39)
[2018-11-06 08:57] VITALS: BP 113/72; PULSE 79
--- NOTE | 2018-11-06 08:58 | Hospitalist Progress Note ---
Date of Service November 06, 2018 Assessment & Plan (1) Ambulatory dysfunction: Functional disability Was evaluated by PT and OT Recommendation for 24 hours care Will discharge the patient to [facility] this morning Hypertension, elevated secondary to missed nighttime med Controlled now Other significant medical conditions as follows and remain stable H/O recurrent CVA CAD sp CABG, status post stenting hx of aortic stenosis, chronic resp failure secondary to COPD, on home O2 at night, almost status at baseline DM2, insulin requiring, suboptimal control as of recent inpatient hemoglobin A1c of 10.4 this month past tobacco abuse Full code Subjective Medical history is significant for recurrent CVA, CAD sp CABG, status post stenting, hx of aortic stenosis, chronic resp failure secondary to COPD, on home O2 at night and as needed, DM2, insulin requiring, mood disorder, past tobacco abuse. Admitted with ambulatory dysfunction 11/06 The patient is seen and examined in medical floor in presence of the weight He has been feeling a lot better this morning and denies any symptoms He is able to be transferred to [facility] this morning Physical Exam 2 Vital Signs (Past 24 Hours): Last Vital Signs Temp 36.9 C 11/06/18 08:32 Pulse 86 11/06/18 08:32 Resp 20 11/06/18 08:32 BP 160/91 H 11/06/18 08:32 Pulse Ox 93 11/06/18 08:32 Physical Exam: Lying in bed comfortably Constitutional: WD/WN, vitals as above Eyes: PERRL, conjunctivae normal, anicteric sclerae ENMT: external ear and nose normal, oropharynx normal Neck: trachea midline, no thyromegaly Respiratory: normal respiratory effort; no respiratory distress and no labored breathing Auscultation: + diminished lung sounds Cardiovascular: Rate/Rhythm: regular rate and regular rhythm Heart Sounds: normal S1, normal S2 and + murmur (2/6 over precordium) Gastrointestinal (Abdomen): Inspection/Auscultation: abdomen normal to inspection and normal bowel sounds Percussion/Palpation: abdomen soft Musculoskeletal: No acute arthritis in any of the joints Neurologic: Alert, awake and oriented x3. Generally weak Results & Data Medications Administered Current Inpatient Medications Acetaminophen (Tylenol) 650 mg PO Q4H PRN PRN Reason: pain/fever Stop: 12/02/18 05:53 Amlodipine Besylate (Norvasc) 5 mg PO QAM OREN Stop: 12/03/18 08:59 Last Admin: 11/06/18 07:29 Dose: 5 mg Aspirin (Ecotrin Ectab) 81 mg PO DAILY OREN Stop: 12/02/18 08:59 Last Admin: 11/06/18 07:30 Dose: 81 mg Carvedilol (Coreg) 6.25 mg PO BID OREN Stop: 12/02/18 08:59 Last Admin: 11/06/18 07:30 Dose: 6.25 mg Dextrose (Dextrose 50%) 25 - 50 ml IV UD PRN; Protocol PRN Reason: Hypoglycemia Protocol Stop: 12/02/18 05:53 Docusate Sodium (Colace) 100 mg PO DAILY OREN Stop: 12/02/18 08:59 Last Admin: 11/06/18 07:30 Dose: 100 mg Enoxaparin Sodium (Lovenox) 30 mg SQ QAM OREN Stop: 12/02/18 08:59 Last Admin: 11/06/18 07:29 Dose: 30 mg Finasteride (Proscar) 5 mg PO DAILY OREN Stop: 12/02/18 08:59 Last Admin: 11/06/18 07:30 Dose: 5 mg Gabapentin (Neurontin) 400 mg PO TID OREN Stop: 12/02/18 08:59 Last Admin: 11/06/18 07:30 Dose: 400 mg Glucagon (Glucagen) 1 mg SQ UD PRN; Protocol PRN Reason: Hypoglycemia Protocol Stop: 12/02/18 05:53 Glucose (Glucose 40%) 15 - 30 gm PO UD PRN; Protocol PRN Reason: Hypoglycemia Protocol Stop: 12/02/18 05:53 Glucose (Dex4 Glucose) 4 - 8 tabs PO UD PRN; Protocol PRN Reason: Hypoglycemia Protocol Stop: 12/02/18 05:53 Insulin Aspart (Novolog Flexpen) 0 units SC 1130,2100 [facility] Stop: 12/04/18 11:29 Last Admin: 11/05/18 20:10 Dose: Not Given Insulin Aspart (Novolog Flexpen) 0 units SC 1630 OREN Stop: 12/05/18 16:29 Last Admin: 11/05/18 17:50 Dose: 1 units Insulin Aspart (Novolog Flexpen) 0 units SC QDB OREN Stop: 12/06/18 07:29 Last Admin: 11/06/18 08:40 Dose: 7 units Insulin Human NPH (Novolin N Nph) 7 units SC DAILY@1630 OREN; Protocol Stop: 12/02/18 16:29 Last Admin: 11/05/18 17:49 Dose: 7 units Insulin Human NPH (Novolin N Nph) 30 units SC DAILY@0800 OREN; Protocol Stop: 12/03/18 07:59 Last Admin: 11/06/18 08:39 Dose: 30 units Miscellaneous (Order Awaiting Action) 1 ea N/A QS [facility] Stop: 12/02/18 07:59 Last Admin: 11/06/18 07:28 Dose: Not Given Miscellaneous (Order Awaiting Action) 1 ea N/A [facility] Stop: 12/02/18 07:59 Last Admin: 11/06/18 07:28 Dose: Not Given Miscellaneous (Carbohydrates For Hypoglycemia) 15 - 30 gm PO UD PRN PRN Reason: Hypoglycemia Treatment Stop: 12/02/18 05:53 Last Admin: 11/03/18 16:55 Dose: 30 gm Miscellaneous (Order Awaiting Action) 1 ea N/A QS [facility] Stop: 12/02/18 07:59 Last Admin: 11/06/18 07:27 Dose: Not Given Miscellaneous Information (Consult Glycemic Management Pharmacy) 1 ea N/A UD PRN PRN Reason: Consult Stop: 12/02/18 06:30 Polyethylene Glycol (Miralax Powder Packet) 17 gm PO DAILY PRN PRN Reason: Constipation Stop: 12/04/18 21:19 Last Admin: 11/04/18 22:10 Dose: 17 gm Simvastatin (Zocor) 10 mg PO PM [facility] Stop: 12/02/18 20:59 Last Admin: 11/05/18 20:24 Dose: 10 mg Tamsulosin HCl (Flomax) 0.4 mg PO DAILY [facility] Stop: 12/02/18 08:59 Last Admin: 11/06/18 07:30 Dose: 0.4 mg Tramadol HCl (Ultram) 50 mg PO Q6 PRN PRN Reason: Pain, Moderate Stop: 12/02/18 05:53 Last Admin: 11/04/18 01:57 Dose: 50 mg
== END 2018-11-06 10:08 ==
LOC: 4W 22:49 → ED 22:49 → SUATTDRO 11-02 03:54 → 4W 11-02 05:18

== ENCOUNTER 2019-03-23 17:38 | Inpatient (IN) ==
[2019-03-23] MEDS ORDERED: SODIUM CHLORIDE 0.9% 1000ML 500 ML IV ONE (18:18)
[2019-03-23] MEDS ORDERED: VANCOMYCIN HCL 2,000 MG in SODIUM CHLORIDE 0.9% 500 ML IV ONE (18:21)
[2019-03-23] MEDS ORDERED: CEFEPIME 2,000 MG/20 ML VIAL IV STA (18:21)
[2019-03-23] MEDS ORDERED: VANCOMYCIN CONSULT ACTIVE PRN (18:21)
--- NOTE | 2019-03-23 18:27 | Emergency Department Note ---
Entered by Hugo Burns acting as a scribe for History of Present Illness General Chief complaint: Hyperglycemia Time Seen by Provider: 03/23/19 18:04 Source: patient and family Limitations: no limitations History of Present Illness Provider complaint: weakness Onset (ago): day(s) (this morning) Location: head Radiation: non-radiation Pain Consistency: + constant Relieved By: + none Exacerbated By: + movement Associated symptoms: + fever/chills, + nausea/vomiting and + weakness; no chest pain, no headaches and no shortness of breath Treatments prior to arrival: none The patient is an 88 year old male who presents to the Emergency Department with complaints of generalized weakness. The patient ate oatmeal and raisins this morning and was fine with that, but he was very weak and kept leaning over. Per the , she had to keep lifting him into the bed and he kept telling her that he was tired. The family says this morning his blood sugar was 202. The patient went through 18 urine depends before coming in. The patient has a history of UTIs but never had burning in his urine. She set his oxygen to 2.5 today but it was not helping and his blood pressure was also very high this morning. The patient also is having issues with a foot infection; the patient is not on any antibiotics for it. Four days ago he fell and it took two people to put him back into bed. He did not hit his head but scraped his arm. He is on baby aspirin. The patient states he is feeling OK and does not have any chest pain or trouble breathing. The patient does not have a headache. Home Medications Home Medications Medication Instructions Recorded Confirmed Type Eucerin Skin Calming 1 applic TOPICAL UD 09/13/18 03/23/19 History Simbrinza 1 drp OPR BID 09/13/18 03/23/19 History TheraTears 1 drp OPB QID 09/13/18 03/23/19 History aspirin [Aspir-81] 81 mg PO DAILY 09/13/18 03/23/19 History benzoyl peroxide 1 applic TOPICAL DAILY PRN 09/13/18 03/23/19 History cholecalciferol (vitamin D3) 2,000 unit PO DAILY 09/13/18 03/23/19 History [Vitamin D3] cyanocobalamin (vitamin B-12) 1,000 mcg PO DAILY 09/13/18 03/23/19 History cyclobenzaprine 10 mg PO HS 09/13/18 03/23/19 History docusate sodium 100 mg PO DAILY 09/13/18 03/23/19 History finasteride 5 mg PO DAILY 09/13/18 03/23/19 History hydrocortisone 1 applic TOPICAL BID 09/13/18 03/23/19 History lutein 20 mg PO DAILY 09/13/18 03/23/19 History metformin 1,000 mg PO BIDM 09/13/18 03/23/19 History nitroglycerin [Nitrostat] 0.4 mg SUBLINGUAL UD PRN 09/13/18 03/23/19 History nystatin 1 applic TOPICAL UD PRN 09/13/18 03/23/19 History selenium sulfide 1 applic TOPICAL UD 09/13/18 03/23/19 History simvastatin [Zocor] 10 mg PO Q2D 09/13/18 03/23/19 History tamsulosin 0.4 mg PO DAILY 09/13/18 03/23/19 History tramadol [Ultram] 50 mg PO Q6 PRN 09/13/18 03/23/19 History acetaminophen [Mapap 650 mg PO Q4H PRN #100 tab 10/31/18 03/23/19 Rx (acetaminophen)] ascorbic acid (vitamin C) [Vitamin 1,000 mg PO BID #90 tab 10/31/18 03/23/19 Rx C] carvedilol 6.25 mg PO BID #20 tab 11/04/18 03/23/19 Rx gabapentin 300 mg PO TID 03/23/19 03/23/19 History insulin NPH isoph U-100 human 50 unit SC QAM 03/23/19 03/23/19 History [Novolin N NPH U-100 Insulin] insulin aspart U-100 [Novolog 16 unit SC QDD 03/23/19 03/23/19 History Flexpen U-100 Insulin] melatonin 10 mg PO HS PRN 03/23/19 03/23/19 History Allergies Allergy/AdvReac Type Severity Reaction Status Date / Time Iodinated Contrast- Oral and Allergy Severe Edema-face/lips/tongue. Verified 03/23/19 18:48 IV Dye Hives/Rash. dipyridamole Allergy Intermediate Hallucinati Verified 03/23/19 18:48 ons formaldehyde Allergy Intermediate Hives/Rash Verified 03/23/19 18:48 Cipro Allergy Unknown Hives Verified 07/15/17 11:48 lisinopril Allergy Unknown UNKNOWN Verified 03/23/19 18:48 ciprofloxacin AdvReac Unknown CONSTIPATIO Verified 03/23/19 18:48 N yellow socks Allergy Intermediate contact Uncoded 03/23/19 18:48 rash (formaldehyde used to preserve yellow color) Past Med/Surg History Medical History GERD (gastroesophageal reflux disease) (Chronic) Arthritis (Chronic) BPH (benign prostatic hyperplasia) (Chronic) Chronic respiratory failure with hypoxia, on home O2 therapy (Chronic) COPD (chronic obstructive pulmonary disease) (Chronic) Diabetic neuropathy (Chronic) Hypertension (Chronic) Constipation (Chronic) 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) Coronary artery disease (Chronic) "PCI + stenting LAD 1997 CABG x 3 2000 cath 03/11/13 showed patent LAD graft, patent SVG to circ marginal, occluded SVG to RCA" Hypertension (Chronic) Benign prostatic hyperplasia (Chronic) Diabetes mellitus, type II (Chronic) Chronic respiratory failure (Chronic) "home O2 2 LPM at night + PRN" Dyslipidemia (Chronic) Hyperhomocysteinemia (Chronic) Diabetic retinopathy (Chronic) Cerebrovascular disease (Chronic) "s/p stroke with right hemiparesis" Aortic stenosis (Chronic) "1.1 cm2 by echo 2011 and cath 2012" Surgical History S/P CABG x 3 (Chronic) History of cataract surgery (Chronic) Hx of cholecystectomy (Chronic) Status post coronary artery bypass grafting (Chronic) "radial artery to LAD, SVG to circ marginal, SVG to RCA" Status post cardiac catheterization (Chronic) "03/11/[address] [facility] [address]. [place]ant patent LAD graft, patent SVG to circ marginal, occluded SVG to RCA" Status post cholecystectomy (Chronic) Family History Sister Diabetes Social History Preferred Language: Polish Communication Ability: Effective Visual Impairment: No Limitations Beliefs That Will Affect Care: None marital status: Current Living Situation: Spouse Feels Safe at Home: Yes Smoking Status: Never smoker Second Hand Exposure: No Hx Alcohol Use: No Hx Substance Use: No Review of Systems See HPI for pertinent positives & negatives. and A total of 10 systems reviewed and were otherwise negative Physical Exam Vital Signs Vital Signs - 24 hr 03/23/19 17:45 03/23/19 17:48 03/23/19 18:00 Temperature 37.3 C Temperature Source Oral Sepsis Recent Fever Within 48 Hours Yes Sepsis New/Unexplained Change in Mental Status No Sepsis Action Taken by Nursing No Action Required Pulse Rate 80 83 Pulse Rate from SpO2 Sensor 80 83 Pulse Rhythm Respiratory Rate 23 22 22 Respiratory Effort / Characteristics Spontaneous Labored Respiratory Depth Normal Respiratory Pattern Regular Blood Pressure 139/91 Blood Pressure Mean 107 Pulse Oximetry 94 95 96 Oxygen Delivery Method Nasal Cannula Oxygen Flow Rate 2 03/23/19 18:18 03/23/19 18:19 03/23/19 18:29 Temperature Temperature Source Sepsis Recent Fever Within 48 Hours Sepsis New/Unexplained Change in Mental Status Sepsis Action Taken by Nursing Pulse Rate 78 78 79 Pulse Rate from SpO2 Sensor 81 78 Pulse Rhythm Regular Respiratory Rate 29 H 16 22 Respiratory Effort / Characteristics Respiratory Depth Respiratory Pattern Blood Pressure 140/56 L Blood Pressure Mean 84 Pulse Oximetry 95 96 97 Oxygen Delivery Method Nasal Cannula Oxygen Flow Rate 2 03/23/19 18:30 03/23/19 18:31 03/23/19 19:00 Temperature Temperature Source Sepsis Recent Fever Within 48 Hours Sepsis New/Unexplained Change in Mental Status Sepsis Action Taken by Nursing Pulse Rate 79 78 78 Pulse Rate from SpO2 Sensor 79 78 78 Pulse Rhythm Respiratory Rate 20 17 23 Respiratory Effort / Characteristics Respiratory Depth Respiratory Pattern Blood Pressure 135/86 Blood Pressure Mean 102 Pulse Oximetry 87 L 96 96 Oxygen Delivery Method Oxygen Flow Rate 03/23/19 19:02 03/23/19 19:30 03/23/19 19:31 Temperature Temperature Source Sepsis Recent Fever Within 48 Hours Sepsis New/Unexplained Change in Mental Status Sepsis Action Taken by Nursing Pulse Rate 79 82 80 Pulse Rate from SpO2 Sensor 80 80 Pulse Rhythm Respiratory Rate 28 H 17 19 Respiratory Effort / Characteristics Respiratory Depth Respiratory Pattern Blood Pressure 146/80 H 133/116 H Blood Pressure Mean 102 121 Pulse Oximetry 97 96 Oxygen Delivery Method Oxygen Flow Rate General: Chronnically ill appearing older male. The patient can respond and answer questions appropriately. HEENT: Normal cephalic atraumatic. Eyes are closed but he can open them. Oropharynx is pink with moist mucous membranes. No swelling of the mouth lips or tongue. Neck: Supple with a midline trachea. No meningeal signs or stiffness, no JVD or bruits. No Stridor. Chest: Clear to auscultation bilaterally. No wheezes or rhonchi. No increased work of breathing. Heart: regular rate and rhythm. Abdomen: Soft nontender, nondistended without rebound guarding or rigidity. Extremities: Right extremity has gangrene, redness to the foot, and red streaks into the jeong. Spine/Back. Non tender to palpation. No CVA tenderness Skin: Good turgor without rashes. Neurologic exam: Cranial nerves two through 12 are intact. Motor and sensation are intact and symmetrical throughout. Course 1803: The patient was examined in room C3. A physical exam was performed. 1913: I spoke with Silver Sung, about the patient's case and she agreed to accept the patient for further examination. 1949: I checked up on the patient and he states he was having nausea. I ordered him Zofran. He also agrees to be admitted. 1999: The patient was admitted for further reevaluation. Consultations Consultation #1: I spoke with Silver Sung, about the patient's case and she agreed to accept the patient for further examination. Time: 19:14 Administered Medications Artificial Tears (Artificial Tears) 1 drops OPB QID [facility] Stop: 04/22/19 20:59 Last Admin: 03/23/19 22:26 Dose: 1 drops Documented by: [id number] Ascorbic Acid (Vitamin C) 1,000 mg PO BID [facility] Stop: 04/22/19 20:59 Last Admin: 03/23/19 21:52 Dose: 1,000 mg Documented by: [id number] Brimonidine Tartrate (Alphagan 0.2%) 1 drops OPR BID [facility] Stop: 04/22/19 21:59 Last Admin: 03/23/19 22:20 Dose: 1 drops Documented by: [id number] Brinzolamide (Azopt) 1 drops OPR BID [facility] Stop: 04/22/19 21:59 Last Admin: 03/23/19 22:24 Dose: 1 drops Documented by: [id number] Carvedilol (Coreg) 6.25 mg PO BID [facility] Stop: 04/22/19 20:59 Last Admin: 03/23/19 21:48 Dose: 6.25 mg Documented by: [id number] Cyclobenzaprine HCl (Flexeril) 10 mg PO HS [facility] Stop: 04/22/19 20:59 Last Admin: 03/23/19 21:52 Dose: 10 mg Documented by: [id number] Gabapentin (Neurontin) 300 mg PO TID [facility] Stop: 04/22/19 20:59 Last Admin: 03/23/19 21:52 Dose: 300 mg Documented by: [id number] Heparin Sodium (Porcine) (Heparin Sodium (Porcine)) 5,000 units SQ Q8 [facility] Stop: 04/22/19 21:59 Last Admin: 03/23/19 21:47 Dose: 5,000 units Documented by: [id number] Cosigned by: [id number] Sodium Chloride (Nss 1000ml) 1,000 mls @ 80 mls/hr IV .[id number] [facility] Stop: 04/22/19 20:46 Last Admin: 03/23/19 21:29 Dose: 80 mls/hr Documented by: [id number] Discontinued Medications Sodium Chloride (Nss 1000ml) 500 mls @ 999 mls/hr IV .Q31M ONE Stop: 03/23/19 18:48 Last Infusion: 03/23/19 19:34 Dose: 0 mls/hr Documented by: [id number] Admin: 03/23/19 18:57 Dose: 999 mls/hr Documented by: [id number] Vancomycin HCl 2,000 mg/ (Sodium Chloride) 540 mls @ 200 mls/hr IV NOW ONE; Protocol Stop: 03/23/19 21:02 Last Infusion: 03/23/19 22:40 Dose: 0 mls/hr Documented by: [id number] Admin: 03/23/19 18:58 Dose: 200 mls/hr Documented by: [id number] Cefepime HCl (Maxipime) 2,000 mg in 20 mls @ 5 mls/min IV NOW STA; Protocol Stop: 03/23/19 18:24 Last Admin: 03/23/19 19:23 Dose: 5 mls/min Documented by: [id number] Insulin Aspart (Novolog Flexpen) 0 units SC ACHS [facility] Stop: 04/22/19 20:59 Last Admin: 03/23/19 21:55 Dose: 16 units Documented by: [id number] Cosigned by: [id number] Insulin Glargine (Lantus Solostar Pen) 15 units SC ONE ONE Stop: 03/23/19 20:48 Last Admin: 03/23/19 21:44 Dose: 15 units Documented by: [id number] Cosigned by: [id number] Ondansetron HCl (Zofran) 4 mg IV NOW STA Stop: 03/23/19 19:38 Last Admin: 03/23/19 19:56 Dose: 4 mg Documented by: [id number] Medical Decision Making Differential Diagnosis Differential Diagnosis: Sepsis, cellulitis, UTI, DKA, osteomyelitis, electrolyte or metabolic abnormality. Medical Records Attestation: I reviewed the patient's medical records. Home Medications Current Medication List: was personally reviewed by me Laboratory Data Attestation: I reviewed the patient's lab results. Result diagrams: 03/23/19 17:45 03/23/19 17:45 Lab Results 03/23/19 03/23/19 03/23/19 Range/Units 17:43 17:45 17:45 WBC 10.42 (4.8-10.8) K/uL RBC 3.86 L (4.7-6.1) M/uL Hgb 10.9 L (14.0-18.0) g/dL Hct 33.0 L (42-52) % MCV 85.5 (80-100) fL MCH 28.2 (25-34) pg MCHC 33.0 (32-36) g/dL Plt Count 268 (130-400) K/uL Immature Gran % (Auto) 0.5 % Neut % (Auto) 74.0 % Lymph % (Auto) 14.1 % [place] % (Auto) 10.7 % Eos % (Auto) 0.5 % Baso % (Auto) 0.2 % Immature Gran # (Auto) 0.05 H (0.00-0.02) K/uL Neut # (Auto) 7.71 H (1.4-6.5) K/uL Lymph # (Auto) 1.47 (1.2-3.4) K/uL [place] # (Auto) 1.12 H (0.11-0.59) K/uL Eos # (Auto) 0.05 (0-0.5) K/uL Baso # (Auto) 0.02 (0-0.2) K/uL ESR (0-14) mm/hr PT 12.2 H (9.0-12.0) Seconds INR 1.2 H (0.9-1.1) APTT 29.5 (21.0-31.0) Seconds PTT Ratio 1.1 Sodium (136-145) mmol/L Potassium (3.5-5.1) mmol/L Chloride (98-107) mmol/L Carbon Dioxide (21-32) mmol/L Anion Gap (3-11) BUN (7-18) mg/dl Creatinine (0.6-1.4) mg/dl Est Cr Clr Drug Dosing ml/min Est GFR ( Amer) Est GFR (Non-Af Amer) BUN/Creatinine Ratio (10-20) Glucose (70-99) mg/dl POC Glucose 332 H* (70-99) Lactate (0.4-2.0) mmol/L Calcium (8.5-10.1) mg/dl Total Bilirubin (0.2-1) mg/dl AST (15-37) U/L ALT (12-78) U/L Alkaline Phosphatase (45-117) U/L Troponin I (0-0.045) ng/ml C-Reactive Protein (0-0.29) mg/dl Total Protein (6.4-8.2) gm/dl Albumin (3.4-5.0) gm/dl Globulin (2.5-4.0) gm/dl Albumin/Globulin Ratio (0.9-2) Beta-Hydroxybutyric Acd (0.2-2.81) mg/dl 03/23/19 03/23/19 03/23/19 Range/Units 17:45 17:45 17:45 WBC (4.8-10.8) K/uL RBC (4.7-6.1) M/uL Hgb (14.0-18.0) g/dL Hct (42-52) % MCV (80-100) fL MCH (25-34) pg MCHC (32-36) g/dL Plt Count (130-400) K/uL Immature Gran % (Auto) % Neut % (Auto) % Lymph % (Auto) % [place] % (Auto) % Eos % (Auto) % Baso % (Auto) % Immature Gran # (Auto) (0.00-0.02) K/uL Neut # (Auto) (1.4-6.5) K/uL Lymph # (Auto) (1.2-3.4) K/uL [place] # (Auto) (0.11-0.59) K/uL Eos # (Auto) (0-0.5) K/uL Baso # (Auto) (0-0.2) K/uL ESR > 90 H (0-14) mm/hr PT (9.0-12.0) Seconds INR (0.9-1.1) APTT (21.0-31.0) Seconds PTT Ratio Sodium 130 L (136-145) mmol/L Potassium 4.5 (3.5-5.1) mmol/L Chloride 96 L (98-107) mmol/L Carbon Dioxide 28 (21-32) mmol/L Anion Gap 6.0 (3-11) BUN 16 (7-18) mg/dl Creatinine 1.07 (0.6-1.4) mg/dl Est Cr Clr Drug Dosing 57.5 ml/min Est GFR ( Amer) 71.0 Est GFR (Non-Af Amer) 61.2 BUN/Creatinine Ratio 15.1 (10-20) Glucose 309 H* (70-99) mg/dl POC Glucose (70-99) Lactate (0.4-2.0) mmol/L Calcium 8.0 L (8.5-10.1) mg/dl Total Bilirubin 0.6 (0.2-1) mg/dl AST 26 (15-37) U/L ALT 14 (12-78) U/L Alkaline Phosphatase 101 (45-117) U/L Troponin I 0.028 (0-0.045) ng/ml C-Reactive Protein 17.30 H Cancelled (0-0.29) mg/dl Total Protein 7.0 (6.4-8.2) gm/dl Albumin 2.3 L (3.4-5.0) gm/dl Globulin 4.7 H (2.5-4.0) gm/dl Albumin/Globulin Ratio 0.5 L (0.9-2) Beta-Hydroxybutyric Acd (0.2-2.81) mg/dl 03/23/19 03/23/19 Range/Units 18:49 19:11 WBC (4.8-10.8) K/uL RBC (4.7-6.1) M/uL Hgb (14.0-18.0) g/dL Hct (42-52) % MCV (80-100) fL MCH (25-34) pg MCHC (32-36) g/dL Plt Count (130-400) K/uL Immature Gran % (Auto) % Neut % (Auto) % Lymph % (Auto) % [place] % (Auto) % Eos % (Auto) % Baso % (Auto) % Immature Gran # (Auto) (0.00-0.02) K/uL Neut # (Auto) (1.4-6.5) K/uL Lymph # (Auto) (1.2-3.4) K/uL [place] # (Auto) (0.11-0.59) K/uL Eos # (Auto) (0-0.5) K/uL Baso # (Auto) (0-0.2) K/uL ESR (0-14) mm/hr PT (9.0-12.0) Seconds INR (0.9-1.1) APTT (21.0-31.0) Seconds PTT Ratio Sodium (136-145) mmol/L Potassium (3.5-5.1) mmol/L Chloride (98-107) mmol/L Carbon Dioxide (21-32) mmol/L Anion Gap (3-11) BUN (7-18) mg/dl Creatinine (0.6-1.4) mg/dl Est Cr Clr Drug Dosing ml/min Est GFR ( Amer) Est GFR (Non-Af Amer) BUN/Creatinine Ratio (10-20) Glucose (70-99) mg/dl POC Glucose (70-99) Lactate 1.3 (0.4-2.0) mmol/L Calcium (8.5-10.1) mg/dl Total Bilirubin (0.2-1) mg/dl AST (15-37) U/L ALT (12-78) U/L Alkaline Phosphatase (45-117) U/L Troponin I (0-0.045) ng/ml C-Reactive Protein (0-0.29) mg/dl Total Protein (6.4-8.2) gm/dl Albumin (3.4-5.0) gm/dl Globulin (2.5-4.0) gm/dl Albumin/Globulin Ratio (0.9-2) Beta-Hydroxybutyric Acd 4.71 H (0.2-2.81) mg/dl Imaging Data Attestation: I personally reviewed and interpreted this imaging study as follows: Radiologist's Impression: Radiology results as stated below per my review and the radiologist's interpretation: XR foot RT 2V CLINICAL HISTORY: Right first toe wound. Assess for osteomyelitis. COMPARISON STUDY: None. FINDINGS: 2 views of the right foot were submitted for review. The bones are osteopenic. Vascular calcifications are noted. Small soft tissue and bony bunion. Mild osteoarthritis throughout the right foot. No fracture or dislocation. Focal skin ulceration at the medial forefoot at the level of the first metatarsal shaft. This measures 1 cm. There appears to be subtle cortical lucency/erosion near the medial neck of the first metatarsal which measures 3 mm. This is concerning for a small focus of osteomyelitis. IMPRESSION: Focal skin ulceration at the medial forefoot at the level of the first metatarsal shaft. This measures 1 cm. There appears to be subtle cortical lucency/erosion near the medial neck of the first metatarsal which measures 3 mm. This is concerning for a small focus of osteomyelitis. Electronically signed by: Bonifacio Moscoso M.D. 03/23/2019 7:50 PM XR chest 1V portable HISTORY: Sepsis COMPARISON: Chest 11/01/2018. FINDINGS: No pneumothorax. No pleural effusions. The heart remains enlarged. Mi ld interstitial thickening has improved. Small linear right midlung zone density favor scarring or atelectasis. No new focal lung consolidations to suggest pneumonia. Posterior anatomy changes are noted. IMPRESSION: 1. Stable mild cardiomegaly. 2. Mild diffuse interstitial thickening has improved. This could represent mild congestive change or a chronic interstitial process. Electronically signed by: Bonifacio Moscoso M.D. 03/23/2019 7:47 PM ECG Data Attestation: I personally reviewed and interpreted this ECG as follows: Indication: weakness and other (foot infection) Rate (beats per minute): 88 Rhythm: normal sinus Findings: + other (poor R-wave progression), + 1st degree AV block and + left axis deviation Comparison ECG Date: from (November 29 2018) Change: no significant change Blood Pressure Blood Pressure Findings: Normal blood pressure Blood Pressure Disposition: further management by hospitalist COLLEEN Rowe This patient comes in as described above he has been weak and ill since this mor darrion. His said he did have a temperature at home his blood pressure was low. he is normotensive here. He is sleeping but arousable. His foot has significant eschar with gangrene and redness with red streaks consistent with cellulitis and concern for osteomyelitis. IV access was established she was hydrated with an IV fluid bolus. Blood work was obtained include blood cultures and lactic acid. Also order urinalysis and culture x-ray of the foot was obtained. I have reviewed his old records and after seeing him and I did order broad-spectrum IV antibiotic coverage for the foot which included IV vancomycin and IV cefepime and he has had both of these medications before. EKG does not suggest acute coronary syndrome or arrhythmia. Chest x-ray does not show any definite pneumonia. His white count and lactic acid are not significant elevated. His blood sugar is elevated 300 however he is not acidotic. I do think he needs to be admitted for IV antibiotics and I am concerned that he is getting septic. I have consult the [facility] hospitalist to see him for these measures. Impression & Plan Sepsis, Cellulitis, Gangrene, Acute hyperglycemia Critical Care Time Critical Care Time: Yes Total Critical Care Time: 30 I have personally spent greater than 30 minutes of critical care time in the direct management of this patient. This includes bedside care, interpretation of diagnostic studies, and testing, discussion with consultants, patient, and family members, and other required patient management activities. This 30 keisha tanner is in excess of all separately billable procedures. Discharge Plan Visit Data *Final* Discharge Date/Time: 03/23/19 20:28 Chief Complaint: Hyperglycemia ED Provider: Sameer Sharp Discharge Problem: Sepsis, Cellulitis, Gangrene, Acute hyperglycemia Patient Disposition: Admitted As Inpatient Discharge Instructions Interventions: ED Discharge Assessment Last Done: 03/23/19 20:28 Discharge Problem: Sepsis Qualifiers: Sepsis type: sepsis due to unspecified organism Qualified Code(s): A41.9 - Sepsis, unspecified organism Cellulitis Qualifiers: Site of cellulitis: unspecified site Qualified Code(s): L03.90 - Cellulitis, unspecified The scribe's documentation has been prepared under my direction and personally reviewed by me in its entirety. I confirm that the note above accurately reflects all work, treatment, procedures, and medical decision making performed by me.
[2019-03-23 18:58] LABS: Basophils # (auto) 0.02 K/uL (0-0.2); Basophils % (auto) 0.2 %; Eosinophils # (auto) 0.05 K/uL (0-0.5); Eosinophils % (auto) 0.5 %; Hemoglobin 10.9 g/dL (14.0-18.0); Immature Granulocytes # (auto) 0.05 K/uL (0.00-0.02); Immature Granulocytes % (auto) 0.5 %; Lymphocytes # (auto) 1.47 K/uL (1.2-3.4); Lymphocytes % (auto) 14.1 %; Mean Corpuscular Volume 85.5 fL (80-100); Monocytes # (auto) 1.12 K/uL (0.11-0.59); Monocytes % (auto) 10.7 %; Neutrophils # (auto) 7.71 K/uL (1.4-6.5); Platelet Count 268 K/uL (130-400); Red Blood Count 3.86 M/uL (4.7-6.1); White Blood Count 10.42 K/uL (4.8-10.8)
[2019-03-23 19:02] LABS: INR 1.2 (0.9-1.1); Partial Thromboplastin Ratio 1.1; Partial Thromboplastin Time 29.5 Seconds (21.0-31.0); Prothrombin Time 12.2 Seconds (9.0-12.0)
[2019-03-23 19:06] LABS: Albumin Level 2.3 gm/dl (3.4-5.0); BUN Creatinine Ratio 15.1 (10-20); Creatinine Clr Calc Pharmacy 57.5 ml/min; Est GFR (Non-African American) 61.2; Potassium 4.5 mmol/L (3.5-5.1)
[2019-03-23 19:08] LABS: Albumin Globulin Ratio 0.5 (0.9-2); Bilirubin,Total 0.6 mg/dl (0.2-1); Globulin 4.7 gm/dl (2.5-4.0); Troponin I 0.028 ng/ml (0-0.045)
[2019-03-23] MEDS ORDERED: ONDANSETRON INJ 2 MG/ML 2 ML VIAL IV STA (19:37)
--- NOTE | 2019-03-23 19:48 | XRay Report ---
XR chest 1V portable HISTORY: Sepsis COMPARISON: Chest 11/01/2018. FINDINGS: No pneumothorax. No pleural effusions. The heart remains enlarged. Mild interstitial thicke darrion has improved. Small linear right midlung zone density favor scarring or atelectasis. No new foca l lung consolidations to suggest pneumonia. Posterior anatomy changes are noted. IMPRESSION: 1. Stable mild cardiomegaly. 2. Mild diffuse interstitial thickening has improved. This could represent mild congestive change or a chronic interstitial process. Electronically signed by: Bonifacio Moscoso M.D. 03/23/2019 7:47 PM
--- NOTE | 2019-03-23 19:51 | XRay Report ---
XR foot RT 2V CLINICAL HISTORY: Right first toe wound. Assess for osteomyelitis. COMPARISON STUDY: None. FINDINGS: 2 views of the right foot were submitted for review. The bones are osteopenic. Vascular elkin cifications are noted. Small soft tissue and bony bunion. Mild osteoarthritis throughout the right fo ot. No fracture or dislocation. Focal skin ulceration at the medial forefoot at the level of the firs t metatarsal shaft. This measures 1 cm. There appears to be subtle cortical lucency/erosion near the medial neck of the first metatarsal which measures 3 mm. This is concerning for a small focus of oste omyelitis. IMPRESSION: Focal skin ulceration at the medial forefoot at the level of the first metatarsal shaft. This measures 1 cm. There appears to be subtle cortical lucency/erosion near the medial neck of the first metatarsal which measures 3 mm. This is concerning for a small focus of osteomyelitis. Electronically signed by: Bonifacio Moscoso M.D. 03/23/2019 7:50 PM
--- NOTE | 2019-03-23 20:31 | History & Physical Report ---
Date of Service March 23, 2019 Assessment & Plan (1) Osteomyelitis: (2) Diabetic foot infection: -Admit to [facility] -Patient presenting from home for evaluation of right foot wound -Patient with history of diabetes and diabetic neuropathy, reportedly treated for right foot wound infection January 2019 at [facility] - reports complete resolution of wound at that time -In the ED, right foot x-ray showing osteomyelitis the first metatarsal -Does not appear septic -S/P cefepime and Vanco in the ED, will continue with both -Blood cultures obtained -Check right lower extremity arterial Doppler to evaluate for blood flow -Check ESR and CRP and trend -Orthopedics consult -Wound care consult (3) Diabetes mellitus, type II: -Hgb A1c 8.7 01/2019 -Blood sugar currently 309 in the setting of infection; no signs of DKA -Hold home Novolin, NovoLog, metformin; utilize Lantus and NovoLog per protocol while hospitalized (4) Coronary artery disease: -Stable, no reports of chest pain -Continue aspirin, statin, beta-emani (5) Chronic respiratory failure with hypoxia, on home O2 therapy: (6) COPD (chronic obstructive pulmonary disease): -Stable, no signs of acute exacerbation -Saturating well on chronic 2 L of oxygen (7) Hypertension: -BP stable, continue carvedilol (8) Cerebrovascular disease: -Continue aspirin and statin (9) Aortic stenosis: -Stable, monitor volume status closely -Echo 06/2018 demonstrated severe aortic valve stenosis (10) BPH (benign prostatic hyperplasia): -Continue finasteride and tamsulosin (11) Diabetic neuropathy: -Continue gabapentin (12) DVT prophylaxis: -SQ heparin History of Present Illness Chief Complaint: Right foot wound Primary Care Provider: Shin Dela Cruz MD 88-year-old male who presents the ED for evaluation of right foot wound. is the bedside who provides some history. She reports that a couple of months ago, patient was treated at the [facility] for a right foot wound. Reports that he was on doxycycline and wound had completely healed. Wound has been progressing again over the past few weeks with an acute worsening yesterday. 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 Today, patient was very weak and lethargic. He had a fever of 100.3. No chills or rigors. Patient denies chest pain shortness of breath. No lightheadedness, dizziness, diaphoresis, syncopal events. Denies abdominal pain, nausea, vomiting, diarrhea. No urinary symptoms. In the ED, patient is hemodynamically stable and labs are unremarkable with exception of hyperglycemia. Right foot x-ray is showing osteomyelitis of the first metatarsal. Patient was given IVF, IV Vanco, IV cefepime, IV Zofran. Allergies Allergy/AdvReac Type Severity Reaction Status Date / Time Iodinated Contrast- Oral and Allergy Severe Edema-face/lips/tongue. Verified 03/23/19 18:48 IV Dye Hives/Rash. dipyridamole Allergy Intermediate Hallucinati Verified 03/23/19 18:48 ons formaldehyde Allergy Intermediate Hives/Rash Verified 03/23/19 18:48 Cipro Allergy Unknown Hives Verified 07/15/17 11:48 lisinopril Allergy Unknown UNKNOWN Verified 03/23/19 18:48 ciprofloxacin AdvReac Unknown CONSTIPATIO Verified 03/23/19 18:48 N yellow socks Allergy Intermediate contact Uncoded 03/23/19 18:48 rash (formaldehyde used to preserve yellow color) Home Medications Home Medications Medication Instructions Recorded Confirmed Type Eucerin Skin Calming 1 applic TOPICAL UD 09/13/18 03/23/19 History Simbrinza 1 drp OPR BID 09/13/18 03/23/19 History TheraTears 1 drp OPB QID 09/13/18 03/23/19 History aspirin [Aspir-81] 81 mg PO DAILY 09/13/18 03/23/19 History benzoyl peroxide 1 applic TOPICAL DAILY PRN 09/13/18 03/23/19 History cholecalciferol (vitamin D3) 2,000 unit PO DAILY 09/13/18 03/23/19 History [Vitamin D3] cyanocobalamin (vitamin B-12) 1,000 mcg PO DAILY 09/13/18 03/23/19 History cyclobenzaprine 10 mg PO HS 09/13/18 03/23/19 History docusate sodium 100 mg PO DAILY 09/13/18 03/23/19 History finasteride 5 mg PO DAILY 09/13/18 03/23/19 History hydrocortisone 1 applic TOPICAL BID 09/13/18 03/23/19 History lutein 20 mg PO DAILY 09/13/18 03/23/19 History metformin 1,000 mg PO BIDM 09/13/18 03/23/19 History nitroglycerin [Nitrostat] 0.4 mg SUBLINGUAL UD PRN 09/13/18 03/23/19 History nystatin 1 applic TOPICAL UD PRN 09/13/18 03/23/19 History selenium sulfide 1 applic TOPICAL UD 09/13/18 03/23/19 History simvastatin [Zocor] 10 mg PO Q2D 09/13/18 03/23/19 History tamsulosin 0.4 mg PO DAILY 09/13/18 03/23/19 History tramadol [Ultram] 50 mg PO Q6 PRN 09/13/18 03/23/19 History acetaminophen [Mapap 650 mg PO Q4H PRN #100 tab 10/31/18 03/23/19 Rx (acetaminophen)] ascorbic acid (vitamin C) [Vitamin 1,000 mg PO BID #90 tab 10/31/18 03/23/19 Rx C] carvedilol 6.25 mg PO BID #20 tab 11/04/18 03/23/19 Rx gabapentin 300 mg PO TID 03/23/19 03/23/19 History insulin NPH isoph U-100 human 50 unit SC QAM 03/23/19 03/23/19 History [Novolin N NPH U-100 Insulin] insulin aspart U-100 [Novolog 16 unit SC QDD 03/23/19 03/23/19 History Flexpen U-100 Insulin] melatonin 10 mg PO HS PRN 03/23/19 03/23/19 History Past Med/Surg History Medical History GERD (gastroesophageal reflux disease) (Chronic) Arthritis (Chronic) BPH (benign prostatic hyperplasia) (Chronic) Chronic respiratory failure with hypoxia, on home O2 therapy (Chronic) COPD (chronic obstructive pulmonary disease) (Chronic) Diabetic neuropathy (Chronic) Hypertension (Chronic) Constipation (Chronic) 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) Coronary artery disease (Chronic) "PCI + stenting LAD 1997 CABG x 3 2000 cath 03/11/13 showed patent LAD graft, patent SVG to circ marginal, occluded SVG to RCA" Hypertension (Chronic) Benign prostatic hyperplasia (Chronic) Diabetes mellitus, type II (Chronic) Chronic respiratory failure (Chronic) "home O2 2 LPM at night + PRN" Dyslipidemia (Chronic) Hyperhomocysteinemia (Chronic) Diabetic retinopathy (Chronic) Cerebrovascular disease (Chronic) "s/p stroke with right hemiparesis" Aortic stenosis (Chronic) "1.1 cm2 by echo 2011 and cath 2012" Surgical History S/P CABG x 3 (Chronic) History of cataract surgery (Chronic) Hx of cholecystectomy (Chronic) Status post coronary artery bypass grafting (Chronic) "radial artery to LAD, SVG to circ marginal, SVG to RCA" Status post cardiac catheterization (Chronic) "03/11/[address] [facility] [address] Durant patent LAD graft, patent SVG to circ marginal, occluded SVG to RCA" Status post cholecystectomy (Chronic) Family History Sister Diabetes Social History Preferred Language: Zambian Communication Ability: Effective Visual Impairment: No Limitations Beliefs That Will Affect Care: None marital status: Current Living Situation: Spouse Feels Safe at Home: Yes Smoking Status: Never smoker Second Hand Exposure: No Hx Alcohol Use: No Hx Substance Use: No Review of Systems Review of Systems: ROS per HPI, all other systems reviewed and negative Physical Exam Physical Exam: Please refer to Dr. Rodriguez's addendum for physical exam. Results & Data Vital Signs (Past 12 Hours) Vital Signs Temp Pulse Resp BP Pulse Ox 03/23/19 20:01 80 21 143/78 H 93 03/23/19 20:00 80 19 96 03/23/19 19:31 80 19 133/116 H 96 03/23/19 19:30 82 17 97 03/23/19 19:02 79 28 H 146/80 H 03/23/19 19:00 78 23 96 03/23/19 18:31 78 17 135/86 96 03/23/19 18:30 79 20 87 L 03/23/19 18:29 79 22 97 03/23/19 18:19 78 16 96 03/23/19 18:18 78 29 H 140/56 L 95 03/23/19 18:00 83 22 96 03/23/19 17:48 37.3 C 22 139/91 95 03/23/19 17:45 80 23 94 Laboratory Results Short CBC 03/23/19 Range/Units 17:45 WBC 10.42 (4.8-10.8) K/uL Hgb 10.9 L (14.0-18.0) g/dL Hct 33.0 L (42-52) % Plt Count 268 (130-400) K/uL BMP 03/23/19 17:45 Sodium 130 L Potassium 4.5 Chloride 96 L Carbon Dioxide 28 BUN 16 Creatinine 1.07 Glucose 309 H* Calcium 8.0 L Cardiac Enzymes 03/23/19 Range/Units 17:45 Troponin I 0.028 (0-0.045) ng/ml Liver Function 03/23/19 Range/Units 17:45 Total Bilirubin 0.6 (0.2-1) mg/dl AST 26 (15-37) U/L ALT 14 (12-78) U/L Alkaline Phosphatase 101 (45-117) U/L Albumin 2.3 L (3.4-5.0) gm/dl Diagnostic Findings CXR IMPRESSION: 1. Stable mild cardiomegaly. 2. Mild diffuse interstitial thickening has improved. This could represent mild congestive change or a chronic interstitial process. RIGHT FOOT X-RAY IMPRESSION: Focal skin ulceration at the medial forefoot at the level of the first metatarsal shaft. This measures 1 cm. There appears to be subtle cortical lucency/erosion near the medial neck of the first metatarsal which measures 3 mm. This is concerning for a small focus of osteomyelitis. Code Status & VTE Plan Code Status Patient is a DNR as per my discussion with patient's as well as living will copy placed on patient's chart. Supervising Physician Co-Signing Physician Notes Patient is an 88-year-old male with history of diabetes, coronary artery disease, hypertension, chronic respiratory failure secondary to COPD on oxygen dependency, aortic stenosis, CVA and other problems presents with history of generalized weakness, progressively worsening right foot wound infection. Patient was noted to have fever today. No known history of chest pain, shortness of breath, dizziness, abdominal pain, diarrhea, dysuria. [facility] Right foot x-ray suggestive of right foot focal skin ulceration at the medial forefoot, cortical lucency/erosion near the medial neck of the first metatarsal suggestive of possible focus of osteomyelitis. Patient has chronic neuropathy and has no pain in the foot. Patient is diabetic and is last A1c was 8.7. He was noted to be hyperglycemic while in ED. Please review HPI for complete details of presentation. Patient is admitted for management of acute osteomyelitis of the right foot. Orthopedics is consulted for possible amputation. Patient will be started on IV vancomycin, cefepime. Blood cultures obtained. Check arterial Dopplers. Consider vascular surgery evaluation and IV heparin based on further investigations. Will control hyperglycemia with insulin therapy. Keep him n.p.o. after midnight for possible procedure. Wound care consulted. Code Status: DNI/DNR. Physical Exam: Vitals signs as noted above General Appearance: Chronically ill-appearing, elderly, no apparent distress Head: normocephalic, Atraumatic, + hearing aids Eyes: normal inspection, EOMI Neck: supple, Trachea midline Respiratory/Chest: Normal breath sounds, CTA Cardiovascular: S1, S2, + systolic murmur Abdomen/GI:Soft, Non tender, Bowel sounds present Extremities/Musculoskelatal:normal inspection, no edema, + Right foot erythematous, gangrenous medical right foot ulceration with yellowish discharge Neurologic/Psych:AAOX3, grossly no focal neurological deficits Skin: normal color, warm I personally reviewed the record. Patient is interviewed and examined at bedside. Patient's care is coordinated with Judy Gavin [facility]. Please refer to the documentation above for details of patient's presentation and for discussion of other issues.
[2019-03-23] MEDS ORDERED: INSULIN GLARGINE SOLOSTAR 100 UNITS/ML 3 ML PEN SC ONE (20:47)
[2019-03-23] MEDS ORDERED: GLUCOSE 40% GEL 15 GM TUBE PO PRN (20:47)
[2019-03-23] MEDS ORDERED: CARBOHYDRATES FOR HYPOGLYCEMIA PO PRN (20:47)
[2019-03-23] MEDS ORDERED: DEXTROSE 50% 50 ML SYRINGE IV PRN (20:47)
[2019-03-23] MEDS ORDERED: GLUCOSE 10 TABS/TUBE PO PRN (20:47)
[2019-03-23] MEDS ORDERED: GLUCAGON FOR INJ 1 MG VIAL SQ PRN (20:47)
[2019-03-23] MEDS ORDERED: INSULIN ASPART 100 UNITS/ML 3 ML PEN SC SCH (21:00)
[2019-03-23 21:21] LABS: C Reactive Protein 17.3 mg/dl (0-0.29)
[2019-03-23] MEDS: SODIUM CHLORIDE 0.9% 1000ML 1,000 ML IV SCH (21:29)
[2019-03-23] MEDS: HEPARIN SOD 5,000 UNIT/0.5 ML VIAL SQ SCH (21:47)
[2019-03-23] MEDS: CARVEDILOL 6.25 MG TAB PO SCH (21:48)
[2019-03-23] MEDS: CYCLOBENZAPRINE HCL 10 MG TAB PO SCH (21:52)
[2019-03-23] MEDS: ASCORBIC ACID 500 MG TAB PO SCH (21:52)
[2019-03-23] MEDS: GABAPENTIN 300 MG CAP PO SCH (21:52)
--- NOTE | 2019-03-23 22:09 | Pharmacy Report ---
Pharmacy Abx Initial Consult - Date of Service March 23, 2019 - Pharmacy Dosing Scope Date of Consult: 03/23 Consultation requested by: Judy Gavin Pharmacy is consulted to initiate vancomycin dosing therapy, order appropriate labs and adjust drug dose/frequency. - Subjective The patient is a 88 year old M admitted on 03/23/19 19:43. - Objective Height: 6 ft Weight: 100.9 kg Lab Results (24hrs): Laboratory Tests (24 Hours) 03/23/19 03/23/19 03/23/19 17:45 17:45 17:45 WBC 10.42 Neut # (Auto) 7.71 H Creatinine 1.07 Est Cr Clr Drug Dosing 57.5 C-Reactive Protein Cancelled 17.30 H Micro Results: 03/23/19 18:49 Aerobic Blood Culture - Pending Blood Anaerobic Blood Culture - Pending 03/23/19 19:01 Aerobic Blood Culture - Pending Blood Anaerobic Blood Culture - Pending - Assessment & Plan Assessment 88 year old male admitted with diabetic foot infection, in ER x ray concerning for osteomyelitis. Vancomycin: * 2000 mg x 1 given as loading dose (~20 mg/kg) * Will start maintenance dose of vancomycin 1250 mg iv q 16 hrs to achieve an estimated trough ~15-20 mcg/ml * Estimated kinetics: t1/2~14 hr, ke~0.05 hr-1, CrCl ~57 ml/min * Will continue to follow closely - based upon previous pharmacokinetic data patient does tend to accumulate vancomycin so would recommend transition to a different agent once cultures return Pharmacy will continue to follow and will adjust dose/frequency as necessary. Thank you.
[2019-03-23] MEDS: BRIMONIDINE TARTRATE 0.2% 5ML OPR SCH (22:20)
[2019-03-23] MEDS: BRINZOLAMIDE (AZOPT) OPS 10 ML BTL OPR SCH (22:24)
[2019-03-23] MEDS: ARTIFICIAL TEARS OPB SCH (22:26)
[2019-03-24] MEDS ORDERED: INSULIN ASPART 100 UNITS/ML 3 ML PEN SC ONE (02:00)
[2019-03-24] MEDS: TRAMADOL HCL 50 MG TABLET PO PRN (02:24)
[2019-03-24 05:58] LABS: Hematocrit (blood only) 31.4 % (42-52); Hemoglobin 10.2 g/dL (14.0-18.0); Mean Corpuscular Hgb Conc 32.5 g/dL (32-36); Mean Corpuscular Volume 84.4 fL (80-100); Platelet Count 275 K/uL (130-400); RDW Coefficient of Variation 13.9 % (11.5-14.5); RDW Standard Deviation 42.5 fL (36.4-46.3); Red Blood Count 3.72 M/uL (4.7-6.1); White Blood Count 8.71 K/uL (4.8-10.8)
[2019-03-24] MEDS: HEPARIN SOD 5,000 UNIT/0.5 ML VIAL SQ SCH ×3 (06:14→21:32)
[2019-03-24] MEDS: INSULIN ASPART 100 UNITS/ML 3 ML PEN SC SCH ×4 (06:22→21:29)
[2019-03-24 06:29] LABS: BUN Creatinine Ratio 15.5 (10-20); Calcium 8.4 mg/dl (8.5-10.1); Creatinine Clr Calc Pharmacy 62.8 ml/min; Est GFR (African American) 78.9; Est GFR (Non-African American) 68.1; Potassium 4.3 mmol/L (3.5-5.1)
--- NOTE | 2019-03-24 07:06 | Ultrasound Report ---
US arterial duplex LE RT HISTORY: 88 years-old Male non healing wound chronic nonhealing wound of the right lower extremity COMPARISON: Right foot radiographs 03/23/2019 TECHNIQUE: Multiple real time sonographic images of the arterial structures about the right lower ext remity were obtained assessing grayscale appearance, color and spectral flow FINDINGS: Posterior tibial and dorsalis pedis arteries are noncompressible, therefore segmental blood pressures were unable to be obtained. Triphasic waveforms noted within the common femoral artery. Extensive calcified plaque noted througho ut the right lower extremity. Triphasic waveforms noted within the profunda femoris and proximal supe rficial femoral artery. Biphasic waveforms within the mid and distal superficial femoral artery. Blun demetria monophasic waveforms about the popliteal artery. Occlusion of the proximal to mid posterior tibia l artery with distal reconstitution noted with blunted monophasic waveforms. Blunted monophasic wavef orms noted within the peroneal artery with elevated peak systolic velocities measuring up to 196 cm/s . Monophasic waveforms within the anterior tibial artery are noted with elevated peak systolic veloci ties measuring up to 205 cm/s. Blunted monophasic waveforms with spectral broadening noted about the dorsalis pedis artery, peak systolic velocities measuring up to 14.3 cm/s. IMPRESSION: 1. Occlusion of the proximal to mid posterior tibial artery with distal reconstitution. 2. Elevated peak systolic velocities about the peroneal and anterior tibial arteries suggestive of hi gh-grade stenosis. 3. Extensive calcified plaque throughout the right lower extremity arterial structures. The above report was generated using voice recognition software. It may contain grammatical, syntax o r spelling errors. Electronically signed by: Bryce Flynn M.D. 03/24/2019 7:05 AM
[2019-03-24] MEDS ORDERED: CEFEPIME 2,000 MG in SYRINGE 7.5 ML IV SCH (08:00)
[2019-03-24] MEDS: BRINZOLAMIDE (AZOPT) OPS 10 ML BTL OPR SCH ×2 (08:04→21:21)
[2019-03-24] MEDS: ARTIFICIAL TEARS OPB SCH ×4 (08:05→21:24)
[2019-03-24] MEDS: CHOLECALCIFEROL 1,000 UNITS TAB PO SCH (08:07)
[2019-03-24] MEDS: ASPIRIN 81 MG ECTAB PO SCH (08:07)
[2019-03-24] MEDS: ASCORBIC ACID 500 MG TAB PO SCH ×2 (08:08→21:20)
[2019-03-24] MEDS: SACCHAROMYCES BOULARDII 250 MG CAP PO SCH (08:08)
[2019-03-24] MEDS: CYANOCOBALAMIN 500 MCG TABLET (VITAMIN B-12) PO SCH (08:08)
[2019-03-24] MEDS: GABAPENTIN 300 MG CAP PO SCH ×3 (08:09→21:22)
[2019-03-24] MEDS: CARVEDILOL 6.25 MG TAB PO SCH ×2 (08:09→21:25)
[2019-03-24] MEDS: FINASTERIDE 5 MG TAB PO SCH (08:09)
[2019-03-24] MEDS: TAMSULOSIN HCL 0.4 MG CAP PO SCH (08:09)
[2019-03-24] MEDS: DOCUSATE SODIUM 100 MG CAP PO SCH (08:09)
[2019-03-24] MEDS ORDERED: NON-FORMULARY MEDICATION (Lutein 20 MG) PO SCH (09:00)
[2019-03-24] MEDS: SODIUM CHLORIDE 0.9% 1000ML 1,000 ML IV SCH (09:35)
[2019-03-24] MEDS: INSULIN GLARGINE SOLOSTAR 100 UNITS/ML 3 ML PEN SC SCH ×3 (09:44→21:30)
[2019-03-24] MEDS: BRIMONIDINE TARTRATE 0.2% 5ML OPR SCH ×2 (09:46→21:24)
[2019-03-24] MEDS ORDERED: VANCOMYCIN HCL 1,250 MG in SODIUM CHLORIDE 0.9% 250 ML IV SCH (10:00)
--- NOTE | 2019-03-24 12:49 | Orthopedic Consultation ---
Date of Consultation March 24, 2019 Assessment & Plan (1) Gangrene: Dry gangrene first digit right foot, questionable osteo Continue with IV antibiotics, nonweightbearing right lower extremity, wound care, will likely require vascular surgery evaluation and intervention to determine/improve viability/healing of right lower extremity. Patient will require some degree of I&D and amputation. Patient's adamantly against amputation at this time. Recommend MRI, will have foot and ankle specialist, Dr. Rivera follow-up results and provide further recommendations/treatment. Thank you for the consultation. History of Present Illness Reason for Consultation: Right foot ulcer/osteo Attending Physician: August Garrett MD History of Present Illness The patient is a 88 year old male with signficant PMHx for GERD, BPH COPD, DM, neuropathy, CAD s/p CABG, HTN, HLD, CVA and aortic stenosis who presents with right foot ulcer since December 2018. The majority of the history obtained by , patient is poor historian. Foot ulcer progressively worsened over the last couple of months, treated with doxy as outpatient and has been seen by podiatric surgery in [place]. Denies fevers, chills, nausea, vomiting at this time. Patient has b/l LE neuropathy at baseline. Allergies Allergy/AdvReac Type Severity Reaction Status Date / Time Iodinated Contrast- Oral and Allergy Severe Edema-face/lips/tongue. Verified 03/23/19 18:48 IV Dye Hives/Rash. dipyridamole Allergy Intermediate Hallucinati Verified 03/23/19 18:48 ons formaldehyde Allergy Intermediate Hives/Rash Verified 03/23/19 18:48 Cipro Allergy Unknown Hives Verified 07/15/17 11:48 lisinopril Allergy Unknown UNKNOWN Verified 03/23/19 18:48 ciprofloxacin AdvReac Unknown CONSTIPATIO Verified 03/23/19 18:48 N yellow socks Allergy Intermediate contact Uncoded 03/23/19 18:48 rash (formaldehyde used to preserve yellow color) Home Medications Home Medications Medication Instructions Recorded Confirmed Type Eucerin Skin Calming 1 applic TOPICAL UD 09/13/18 03/23/19 History Simbrinza 1 drp OPR BID 09/13/18 03/23/19 History TheraTears 1 drp OPB QID 09/13/18 03/23/19 History aspirin [Aspir-81] 81 mg PO DAILY 09/13/18 03/23/19 History benzoyl peroxide 1 applic TOPICAL DAILY PRN 09/13/18 03/23/19 History cholecalciferol (vitamin D3) 2,000 unit PO DAILY 09/13/18 03/23/19 History [Vitamin D3] cyanocobalamin (vitamin B-12) 1,000 mcg PO DAILY 09/13/18 03/23/19 History cyclobenzaprine 10 mg PO HS 09/13/18 03/23/19 History docusate sodium 100 mg PO DAILY 09/13/18 03/23/19 History finasteride 5 mg PO DAILY 09/13/18 03/23/19 History hydrocortisone 1 applic TOPICAL BID 09/13/18 03/23/19 History lutein 20 mg PO DAILY 09/13/18 03/23/19 History metformin 1,000 mg PO BIDM 09/13/18 03/23/19 History nitroglycerin [Nitrostat] 0.4 mg SUBLINGUAL UD PRN 09/13/18 03/23/19 History nystatin 1 applic TOPICAL UD PRN 09/13/18 03/23/19 History selenium sulfide 1 applic TOPICAL UD 09/13/18 03/23/19 History simvastatin [Zocor] 10 mg PO Q2D 09/13/18 03/23/19 History tamsulosin 0.4 mg PO DAILY 09/13/18 03/23/19 History tramadol [Ultram] 50 mg PO Q6 PRN 09/13/18 03/23/19 History acetaminophen [Mapap 650 mg PO Q4H PRN #100 tab 10/31/18 03/23/19 Rx (acetaminophen)] ascorbic acid (vitamin C) [Vitamin 1,000 mg PO BID #90 tab 10/31/18 03/23/19 Rx C] carvedilol 6.25 mg PO BID #20 tab 11/04/18 03/23/19 Rx gabapentin 300 mg PO TID 03/23/19 03/23/19 History insulin NPH isoph U-100 human 50 unit SC QAM 03/23/19 03/23/19 History [Novolin N NPH U-100 Insulin] insulin aspart U-100 [Novolog 16 unit SC QDD 03/23/19 03/23/19 History Flexpen U-100 Insulin] melatonin 10 mg PO HS PRN 03/23/19 03/23/19 History Patient History Medical History GERD (gastroesophageal reflux disease) (Chronic) Arthritis (Chronic) BPH (benign prostatic hyperplasia) (Chronic) Chronic respiratory failure with hypoxia, on home O2 therapy (Chronic) COPD (chronic obstructive pulmonary disease) (Chronic) Diabetic neuropathy (Chronic) Hypertension (Chronic) Constipation (Chronic) 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) Coronary artery disease (Chronic) "PCI + stenting LAD 1997 CABG x 3 2000 cath 03/11/13 showed patent LAD graft, patent SVG to circ marginal, occluded SVG to RCA" Hypertension (Chronic) Benign prostatic hyperplasia (Chronic) Diabetes mellitus, type II (Chronic) Chronic respiratory failure (Chronic) "home O2 2 LPM at night + PRN" Dyslipidemia (Chronic) Hyperhomocysteinemia (Chronic) Diabetic retinopathy (Chronic) Cerebrovascular disease (Chronic) "s/p stroke with right hemiparesis" Aortic stenosis (Chronic) "1.1 cm2 by echo 2011 and cath 2012" Surgical History S/P CABG x 3 (Chronic) History of cataract surgery (Chronic) Hx of cholecystectomy (Chronic) Status post coronary artery bypass grafting (Chronic) "radial artery to LAD, SVG to circ marginal, SVG to RCA" Status post cardiac catheterization (Chronic) "03/11/[address] [facility] [address] Durant patent LAD graft, patent SVG to circ marginal, occluded SVG to RCA" Status post cholecystectomy (Chronic) Family History Sister Diabetes Social History Preferred Language: Maltese Communication Ability: Impaired Visual Impairment: No Limitations Beliefs That Will Affect Care: None marital status: Current Living Situation: Spouse Feels Safe at Home: Yes Smoking Status: Never smoker Second Hand Exposure: No Hx Alcohol Use: No Hx Substance Use: No Review of Systems Review of Systems: All systems reviewed & are unremarkable except as noted in HPI & below and Unobtainable due to cognitive status Constitutional: as per Subjective / HPI Physical Exam Physical Exam: Right lower extremity, decreased sensation at baseline, limi demetria exam secondary to patient not following commands. Medial forefoot necrosis/dry gangrene with erythema of the midfoot. Actively moves RLE hip, knee and ankle. +2 dorsalis pedis pulse. Compartment soft nontender. No active drainage or purulence. Constitutional: WD/WN, vitals as above Results & Data Vital Signs (Past 12 Hours) Vital Signs Temp Pulse Resp BP Pulse Ox 03/24/19 08:15 91 H 103/63 03/24/19 07:00 36.9 C 97 H 20 108/68 93 Diagnostic Findings XR foot RT 2V CLINICAL HISTORY: Right first toe wound. Assess for osteomyelitis. COMPARISON STUDY: None. FINDINGS: 2 views of the right foot were submitted for review. The bones are osteopenic. Vascular calcifications are noted. Small soft tissue and bony bunion. Mild osteoarthritis throughout the right foot. No fracture or dislocation. Focal skin ulceration at the medial forefoot at the level of the first metatarsal shaft. This measures 1 cm. There appears to be subtle cortical lucency/erosion near the medial neck of the first metatarsal which measures 3 mm. This is concerning for a small focus of osteomyelitis. IMPRESSION: Focal skin ulceration at the medial forefoot at the level of the first metatarsal shaft. This measures 1 cm. There appears to be subtle cortical lucency/erosion near the medial neck of the first metatarsal which measures 3 mm. This is concerning for a small focus of osteomyelitis.
[2019-03-24] MEDS ORDERED: Nursing to Pharmacy Communication ONE (14:35)
[2019-03-24] MEDS: CEFEPIME 2,000 MG in SYRINGE 7.5 ML IV SCH (15:37)
--- NOTE | 2019-03-24 15:58 | Magnetic Resonance Report ---
MR foot RT w/o con HISTORY: Abnormal x-ray. foot ulcer, osteo TECHNIQUE: Multiplanar multisequence MRI of the right forefoot was performed without the use of intra venous contrast. COMPARISON STUDY: Right foot radiograph 03/23/2019. FINDINGS: Redemonstration of the focal skin ulceration within the medial aspect of the forefoot at th e level of the neck of the first metatarsal. This measures approximately 1.4 cm. There is significant motion artifact throughout the forefoot. This results in nondiagnostic evaluation of the first metat arsal and first toe. There is soft tissue edema throughout the plantar aspect of the forefoot. No def inite loculated fluid collections to suggest an abscess. Moderate osteoarthritis of the first MTP francis nt. No definite fracture or dislocation within the forefoot. IMPRESSION: 1. Redemonstration of the 1.4 cm focal skin ulceration within the medial aspect of the forefoot at th e level of the first metatarsal neck. 2. Nondiagnostic evaluation for osteomyelitis at the first metatarsal and first toe due to the signif icant motion artifact. 3. Soft tissue edema within the plantar surface of the foot. Electronically signed by: Bonifacio Moscoso M.D. 03/24/2019 3:57 PM
[2019-03-24] MEDS ORDERED: DAPTOmycin 500 MG VIAL IV SCH (16:00)
[2019-03-24] MEDS ORDERED: SIMVASTATIN 20 MG TAB PO SCH (21:00)
[2019-03-24] MEDS: CYCLOBENZAPRINE HCL 10 MG TAB PO SCH (21:19)
[2019-03-24] MEDS: MELATONIN PO SCH (21:21)
--- NOTE | 2019-03-24 22:38 | Hospitalist Progress Note ---
Date of Service March 24, 2019 Assessment & Plan (1) Diabetic foot infection: Large diabetic foot ulcer. Suspected osteomyelitis. Cultures obtained. Initially received IV vancomycin and cefepime. Change gram positive coverage to daptomycin to decrease risk of nephrotoxicity. Ortho consulted. Consult ID. Consult Vascular Surgery. (2) Peripheral vascular disease in diabetes mellitus: ARTERIAL DUPLEX IMPRESSION: 1. Occlusion of the proximal to mid posterior tibial artery with distal reconstitution. 2. Elevated peak systolic velocities about the peroneal and anterior tibial arteries suggestive of high-grade stenosis. 3. Extensive calcified plaque throughout the right lower extremity arterial structures. The above report was generated using voice recognition software. It may contain grammatical, syntax or spelling errors. Electronically signed by: Bryce Flynn M.D. 03/24/2019 7:05 AM Consult Vascular Surgery. (3) Coronary artery disease: Continue aspirin and carvedilol. Hold statin due to antibiotic therapy with daptomycin. (4) Aortic stenosis: Severe aortic stenosis. Hemodynamically stable. (5) Hypertension: Continue carvedilol. (6) Chronic respiratory failure with hypoxia, on home O2 therapy: Continue supplemental O2. (7) COPD (chronic obstructive pulmonary disease): Pulmonary status stable. (8) Diabetes mellitus, type II: Hold metformin during hospital stay. Check hemoglobin A1C. Lantus / Novolog per protocol. FBS 160. (9) Do not resuscitate status: Per advance directives. (10) DVT prophylaxis: SQ heparin. (11) Discharge planning issues: Discharge disposition to be determined. Internal Medicine follow-up with Dr. Dela Cruz. Subjective Recheck for multiple problems. Patient seen in their room around 12:30. visiting. Patient somewhat somnolent and does not offer any complaints. Seen earlier by Ortho. Not experiencing any foot pain; has underlying neuropathy. Review of Systems: Constitutional- no fever. Cardiac- no chest pain. Pulmonary- no cough or SOB. GI- no nausea, vomiting, diarrhea, melena, hematochezia. - chronic urinary urgency. Otherwise, as noted above. Physical Exam Constitutional: no acute distress Respiratory: no respiratory distress Auscultation: lungs clear to auscultation bilaterally Cardiovascular: Rate/Rhythm: regular rate and regular rhythm Heart Sounds: + murmur (IV / sys murmur at base); no gallop and no cardiac rub Vessels: no JVD and + abnormal peripheral pulses (diminished) Extremities: + abnormal capillary refill (~ 2 sec), no calf tenderness and no edema Gastrointestinal (Abdomen): normal bowel sounds, soft, nontender, no hepatosplenomegaly Musculoskeletal: large ulcer left medial foot with overlying eschar and surrounding erythema Skin: no rashes, warm and dry Psychiatric: Orientation: + not alert (somnolent) and + not oriented x 3 (somewhat confused) Results & Data Vital Signs (Past 12 Hours) Vital Signs Temp Pulse Resp BP Pulse Ox 03/24/19 21:23 76 102/57 L 93 03/24/19 15:58 36.5 C 68 18 115/66 98 Laboratory Results Laboratory Results - last 24 hr 03/23/19 03/24/19 03/24/19 17:45 01:45 05:32 WBC 8.71 RBC 3.72 L Hgb 10.2 L Hct 31.4 L MCV 84.4 MCH 27.4 MCHC 32.5 RDW Std Deviation 42.5 RDW Coeff of Arjun 13.9 Plt Count 275 MPV 10.0 ESR > 90 H Sodium Potassium Chloride Carbon Dioxide Anion Gap BUN Creatinine Est Cr Clr Drug Dosing Est GFR ( Amer) Est GFR (Non-Af Amer) BUN/Creatinine Ratio Glucose POC Glucose 195 H Calcium 03/24/19 03/24/19 03/24/19 05:32 05:55 08:54 WBC RBC Hgb Hct MCV MCH MCHC RDW Std Deviation RDW Coeff of Arjun Plt Count MPV ESR Sodium 132 L Potassium 4.3 Chloride 99 Carbon Dioxide 27 Anion Gap 6.0 BUN 15 Creatinine 0.98 Est Cr Clr Drug Dosing 62.8 Est GFR ( Amer) 78.9 Est GFR (Non-Af Amer) 68.1 BUN/Creatinine Ratio 15.5 Glucose 136 H POC Glucose 160 H 168 H Calcium 8.4 L 03/24/19 03/24/19 03/24/19 12:08 17:17 20:35 WBC RBC Hgb Hct MCV MCH MCHC RDW Std Deviation RDW Coeff of Arjun Plt Count MPV ESR Sodium Potassium Chloride Carbon Dioxide Anion Gap BUN Creatinine Est Cr Clr Drug Dosing Est GFR ( Amer) Est GFR (Non-Af Amer) BUN/Creatinine Ratio Glucose POC Glucose 159 H 177 H 156 H Calcium Microbiology 03/23/19 18:49 Blood Aerobic Blood Culture - Preliminary No growth in Aerobic bottle after 24 hours. 03/23/19 18:49 Blood Anaerobic Blood Culture - Preliminary No growth in Anaerobic bottle after 24 hours. 03/23/19 19:01 Blood Aerobic Blood Culture - Preliminary No growth in Aerobic bottle after 24 hours. 03/23/19 19:01 Blood Anaerobic Blood Culture - Preliminary No growth in Anaerobic bottle after 24 hours. 03/23/19 Unknown Foot,Right Gram Stain - Final 03/23/19 Unknown Foot,Right Wound Culture - Preliminary Pin-point growth present, reincubating.
[2019-03-25] MEDS ORDERED: MELATONIN: ORDER AWAITING ACTION SCH
[2019-03-25] MEDS: CEFEPIME 2,000 MG in SYRINGE 7.5 ML IV SCH ×4 (00:02→23:53)
[2019-03-25] MEDS: SODIUM CHLORIDE 0.9% 1000ML 1,000 ML IV SCH ×2 (00:02→12:58)
[2019-03-25] MEDS: ACETAMINOPHEN 325 MG TAB PO PRN ×2 (00:03→20:38)
[2019-03-25] MEDS: DAPTOmycin 475 MG in SYRINGE 0 ML IV SCH (02:05)
[2019-03-25] MEDS: HEPARIN SOD 5,000 UNIT/0.5 ML VIAL SQ SCH ×3 (05:36→22:03)
[2019-03-25 05:53] LABS: Hematocrit (blood only) 30.4 % (42-52); Hemoglobin 9.7 g/dL (14.0-18.0); Mean Corpuscular Hgb Conc 31.9 g/dL (32-36); Mean Corpuscular Volume 86.9 fL (80-100); Platelet Count 271 K/uL (130-400); RDW Standard Deviation 44.6 fL (36.4-46.3); White Blood Count 9.15 K/uL (4.8-10.8)
[2019-03-25 06:21] LABS: BUN Creatinine Ratio 18.9 (10-20); Calcium 8.2 mg/dl (8.5-10.1); Creatinine Clr Calc Pharmacy 63.5 ml/min; Est GFR (African American) 79.9; Est GFR (Non-African American) 68.9; Potassium 4.2 mmol/L (3.5-5.1)
[2019-03-25 06:45] LABS: Estimated Average Glucose 232 mg/dl
[2019-03-25] MEDS: CHOLECALCIFEROL 1,000 UNITS TAB PO SCH (09:04)
[2019-03-25] MEDS: CYANOCOBALAMIN 500 MCG TABLET (VITAMIN B-12) PO SCH (09:04)
[2019-03-25] MEDS: DOCUSATE SODIUM 100 MG CAP PO SCH (09:04)
[2019-03-25] MEDS: BRIMONIDINE TARTRATE 0.2% 5ML OPR SCH ×2 (09:05→21:53)
[2019-03-25] MEDS: TAMSULOSIN HCL 0.4 MG CAP PO SCH (09:05)
[2019-03-25] MEDS: ASPIRIN 81 MG ECTAB PO SCH (09:05)
[2019-03-25] MEDS: GABAPENTIN 300 MG CAP PO SCH ×3 (09:05→21:54)
[2019-03-25] MEDS: ASCORBIC ACID 500 MG TAB PO SCH ×2 (09:05→21:54)
[2019-03-25] MEDS: FINASTERIDE 5 MG TAB PO SCH (09:05)
[2019-03-25] MEDS: SACCHAROMYCES BOULARDII 250 MG CAP PO SCH (09:05)
[2019-03-25] MEDS: ARTIFICIAL TEARS OPB SCH ×4 (09:06→21:53)
[2019-03-25] MEDS: BRINZOLAMIDE (AZOPT) OPS 10 ML BTL OPR SCH ×2 (09:06→21:52)
[2019-03-25] MEDS: CARVEDILOL 6.25 MG TAB PO SCH ×2 (09:06→21:54)
[2019-03-25] MEDS: INSULIN GLARGINE SOLOSTAR 100 UNITS/ML 3 ML PEN SC SCH ×2 (09:07→22:05)
[2019-03-25] MEDS: INSULIN ASPART 100 UNITS/ML 3 ML PEN SC SCH ×4 (09:10→22:06)
--- NOTE | 2019-03-25 09:57 | Consultation ---
Date of Consultation March 25, 2019 Assessment & Plan (1) Gangrene: Pt with RLE dry gangrene and poor cap refill. US indicates significant arterial disease. Distal pulses nonpalpable, but are dopplerable. Pt discussed wtih Dr Ruffin. Recommends pt undergo RLE angio with intervention. Pt and understand need for this procedure and willing to accept risks of dye allergy for limb salvage. Will pretreat for allergy. Will schedule this week. Patient was seen, examined, and chart reviewed. Agree with exam and treatment plan of the Vascular PA. Present on Admission?: Yes History of Present Illness Reason for Consultation: RLE gangrene Attending Physician: Rosa Phillips History of Present Illness 88 yo m with multiple medical problems, including GERD, COPD, DMII, CAD s/p CABG x3, dyslipidemia, HTN, BPH, and aortic stenosis, admitted with gangrene of R foot, seen in consultation today for same. Pt is unable to relate relevant history, unsure whether this is baseline for him, but is not concerned. Most hx obtained from . She states that pt developed a blister to R foot/great toe in December and saw a funeral arrangement director, who debrided the blister. Wound began shortly after that. He was seeing someone for wound care and wound appeared to be doing better, but worsened acutely over past few days. According to , pt has hx of PAD and was seen at [facility], but did not have any procedures done. Then she stated that pt was supposed to see a vascular surgeon at [facility], but that the appointment has not materialized. Pt ambulates with rolling walker and has not had calf discomfort while doing that. Denies rest pain. Denies BEATTY, fever, chills, N/V, abd pain, other complaints. Arterial US of RLE indicates significant diffuse arterial disease, with likely occlusion of post tib and stenosis vs occlusion of distal SFA/pop. Allergies Allergy/AdvReac Type Severity Reaction Status Date / Time Iodinated Contrast- Oral and Allergy Severe Edema-face/lips/tongue. Verified 03/23/19 18:48 IV Dye Hives/Rash. dipyridamole Allergy Intermediate Hallucinati Verified 03/23/19 18:48 ons formaldehyde Allergy Intermediate Hives/Rash Verified 03/23/19 18:48 Cipro Allergy Unknown Hives Verified 07/15/17 11:48 lisinopril Allergy Unknown UNKNOWN Verified 03/23/19 18:48 ciprofloxacin AdvReac Unknown CONSTIPATIO Verified 03/23/19 18:48 N yellow socks Allergy Intermediate contact Uncoded 03/23/19 18:48 rash (formaldehyde used to preserve yellow color) Home Medications Home Medications Medication Instructions Recorded Confirmed Type Eucerin Skin Calming 1 applic TOPICAL UD 09/13/18 03/23/19 History Simbrinza 1 drp OPR BID 09/13/18 03/23/19 History TheraTears 1 drp OPB QID 09/13/18 03/23/19 History aspirin [Aspir-81] 81 mg PO DAILY 09/13/18 03/23/19 History benzoyl peroxide 1 applic TOPICAL DAILY PRN 09/13/18 03/23/19 History cholecalciferol (vitamin D3) 2,000 unit PO DAILY 09/13/18 03/23/19 History [Vitamin D3] cyanocobalamin (vitamin B-12) 1,000 mcg PO DAILY 09/13/18 03/23/19 History cyclobenzaprine 10 mg PO HS 09/13/18 03/23/19 History docusate sodium 100 mg PO DAILY 09/13/18 03/23/19 History finasteride 5 mg PO DAILY 09/13/18 03/23/19 History hydrocortisone 1 applic TOPICAL BID 09/13/18 03/23/19 History lutein 20 mg PO DAILY 09/13/18 03/23/19 History metformin 1,000 mg PO BIDM 09/13/18 03/23/19 History nitroglycerin [Nitrostat] 0.4 mg SUBLINGUAL UD PRN 09/13/18 03/23/19 History nystatin 1 applic TOPICAL UD PRN 09/13/18 03/23/19 History selenium sulfide 1 applic TOPICAL UD 09/13/18 03/23/19 History simvastatin [Zocor] 10 mg PO Q2D 09/13/18 03/23/19 History tamsulosin 0.4 mg PO DAILY 09/13/18 03/23/19 History tramadol [Ultram] 50 mg PO Q6 PRN 09/13/18 03/23/19 History acetaminophen [Mapap 650 mg PO Q4H PRN #100 tab 10/31/18 03/23/19 Rx (acetaminophen)] ascorbic acid (vitamin C) [Vitamin 1,000 mg PO BID #90 tab 10/31/18 03/23/19 Rx C] carvedilol 6.25 mg PO BID #20 tab 11/04/18 03/23/19 Rx gabapentin 300 mg PO TID 03/23/19 03/23/19 History insulin NPH isoph U-100 human 50 unit SC QAM 03/23/19 03/23/19 History [Novolin N NPH U-100 Insulin] insulin aspart U-100 [Novolog 16 unit SC QDD 03/23/19 03/23/19 History Flexpen U-100 Insulin] melatonin 10 mg PO HS PRN 03/23/19 03/23/19 History Patient History Medical History GERD (gastroesophageal reflux disease) (Chronic) Arthritis (Chronic) BPH (benign prostatic hyperplasia) (Chronic) Chronic respiratory failure with hypoxia, on home O2 therapy (Chronic) COPD (chronic obstructive pulmonary disease) (Chronic) Diabetic neuropathy (Chronic) Hypertension (Chronic) Constipation (Chronic) 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) Coronary artery disease (Chronic) "PCI + stenting LAD 1997 CABG x 3 2000 cath 03/11/13 showed patent LAD graft, patent SVG to circ marginal, occluded SVG to RCA" Hypertension (Chronic) Benign prostatic hyperplasia (Chronic) Diabetes mellitus, type II (Chronic) Chronic respiratory failure (Chronic) "home O2 2 LPM at night + PRN" Dyslipidemia (Chronic) Hyperhomocysteinemia (Chronic) Diabetic retinopathy (Chronic) Cerebrovascular disease (Chronic) "s/p stroke with right hemiparesis" Aortic stenosis (Chronic) "1.1 cm2 by echo 2011 and cath 2012" Surgical History S/P CABG x 3 (Chronic) History of cataract surgery (Chronic) Hx of cholecystectomy (Chronic) Status post coronary artery bypass grafting (Chronic) "radial artery to LAD, SVG to circ marginal, SVG to RCA" Status post cardiac catheterization (Chronic) "03/11/[address] [facility] [address]. Durant patent LAD graft, patent SVG to circ marginal, occluded SVG to RCA" Status post cholecystectomy (Chronic) Family History Sister Diabetes Social History Preferred Language: [place] Verde[place] Communication Ability: Impaired Visual Impairment: No Limitations Beliefs That Will Affect Care: None marital status: Current Living Situation: Spouse Feels Safe at Home: Yes Smoking Status: Never smoker Second Hand Exposure: No Hx Alcohol Use: No Hx Substance Use: No Review of Systems Review of Systems: Unobtainable due to cognitive status (Pt refuses to answer most questions.) Physical Exam Constitutional: WD/WN, vitals as above well developed, well nourished, + ill appearing (chronically), + morbidly obese, well groomed, comfortable and + lethargic; not in distress and not combative Eyes: PERRL, conjunctivae normal, anicteric sclerae (difficult to eval, pt kept eyes closed most of the visit) EOM intact bilaterally ENMT: external ear and nose normal, oropharynx normal Ears: no hearing impairment Nose: no nasal discharge Throat: no posterior oropharynx abnormality Neck: trachea midline, no thyromegaly no tracheal deviation, no neck crepitus and neck nontender Respiratory: + cough and able to speak in complete sentences; does not use accessory muscles Auscultation: lungs clear to auscultation bilaterally and + diminished lung sounds; no rhonchi and no wheezes Cardiovascular: Rate/Rhythm: regular rate and regular rhythm Heart Sounds: + murmur; no gallop Vessels: femoral pulses present, posterior tibial pulses present (Nonpalpable, dopplerable), dorsalis pedis pulses present (nonpalpable, dopplerable), brachial pulses present and radial pulses present; no carotid bruit and no femoral bruit Extremities: + abnormal capillary refill (RLE shawna yed. minimal cap refill to great toe), no pedal edema and no edema Chest (Breasts): Chest: normal inspection of chest Gastrointestinal (Abdomen): normal bowel sounds, soft, nontender, no hepatosplenomegaly Inspection/Auscultation: abdomen normal to inspection and normal bowel sounds; abdomen not distended and no abdominal edema Percussion/Palpation: abdomen soft; abdomen nontender, no guarding, abdomen not rigid and no abdominal mass Musculoskeletal: no cyanosis or clubbing, extremities motor strength 5/5 Head/Neck/Chest: normocephalic, head atraumatic and neck supple Extremities: full ROM of extremities, + abnormal strength (4/5), no chronic stasis changes, no clubbing and no amputation noted Skin: normal turgor, + ulcer, + erythema, + eschar (R great toe and medial MT, with surrounding erythema. Wound to bone MTP) and + mottling; no rashes and no excoriations Neurologic: moves all extremities and awake (but with eyes closed and does not answer questions well); no focal motor deficits and not confused Speech / Cognition: no expressive aphasia and no receptive aphasia Motor/Sensory: no tremor and no sensory deficit Cranial Nerves: tongue midline Psychiatric: Orientation: oriented x 3 and cooperative; + not alert Apperance: appropriately dressed, appropriately groomed and appeared stated age Affect: + flat affect Thought Process: goal directed thought process (unable to assess) and linear/logical thought process (unable to assess) Cognition: recent memory grossly intact, remote memory grossly intact, attention grossly intact and language grossly intact Estimated Intelligence: average estimated intelligence; estimated intelligence not below average Results & Data Vital Signs (Past 12 Hours) Vital Signs Temp Pulse Resp BP BP Pulse Ox 03/25/19 07:08 37.3 C 79 18 124/57 L 91 03/25/19 02:05 37.4 C 03/24/19 23:15 37.9 C H 72 18 118/72 94
--- NOTE | 2019-03-25 10:21 | Infectious Disease Consult ---
Date of Consultation March 25, 2019 Assessment & Plan (1) Gangrene: Patient with gangrene of the right foot with cellulitis and possible osteomyelitis in the setting of severe peripheral arterial disease with cultures growing so far group B strep. Patient will be continued on current IV antib iotics pending final culture results, will adjust once available. Agree with need for vascular intervention to aid with wound healing. Will likely require debridement surgery, orthopedic consult is pending. Will follow. (2) Infection due to Streptococcus group B: (3) Cellulitis of foot without toes, right: History of Present Illness Reason for Consultation: Diabetic foot ulcer Attending Physician: Rosa Phillips History of Present Illness History obtained from , medical staff, medical records as patient unable to provide adequate history. 88-year-old male with history of poorly controlled diabetes mellitus, peripheral vascular disease, coronary artery disease status post CABG, COPD, diabetic neuropathy, dyslipidemia, aortic stenosis, who had blister drained by podiatry in December, subsequently developed progressively worsening redness, swelling, then gangrenous discoloration ultimately leading to admission. His reports low- grade fever over the past several days. He has been found to have significant arterial disease on Doppler studies, and now has plans for angiography and possible stenting. He has been started empirically on daptomycin and vancomycin, cultures are pending. X-ray of the foot shows small area of possible osteomyelitis, MRI difficult to interpret because of motion artifact. Currently states pain is minimal in his foot. Cultures so far growing group B streptococcus. Allergies Allergy/AdvReac Type Severity Reaction Status Date / Time Iodinated Contrast- Oral and Allergy Severe Edema-face/lips/tongue. Verified 03/23/19 18:48 IV Dye Hives/Rash. dipyridamole Allergy Intermediate Hallucinati Verified 03/23/19 18:48 ons formaldehyde Allergy Intermediate Hives/Rash Verified 03/23/19 18:48 Cipro Allergy Unknown Hives Verified 07/15/17 11:48 lisinopril Allergy Unknown UNKNOWN Verified 03/23/19 18:48 ciprofloxacin AdvReac Unknown CONSTIPATIO Verified 03/23/19 18:48 N yellow socks Allergy Intermediate contact Uncoded 03/23/19 18:48 rash (formaldehyde used to preserve yellow color) Home Medications Home Medications Medication Instructions Recorded Confirmed Type Eucerin Skin Calming 1 applic TOPICAL UD 09/13/18 03/23/19 History Simbrinza 1 drp OPR BID 09/13/18 03/23/19 History TheraTears 1 drp OPB QID 09/13/18 03/23/19 History aspirin [Aspir-81] 81 mg PO DAILY 09/13/18 03/23/19 History benzoyl peroxide 1 applic TOPICAL DAILY PRN 09/13/18 03/23/19 History cholecalciferol (vitamin D3) 2,000 unit PO DAILY 09/13/18 03/23/19 History [Vitamin D3] cyanocobalamin (vitamin B-12) 1,000 mcg PO DAILY 09/13/18 03/23/19 History cyclobenzaprine 10 mg PO HS 09/13/18 03/23/19 History docusate sodium 100 mg PO DAILY 09/13/18 03/23/19 History finasteride 5 mg PO DAILY 09/13/18 03/23/19 History hydrocortisone 1 applic TOPICAL BID 09/13/18 03/23/19 History lutein 20 mg PO DAILY 09/13/18 03/23/19 History metformin 1,000 mg PO BIDM 09/13/18 03/23/19 History nitroglycerin [Nitrostat] 0.4 mg SUBLINGUAL UD PRN 09/13/18 03/23/19 History nystatin 1 applic TOPICAL UD PRN 09/13/18 03/23/19 History selenium sulfide 1 applic TOPICAL UD 09/13/18 03/23/19 History simvastatin [Zocor] 10 mg PO Q2D 09/13/18 03/23/19 History tamsulosin 0.4 mg PO DAILY 09/13/18 03/23/19 History tramadol [Ultram] 50 mg PO Q6 PRN 09/13/18 03/23/19 History acetaminophen [Mapap 650 mg PO Q4H PRN #100 tab 10/31/18 03/23/19 Rx (acetaminophen)] ascorbic acid (vitamin C) [Vitamin 1,000 mg PO BID #90 tab 10/31/18 03/23/19 Rx C] carvedilol 6.25 mg PO BID #20 tab 11/04/18 03/23/19 Rx gabapentin 300 mg PO TID 03/23/19 03/23/19 History insulin NPH isoph U-100 human 50 unit SC QAM 03/23/19 03/23/19 History [Novolin N NPH U-100 Insulin] insulin aspart U-100 [Novolog 16 unit SC QDD 03/23/19 03/23/19 History Flexpen U-100 Insulin] melatonin 10 mg PO HS PRN 03/23/19 03/23/19 History Patient History Medical History GERD (gastroesophageal reflux disease) (Chronic) Arthritis (Chronic) BPH (benign prostatic hyperplasia) (Chronic) Chronic respiratory failure with hypoxia, on home O2 therapy (Chronic) COPD (chronic obstructive pulmonary disease) (Chronic) Diabetic neuropathy (Chronic) Hypertension (Chronic) Constipation (Chronic) 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) Coronary artery disease (Chronic) "PCI + stenting LAD 1997 CABG x 3 2000 cath 03/11/13 showed patent LAD graft, patent SVG to circ marginal, occluded SVG to RCA" Hypertension (Chronic) Benign prostatic hyperplasia (Chronic) Diabetes mellitus, type II (Chronic) Chronic respiratory failure (Chronic) "home O2 2 LPM at night + PRN" Dyslipidemia (Chronic) Hyperhomocysteinemia (Chronic) Diabetic retinopathy (Chronic) Cerebrovascular disease (Chronic) "s/p stroke with right hemiparesis" Aortic stenosis (Chronic) "1.1 cm2 by echo 2011 and cath 2012" Surgical History S/P CABG x 3 (Chronic) History of cataract surgery (Chronic) Hx of cholecystectomy (Chronic) Status post coronary artery bypass grafting (Chronic) "radial artery to LAD, SVG to circ marginal, SVG to RCA" Status post cardiac catheterization (Chronic) "03/11/13 [facility] Dr. Durant patent LAD graft, patent SVG to circ marginal, occluded SVG to RCA" Status post cholecystectomy (Chronic) Family History Sister Diabetes Social History Preferred Language: [place]an Communication Ability: Impaired Visual Impairment: No Limitations Beliefs That Will Affect Care: None marital status: Current Living Situation: Spouse Feels Safe at Home: Yes Smoking Status: Never smoker Second Hand Exposure: No Hx Alcohol Use: No Hx Substance Use: No Review of Systems Review of Systems: Unobtainable due to cognitive status Physical Exam Constitutional: WD/WN, vitals as above comfortable; no acute distress Eyes: PERRL, conjunctivae normal, anicteric sclerae ENMT: external ear and nose normal, oropharynx normal Neck: trachea midline, no thyromegaly neck nontender Respiratory: normal respiratory effort, lungs clear to auscultation normal percussion; does not use accessory muscles Cardiovascular: Rate/Rhythm: regular rate and regular rhythm Heart Sounds: normal S1, normal S2 and + murmur (Systolic); no gallop and no cardiac rub Vessels: no JVD Extremities: + abnormal capillary refill (Poor capillary refill, absent distal pulses) Gastrointestinal (Abdomen): normal bowel sounds, soft, nontender, no hepatosplenomegaly Musculoskeletal: no cyanosis or clubbing, extremities motor strength 5/5 Spine: thoracic spine normal to inspection and lumbar spine normal to inspection; no cervical spinal tenderness Skin: normal turgor and + wound (Right medial foot gangrenous changes with surrounding erythema, purulent drainage); no rashes Neurologic: moves all extremities; no focal motor deficits Motor/Sensory: + sensory deficit (Decrease in feet bilaterally) Psychiatric: A+Ox3, euthymic affect Orientation: cooperative Lymphatic: no cervical or axillary lymphadenopathy no inguinal lymphadenopathy Results & Data Vital Signs (Past 12 Hours) Vital Signs Temp Pulse Resp BP BP Pulse Ox 03/25/19 07:08 37.3 C 79 18 124/57 L 91 03/25/19 02:05 37.4 C 03/24/19 23:15 37.9 C H 72 18 118/72 94 Laboratory Results Short CBC 03/25/19 Range/Units 05:40 WBC 9.15 (4.8-10.8) K/uL Hgb 9.7 L (14.0-18.0) g/dL Hct 30.4 L (42-52) % Plt Count 271 (130-400) K/uL BMP 03/25/19 05:40 Sodium 134 L Potassium 4.2 Chloride 102 Carbon Dioxide 26 BUN 18 Creatinine 0.97 Glucose 121 H Calcium 8.2 L Diagnostic Findings Microbiology 03/23/19 Unknown Foot,Right Gram Stain - Final 03/23/19 Unknown Foot,Right Wound Culture - Preliminary Corynebacterium species Group B Beta Strep Staphylococcus species 03/23/19 18:49 Blood Aerobic Blood Culture - Preliminary No growth in Aerobic bottle after 24 hours. 03/23/19 18:49 Blood Anaerobic Blood Culture - Preliminary No growth in Anaerobic bottle after 24 hours. 03/23/19 19:01 Blood Aerobic Blood Culture - Preliminary No growth in Aerobic bottle after 24 hours. 03/23/19 19:01 Blood Anaerobic Blood Culture - Preliminary No growth in Anaerobic bottle after 24 hours. XR foot RT 2V CLINICAL HISTORY: Right first toe wound. Assess for osteomyelitis. COMPARISON STUDY: None. FINDINGS: 2 views of the right foot were submitted for review. The bones are osteopenic. Vascular calcifications are noted. Small soft tissue and bony bunion. Mild osteoarthritis throughout the right foot. No fracture or dislocation. Focal skin ulceration at the medial forefoot at the level of the first metatarsal shaft. This measures 1 cm. There appears to be subtle cortical lucency/erosion near the medial neck of the first metatarsal which measures 3 mm. This is concerning for a small focus of osteomyelitis. IMPRESSION: Focal skin ulceration at the medial forefoot at the level of the first metatarsal shaft. This measures 1 cm. There appears to be subtle cortical lucency/erosion near the medial neck of the first metatarsal which measures 3 mm. This is concerning for a small focus of osteomyelitis. Electronically signed by: Bonifacio Moscoso M.D. 03/23/2019 7:50 PM Dictated: 03/23/[id number] Transcribed: 03/23/[id number]
--- NOTE | 2019-03-25 15:03 | Hospitalist Progress Note ---
Date of Service March 25, 2019 Assessment & Plan (1) Diabetic foot infection: Large diabetic foot ulcer.- Suspected osteomyelitis (MRI inconclusive). -Initially received IV vancomycin and cefepime--> Changed to Daptomycin. Day 2 -Vascular surgery- Plans to do RLE Angioplasty -ID- Appreciate inputs re: antibiotics -Ortho - pending. Will likely require debridement (2) Peripheral vascular disease in diabetes mellitus: ARTERIAL DUPLEX on 03/24/2019 IMPRESSION: 1. Occlusion of the proximal to mid posterior tibial artery with distal reconstitution. 2. Elevated peak systolic velocities about the peroneal and anterior tibial arteries suggestive of high-grade stenosis. 3. Extensive calcified plaque throughout the right lower extremity arterial structures. -Vascular surgery= Plan is for RLE Angioplasty (3) Coronary artery disease: -Continue aspirin and carvedilol. -Hold statin due to antibiotic therapy with daptomycin. (4) Aortic stenosis: -Severe aortic stenosis. -Hemodynamically stable. (5) Hypertension: -Continue carvedilol. (6) Chronic respiratory failure with hypoxia, on home O2 therapy: -Continue supplemental O2- 2 L at day time, 2.5 L at night time as prior to home. (7) COPD (chronic obstructive pulmonary disease): -Pulmonary status stable. with no signs of exacerbation (8) Diabetes mellitus, type II: -Hold metformin during hospital stay. -HBA1C- 9.7 -Basal Lantus / Novolog per protocol. (9) Do not resuscitate status: -Per advance directives. (10) DVT prophylaxis: -SQ heparin. (11) Discharge planning issues: -Discharge disposition to be determined. -Internal Medicine follow-up with Dr. Dela Cruz. Subjective Patient denies any complaints. No significant pain in right foot. No fever, chills. Chronically on oxygen 2 to 2.5 L. Physical Exam Physical Exam: GENERAL- AAOX3, No acute distress NECK- Supple, no JVD LUNGS- Air entry bilaterally equal. No rales, rhonchi, crackles, wheezes heard. HEART- Regular rate and rhythm. No murmurs ABDOMEN- Soft, non tender, non distended, Bowel sounds heard. EXTREMITIES- Right foot= Gangrene + S/P Dressing + absent distal pulses + Results & Data Vital Signs (Past 12 Hours) Vital Signs Temp Pulse Resp BP Pulse Ox 03/25/19 11:04 93 03/25/19 07:08 37.3 C 79 18 124/57 L 91
[2019-03-25] MEDS: TRAMADOL HCL 50 MG TABLET PO PRN (15:58)
[2019-03-25] MEDS ORDERED: VANCOMYCIN TROUGH ONE (17:30)
[2019-03-25] MEDS: MELATONIN PO SCH (21:52)
[2019-03-25] MEDS: CYCLOBENZAPRINE HCL 10 MG TAB PO SCH (21:54)
[2019-03-26] MEDS: SODIUM CHLORIDE 0.9% 1000ML 1,000 ML IV SCH ×2 (01:59→17:36)
[2019-03-26] MEDS: DAPTOmycin 475 MG in SYRINGE 0 ML IV SCH (02:00)
[2019-03-26] MEDS: TRAMADOL HCL 50 MG TABLET PO PRN ×2 (02:28→09:27)
[2019-03-26] MEDS ORDERED: Nursing to Pharmacy Communication ONE ×2 (05:24→23:24)
[2019-03-26] MEDS: INSULIN ASPART 100 UNITS/ML 3 ML PEN SC SCH ×3 (06:06→20:48)
[2019-03-26] MEDS: HEPARIN SOD 5,000 UNIT/0.5 ML VIAL SQ SCH ×3 (06:13→21:06)
[2019-03-26 07:33] LABS: Basophils # (auto) 0.02 K/uL (0-0.2); Basophils % (auto) 0.2 %; Eosinophils # (auto) 0.25 K/uL (0-0.5); Eosinophils % (auto) 2.7 %; Hematocrit (blood only) 31.1 % (42-52); Immature Granulocytes # (auto) 0.02 K/uL (0.00-0.02); Immature Granulocytes % (auto) 0.2 %; Lymphocytes # (auto) 1.39 K/uL (1.2-3.4); Lymphocytes % (auto) 15.1 %; Mean Corpuscular Hgb Conc 32.2 g/dL (32-36); Mean Corpuscular Volume 86.4 fL (80-100); Mean Platelet Volume 9.9 fL (7.4-10.4); Monocytes # (auto) 0.74 K/uL (0.11-0.59); Neutrophils # (auto) 6.79 K/uL (1.4-6.5); Neutrophils % (auto) 73.8 %; Platelet Count 297 K/uL (130-400); RDW Coefficient of Variation 14.1 % (11.5-14.5); RDW Standard Deviation 44.8 fL (36.4-46.3); White Blood Count 9.21 K/uL (4.8-10.8)
[2019-03-26 07:58] LABS: BUN Creatinine Ratio 16.1 (10-20); Calcium 8.5 mg/dl (8.5-10.1); Est GFR (African American) 88.3; Est GFR (Non-African American) 76.2
[2019-03-26] MEDS ORDERED: FAMOTIDINE 20 MG in SYRINGE 3 ML IV ONE ×2 (08:21→22:00)
[2019-03-26] MEDS ORDERED: methylPREDNISolone 40 MG in SYRINGE 0 ML IV STA (08:21)
[2019-03-26] MEDS ORDERED: SODIUM CHLORIDE 0.9% 1000ML 1,000 ML IV SCH ×2 (08:30→14:52)
[2019-03-26] MEDS: CHOLECALCIFEROL 1,000 UNITS TAB PO SCH (08:57)
[2019-03-26] MEDS: GABAPENTIN 300 MG CAP PO SCH ×3 (08:57→20:47)
[2019-03-26] MEDS: CYANOCOBALAMIN 500 MCG TABLET (VITAMIN B-12) PO SCH (08:57)
[2019-03-26] MEDS: DOCUSATE SODIUM 100 MG CAP PO SCH (08:57)
[2019-03-26] MEDS: SACCHAROMYCES BOULARDII 250 MG CAP PO SCH (08:58)
[2019-03-26] MEDS: CARVEDILOL 6.25 MG TAB PO SCH ×2 (08:58→20:47)
[2019-03-26] MEDS: ASPIRIN 81 MG ECTAB PO SCH (08:58)
[2019-03-26] MEDS: FINASTERIDE 5 MG TAB PO SCH (08:58)
[2019-03-26] MEDS: ASCORBIC ACID 500 MG TAB PO SCH ×2 (08:58→20:47)
[2019-03-26] MEDS: TAMSULOSIN HCL 0.4 MG CAP PO SCH (08:58)
[2019-03-26] MEDS: INSULIN GLARGINE SOLOSTAR 100 UNITS/ML 3 ML PEN SC SCH ×2 (08:59→20:47)
[2019-03-26] MEDS: ARTIFICIAL TEARS OPB SCH ×4 (09:00→20:52)
[2019-03-26] MEDS: BRINZOLAMIDE (AZOPT) OPS 10 ML BTL OPR SCH ×2 (09:00→20:52)
[2019-03-26] MEDS: BRIMONIDINE TARTRATE 0.2% 5ML OPR SCH ×2 (09:00→20:51)
[2019-03-26] MEDS: CEFEPIME 2,000 MG in SYRINGE 7.5 ML IV SCH ×2 (09:12→16:50)
[2019-03-26] MEDS ORDERED: methylPREDNISolone 40 MG in SYRINGE 0 ML IV SCH (11:00)
[2019-03-26] MEDS ORDERED: fentaNYL citrate 100 MCG/2 ML VIAL ONE (12:35)
[2019-03-26] MEDS ORDERED: MIDAZOLAM HCL 1 MG/ML 2ML VIAL ONE (12:35)
[2019-03-26] MEDS ORDERED: HEPARIN SOD (PORCINE) 1000 UNIT/ML 10 ML VIAL ONE (12:35)
--- NOTE | 2019-03-26 12:59 | Pre Anesthesia Assessment ---
Date of Service March 26, 2019 Pre Sedation Assessment Vital Signs Temp Pulse Resp BP BP Pulse Ox 03/26/19 12:46 36.7 C 73 20 154/97 H 96 03/26/19 07:00 36.6 C 76 21 165/71 H 168/77 H 95 03/26/19 00:18 36.9 C 76 18 129/74 94 03/25/19 21:49 37.8 C H 78 20 142/74 H 96 03/25/19 15:35 36.7 C 85 22 102/58 L 92 Cardiovascular RRR, no murmur, no edema Respiratory normal respiratory effort, lungs clear to auscultation Pre-Sedation Airway Assessment Smoking Status: Never smoker Hx Sleep Apnea: No Short, Thick Neck: No Thyromental Distance: > or= 3.5 Finger Breadths Oral Cavity: + WNL Mallampati Class: II ASA: ASA3 NPO Status Date of Last Intake of Fluids: 03/26/19 Time of Last Intake of Fluids: 06:00 Date of Last Intake of Solid Food: 03/25/19 Time of Last Intake of Solid Foods: 11:59 Procedure Planning Contraindications for Sedation: none Current Medications Reviewed: Yes Notes The planned sedation has been discussed with the patient. Informed Consent was obtained. I have identified the patient, determined the appropriateness of sedation and have assessed the patient immediately prior to the procedure. All medicine(s) and interventions are by my order.
--- NOTE | 2019-03-26 12:59 | History & Physical Bridge Note ---
Date of Service March 26, 2019 History & Physical Bridge Note Patient for a right lower extremity arteriogram with possible intervention. I have discussed the risks options and benefits of the procedure with the patient. The patient understands the risks options and benefits and agrees to the procedure. I have examined the patient, reviewed the History & Physical and in the interval since the performance of the History & Physical I have noted the following changes of clinical significance: no changes noted
[2019-03-26] MEDS ORDERED: VISIPAQUE IV PRN (14:09)
[2019-03-26] MEDS ORDERED: LIDOCAINE HCL 1% 20 ML VIAL IV ONE (14:10)
--- NOTE | 2019-03-26 14:17 | Post Operative Brief Note ---
Immediate Post Op Note v1 Date of Surgery March 26, 2019 Pre & Post Diagnosis Operation Date: 03/26/19 12:30 Pre-Op Diagnosis: [place]anger[place] Right Foot Post-Op Diagnosis: [place] Right Foot Procedure Operation Date: 03/26/19 12:30 Actual Procedures p Right Lower Extremity Angiogram Third Order, Ultrasound Localziation of Left Femoral Artery, Mechanical Closure of Left Femoral Artery, Moderate Sedation [id number](Left) - Edil Ruffin MD Surgeon Edil Ruffin MD Education Site Manager Sruthi Melchor MD Estimated Blood Loss 5 Findings Consistent with Post-Op Diagnosis Anesthesia Type RN Sedation Complications none Disposition Accompanied Patient To Recovery: No Disposition: Recovery Room
--- NOTE | 2019-03-26 14:20 | Post Anesthesia Assessment ---
Date of Service March 26, 2019 Post Sedation Assessment Vital Signs Temp Pulse Pulse Resp BP BP Pulse Ox 03/26/19 14:17 74 18 147/88 H 97 03/26/19 14:12 74 18 132/77 97 03/26/19 14:07 75 18 140/70 98 03/26/19 14:02 78 16 144/84 H 98 03/26/19 13:57 79 17 146/81 H 98 03/26/19 13:52 79 15 149/76 H 97 03/26/19 13:47 81 16 147/78 H 98 03/26/19 13:42 74 18 157/84 H 95 03/26/19 13:37 78 20 160/87 H 95 03/26/19 13:32 78 20 151/98 H 95 03/26/19 13:26 77 20 162/98 H 96 03/26/19 12:46 36.7 C 73 20 154/97 H 96 03/26/19 07:00 36.6 C 76 21 165/71 H 168/77 H 95 03/26/19 00:18 36.9 C 76 18 129/74 94 03/25/19 21:49 37.8 C H 78 20 142/74 H 96 03/25/19 15:35 36.7 C 85 22 102/58 L 92 Recovery Score Activity: Moves 4 extremities Respiration: Deep Breath/Cough Circulation: +/-20% PreAnes Value Consciousness: Arouseable (by name) Oxygen Saturation: O2 needed for >90% Post Anesthesia Score: 8 Discharge Sedation Level of Care: Fast Track Phase II Post Sedation Plan On clinical assessment, the patient appears to have tolerated the sedation without complications. Patient is recovering as anticipated. Patient will continue to be monitored by nursing and may be discharged when sedation discharge criteria are met per below protocol. Upon Completions of procedure and additional 15 minutes continue every 5 minute vital signs and the P.A.R. score; then discharge to a Phase I or Fast Track to Phase II per the following guidelines: * Discharge Patient to appropriate Phase II area if PAR is 8 or greater or return to pre- procedure baseline. The post - procedure orders will be as directed. * If PAR score is less than 8 or not return to pre-procedure baseline then patient will follow Phase I monitoring till PAR is reached for Phase II. The Phase I may be done in procedure room or may call to secure a Phase I area. * If naloxone or flumazenil are used for reversal, hold in Phase I for continued monitoring from when last reversal dose was given for a minimum of 60 minutes or longer pending the nurse and/or physician discretion of patient condition before discharge to Phase II. Please call the Sedation Physician to re-evaluate and complete post-note for discharge to Phase II area. Do NOT discharge from procedure sedation or Phase 1 until post- sedation evaluation note is complete by procedure /sedation MD Sedation Discharge Instructions to be given to the patient at discharge to home.
--- NOTE | 2019-03-26 14:30 | Procedure Note ---
Angiogram Post Procedure Fluoroscopy Time (minutes): 3.2 Conscious Sedation Time (minutes): 45 Radiation (mGy): 85 Contrast: 45 Post Operative Report Pre & Post Diagnosis Operation Date: 03/26/19 12:30 Pre-Op Diagnosis: [place] Right Foot Post-Op Diagnosis: [place] Right Foot Procedure Operation Date: 03/26/19 12:30 Actual Procedures p Right Lower Extremity Angiogram Third Order, Ultrasound Localziation of Left Femoral Artery, Mechanical Closure of Left Femoral Artery, Moderate Sedation [id number](Left) - Edil Ruffin MD Surgeon Dr. Edil Ruffin Regional Sales Manager Wallace Melchor MD Estimated Blood Loss 5 Findings Consistent with Post-Op Diagnosis Peroneal artery patent throughout. Complete occlusion of DP and PT without any reconstitution. Small chronic vascularization from peroneal Fluids 150ml Specimens none Drains None Anesthesia Type RN Sedation Complications none Disposition Accompanied Patient To Recovery: No Disposition: Recovery Room Indications 88-year-old gentleman with dry gangrene of his left foot and chronic osteomyelitis who presents for right lower extremity angiography. I have discussed the risks options and benefits of the procedure with the patient and his (POA). The patient's understands the risks options and benefits and agrees to the procedure as his decision maker. Description of Procedure Patient was brought to the hybrid operating room suite and placed on the operating room table in the supine position with his arms tucked and strapped. A timeout procedure was performed correctly identifying the patient by his name and date of and identifying the surgical procedure as well as laterality. All were in agreement prior to start. He was given the appropriate preproc edural contrast dye prophylaxis as well as preprocedural antibiotics prior to incision. Prepped and draped in sterile fashion. Percutaneous access to the left femoral artery was obtained under direct ultrasound visualization. A guidewire was placed and a 5 sheath was placed into the left femoral artery. A guidewire was introduced into the aorta and and curved Rim catheter was directed to the right femoral artery. Angiogram was performed that showed patent common femoral superficial femoral and profunda arteries on the right side and patent popliteal artery. Below the knee there is a widely patent peroneal artery and complete occlusion of the anterior tibial and posterior tibial artery without any reconstitution. There were no areas feasible endovascular intervention. The peroneal gave only collateral flow to the foot with no reconstitution of the dorsalis pedis or posterior tibial arteries. The injection catheter was removed and the 5 Urdu sheath was exchanged to a 7 Urdu sheath allowing for cutaneous closure of the arteriotomy with a Star closure device. Hemostasis was achieved upon completion of star device closure. The patient was then transported to the postanesthesia care unit having tolerated the procedure well in stable condition. Dr. Edil Ruffin was present for the entirety of the case. I attest to the content of the Intraoperative Record and any orders documented therein. Any exceptions are noted below.
--- NOTE | 2019-03-26 18:58 | Hospitalist Progress Note ---
Date of Service March 26, 2019 Assessment & Plan (1) Cough: Post operative cough Possible aspiration -Oxygen up to 4 L from 2-2.5 L -CXR in AM -Aspiration precautions -Monitor (2) Diabetic foot infection: RLE Gangrene Large diabetic foot ulcer.- Suspected osteomyelitis (MRI inconclusive). -Initially received IV vancomycin and cefepime --> Changed to Daptomycin. Day 3 -S/P RLE Angiogram - US localization of Left femoral artery, mechanical closure of left femoral artery -ID- Appreciate inputs re: antibiotics -Ortho - Will likely require I & D and amputation. -Wound cx- Corynebacterium, Gp B strep, MRSA (3) Peripheral vascular disease in diabetes mellitus: ARTERIAL DUPLEX on 03/24/2019 IMPRESSION: 1. Occlusion of the proximal to mid posterior tibial artery with distal reconstitution. 2. Elevated peak systolic velocities about the peroneal and anterior tibial arteries suggestive of high-grade stenosis. 3. Extensive calcified plaque throughout the right lower extremity arterial structures. -Vascular surgery on board. Will likely require amputation (4) Coronary artery disease: -Continue aspirin and carvedilol. -Hold statin due to antibiotic therapy with daptomycin. (5) Aortic stenosis: -Severe aortic stenosis. -Hemodynamically stable. (6) Hypertension: -Continue carvedilol. (7) Chronic respiratory failure with hypoxia, on home O2 therapy: -Continue supplemental O2- 2 L at day time, 2.5 L at night time as prior to home. (8) COPD (chronic obstructive pulmonary disease): -Pulmonary status stable. with no signs of exacerbation (9) Diabetes mellitus, type II: -Hold metformin during hospital stay. -HBA1C- 9.7 -Basal Lantus / Novolog per protocol. (10) Do not resuscitate status: -Per advance directives. (11) DVT prophylaxis: -SQ heparin. (12) Discharge planning issues: -Discharge disposition to be determined. -Internal Medicine follow-up with Dr. Dela Cruz. Updated by bedside Subjective Patient is status post procedure. C/o cough. No fever, chills. Chronically on oxygen 2 to 2.5 L--> Upto 4 L . Physical Exam Physical Exam: GENERAL- AAOX3, No acute distress NECK- Supple, no JVD LUNGS- Air entry bilaterally decreased. Few crackles + HEART- Regular rate and rhythm. No murmurs ABDOMEN- Soft, non tender, non distended, Bowel sounds heard. EXTREMITIES- Right foot= Gangrene + S/P Dressing + absent distal pulses + Results & Data Vital Signs (Past 12 Hours) Vital Signs Temp Pulse Pulse Resp BP BP Pulse Ox 03/26/19 18:42 86 22 156/79 H 95 03/26/19 18:30 86 22 171/75 H 96 03/26/19 17:24 72 16 118/88 97 03/26/19 16:20 36.4 C L 69 16 159/78 H 95 03/26/19 15:46 36.5 C 82 20 174/72 H 96 03/26/19 15:21 36.4 C L 73 20 150/78 H 96 03/26/19 15:06 36.3 C L 73 20 138/83 96 03/26/19 15:02 36.4 C L 75 20 164/79 H 96 03/26/19 14:17 74 18 147/88 H 97 03/26/19 14:12 74 18 132/77 97 03/26/19 14:07 75 18 140/70 98 03/26/19 14:02 78 16 144/84 H 98 03/26/19 13:57 79 17 146/81 H 98 03/26/19 13:52 79 15 149/76 H 97 03/26/19 13:47 81 16 147/78 H 98 03/26/19 13:42 74 18 157/84 H 95 03/26/19 13:37 78 20 160/87 H 95 03/26/19 13:32 78 20 151/98 H 95 03/26/19 13:26 77 20 162/98 H 96 03/26/19 12:46 36.7 C 73 20 154/97 H 96 03/26/19 07:00 36.6 C 76 21 165/71 H 168/77 H 95
[2019-03-26] MEDS ORDERED: guaiFENesin SUGAR FREE 100 MG/5 ML UDC PO PRN (19:02)
--- NOTE | 2019-03-26 19:36 | Infectious Disease Progress Nt ---
Date of Service March 26, 2019 Assessment & Plan (1) Gangrene: Patient with gangrene of the right foot with cellulitis and possible osteomyelitis in the setting of severe peripheral arterial disease with cultures growing so far group B strep and MRSA. Patient to continue on IV daptomycin. W ill follow. (2) Infection due to Streptococcus group B: (3) Cellulitis of foot without toes, right: Subjective Patient seen in follow-up for gangrene right foot. Status post angiography with findings of distal obstruction with inability to angioplasty or stent. Patient remains afebrile. Cultures growing group B strep and MRSA. No fever. Review of Systems Review of Systems: All systems reviewed & are unremarkable except as noted in HPI & below Physical Exam Constitutional: WD/WN, vitals as above comfortable; no acute distress Eyes: PERRL, conjunctivae normal, anicteric sclerae ENMT: external ear and nose normal, oropharynx normal Neck: trachea midline, no thyromegaly neck nontender Respiratory: normal respiratory effort, lungs clear to auscultation normal percussion; does not use accessory muscles Cardiovascular: Rate/Rhythm: regular rate and regular rhythm Heart Sounds: normal S1, normal S2 and + murmur (Systolic); no gallop and no cardiac rub Vessels: no JVD Extremities: + abnormal capillary refill (Poor capillary refill, absent distal pulses) Gastrointestinal (Abdomen): normal bowel sounds, soft, nontender, no hepatosplenomegaly Musculoskeletal: no cyanosis or clubbing, extremities motor strength 5/5 Spine: thoracic spine normal to inspection and lumbar spine normal to inspection; no cervical spinal tenderness Skin: normal turgor and + wound (Right medial foot gangrenous changes with surrounding erythema, purulent drainage); no rashes Neurologic: moves all extremities; no focal motor deficits Motor/Sensory: + sensory deficit (Decrease in feet bilaterally) Psychiatric: A+Ox3, euthymic affect Orientation: cooperative Lymphatic: no cervical or axillary lymphadenopathy no inguinal lymphadenopathy Results & Data Vital Signs (Past 12 Hours) Vital Signs Temp Pulse Pulse Resp BP BP Pulse Ox 03/26/19 19:22 36.7 C 74 20 147/78 H 94 03/26/19 18:42 86 22 156/79 H 95 03/26/19 18:30 86 22 171/75 H 96 03/26/19 17:24 72 16 118/88 97 03/26/19 16:20 36.4 C L 69 16 159/78 H 95 03/26/19 15:46 36.5 C 82 20 174/72 H 96 03/26/19 15:21 36.4 C L 73 20 150/78 H 96 03/26/19 15:06 36.3 C L 73 20 138/83 96 03/26/19 15:02 36.4 C L 75 20 164/79 H 96 03/26/19 14:17 74 18 147/88 H 97 03/26/19 14:12 74 18 132/77 97 03/26/19 14:07 75 18 140/70 98 03/26/19 14:02 78 16 144/84 H 98 03/26/19 13:57 79 17 146/81 H 98 03/26/19 13:52 79 15 149/76 H 97 03/26/19 13:47 81 16 147/78 H 98 03/26/19 13:42 74 18 157/84 H 95 03/26/19 13:37 78 20 160/87 H 95 03/26/19 13:32 78 20 151/98 H 95 03/26/19 13:26 77 20 162/98 H 96 03/26/19 12:46 36.7 C 73 20 154/97 H 96 Laboratory Results Short CBC 03/26/19 Range/Units 07:18 WBC 9.21 (4.8-10.8) K/uL Hgb 10.0 L (14.0-18.0) g/dL Hct 31.1 L (42-52) % Plt Count 297 (130-400) K/uL BMP 03/26/19 07:18 Sodium 138 Potassium 4.0 Chloride 106 Carbon Dioxide 26 BUN 14 Creatinine 0.88 Glucose 134 H Calcium 8.5 Diagnostic Findings Microbiology 03/23/19 Unknown Foot,Right Gram Stain - Final 03/23/19 Unknown Foot,Right Wound Culture - Final Corynebacterium species Group B Beta Strep Staph aureus MRSA 03/23/19 18:49 Blood Aerobic Blood Culture - Preliminary No growth in Aerobic bottle after 48 hours. 03/23/19 18:49 Blood Anaerobic Blood Culture - Preliminary No growth in Anaerobic bottle after 48 hours. 03/23/19 19:01 Blood Aerobic Blood Culture - Preliminary No growth in Aerobic bottle after 48 hours. 03/23/19 19:01 Blood Anaerobic Blood Culture - Preliminary No growth in Anaerobic bottle after 48 hours.
--- NOTE | 2019-03-26 19:43 | XRay Report ---
XR chest 1V not portable CLINICAL HISTORY: 88 years-old Male presenting with Rule out aspiration pneumonia. TECHNIQUE: Portable upright AP view of the chest was obtained. COMPARISON: 03/23/2019. FINDINGS: Median sternotomy wires noted. Atherosclerosis of the aortic arch. Cardiac silhouette mildly enlarged . Pulmonary vascular prominence. Increased bronchial wall cuffing and interlobular septal thickening in the lungs. Increased bibasilar opacities and suspected trace bilateral pleural effusions. Added de nsity of the mid to lower lungs. No large pneumothorax. Osteopenia suspected. IMPRESSION: 1. Bibasilar opacities new from prior. Aspiration is a primary diagnostic consideration. 2. An element of volume overload and congestive changes also suspected. Developing pulmonary edema n ot excluded. 3. Suspected trace bilateral pleural effusions. Electronically signed by: Karthik Espinoza M.D. 03/26/2019 7:41 PM
[2019-03-26] MEDS: CYCLOBENZAPRINE HCL 10 MG TAB PO SCH (20:47)
[2019-03-26] MEDS: MELATONIN PO SCH (20:52)
[2019-03-26] MEDS: methylPREDNISolone 40 MG in SYRINGE 0 ML IV SCH (21:05)
[2019-03-26] MEDS ORDERED: PIPERACILLIN/TAZOBACTAM 4.5 GM/120 ML BAG IV ONE (21:42)
[2019-03-26] MEDS ORDERED: PIPERACILL/TAZOBAC CONSULT ACTIVE PRN (21:42)
[2019-03-26] MEDS ORDERED: methylPREDNISolone 20 MG in SYRINGE 0 ML IV ONE (21:45)
[2019-03-26] MEDS ORDERED: FAMOTIDINE 20MG/5ML IV PUSH IV STA (21:45)
--- NOTE | 2019-03-26 21:46 | Hospitalist Progress Note ---
Date of Service March 26, 2019 Subjective Patient noted to have cough symptoms. Chest x-ray results as follows: 1. Bibasilar opacities new from prior. Aspiration is a primary diagnostic consideration. 2. An element of volume overload and congestive changes also suspected. Developing pulmonary edema not excluded. 3. Suspected trace bilateral pleural effusion AP Aspiration pneumonia Fluid overload Change Cefepime to Zosyn. Stop IV fluid, Lasix 1 dose. Results & Data Vital Signs (Past 12 Hours) Vital Signs Temp Pulse Pulse Resp BP BP Pulse Ox 03/26/19 20:45 36.3 C L 74 18 165/75 H 99 03/26/19 20:33 36.5 C 79 20 160/77 H 97 03/26/19 19:22 36.7 C 74 20 147/78 H 94 03/26/19 18:42 86 22 156/79 H 95 03/26/19 18:30 86 22 171/75 H 96 03/26/19 17:24 72 16 118/88 97 03/26/19 16:20 36.4 C L 69 16 159/78 H 95 03/26/19 15:46 36.5 C 82 20 174/72 H 96 03/26/19 15:21 36.4 C L 73 20 150/78 H 96 03/26/19 15:06 36.3 C L 73 20 138/83 96 03/26/19 15:02 36.4 C L 75 20 164/79 H 96 03/26/19 14:17 74 18 147/88 H 97 03/26/19 14:12 74 18 132/77 97 03/26/19 14:07 75 18 140/70 98 03/26/19 14:02 78 16 144/84 H 98 03/26/19 13:57 79 17 146/81 H 98 03/26/19 13:52 79 15 149/76 H 97 03/26/19 13:47 81 16 147/78 H 98 03/26/19 13:42 74 18 157/84 H 95 03/26/19 13:37 78 20 160/87 H 95 03/26/19 13:32 78 20 151/98 H 95 03/26/19 13:26 77 20 162/98 H 96 03/26/19 12:46 36.7 C 73 20 154/97 H 96
[2019-03-26 23:42] LABS: BUN Creatinine Ratio 17.4 (10-20); Creatinine Clr Calc Pharmacy 60.4 ml/min; Est GFR (African American) 75.2; Est GFR (Non-African American) 64.9; Potassium 4.4 mmol/L (3.5-5.1)
[2019-03-27] MEDS: DAPTOmycin 475 MG in SYRINGE 0 ML IV SCH (03:14)
[2019-03-27] MEDS: methylPREDNISolone 40 MG in SYRINGE 0 ML IV SCH (03:15)
[2019-03-27] MEDS: PIPERACILLIN/TAZOBACTAM 3.375 GM in DEXTROSE 5% 100 ML IV SCH ×3 (03:15→18:33)
[2019-03-27] MEDS ORDERED: FUROSEMIDE 40 MG in SYRINGE 0 ML IV ONE (03:26)
[2019-03-27] MEDS: HEPARIN SOD 5,000 UNIT/0.5 ML VIAL SQ SCH ×3 (05:55→21:10)
[2019-03-27 07:43] LABS: Hematocrit (blood only) 32.5 % (42-52); Hemoglobin 10.6 g/dL (14.0-18.0); Immature Granulocytes # (auto) 0.03 K/uL (0.00-0.02); Immature Granulocytes % (auto) 0.3 %; Lymphocytes # (auto) 0.62 K/uL (1.2-3.4); Lymphocytes % (auto) 5.9 %; Mean Corpuscular Hgb Conc 32.6 g/dL (32-36); Mean Corpuscular Volume 84.2 fL (80-100); Mean Platelet Volume 10.7 fL (7.4-10.4); Monocytes # (auto) 0.17 K/uL (0.11-0.59); Monocytes % (auto) 1.6 %; Neutrophils # (auto) 9.72 K/uL (1.4-6.5); Neutrophils % (auto) 92.2 %; Platelet Count 355 K/uL (130-400); RDW Coefficient of Variation 14.1 % (11.5-14.5); Red Blood Count 3.86 M/uL (4.7-6.1); White Blood Count 10.54 K/uL (4.8-10.8)
[2019-03-27 08:00] LABS: BUN Creatinine Ratio 16.1 (10-20); Calcium 9.1 mg/dl (8.5-10.1); Creatinine Clr Calc Pharmacy 58.1 ml/min; Est GFR (African American) 71.8; Est GFR (Non-African American) 61.9; Potassium 3.8 mmol/L (3.5-5.1)
[2019-03-27] MEDS ORDERED: PHARMACY GLYCEMIC MGMT CONSULT SCH (08:45)
--- NOTE | 2019-03-27 09:00 | Pharmacy Report ---
Glycemic Control Consultation - Date of Service March 27, 2019 - Scope Scope: Glycemic Pharmacist consulted by Dr Fernando Phillips on 03/27/19 for glycemic control and to write orders per [facility] inpatient glycemic control protocol - Objective Weight: 100.9 kg Accuchecks BSG (last 24hrs): 03/26/19 03/26/19 03/26/19 11:49 17:22 20:37 Glucose POC Glucose 178 H 177 H 239 H 03/26/19 03/27/19 03/27/19 23:06 06:50 08:09 Glucose 251 H 321 H* POC Glucose 329 H* Laboratory Data (last 24hrs): 03/26/19 03/27/19 23:06 06:50 Potassium 4.4 3.8 Carbon Dioxide 22 25 Anion Gap 9.0 9.0 Creatinine 1.02 1.06 Est Cr Clr Drug Dosing 60.4 58.1 Beta-Hydroxybutyric Acd 9.41 H HbA1c: Hemoglobin A1c 9.7 % (4.5-5.6) H 03/25/19 05:40 - Recent Pertinent Medications Outpatient Anti-diabetic Regimen: * NPH 50 units SQ QAM * Novolog 16 units with dinner * Metformin 1000mg PO BID * A1c = 9.7 % 03/25/19 The patient is currently receiving: * Basal insulin: Lantus 5 units QAM and 15 units QPM * Correctional Insulin: Novolog Correction per scale ACHS Goal Range: Low 100 mg/dL - High 140 mg/dL Correction Factor: 15 mg/dL/unit * Prandial insulin: Per carb ratio of 1 unit per 5 grams CHO consumed * Oral Agents: On Hold Risk Factors for Insulin Resistance: * Infection: RLE Gangrene - IV Daptomycin, Zosyn * Diet: Type2 DM - Assessment & Plan Assessment & Plan: ASSESSMENT: * 88 year old male admitted for RLE Gangrene, Large diabetic foot ulcer.- Suspected osteomyelitis (MRI inconclusive), Initially received IV vancomycin and cefepime --> Changed to Daptomycin, Zosyn. * Blood sugars above goal about 50% of the time, but very elevated this morning in the 300s --> pharmacy glycemic service consulted * Patient somewhat known to our service from admission in October, where patient was receiving NPH as inpatient and on higher basal doses. * Will continue Lantus for now while patient is here and increase dose and put total dose in morning for elevated BSG. * Diet advanced last evening which is likely part of the cause of high BSG today too, will tighten CR. * Change goal range slightly to prevent hypoglycemia. PLAN FOR INPATIENT GLYCEMIC CONTROL: * Holding outpatient oral diabetes medications * Basal insulin - change and increase * Lantus 30 units SQ daily * Bolus insulin * NovoLog per scale ACHS or Q6hrs while NPO * CHANGE: Goal Range: Low 110 mg/dL - High 140 mg/dL * Correction Factor: 15 mg/dL/unit * TIGHTEN: Nutritional / Prandial insulin per carb ratio of 1 unit per 4 grams CHO consumed * Please note that the plan above was derived based on current level of insulin resistance and hospital stress. These recommendations are appropriate for inpatient admission only. Plan of care upon discharge will need to be reassessed to avoid potential outpatient hypo/hyperglycemia. Thank you.
[2019-03-27] MEDS: BRINZOLAMIDE (AZOPT) OPS 10 ML BTL OPR SCH ×2 (09:50→20:35)
[2019-03-27] MEDS: BRIMONIDINE TARTRATE 0.2% 5ML OPR SCH ×2 (09:50→20:00)
[2019-03-27] MEDS: INSULIN GLARGINE SOLOSTAR 100 UNITS/ML 3 ML PEN SC SCH (09:57)
[2019-03-27] MEDS: INSULIN ASPART 100 UNITS/ML 3 ML PEN SC SCH ×4 (09:58→21:13)
[2019-03-27] MEDS: ARTIFICIAL TEARS OPB SCH ×4 (10:00→21:08)
[2019-03-27] MEDS: DOCUSATE SODIUM 100 MG CAP PO SCH (10:27)
[2019-03-27] MEDS: GABAPENTIN 300 MG CAP PO SCH (10:28)
[2019-03-27] MEDS: CYANOCOBALAMIN 500 MCG TABLET (VITAMIN B-12) PO SCH (10:28)
[2019-03-27] MEDS: ASCORBIC ACID 500 MG TAB PO SCH ×2 (10:28→20:45)
[2019-03-27] MEDS: SACCHAROMYCES BOULARDII 250 MG CAP PO SCH (10:28)
[2019-03-27] MEDS: FINASTERIDE 5 MG TAB PO SCH (10:28)
[2019-03-27] MEDS: TAMSULOSIN HCL 0.4 MG CAP PO SCH (10:28)
[2019-03-27] MEDS: ASPIRIN 81 MG ECTAB PO SCH (10:29)
[2019-03-27] MEDS: CHOLECALCIFEROL 1,000 UNITS TAB PO SCH (10:29)
[2019-03-27] MEDS: CARVEDILOL 6.25 MG TAB PO SCH ×2 (10:29→20:44)
--- NOTE | 2019-03-27 11:02 | Hospitalist Progress Note ---
Date of Service March 27, 2019 Assessment & Plan (1) Acute and chronic respiratory failure with hypoxia: (2) Aspiration into airway: Per had an episode of aspiration yesterday while he tried to eat without his dentures. Increasing cough, confusion. Chest x-ray done on 03/26/2019 aspiration, volume overload + -Oxygen up to 4 L from 2-2.5 L (Home oxygen: 2-2.5 L) -IV Zosyn started overnight - Day 1 -Will avoid PO till mental status improves -Aspiration precautions. Speech evaluation once mental status improves (3) CHF (congestive heart failure): Per Echo in 11/05 - EF 55-60%, Moderate Likely CHF exacerbation, diastolic / Valvular Disease- -IV Lasix x 1 dose overnight. (Not on diuretics at home). Will give one more dose of IV Lasix and monitor volume status on a daily basis -Work up - BNP 10k, CXR- volume overloaded -Monitor response (4) Metabolic encephalopathy: Increasing confusion overnight. Likely metabolic encephalopathy in setting of aspiration, possible pneumonia, volume overload -Monitor response to rx - refused ABG ordered overnight. (5) Gangrene: (6) Diabetic foot infection: RLE Gangrene Large diabetic foot ulcer.- Suspected osteomyelitis (MRI inconclusive). -Initially received IV vancomycin and cefepime --> Changed to Daptomycin. Day 4 -S/P RLE Angiogram on 03/26/19- Distal obstruction not amenable to angioplasty or stent. Family hesitant to go for Amputation -ID- Appreciate inputs re: antibiotics -Ortho - Will likely require I & D and amputation. -Wound cx- Corynebacterium, Gp B strep, MRSA (7) Peripheral vascular disease in diabetes mellitus: ARTERIAL DUPLEX on 03/24/2019 IMPRESSION: 1. Occlusion of the proximal to mid posterior tibial artery with distal reconstitution. 2. Elevated peak systolic velocities about the peroneal and anterior tibial arteries suggestive of high-grade stenosis. 3. Extensive calcified plaque throughout the right lower extremity arterial structures. -Vascular surgery did right lower extremity angiogram on 03/26/2019distal obstruction not amenable to angioplasty/stent -Family hesitant about amputation (8) Coronary artery disease: -Continue aspirin and carvedilol. -Hold statin due to antibiotic therapy with daptomycin. (9) Aortic stenosis: -Severe aortic stenosis. -Hemodynamically stable. (10) Hypertension: -Continue carvedilol. (11) Chronic respiratory failure with hypoxia, on home O2 therapy: -Continue supplemental O2- 2 L at day time, 2.5 L at night time as prior to home. (12) COPD (chronic obstructive pulmonary disease): -Pulmonary status stable. with no signs of exacerbation (13) Diabetes mellitus, type II: -Hold metformin during hospital stay. -HBA1C- 9.7 -Basal Lantus / Novolog per protocol. (14) Do not resuscitate status: -Per advance directives. (15) DVT prophylaxis: -SQ heparin. (16) Discharge planning issues: -Medical mx in progress. Need to monitor closely as clinically deteriorating -Discharge disposition to be determined. -Internal Medicine follow-up with Dr. Dela Cruz. Updated by bedside and answered all her questions. Subjective Patient had an episode of aspiration yesterday when he tried to eat without his dentures. Chest x-ray yesterday showed aspiration, volume overload. Overnight IV Zosyn, IV Lasix 1 dose was given by night physician. Does have new cough. Increasing confusion + Oxygen requirement is up to 4 L per Remains afebrile. Physical Exam Physical Exam: GENERAL-awake, disoriented x3, confused. Getting more lethargic LUNGS- Air entry bilaterally decreased. Few crackles + HEART- Regular rate and rhythm. No murmurs ABDOMEN- Soft, non tender, non distended, Bowel sounds heard. EXTREMITIES- Right foot= Gangrene + S/P Dressing + absent distal pulses + Results & Data Vital Signs (Past 12 Hours) Vital Signs Temp Pulse Resp BP BP Pulse Ox 03/27/19 08:15 36.4 C L 72 20 170/88 H 91 03/27/19 04:00 36.5 C 83 14 167/85 H 93 03/26/19 23:19 36.6 C 79 14 163/81 H 96
[2019-03-27] MEDS ORDERED: FUROSEMIDE 40 MG TAB PO SCH (17:00)
[2019-03-27] MEDS ORDERED: FUROSEMIDE 40 MG/4 ML VIAL IV STA (19:12)
[2019-03-27] MEDS: MELATONIN PO SCH (20:44)
[2019-03-28] MEDS: DAPTOmycin 475 MG in SYRINGE 0 ML IV SCH (02:09)
[2019-03-28] MEDS: PIPERACILLIN/TAZOBACTAM 3.375 GM in DEXTROSE 5% 100 ML IV SCH ×3 (02:09→17:31)
--- NOTE | 2019-03-28 05:22 | Infectious Disease Progress Nt ---
Date of Service March 27, 2019 Assessment & Plan (1) Gangrene: Patient with gangrenous foot infection, cultures positive for MRSA and group B strep, in the setting of severe peripheral arterial disease, unable to improve via angiography. Awaiting decision regarding possible surgery or amputa tion. Agree with addition of Zosyn for now for possible aspiration. Continue daptomycin. Will follow. (2) Cellulitis of foot without toes, right: (3) Aspiration into airway: (4) Infection due to Streptococcus group B: Subjective Patient seen in follow-up for gangrenous foot infection. Reportedly had episode of aspiration, developed somewhat worsening mental status. Appears more comfortable, no respiratory distress at present. Remains afebrile. Zosyn has been restarted for possible aspiration pneumonia. Review of Systems Review of Systems: All systems reviewed & are unremarkable except as noted in HPI & below Physical Exam Constitutional: WD/WN, vitals as above comfortable; no acute distress Eyes: PERRL, conjunctivae normal, anicteric sclerae ENMT: external ear and nose normal, oropharynx normal Neck: trachea midline, no thyromegaly neck nontender Respiratory: normal respiratory effort, lungs clear to auscultation normal percussion; does not use accessory muscles Cardiovascular: Rate/Rhythm: regular rate and regular rhythm Heart Sounds: normal S1, normal S2 and + murmur (Systolic); no gallop and no cardiac rub Vessels: no JVD Extremities: + abnormal capillary refill (Poor capillary refill, absent distal pulses) Gastrointestinal (Abdomen): normal bowel sounds, soft, nontender, no hepatosplenomegaly Musculoskeletal: no cyanosis or clubbing, extremities motor strength 5/5 Spine: thoracic spine normal to inspection and lumbar spine normal to inspection; no cervical spinal tenderness Skin: normal turgor and + wound (Right medial foot gangrenous changes with surrounding erythema, purulent drainage); no rashes Neurologic: moves all extremities; no focal motor deficits Motor/Sensory: + sensory deficit (Decrease in feet bilaterally) Psychiatric: A+Ox3, euthymic affect Orientation: cooperative Lymphatic: no cervical or axillary lymphadenopathy no inguinal lymphadenopathy Results & Data Vital Signs (Past 12 Hours) Vital Signs Temp Pulse Resp BP Pulse Ox 03/27/19 23:34 36.8 C 77 14 158/79 H 93 Laboratory Results Short CBC 03/27/19 Range/Units 06:50 WBC 10.54 (4.8-10.8) K/uL Hgb 10.6 L (14.0-18.0) g/dL Hct 32.5 L (42-52) % Plt Count 355 (130-400) K/uL [facility] 03/27/19 06:50 Sodium 139 Potassium 3.8 Chloride 105 Carbon Dioxide 25 BUN 17 Creatinine 1.06 Glucose 321 H* Calcium 9.1 Diagnostic Findings Microbiology 03/23/19 Unknown Foot,Right Gram Stain - Final 03/23/19 Unknown Foot,Right Wound Culture - Final Corynebacterium species Group B Beta Strep Staph aureus MRSA 03/23/19 18:49 Blood Aerobic Blood Culture - Preliminary No growth in Aerobic bottle after 48 hours. 03/23/19 18:49 Blood Anaerobic Blood Culture - Preliminary No growth in Anaerobic bottle after 48 hours. 03/23/19 19:01 Blood Aerobic Blood Culture - Preliminary No growth in Aerobic bottle after 48 hours. 03/23/19 19:01 Blood Anaerobic Blood Culture - Preliminary No growth in Anaerobic bottle after 48 hours. cc: ~ XR chest 1V not portable CLINICAL HISTORY: 88 years-old Male presenting with Rule out aspiration pneumo alina. TECHNIQUE: Portable upright AP view of the chest was obtained. COMPARISON: 03/23/2019. FINDINGS: Median sternotomy wires noted. Atherosclerosis of the aortic arch. Cardiac silhouette mildly enlarged. Pulmonary vascular prominence. Increased bronchial wall cuffing and interlobular septal thickening in the lungs. Increased bibasilar opacities and suspected trace bilateral pleural effusions. Added density of the mid to lower lungs. No large pneumothorax. Osteopenia suspected. IMPRESSION: 1. Bibasilar opacities new from prior. Aspiration is a primary diagnostic consideration. 2. An element of volume overload and congestive changes also suspected. Developing pulmonary edema not excluded. 3. Suspected trace bilateral pleural effusions. Electronically signed by: Karthik Espinoza M.D. 03/26/2019 7:41 PM Dictated: 03/26/191939 Transcribed: 03/26/191939
[2019-03-28] MEDS: HEPARIN SOD 5,000 UNIT/0.5 ML VIAL SQ SCH ×3 (06:17→21:22)
[2019-03-28 08:38] LABS: Hematocrit (blood only) 35.5 % (42-52); Hemoglobin 11.6 g/dL (14.0-18.0); Mean Corpuscular Hgb Conc 32.7 g/dL (32-36); Mean Corpuscular Volume 84.3 fL (80-100); Mean Platelet Volume 10.6 fL (7.4-10.4); Platelet Count 464 K/uL (130-400); RDW Standard Deviation 43.2 fL (36.4-46.3); Red Blood Count 4.21 M/uL (4.7-6.1); White Blood Count 16.79 K/uL (4.8-10.8)
[2019-03-28] MEDS: ARTIFICIAL TEARS OPB SCH ×4 (08:53→21:20)
[2019-03-28] MEDS: BRINZOLAMIDE (AZOPT) OPS 10 ML BTL OPR SCH (08:53)
[2019-03-28] MEDS: BRIMONIDINE TARTRATE 0.2% 5ML OPR SCH (08:53)
[2019-03-28] MEDS: DOCUSATE SODIUM 100 MG CAP PO SCH (08:54)
[2019-03-28] MEDS: TAMSULOSIN HCL 0.4 MG CAP PO SCH (08:54)
[2019-03-28] MEDS: CYANOCOBALAMIN 500 MCG TABLET (VITAMIN B-12) PO SCH (08:55)
[2019-03-28] MEDS: SACCHAROMYCES BOULARDII 250 MG CAP PO SCH (08:55)
[2019-03-28] MEDS: ASCORBIC ACID 500 MG TAB PO SCH ×2 (08:55→21:21)
[2019-03-28] MEDS: FINASTERIDE 5 MG TAB PO SCH (08:55)
[2019-03-28] MEDS: CARVEDILOL 6.25 MG TAB PO SCH ×2 (08:55→21:19)
[2019-03-28] MEDS: ASPIRIN 81 MG ECTAB PO SCH (08:55)
[2019-03-28] MEDS: CHOLECALCIFEROL 1,000 UNITS TAB PO SCH (08:56)
[2019-03-28] MEDS ORDERED: FUROSEMIDE 40 MG in SYRINGE 0 ML IV SCH (09:00)
[2019-03-28] MEDS: INSULIN GLARGINE SOLOSTAR 100 UNITS/ML 3 ML PEN SC SCH (09:03)
[2019-03-28] MEDS: INSULIN ASPART 100 UNITS/ML 3 ML PEN SC SCH ×4 (09:04→21:23)
[2019-03-28 09:14] LABS: BUN Creatinine Ratio 16.6 (10-20); Est GFR (African American) 65.7; Est GFR (Non-African American) 56.7; Potassium 2.9 mmol/L (3.5-5.1)
--- NOTE | 2019-03-28 10:42 | Hospitalist Progress Note ---
Date of Service March 28, 2019 Assessment & Plan (1) Acute and chronic respiratory failure with hypoxia: (2) Aspiration into airway: Improving Per had an episode of aspiration on 03/26/2019 evening while he tried to eat without his dentures. Increasing cough, confusion after that. Chest x-ray done on 03/26/2019 evening aspiration, volume overload + -Oxygen up to 4 L from 2-2.5 L (Home oxygen: 2-2.5 L)--> Now down to 2 L near baseline -IV Zosyn started overnight on 03/26 - Day 2 -Aspiration precautions. Speech evaluation once mental status improves (3) CHF (congestive heart failure): Per Echo in 11/05 - EF 55-60%, Moderate Likely CHF exacerbation, diastolic / Valvular Disease- -IV Lasix x 1 dose overnight. (Not on diuretics at home). Received IV Lasix BID--> Change it to PO lasix 40 mg BID -Work up - BNP 10k, CXR- volume overloaded (4) Metabolic encephalopathy: Increasing confusion overnight 03/26/19- Improving, awake, alert, oriented to place, person. Likely metabolic encephalopathy in setting of aspiration, possible pneumonia, volume overload - refused ABG ordered. (5) Gangrene: (6) Diabetic foot infection: RLE Gangreneus Diabetic foot infection: Large diabetic foot ulcer.- Suspected osteomyelitis (MRI inconclusive). -Initially received IV vancomycin and cefepime --> Changed to Daptomycin. Day 4 -S/P RLE Angiogram on 03/26/19- Distal obstruction not amenable to angioplasty or stent. Family hesitant to go for Amputation -ID- Appreciate inputs re: antibiotics -Ortho - Will likely require I & D and amputation. Awaiting inputs -Wound cx- Corynebacterium, Gp B strep, MRSA (7) Peripheral vascular disease in diabetes mellitus: ARTERIAL DUPLEX on 03/24/2019 IMPRESSION: 1. Occlusion of the proximal to mid posterior tibial artery with distal reconstitution. 2. Elevated peak systolic velocities about the peroneal and anterior tibial arteries suggestive of high-grade stenosis. 3. Extensive calcified plaque throughout the right lower extremity arterial structures. -Vascular surgery did right lower extremity angiogram on 03/26/2019distal obstruction not amenable to angioplasty/stent -Family hesitant about amputation (8) Coronary artery disease: -Continue aspirin and carvedilol. -Hold statin due to antibiotic therapy with daptomycin. (9) Aortic stenosis: -Severe aortic stenosis. -Hemodynamically stable. (10) Hypertension: -Continue carvedilol. (11) COPD (chronic obstructive pulmonary disease): -Pulmonary status stable. with no signs of exacerbation (12) Diabetes mellitus, type II: -Hold metformin during hospital stay. -HBA1C- 9.7 -Basal Lantus / Novolog per protocol. (13) Do not resuscitate status: -Per advance directives. (14) DVT prophylaxis: -SQ heparin. (15) Discharge planning issues: -Medical mx in progress. -Discharge disposition to be determined--> [facility] CM/SW spoke to . -Internal Medicine follow-up with Dr. Dela Cruz. Updated by bedside and answered all her questions. Did a family meeting on 03/27 evening Subjective Patient is feeling much better today. He is awake, alert, had his breakfast. Denies any shortness of breath, pain, nausea, vomiting. Does have cough which seems to be improving. On 2 L of oxygen, down from 4 L No accurate I's/O's Physical Exam Physical Exam: GENERAL-patient is awake, alert, oriented to place, person, not to time. LUNGS- Air entry bilaterally decreased. Few crackles + at the bases HEART- Regular rate and rhythm. No murmurs ABDOMEN- Soft, non tender, non distended, Bowel sounds heard. EXTREMITIES- Right foot= Gangrene + S/P Dressing + absent distal pulses + Results & Data Vital Signs (Past 12 Hours) Vital Signs Temp Pulse Resp BP Pulse Ox 03/28/19 07:34 83 15 128/91 97 03/27/19 23:34 36.8 C 77 14 158/79 H 93
[2019-03-28] MEDS: POTASSIUM CHLORIDE 20 MEQ TABCR PO SCH (13:10)
--- NOTE | 2019-03-28 14:44 | Infectious Disease Progress Nt ---
Date of Service March 28, 2019 Assessment & Plan (1) Gangrene: Patient with gangrenous foot infection, cultures positive for MRSA and group B strep, in the setting of severe peripheral arterial disease, unable to improve via angiography. Awaiting decision regarding possible surgery or amputa tion. Patient to continue on daptomycin for foot infection and Zosyn for aspiration. Will follow. (2) Cellulitis of foot without toes, right: (3) Aspiration into airway: (4) Infection due to Streptococcus group B: Subjective Patient is feeling much better today. He is awake, alert, had his breakfast. Denies any shortness of breath, pain, nausea, vomiting. Does have cough which seems to be improving. No fever, tolerating antibiotics without apparent difficulty. Review of Systems Review of Systems: All systems reviewed & are unremarkable except as noted in HPI & below Physical Exam Constitutional: WD/WN, vitals as above comfortable; no acute distress Eyes: PERRL, conjunctivae normal, anicteric sclerae ENMT: external ear and nose normal, oropharynx normal Neck: trachea midline, no thyromegaly neck nontender Respiratory: normal respiratory effort, lungs clear to auscultation normal percussion; does not use accessory muscles Cardiovascular: Rate/Rhythm: regular rate and regular rhythm Heart Sounds: normal S1, normal S2 and + murmur (Systolic); no gallop and no cardiac rub Vessels: no JVD Extremities: + abnormal capillary refill (Poor capillary refill, absent distal pulses) Gastrointestinal (Abdomen): normal bowel sounds, soft, nontender, no hepatosplenomegaly Musculoskeletal: no cyanosis or clubbing, extremities motor strength 5/5 Spine: thoracic spine normal to inspection and lumbar spine normal to inspection; no cervical spinal tenderness Skin: normal turgor and + wound (Right medial foot gangrenous changes with [place] rrounding erythema, purulent drainage); no rashes Neurologic: moves all extremities; no focal motor deficits Motor/Sensory: + sensory deficit (Decrease in feet bilaterally) Psychiatric: A+Ox3, euthymic affect Orientation: cooperative Lymphatic: no cervical or axillary lymphadenopathy no inguinal lymphadenopathy Results & Data Vital Signs (Past 12 Hours) Vital Signs Pulse Resp BP Pulse Ox 03/28/19 07:34 83 15 128/91 97 Laboratory Results Short CBC 03/28/19 Range/Units 08:15 WBC 16.79 H (4.8-10.8) K/uL Hgb 11.6 L (14.0-18.0) g/dL Hct 35.5 L (42-52) % Plt Count 464 H (130-400) K/uL [facility] 03/28/19 08:15 Sodium 141 Potassium 2.9 L D Chloride 100 Carbon Dioxide 33 H BUN 19 H Creatinine 1.14 Glucose 140 H Calcium 9.0 Diagnostic Findings Microbiology 03/23/19 Unknown Foot,Right Gram Stain - Final 03/23/19 Unknown Foot,Right Wound Culture - Final Corynebacterium species Group B Beta Strep Staph aureus MRSA 03/23/19 18:49 Blood Aerobic Blood Culture - Preliminary No growth in Aerobic bottle after 48 hours. 03/23/19 18:49 Blood Anaerobic Blood Culture - Preliminary No growth in Anaerobic bottle after 48 hours. 03/23/19 19:01 Blood Aerobic Blood Culture - Preliminary No growth in Aerobic bottle after 48 hours. 03/23/19 19:01 Blood Anaerobic Blood Culture - Preliminary No growth in Anaerobic bottle after 48 hours.
[2019-03-28] MEDS ORDERED: POTASSIUM CHLORIDE 20 MEQ TABCR PO STA (15:23)
[2019-03-28] MEDS: FUROSEMIDE 40 MG TAB PO SCH (17:30)
[2019-03-28] MEDS ORDERED: BRIMONIDINE TARTRATE 0.2% 5ML OPR SCH (21:00)
[2019-03-28] MEDS ORDERED: BRINZOLAMIDE (AZOPT) OPS 10 ML BTL OPR SCH (21:00)
[2019-03-28] MEDS: MELATONIN PO SCH (21:21)
[2019-03-28] MEDS: SIMBRINZA OPR SCH (21:21)
[2019-03-29] MEDS: DAPTOmycin 475 MG in SYRINGE 0 ML IV SCH (02:00)
[2019-03-29] MEDS: PIPERACILLIN/TAZOBACTAM 3.375 GM in DEXTROSE 5% 100 ML IV SCH ×3 (02:01→19:21)
[2019-03-29] MEDS: TRAMADOL HCL 50 MG TABLET PO PRN ×2 (04:02→10:14)
[2019-03-29] MEDS: ACETAMINOPHEN 325 MG TAB PO PRN (04:05)
[2019-03-29] MEDS: HEPARIN SOD 5,000 UNIT/0.5 ML VIAL SQ SCH ×3 (05:54→21:29)
[2019-03-29] MEDS ORDERED: OLANZAPINE 2.5 MG TAB PO STA (06:09)
[2019-03-29 07:40] LABS: Hematocrit (blood only) 37.5 % (42-52); Hemoglobin 12.4 g/dL (14.0-18.0); Mean Corpuscular Hgb Conc 33.1 g/dL (32-36); Mean Corpuscular Volume 85.2 fL (80-100); Mean Platelet Volume 10.2 fL (7.4-10.4); Platelet Count 446 K/uL (130-400); RDW Coefficient of Variation 14.2 % (11.5-14.5); RDW Standard Deviation 44.6 fL (36.4-46.3); White Blood Count 10.25 K/uL (4.8-10.8)
[2019-03-29 08:22] LABS: Est GFR (African American) 56.1; Est GFR (Non-African American) 48.4; Potassium 3.6 mmol/L (3.5-5.1)
[2019-03-29 08:23] LABS: Albumin Level 2.5 gm/dl (3.4-5.0); BUN Creatinine Ratio 20.6 (10-20); Bilirubin Direct 0.2 mg/dl (0-0.2); Bilirubin,Total 0.6 mg/dl (0.2-1); Calcium 9.2 mg/dl (8.5-10.1); Creatinine Clr Calc Pharmacy 47.4 ml/min; Magnesium 1.3 mg/dl (1.8-2.4); Total Protein 7.7 gm/dl (6.4-8.2)
[2019-03-29] MEDS: ARTIFICIAL TEARS OPB SCH ×4 (09:50→21:27)
[2019-03-29] MEDS: DOCUSATE SODIUM 100 MG CAP PO SCH (09:51)
[2019-03-29] MEDS: CARVEDILOL 6.25 MG TAB PO SCH ×2 (09:52→21:25)
[2019-03-29] MEDS: ASCORBIC ACID 500 MG TAB PO SCH ×2 (09:52→21:29)
[2019-03-29] MEDS: CHOLECALCIFEROL 1,000 UNITS TAB PO SCH (09:53)
[2019-03-29] MEDS: TAMSULOSIN HCL 0.4 MG CAP PO SCH (09:54)
[2019-03-29] MEDS: SACCHAROMYCES BOULARDII 250 MG CAP PO SCH (09:54)
[2019-03-29] MEDS: FINASTERIDE 5 MG TAB PO SCH (09:54)
[2019-03-29] MEDS: ASPIRIN 81 MG ECTAB PO SCH (09:54)
[2019-03-29] MEDS: SIMBRINZA OPR SCH ×2 (09:55→21:26)
[2019-03-29] MEDS: FUROSEMIDE 40 MG TAB PO SCH (09:56)
[2019-03-29] MEDS: INSULIN GLARGINE SOLOSTAR 100 UNITS/ML 3 ML PEN SC SCH (09:57)
[2019-03-29] MEDS: CYANOCOBALAMIN 500 MCG TABLET (VITAMIN B-12) PO SCH (09:57)
[2019-03-29] MEDS: INSULIN ASPART 100 UNITS/ML 3 ML PEN SC SCH ×4 (10:00→21:28)
--- NOTE | 2019-03-29 12:25 | Hospitalist Progress Note ---
Date of Service March 29, 2019 Assessment & Plan (1) Delirium: On and off episodes of agitation and restlessness starting 03/27/2019. Was better yesterday, however today again more agitated and disoriented x3 Received Zyprexa 2.5 mg at 6 AM today. QTC is 502 so will avoid IM Zyprexa PRN order.. Try behavioral rxs Per discussion with family, no history of dementia. Likely delirium in setting of illness Delirium precautions -1:1 Observation (2) Acute and chronic respiratory failure with hypoxia: (3) Aspiration into airway: Improving Per had an episode of aspiration on 03/26/2019 evening while he tried to eat without his dentures. Increasing cough, confusion after that. Chest x-ray done on 03/26/2019 evening aspiration, volume overload + -Oxygen up to 4 L from 2-2.5 L (Home oxygen: 2 L Day -2.5 L Night)--> Now down to 2 L near baseline since 03/28/19 -IV Zosyn started overnight on 03/26 - Day 3 for possible aspiration pneumonia -Aspiration precautions. Speech evaluation once mental status improves -Nutrition- Hold PO when patient is lethargic (4) CHF (congestive heart failure): Per Echo in 11/05 - EF 55-60%, Moderate Likely CHF exacerbation, diastolic / Valvular Disease- -IV Lasix x 1 dose 03/25/19 overnight. (Not on diuretics at home). Received IV Lasix BID --> Lasix 40 mg PO BID PO --> Will discontinue as now again NPO and not taking much and just mild pulm edema due to fluids received initially. -Work up - BNP 10k, CXR- volume overloaded (5) Gangrene: (6) Diabetic foot infection: RLE Gangrenous Diabetic foot infection: Large diabetic foot ulcer.- Suspected osteomyelitis (MRI inconclusive). -Initially received IV vancomycin and cefepime --> Changed to Daptomycin. Day 5 -S/P RLE Angiogram on 03/26/19- Distal obstruction not amenable to angioplasty or stent. Discussed with vascular surgery who signed off. -ID- Appreciate inputs re: antibiotics -Ortho - Likely planning Right BKA. Awaiting inputs. -Wound cx- Corynebacterium, Gp B strep, MRSA Have had multiple discussions with family, throughout his stay about amputation. Initially they were hesitant about it. Now entire family is agreeable. Patient is unable to make medical decisions at this point as he is delirious. (7) Peripheral vascular disease in diabetes mellitus: ARTERIAL DUPLEX on 03/24/2019 IMPRESSION: 1. Occlusion of the proximal to mid posterior tibial artery with distal reconstitution. 2. Elevated peak systolic velocities about the peroneal and anterior tibial arteries suggestive of high-grade stenosis. 3. Extensive calcified plaque throughout the right lower extremity arterial structures. -On aspirin -Vascular surgery did right lower extremity angiogram on 03/26/2019distal obstruction not amenable to angioplasty/stent -Plan is for amputation (8) Coronary artery disease: -Continue aspirin and carvedilol. -Hold statin due to antibiotic therapy with daptomycin. (9) Aortic stenosis: -Moderate to Severe aortic stenosis (10) Hypertension: -Stable -Continue carvedilol. (11) COPD (chronic obstructive pulmonary disease): -No signs of exacerbation (12) Diabetes mellitus, type II: -Hold metformin during hospital stay. -HBA1C- 9.7 -Basal Lantus / Novolog per protocol. -Pharmacology glycemic control consult in place (13) Do not resuscitate status: -Per advance directives. (14) DVT prophylaxis: -SQ heparin. (15) Discharge planning issues: -Medical mx in progress. -Discharge disposition --> [facility]. CM/SW spoke to --> once medically stable. -Internal Medicine follow-up with Dr. Dela Cruz. Updated by bedside and answered all her questions. Did a family meeting on 03/27 evening- agreed with amputation. Awaiting ortho inputs Subjective Patient is again more agitated and restless today. Overnight continued to remain agitated, received Zyprexa 2.5 mg in a.m. Still continues to be restless, disoriented x 3. Unable to get much history. Continues to remain afebrile. On one-to-one observation now. by bedside Physical Exam Physical Exam: GENERAL- Patient is agitated and restless + LUNGS- Air entry bilaterally decreased. Few crackles + at the bases HEART- Regular rate and rhythm. No murmurs ABDOMEN- Soft, non tender, non distended, Bowel sounds heard. EXTREMITIES- Right foot= Gangrene + S/P Dressing + absent distal pulses + NEUROLOGICAL - Grossly moving all extremities, Not cooperative with exam Results & Data Vital Signs (Past 12 Hours) Vital Signs Temp Pulse Pulse Resp BP Pulse Ox 03/29/19 07:53 36.3 C L 90 16 127/71 95 03/29/19 06:19 93 H 20 119/73 92
--- NOTE | 2019-03-29 13:59 | Pharmacy Report ---
Pharmacy Glycemic Short Note 2 - Date of Service March 29, 2019 - Glycemic Short BSG Results (Last 24 hours): 03/28/19 03/28/19 03/29/19 17:04 20:56 05:33 Glucose POC Glucose 112 H 172 H 169 H 03/29/19 03/29/19 03/29/19 07:07 08:15 12:04 Glucose 185 H POC Glucose 187 H 239 H ASSESSMENT: * Mr. Go's glycemic status much improved since pharmacist intervention. He did have some hyperglycemia at lunch, 239mg/dL. This is an on-going trend with him. BSGs tend to decrease for dinner and HS. Will continue with current insulin orders barring any acute fluctuations. PLAN FOR INPATIENT GLYCEMIC CONTROL: * Basal insulin * Lantus 30u QAM * Bolus insulin * NovoLog per scale ACHS or Q6hrs while NPO * Goal Range: Low 110 mg/dL - High 140 mg/dL * Correction Factor: 15 mg/dL/unit * Nutritional / Prandial insulin per carb ratio of 1 unit per 4 grams CHO consumed
--- NOTE | 2019-03-29 16:57 | Orthopedic Progress Note ---
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 Unable to revascularize. Patient will require R BKA amputation. Will attempt tomorrow at noon if cleared/optimized by Internal medicine svc. NPO after MN. Thank you for the consultation. Subjective Spoke to at bedside at length. She is amenable to BKA. I spoke to Dr Phillips RE: same. Patient is agitated and restless today. Overnight continued to remain agitated. Still continues to be restless, disoriented x 3. Unable to get much history. Continues afebrile. On one-to-one observation now. by bedside. Physical Exam Physical Exam: Patient confused. at bedside. R LE dry gangrene great toe and first ray. No palpable pulses. Foot is cool. Limited hair growth B LE. No motion right great toe. Asensate Right medial foot. Results & Data Vital Signs (Past 12 Hours) Vital Signs Temp Pulse Pulse Resp BP BP Pulse Ox 03/29/19 15:07 36.3 C L 81 16 113/69 94 03/29/19 07:53 36.3 C L 90 16 127/71 95 03/29/19 06:19 93 H 20 119/73 92
[2019-03-29] MEDS: MELATONIN PO SCH (21:24)
[2019-03-30] MEDS ORDERED: Nursing to Pharmacy Communication ONE ×2 (01:24→17:18)
[2019-03-30] MEDS: DAPTOmycin 475 MG in SYRINGE 0 ML IV SCH ×3 (02:35→10:36)
[2019-03-30] MEDS: PIPERACILLIN/TAZOBACTAM 3.375 GM in DEXTROSE 5% 100 ML IV SCH ×4 (02:36→18:29)
[2019-03-30] MEDS: INSULIN ASPART 100 UNITS/ML 3 ML PEN SC SCH ×4 (06:03→21:11)
[2019-03-30 06:04] LABS: Basophils # (auto) 0.02 K/uL (0-0.2); Basophils % (auto) 0.2 %; Eosinophils % (auto) 3.7 %; Hematocrit (blood only) 37.7 % (42-52); Hemoglobin 12.3 g/dL (14.0-18.0); Immature Granulocytes # (auto) 0.02 K/uL (0.00-0.02); Immature Granulocytes % (auto) 0.2 %; Lymphocytes # (auto) 2.18 K/uL (1.2-3.4); Lymphocytes % (auto) 26.8 %; Mean Corpuscular Hgb Conc 32.6 g/dL (32-36); Mean Platelet Volume 10.1 fL (7.4-10.4); Monocytes # (auto) 0.87 K/uL (0.11-0.59); Monocytes % (auto) 10.7 %; Neutrophils # (auto) 4.74 K/uL (1.4-6.5); Neutrophils % (auto) 58.4 %; Platelet Count 420 K/uL (130-400); RDW Coefficient of Variation 14.5 % (11.5-14.5); RDW Standard Deviation 44.3 fL (36.4-46.3); Red Blood Count 4.49 M/uL (4.7-6.1); White Blood Count 8.13 K/uL (4.8-10.8)
[2019-03-30] MEDS: HEPARIN SOD 5,000 UNIT/0.5 ML VIAL SQ SCH ×2 (06:19→12:48)
[2019-03-30 06:46] LABS: BUN Creatinine Ratio 25.1 (10-20); Calcium 8.8 mg/dl (8.5-10.1); Creatinine Clr Calc Pharmacy 47.7 ml/min; Est GFR (African American) 56.6; Est GFR (Non-African American) 48.8; Potassium 3.8 mmol/L (3.5-5.1)
[2019-03-30] MEDS ORDERED: INSULIN GLARGINE SOLOSTAR 100 UNITS/ML 3 ML PEN SC STA (08:33)
--- NOTE | 2019-03-30 08:38 | Pharmacy Report ---
Pharmacy Glycemic Short Note 2 - Date of Service March 30, 2019 - Glycemic Short BSG Results (Last 24 hours): 03/29/19 03/29/19 03/29/19 08:15 12:04 17:10 Glucose POC Glucose 187 H 239 H 48 L* 03/29/19 03/29/19 03/29/19 17:24 17:42 20:42 Glucose POC Glucose 58 L* 87 267 H 03/30/19 03/30/19 05:47 05:51 Glucose 177 H POC Glucose 169 H ASSESSMENT: * Pt NPO for BKA amputation this afternoon, will provide reduced lantus dose: 30-->20 units. Further, will loosen correctional insulin slightly. He did have a low with dinner yesterday, likely due to the 23units of novolog given with lunch. PLAN FOR INPATIENT GLYCEMIC CONTROL: * Basal insulin * Lantus 20 units today, given NPO status * Bolus insulin - loosen * NovoLog per scale ACHS or Q6hrs while NPO * Goal Range: Low 110 mg/dL - High 140 mg/dL * Correction Factor: 18 mg/dL/unit * Nutritional / Prandial insulin per carb ratio of 1 unit per 6 grams CHO consumed
[2019-03-30] MEDS: CARVEDILOL 6.25 MG TAB PO SCH ×2 (09:14→21:09)
[2019-03-30] MEDS: ASPIRIN 81 MG ECTAB PO SCH (09:14)
[2019-03-30] MEDS: DOCUSATE SODIUM 100 MG CAP PO SCH ×2 (09:14→21:09)
[2019-03-30] MEDS: ASCORBIC ACID 500 MG TAB PO SCH ×2 (09:15→21:09)
[2019-03-30] MEDS: FINASTERIDE 5 MG TAB PO SCH (09:15)
[2019-03-30] MEDS: TAMSULOSIN HCL 0.4 MG CAP PO SCH (09:15)
[2019-03-30] MEDS: SACCHAROMYCES BOULARDII 250 MG CAP PO SCH (09:15)
[2019-03-30] MEDS: CYANOCOBALAMIN 500 MCG TABLET (VITAMIN B-12) PO SCH (09:15)
[2019-03-30] MEDS: CHOLECALCIFEROL 1,000 UNITS TAB PO SCH (09:15)
[2019-03-30] MEDS: SIMBRINZA OPR SCH ×2 (09:20→21:09)
[2019-03-30] MEDS: ARTIFICIAL TEARS OPB SCH ×4 (09:21→21:08)
--- NOTE | 2019-03-30 09:35 | Hospitalist Progress Note ---
Date of Service March 30, 2019 Assessment & Plan (1) Delirium: Patient has been delirious since 03/27/2019 Received Zyprexa PRN Likely delirious from acute illness Reorient frequently Avoid narcotics as able 1:1 Observation Acute and chronic respiratory failure with hypoxia: Aspiration: Chronic oxygen dependency: Home oxygen: 2 L Day -2.5 L Night at baseline Per had an episode of aspiration on 03/26/2019 evening while he tried to eat without his dentures. Increasing cough, confusion after the aspiration episode Chest x-ray: aspiration, volume overload Continue Zosyn started on 03/26: Day #4 for possible aspiration pneumonia Aspiration precautions Speech evaluation as able CHF(congestive heart failure): Echo in 11/05 - EF 55-60%, Moderate Likely diastolic CHF exacerbation, Valvular Heart Disease- Received lasix Will continue diuretics PRN Gangrene: RLE Gangrenous Diabetic foot infection: Large diabetic foot ulcer.- Suspected osteomyelitis (MRI inconclusive). IV vancomycin and cefepime transitioned to Daptomycin. Day #6 S/P RLE Angiogram on 03/26/19- Distal obstruction not amenable to angioplasty or stent. Vascular surgery signed off. ID- Appreciate inputs re: antibiotics Needs Right BKA: Appreciate Orthopedics Input Wound culture: Corynebacterium, Group B strep, MRSA Patient is at moderate to high risk for surgery given his comorbidities, age. Patient's family is aware that patient is at high risk for surgery but would like to proceed with the procedure. Peripheral vascular disease in diabetes mellitus: --Arterial Duplex: Occlusion of the proximal to mid posterior tibial artery with distal reconstitution. Elevated peak systolic velocities about the peroneal and anterior tibial arteries suggestive of high-grade stenosis. Extensive calcified plaque throughout the right lower extremity arterial structures. --Right lower extremity angiogram on 03/26/2019distal obstruction not amenable to angioplasty/stent --on aspirin Planned for amputation--R BKA Coronary artery disease: Continue aspirin, carvedilol. Hold statin while on daptomycin. Aortic stenosis: Moderate to Severe aortic stenosis Hypertension: Stable On carvedilol. COPD (chronic obstructive pulmonary disease): No signs of exacerbation DM II: Hold metformin HBA1C- 9.7 Basal Lantus / Novolog per protocol. Pharmacology glycemic control consult in place DVT Px: Heparin SQ Code Status DNI/DNR Disposition: Medicine follow-up with Dr. Dela Cruz. To be determined Subjective Patient is seen and examined at bedside Has been delirious, disoriented Continues to call his "Suad" Follows simple commands intermittently Planned for Surgery R BKA today Patient's family aware that he is at high risk for surgery and would like to proceed for surgery Could not history from patient Review of Systems Review of Systems: Unobtainable due to cognitive status Physical Exam Physical Exam: Physical Exam: Vitals signs as noted above General Appearance: Chronically ill-appearing, elderly, disoriented Head: normocephalic, Atraumatic, + hearing aids Eyes: normal inspection, EOMI Neck: supple, Trachea midline Respiratory/Chest: Normal breath sounds, CTA Cardiovascular: S1, S2, + systolic murmur Abdomen/GI:Soft, Non tender, Bowel sounds present Extremities/Musculoskelatal:normal inspection, no edema, + Right foot in dressing Neurologic/Psych:grossly no focal neurological deficits Skin: normal color, warm Results & Data Vital Signs (Past 12 Hours) Vital Signs Temp Pulse Pulse Resp BP Pulse Ox 03/30/19 07:23 90 18 106/89 94 03/29/19 23:36 36.4 C L 82 16 110/50 L 96 03/29/19 21:23 89 97 Laboratory Results Short CBC 03/30/19 Range/Units 05:51 WBC 8.13 (4.8-10.8) K/uL Hgb 12.3 L (14.0-18.0) g/dL Hct 37.7 L (42-52) % Plt Count 420 H (130-400) K/uL BMP 03/30/19 05:51 Sodium 137 Potassium 3.8 Chloride 98 Carbon Dioxide 32 BUN 32 H Creatinine 1.29 Glucose 177 H Calcium 8.8 Diagnostic Findings CXR pending
--- NOTE | 2019-03-30 11:59 | XRay Report ---
SINGLE VIEW CHEST CLINICAL HISTORY: Preoperative examination. FINDINGS: An AP, portable, upright chest radiograph is compared to study dated 03/26/2019 and correlat ed with chest CT dated 02/24/2014. The examination is degraded by portable technique and patient rotat ion. The patient is status post midline sternotomy. The heart is enlarged and there is atheroscleroti c calcification of the thoracic ureter. Mild pulmonary vascular congestion persists. There are bibasi lar airspace opacities, left greater than right. No large pleural effusion or pneumothorax is seen. T he skeletal structures are osteopenic. The bony thorax is grossly intact. Degenerative change is note d in the shoulders and thoracic spine. IMPRESSION: 1. Cardiomegaly with mild pulmonary vascular congestion. 2. Bibasilar airspace opacities persistent. Correlate clinically for evidence of pneumonia/aspiration pneumonitis. Electronically signed by: Johnie Moore M.D. 03/30/2019 11:57 AM
[2019-03-30] MEDS ORDERED: fentaNYL citrate 100 MCG/2 ML VIAL ONE ×4 (12:38→14:23)
--- NOTE | 2019-03-30 12:40 | Anesthesiology Consultation ---
Date of Service March 30, 2019 Assessment & Plan (1) Encounter for pre-operative examination: Chart Review Chart Review: Acceptable Risk for Surgery (obviously high risk but has gangrenous foot) History Surgery Operation Date: 03/26/19 12:30 Proposed Procedures p Right Leg Angiogram with Intervention - Edil Ruffin MD Operation Date: 03/30/19 13:00 Proposed Procedures p Right Below Knee Amputation(Right) - Twin Rivera DO Height/Weight Height: 6 ft Weight: 100.9 kg Allergies Allergy/AdvReac Type Severity Reaction Status Date / Time Iodinated Contrast- Oral and Allergy Severe Edema-face/lips/tongue. Verified 03/23/19 18:48 IV Dye Hives/Rash. dipyridamole Allergy Intermediate Hallucinati Verified 03/23/19 18:48 ons formaldehyde Allergy Intermediate Hives/Rash Verified 03/23/19 18:48 Cipro Allergy Unknown Hives Verified 07/15/17 11:48 lisinopril Allergy Unknown UNKNOWN Verified 03/23/19 18:48 ciprofloxacin AdvReac Unknown CONSTIPATIO Verified 03/23/19 18:48 N yellow socks Allergy Intermediate contact Uncoded 03/23/19 18:48 rash (formaldehyde used to preserve yellow color) Medications Home Medications Medication Instructions Recorded Confirmed Last Taken Eucerin Skin Calming 1 applic TOPICAL UD 09/13/18 03/23/19 Unknown Simbrinza 1 drp OPR BID 09/13/18 03/23/19 03/23/19 TheraTears 1 drp OPB QID 09/13/18 03/23/19 03/23/19 aspirin [Aspir-81] 81 mg PO DAILY 09/13/18 03/23/19 03/23/19 benzoyl peroxide 1 applic TOPICAL DAILY PRN 09/13/18 03/23/19 Unknown cholecalciferol (vitamin D3) 2,000 unit PO DAILY 09/13/18 03/23/19 03/23/19 [Vitamin D3] cyanocobalamin (vitamin B-12) 1,000 mcg PO DAILY 09/13/18 03/23/19 03/23/19 cyclobenzaprine 10 mg PO HS 09/13/18 03/23/19 03/22/19 docusate sodium 100 mg PO DAILY 09/13/18 03/23/19 03/23/19 finasteride 5 mg PO DAILY 09/13/18 03/23/19 03/23/19 hydrocortisone 1 applic TOPICAL BID 09/13/18 03/23/19 03/23/19 lutein 20 mg PO DAILY 09/13/18 03/23/19 03/23/19 metformin 1,000 mg PO BIDM 09/13/18 03/23/19 03/23/19 nitroglycerin [Nitrostat] 0.4 mg SUBLINGUAL UD PRN 09/13/18 03/23/19 Unknown nystatin 1 applic TOPICAL UD PRN 09/13/18 03/23/19 Unknown selenium sulfide 1 applic TOPICAL UD 09/13/18 03/23/19 Unknown simvastatin [Zocor] 10 mg PO Q2D 09/13/18 03/23/19 03/22/19 tamsulosin 0.4 mg PO DAILY 09/13/18 03/23/19 03/23/19 tramadol [Ultram] 50 mg PO Q6 PRN 09/13/18 03/23/19 Unknown acetaminophen [Mapap 650 mg PO Q4H PRN #100 tab 10/31/18 03/23/19 Unknown (acetaminophen)] ascorbic acid (vitamin C) [Vitamin 1,000 mg PO BID #90 tab 10/31/18 03/23/19 03/23/19 C] carvedilol 6.25 mg PO BID #20 tab 11/04/18 03/23/19 03/23/19 gabapentin 300 mg PO TID 03/23/19 03/23/19 Unknown insulin NPH isoph U-100 human 50 unit SC QAM 03/23/19 03/23/19 03/23/19 [Novolin N NPH U-100 Insulin] insulin aspart U-100 [Novolog 16 unit SC QDD 03/23/19 03/23/19 03/22/19 Flexpen U-100 Insulin] melatonin 10 mg PO HS PRN 03/23/19 03/23/19 Unknown Active Medications Generic Name Dose Route Start Last Admin Trade Name Freq PRN Reason Stop Dose Admin Acetaminophen 650 mg 03/23/19 20:47 03/29/19 04:05 Tylenol PO 04/22/19 20:46 650 mg Q4H PRN Administration pain/fever Artificial Tears 1 drops 03/23/19 21:00 03/30/19 09:21 Artificial Tears OPB 04/22/19 20:59 1 drops QID OREN Administration Ascorbic Acid 1,000 mg 03/23/19 21:00 03/30/19 09:15 Vitamin C PO 04/22/19 20:59 Not Given BID [facility] Aspirin 81 mg 03/24/19 09:00 03/30/19 09:14 Ecotrin Ectab PO 04/23/19 08:59 Not Given DAILY [facility] Carvedilol 6.25 mg 03/23/19 21:00 03/30/19 09:14 Coreg PO 04/22/19 20:59 Not Given BID [facility] Cyanocobalamin 1,000 mcg 03/24/19 09:00 03/30/19 09:15 Vitamin B-12 PO 04/23/19 08:59 Not Given DAILY [facility] Docusate Sodium 100 mg 03/24/19 09:00 03/30/19 09:14 Colace PO 04/23/19 08:59 Not Given DAILY [facility] Finasteride 5 mg 03/24/19 09:00 03/30/19 09:15 Proscar PO 04/23/19 08:59 Not Given DAILY [facility] Glucose 15 - 30 gm 03/23/19 20:47 03/29/19 17:25 Glucose 40% PO 04/22/19 20:46 15 gm UD PRN Administration Hypoglycemia Protocol Protocol Heparin Sodium (Porcine) 5,000 units 03/23/19 22:00 03/30/19 06:19 Heparin Sodium (Porcine) SQ 04/22/19 21:59 Not Given Q8 OREN Piperacillin Sod/Tazobactam 115 mls @ 28.75 mls/hr 03/27/19 02:00 03/30/19 10:36 Sod 3.375 gm/ Dextrose IV 04/03/19 01:59 28.8 mls/hr Q8H OREN Administration Protocol Daptomycin 475 mg/ Syringe 9.5 mls @ 0 mls/min 03/30/19 10:00 03/30/19 10:36 IV 05/06/19 09:59 4 mls/min Q24H OREN Administration Protocol Insulin Aspart 0 units 03/30/19 06:00 03/30/19 06:03 Novolog Flexpen SC 04/29/19 05:59 2 units Q6 OREN Administration Insulin Glargine 30 units 03/27/19 09:00 03/29/19 09:57 Lantus Solostar Pen SC 04/26/19 08:59 30 units DAILY OREN Administration Protocol Iodixanol 45 ml 03/26/19 14:09 03/26/19 14:11 Visipaque IV 03/30/19 14:08 45 ml UD PRN Administration Interaction Checking Melatonin 1 ea 03/24/19 21:00 03/29/19 21:24 Melatonin PO 04/23/19 20:59 1 ea HS OREN Administration Miscellaneous 15 - 30 gm 03/23/19 20:47 03/29/19 17:16 Carbohydrates For Hypoglycemia PO 04/22/19 20:46 30 gm UD PRN Administration Hypoglycemia Treatment Simbrinza ~ Non- 1 ea 03/28/19 21:00 03/30/19 09:20 Formulary Patient's OPR 04/27/19 20:59 1 drops Own Med BID OREN Administration Saccharomyces Boulardii 250 mg 03/24/19 09:00 03/30/19 09:15 Florastor PO 04/23/19 08:59 Not Given DAILY OREN Tamsulosin HCl 0.4 mg 03/24/19 09:00 03/30/19 09:15 Flomax PO 04/23/19 08:59 Not Given DAILY OREN Tramadol HCl 50 mg 03/23/19 20:47 03/29/19 10:14 Ultram PO 04/22/19 20:46 50 mg Q6 PRN Administration Pain, Moderate Vitamin D 2,000 units 03/24/19 09:00 03/30/19 09:15 Vitamin D3 PO 04/23/19 08:59 Not Given DAILY OREN NPO Date Last Intake of Fluids: 03/29/19 Time Last Intake of Fluids: 23:55 Date Last Intake of Solids: 03/29/19 Time Last Intake of Solids: 23:55 Past Medical History Medical History GERD (gastroesophageal reflux disease) (Chronic) Arthritis (Chronic) BPH (benign prostatic hyperplasia) (Chronic) Chronic respiratory failure with hypoxia, on home O2 therapy (Chronic) COPD (chronic obstructive pulmonary disease) (Chronic) Diabetic neuropathy (Chronic) Hypertension (Chronic) Constipation (Chronic) 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) Coronary artery disease (Chronic) "PCI + stenting LAD 1997 CABG x 3 2000 cath 03/11/13 showed patent LAD graft, patent SVG to circ marginal, occluded SVG to RCA" Hypertension (Chronic) Benign prostatic hyperplasia (Chronic) Diabetes mellitus, type II (Chronic) Chronic respiratory failure (Chronic) "home O2 2 LPM at night + PRN" Dyslipidemia (Chronic) Hyperhomocysteinemia (Chronic) Diabetic retinopathy (Chronic) Cerebrovascular disease (Chronic) "s/p stroke with right hemiparesis" Aortic stenosis (Chronic) "1.1 cm2 by echo 2011 and cath 2012" Past Family History Family History Sister Diabetes Past Surgical History Surgical History S/P CABG x 3 (Chronic) History of cataract surgery (Chronic) Hx of cholecystectomy (Chronic) Status post coronary artery bypass grafting (Chronic) "radial artery to LAD, SVG to circ marginal, SVG to RCA" Status post cardiac catheterization (Chronic) "03/11/13 [facility] Dr. [place] patent LAD graft, patent SVG to circ marginal, occluded SVG to RCA" Status post cholecystectomy (Chronic) Social History Smoking Status: Never smoker Hx Alcohol Use: No Alcohol type: beer and wine alcohol intake frequency: holidays/special occasions only Hx Substance Use: No substance use type: does not use Physical Exam Vital Signs Last Vital Signs Temp 36.4 C L 03/29/19 23:36 Pulse 90 03/30/19 07:23 Resp 18 03/30/19 07:23 BP 106/89 03/30/19 07:23 Pulse Ox 94 03/30/19 07:23 Testing Laboratory Results 03/30/19 05:51 03/30/19 05:51 PT 12.2 Seconds (9.0-12.0) H 03/23/19 17:45 INR 1.2 (0.9-1.1) H 03/23/19 17:45 APTT 29.5 Seconds (21.0-31.0) 03/23/19 17:45 Hemoglobin A1c 9.7 % (4.5-5.6) H 03/25/19 05:40 03/23/19 18:49 Aerobic Blood Culture - Final Blood No growth in Aerobic bottle after 5 days. Anaerobic Blood Culture - Final No growth in Anaerobic bottle after 5 days. 03/23/19 19:01 Aerobic Blood Culture - Final Blood No growth in Aerobic bottle after 5 days. Anaerobic Blood Culture - Final No growth in Anaerobic bottle after 5 days. 03/23/19 Unknown Gram Stain - Final Foot,Right Wound Culture - Final Corynebacterium species Group B Beta Strep Staph aureus MRSA 03/30/19 03/30/19 11:54 05:47 POC Glucose 231 H 169 H Electrocardiogram Date: 03/29/19 Findings: + ST @ (112 with PVC's, PAC ?) Chest X-Ray Date: 03/30/19 Findings: + cardiomegaly, + infiltrate (possible aspiration) and + pulmonary vascular congestion (mild) Echocardiogram Date: 10/30/18 EF: 55-60% LV Function: normal Valvular Disease: + (severe 0.62cm2 pressure gradient 38mmHg)
--- NOTE | 2019-03-30 13:05 | History & Physical Bridge Note ---
Date of Service March 30, 2019 History & Physical Bridge Note I have examined the patient, reviewed the History & Physical and in the interval since the performance of the History & Physical I have noted the following changes of clinical significance:Will require right below knee amputation.
[2019-03-30] MEDS ORDERED: ATROPINE SULFATE 0.1 MG/ML 10ML SYR IV PRN (13:22)
[2019-03-30] MEDS ORDERED: ONDANSETRON INJ 2 MG/ML 2 ML VIAL IV PRN ×2 (13:22→16:00)
[2019-03-30] MEDS ORDERED: HYDROmorphone INJ 1 MG/ML SYRINGE IV PRN (13:22)
[2019-03-30] MEDS ORDERED: LIDOCAINE HCL 2% 2 ML VIAL/AMP(20MG/ML) INFIL ONE (13:45)
[2019-03-30] MEDS ORDERED: PROPOFOL IV EMULSION 10 MG/ML 20 ML VIAL IV ONE (13:45)
[2019-03-30] MEDS ORDERED: ONDANSETRON INJ 2 MG/ML 2 ML VIAL ONE (13:45)
[2019-03-30] MEDS ORDERED: ePHEDrine sulfate 50 MG/ML SYR ONE (13:45)
--- NOTE | 2019-03-30 14:46 | Post Operative Brief Note ---
Immediate Post Op Note v1 Date of Surgery March 30, 2019 Pre & Post Diagnosis Operation Date: 03/26/19 12:30 Pre-Op Diagnosis: Gangrene right Foot, right first ray osteomyelitis, peripheral vascular disease, diabetes mellitus, neuropathy Post-Op Diagnosis: Gangrene right Foot, right first ray osteomyelitis, peripheral vascular disease, diabetes mellitus, neuropathy Operation Date: 03/30/19 13:00 Pre-Op Diagnosis: Gangrene right Foot, right first ray osteomyelitis, peripheral vascular disease, diabetes mellitus, neuropathy Post-Op Diagnosis: Gangrene right Foot, right first ray osteomyelitis, peripheral vascular disease, diabetes mellitus, neuropathy Procedure Operation Date: 03/26/19 12:30 Actual Procedures p Right Lower Extremity Angiogram Third Order, Ultrasound Localziation of Left Femoral Artery, Mechanical Closure of Left Femoral Artery, Moderate Sedation [id number](Left) - dEil Ruffin MD Operation Date: 03/30/19 13:00 Actual Procedures p Right Below Knee Amputation(Right) - Twin Rivera DO Surgeon Twin Rivera DO Director Of Outreach Cezar Kowalski PA-C Estimated Blood Loss 5 Findings Consistent with Post-Op Diagnosis Specimens Right below-knee amputation specimen Drains Hemovac Drain (10fr single) Anesthesia Type General Complications none Disposition Accompanied Patient To Recovery: Yes Disposition: Recovery Room
--- NOTE | 2019-03-30 15:46 | Anesthesiology Progress Note ---
Date of Service March 30, 2019 Anesthesia Post Procedure Vital Signs Vital Signs: Temp Pulse Pulse Pulse Resp BP Pulse Ox 03/30/19 15:40 94 H 22 100/68 94 03/30/19 15:30 36.4 C L 84 20 102/59 L 94 03/30/19 15:20 92 H 23 112/54 L 96 03/30/19 15:10 84 20 120/74 96 03/30/19 15:00 86 16 96/61 L 97 03/30/19 14:50 36.9 C 80 10 L 96/59 L 96 03/30/19 07:23 90 18 106/89 94 03/29/19 23:36 36.4 C L 82 16 110/50 L 96 03/29/19 21:23 89 97 Pain Intensity Bilateral Foot: Pain Intensity: 0 Transfer of Care Handoff Completed per policy Notes Mental Status: see notes below Patient Amnestic to Procedure: Yes Nausea / Vomiting: adequately controlled Pain: adequately controlled Airway Patency, RR, SpO2: stable & adequate BP & HR: stable & adequate Hydration State: stable & adequate Anesthetic Complications: no major complications apparent Notes: patient not able to cooperate (no change from preop)
[2019-03-30] MEDS ORDERED: BISACODYL 10 MG SUPP PR PRN (16:00)
[2019-03-30] MEDS ORDERED: NALOXONE HCL 0.4 MG/1 ML VIAL/CARP IV PRN (16:00)
[2019-03-30] MEDS ORDERED: MAGNESIUM HYDROXIDE SUSP 30 ML UDC PO PRN (16:00)
[2019-03-30] MEDS ORDERED: METOCLOPRAMIDE HCL INJ 5 MG/ML 2 ML VIAL IV PRN (16:00)
[2019-03-30] MEDS: SODIUM CHLORIDE 0.9% 1000ML 1,000 ML IV SCH (18:36)
--- NOTE | 2019-03-30 20:48 | Operative Report ---
DATE OF OPERATION: 03/30/2019 PREOPERATIVE DIAGNOSES: 1. Right foot gangrene. 2. Right foot first ray osteomyelitis. 3. Peripheral vascular disease. 4. Diabetes mellitus. 5. Neuropathy. POSTOPERATIVE DIAGNOSES: 1. Right foot gangrene. 2. Right foot first ray osteomyelitis. 3. Peripheral vascular disease. 4. Diabetes mellitus. 5. Neuropathy. PROCEDURE: Right below knee amputation. SURGEON: DO HANDY Guzman ASSIST: Cezar Kowalski PA-C ANESTHESIA: General. SPECIMENS: Right lower extremity amputation. DRAINS: Hemovac x1. COMPLICATIONS: None. BLOOD LOSS: 5 mL. PERTINENT HISTORY: This is an 88-year-old gentleman with severe peripheral vascular disease, diabetes mellitus, neuropathy, osteomyelitis of the first ray and gangrene of the right foot, who had been evaluated and attempted for angiogram with bypass; however, failed. The patient was then scheduled for below knee amputation as indicated due to dry gangrene of the right first ray and foot with osteomyelitis of the first metatarsal. No hope of salvage otherwise. The patient was scheduled for surgery as indicated. All potential risks, benefits, complications, alternatives, rehab, potential for incomplete relief of symptoms, need for further surgery, deep venous thrombosis, pulmonary embolism, , persistent pain, swelling, scarring, weakness, neurovascular injury, wound complications and bone fracture were discussed with the patient and family also discussed possibility of further amputation. The patient and his power of [place] attorney understood the risks and benefits. He was then scheduled for surgery as indicated. The patient was taken to the operative suite, placed supine on the operating room table. I reviewed consent and after identification of proper operative site, the patient was anesthetized, LMA was placed. Tourniquet was placed high on the right thigh over cast padding. Right lower extremity was then sterilely prepped in usual fashion, elevated and partially exsanguinated with Esmarch bandage from the calf extending proximally using Esmarch bandage, tourniquet inflated to 350 mmHg. Next, a 10 blade scalpel was used to make an incision approximately 11 cm distal to the tibial tubercle in the anterior aspect of the lower limb. The incision was deepened to the subcutaneous tissue. Meticulous hemostasis was achieved with electrocautery. Full thickness skin flaps developed down to the level of the periosteum which was then incised in line with skin incision and then followed by creation of a posterior long flap with a 10 blade scalpel. This was incised both medial and lateral and then connected in the posterior aspect distally. Next, careful dissection was performed with scissor and forceps to define superficial veins. Electrocautery was used to maintain hemostasis. Next, the anterior compartment was entered with electrocautery skeletonizing the tibia. Periosteal elevator was then used to elevate periosteum approximately 1 cm proximal to the skin incision. Skin rakes were applied gently and then Hohmann retractors were placed circumferentially around the tibia. At this point, the tibia was then resected with a sagittal saw. Next, a bevel cut was made anteriorly to reduce any irritation from the anterior aspect of the tibia. Next, a bone rasp was then used to smooth the distal aspect of the tibia. Next, careful dissection was performed with Arguelles scissors between the tibia and fibula. Neurovascular bundle was identified and then #2 silk tie was then used to tie off the neurovascular bundle. Next, careful dissection was performed with electrocautery laterally, transecting the peroneal musculature and cauterizing the small penetrating arteries and veins. Next, the fibula was then skeletonized 1 cm proximal to the distal level resection of the tibia and was then transected using a beveled cut with a sagittal saw with Hohmann retractors protecting soft tissue. Once this was completed, the posterior compartment was entered. The posterior periosteum was stripped from the tibia and fibula and distal Achilles, gastrocsoleus fascia were then transected as well as the FHL, FDL and posterior tibial muscles. Next, the limb and specimen was then passed off for pathology. Next, the tibial nerve was identified, placed on stretch and then tied off with 2-0 silks. Next, the posterior tibial artery and vein were tied off with 2-0 silk as well as the peroneal vessels and the deep penetrating vessels. Next, the flap was then slightly beveled distally in the posterior compartment with a 10 blade scalpel. The residual limb was then copiously irrigated with sterile normal saline with bacitracin and then the periosteum was closed to the gastrocsoleus flap using buried interrupted #1 Vicryl [id number] sutures. Next, the fascia was then closed medially and laterally with buried interrupted #1 Vicryl, followed by placement of a 10-Hungarian single lumen Hemovac drain. Next, the dermis was closed using buried interrupted 2-0 Vicryl and skin was closed using interrupted 3-0 nylon. Next, a sterile compressive dressing was applied overwrapped with an David wrap. The tourniquet was released. The patient was awakened and taken to the recovery in a stable condition. I attest to the content of the Intraoperative Record and any orders documented therein. Any exception s are noted below.
[2019-03-30] MEDS: SENNA 8.6 MG TAB PO SCH (21:07)
[2019-03-30] MEDS: MELATONIN PO SCH (21:09)
[2019-03-31] MEDS: PIPERACILLIN/TAZOBACTAM 3.375 GM in DEXTROSE 5% 100 ML IV SCH ×4 (02:55→16:59)
[2019-03-31] MEDS: SODIUM CHLORIDE 0.9% 1000ML 1,000 ML IV SCH (03:02)
[2019-03-31 06:27] LABS: Hematocrit (blood only) 36.6 % (42-52); Hemoglobin 11.8 g/dL (14.0-18.0); Mean Corpuscular Hgb Conc 32.2 g/dL (32-36); Mean Corpuscular Volume 86.7 fL (80-100); Mean Platelet Volume 10.5 fL (7.4-10.4); Platelet Count 452 K/uL (130-400); RDW Coefficient of Variation 14.7 % (11.5-14.5); RDW Standard Deviation 46.6 fL (36.4-46.3); Red Blood Count 4.22 M/uL (4.7-6.1); White Blood Count 11.77 K/uL (4.8-10.8)
[2019-03-31 06:58] LABS: BUN Creatinine Ratio 24.4 (10-20); Calcium 8.4 mg/dl (8.5-10.1); Creatinine Clr Calc Pharmacy 52.6 ml/min; Est GFR (African American) 63.7; Est GFR (Non-African American) 54.9; Magnesium 1.4 mg/dl (1.8-2.4); Potassium 4.3 mmol/L (3.5-5.1)
--- NOTE | 2019-03-31 08:39 | Orthopedic Progress Note ---
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 Subjective Pt lying in bed. Eyes closed but he has random movements off and on. Does not open his eyes to verbal stimulus. Moving his RLE does not cause him discomfort. Does not answer questions. Physical Exam Physical Exam: Dressing is C/D/I. HV present with minimal drainage. Thigh soft without swelling. Results & Data Vital Signs (Past 12 Hours) Vital Signs Temp Pulse Resp BP Pulse Ox 03/31/19 07:00 36.8 C 97 H 18 160/79 H 92 03/31/19 03:07 36.7 C 89 18 154/92 H 95 03/31/19 00:10 36.8 C 70 16 146/71 H 94 Laboratory Results Laboratory Results WBC 11.77 K/uL (4.8-10.8) H 03/31/19 06:12 RBC 4.22 M/uL (4.7-6.1) L 03/31/19 06:12 Hgb 11.8 g/dL (14.0-18.0) L 03/31/19 06:12 Hct 36.6 % (42-52) L 03/31/19 06:12 MCV 86.7 fL (80-100) 03/31/19 06:12 MCH 28.0 pg (25-34) 03/31/19 06:12 MCHC 32.2 g/dL (32-36) 03/31/19 06:12 RDW Std Deviation 46.6 fL (36.4-46.3) H 03/31/19 06:12 RDW Coeff of Arjun 14.7 % (11.5-14.5) H 03/31/19 06:12 Plt Count 452 K/uL (130-400) H 03/31/19 06:12 MPV 10.5 fL (7.4-10.4) H 03/31/19 06:12 Immature Gran % (Auto) 0.2 % 03/30/19 05:51 Neut % (Auto) 58.4 % 03/30/19 05:51 Lymph % (Auto) 26.8 % 03/30/19 05:51 Nuckolls % (Auto) 10.7 % 03/30/19 05:51 Eos % (Auto) 3.7 % 03/30/19 05:51 Baso % (Auto) 0.2 % 03/30/19 05:51 Immature Gran # (Auto) 0.02 K/uL (0.00-0.02) 03/30/19 05:51 Neut # (Auto) 4.74 K/uL (1.4-6.5) 03/30/19 05:51 Lymph # (Auto) 2.18 K/uL (1.2-3.4) 03/30/19 05:51 Nuckolls # (Auto) 0.87 K/uL (0.11-0.59) H 03/30/19 05:51 Eos # (Auto) 0.30 K/uL (0-0.5) 03/30/19 05:51 Baso # (Auto) 0.02 K/uL (0-0.2) 03/30/19 05:51 ESR > 90 mm/hr (0-14) H 03/23/19 17:45 PT 12.2 Seconds (9.0-12.0) H 03/23/19 17:45 INR 1.2 (0.9-1.1) H 03/23/19 17:45 APTT 29.5 Seconds (21.0-31.0) 03/23/19 17:45 PTT Ratio 1.1 03/23/19 17:45 ABG pH Cancelled 03/26/19 21:54 ABG pCO2 Cancelled 03/26/19 21:54 ABG pO2 Cancelled 03/26/19 21:54 ABG HCO3 Cancelled 03/26/19 21:54 ABG O2 Saturation Cancelled 03/26/19 21:54 ABG Base Excess Cancelled 03/26/19 21:54 Bairon Test Cancelled 03/26/19 21:54 Barometric Pressure Cancelled 03/26/19 21:54 Oxygen Given Cancelled 03/26/19 21:54 Sodium 137 mmol/L (136-145) 03/31/19 06:12 Potassium 4.3 mmol/L (3.5-5.1) 03/31/19 06:12 Chloride 99 mmol/L (98-107) 03/31/19 06:12 Carbon Dioxide 32 mmol/L (21-32) 03/31/19 06:12 Anion Gap 6.0 (3-11) 03/31/19 06:12 BUN 29 mg/dl (7-18) H 03/31/19 06:12 Creatinine 1.17 mg/dl (0.6-1.4) 03/31/19 06:12 Est Cr Clr Drug Dosing 52.6 ml/min 03/31/19 06:12 Est GFR ( Amer) 63.7 03/31/19 06:12 Est GFR (Non-Af Amer) 54.9 03/31/19 06:12 BUN/Creatinine Ratio 24.4 (10-20) H 03/31/19 06:12 Glucose 247 mg/dl (70-99) H 03/31/19 06:12 POC Glucose 252 (70-99) H 03/31/19 08:10 Estimat Average Glucose 232 mg/dl 03/25/19 05:40 Hemoglobin A1c 9.7 % (4.5-5.6) H 03/25/19 05:40 Lactate 1.3 mmol/L (0.4-2.0) 03/23/19 18:49 Calcium 8.4 mg/dl (8.5-10.1) L 03/31/19 06:12 Magnesium 1.4 mg/dl (1.8-2.4) L 03/31/19 06:12 Total Bilirubin 0.6 mg/dl (0.2-1) 03/29/19 07:07 Direct Bilirubin 0.2 mg/dl (0-0.2) 03/29/19 07:07 AST 53 U/L (15-37) H 03/29/19 07:07 ALT 37 U/L (12-78) 03/29/19 07:07 Alkaline Phosphatase 96 U/L (45-117) 03/29/19 07:07 Ammonia 12.3 umol/L (11-32) 03/26/19 23:06 Total Creatine Kinase 187 U/L (39-308) 03/31/19 06:12 Troponin I 0.028 ng/ml (0-0.045) 03/23/19 17:45 C-Reactive Protein 17.30 mg/dl (0-0.29) H 03/23/19 17:45 C-Reactive Protein Cancelled 03/23/19 17:45 NT-Pro-B Natriuret Pep 79932 pg/ml (0-1800) H 03/26/19 23:06 Globulin 4.7 gm/dl (2.5-4.0) H 03/23/19 17:45 Total Protein 7.7 gm/dl (6.4-8.2) 03/29/19 07:07 Albumin/Globulin Ratio 0.5 (0.9-2) L 03/23/19 17:45 Albumin 2.5 gm/dl (3.4-5.0) L 03/29/19 07:07 Beta-Hydroxybutyric Acd 9.41 mg/dl (0.2-2.81) H 03/27/19 06:50
[2019-03-31] MEDS: INSULIN ASPART 100 UNITS/ML 3 ML PEN SC SCH ×4 (09:01→21:37)
[2019-03-31] MEDS: TAMSULOSIN HCL 0.4 MG CAP PO SCH (09:07)
[2019-03-31] MEDS: MULTIVITAMIN TAB PO SCH (09:07)
[2019-03-31] MEDS: CYANOCOBALAMIN 500 MCG TABLET (VITAMIN B-12) PO SCH (09:08)
[2019-03-31] MEDS: DOCUSATE SODIUM 100 MG CAP PO SCH ×3 (09:08→21:33)
[2019-03-31] MEDS: FINASTERIDE 5 MG TAB PO SCH (09:08)
[2019-03-31] MEDS: CHOLECALCIFEROL 1,000 UNITS TAB PO SCH (09:08)
[2019-03-31] MEDS: ASPIRIN 81 MG ECTAB PO SCH (09:09)
[2019-03-31] MEDS: ARTIFICIAL TEARS OPB SCH ×4 (09:09→21:32)
[2019-03-31] MEDS: SIMBRINZA OPR SCH ×2 (09:10→21:30)
[2019-03-31] MEDS: SACCHAROMYCES BOULARDII 250 MG CAP PO SCH (09:10)
[2019-03-31] MEDS: CARVEDILOL 6.25 MG TAB PO SCH ×2 (09:11→21:33)
[2019-03-31] MEDS: ASCORBIC ACID 500 MG TAB PO SCH ×2 (09:11→21:34)
[2019-03-31] MEDS: INSULIN GLARGINE SOLOSTAR 100 UNITS/ML 3 ML PEN SC SCH (09:13)
[2019-03-31] MEDS: MAGNESIUM SULFATE / D5W 1 GM/100 ML BAG IV SCH ×3 (10:35→12:24)
[2019-03-31] MEDS: DAPTOmycin 475 MG in SYRINGE 0 ML IV SCH ×2 (10:36→11:04)
[2019-03-31] MEDS ORDERED: INSULIN HUMAN REGULAR PER UNIT 6 UNITS in SYRINGE 5.94 ML IV ONE (12:15)
--- NOTE | 2019-03-31 14:36 | Infectious Disease Progress Nt ---
Date of Service March 31, 2019 Assessment & Plan (1) Gangrene: Patient with gangrenous foot infection, cultures positive for MRSA and group B strep, in the setting of severe peripheral arterial disease, unable to improve via angiography. Patient now status post BKA amputation, would continue IV antibiotics for now follow-up of wound healing. Will follow. (2) Cellulitis of foot without toes, right: (3) Aspiration into airway: (4) Infection due to Streptococcus group B: Subjective Pt lying in bed. Eyes closed but he has random movements off and on. Does not open his eyes to verbal stimulus. Moving his RLE does not cause him discomfort. Does not answer questions. Review of Systems Review of Systems: Unobtainable due to cognitive status Physical Exam Constitutional: WD/WN, vitals as above comfortable; no acute distress Eyes: PERRL, conjunctivae normal, anicteric sclerae ENMT: external ear and nose normal, oropharynx normal Neck: trachea midline, no thyromegaly neck nontender Respiratory: normal respiratory effort, lungs clear to auscultation normal percussion; does not use accessory muscles Cardiovascular: Rate/Rhythm: regular rate and regular rhythm Heart Sounds: normal S1, normal S2 and + murmur (Systolic); no gallop and no cardiac rub Vessels: no JVD Extremities: + abnormal capillary refill (Poor capillary refill, absent distal pulses) Gastrointestinal (Abdomen): normal bowel sounds, soft, nontender, no hepatosplenomegaly Musculoskeletal: no cyanosis or clubbing, extremities motor strength 5/5 Spine: thoracic spine normal to inspection and lumbar spine normal to inspection; no cervical spinal tenderness Skin: no rashes, warm and dry Surgical dressing intact Neurologic: moves all extremities; no focal motor deficits Psychiatric: Patient disoriented and not answering questions Lymphatic: no cervical or axillary lymphadenopathy no inguinal lymphadenopathy Results & Data Vital Signs (Past 12 Hours) Vital Signs Temp Pulse Resp BP Pulse Ox 03/31/19 11:49 96 03/31/19 07:00 36.8 C 97 H 18 160/79 H 92 03/31/19 03:07 36.7 C 89 18 154/92 H 95 Laboratory Results Short CBC 03/31/19 Range/Units 06:12 WBC 11.77 H (4.8-10.8) K/uL Hgb 11.8 L (14.0-18.0) g/dL Hct 36.6 L (42-52) % Plt Count 452 H (130-400) K/uL BMP 03/31/19 06:12 Sodium 137 Potassium 4.3 Chloride 99 Carbon Dioxide 32 BUN 29 H Creatinine 1.17 Glucose 247 H Calcium 8.4 L Cardiac Enzymes 03/31/19 Range/Units 06:12 Total Creatine Kinase 187 (39-308) U/L Diagnostic Findings Microbiology 03/23/19 18:49 Blood Aerobic Blood Culture - Final No growth in Aerobic bottle after 5 days. 03/23/19 18:49 Blood Anaerobic Blood Culture - Final No growth in Anaerobic bottle after 5 days. 03/23/19 19:01 Blood Aerobic Blood Culture - Final No growth in Aerobic bottle after 5 days. 03/23/19 19:01 Blood Anaerobic Blood Culture - Final No growth in Anaerobic bottle after 5 days. 03/23/19 Unknown Foot,Right Gram Stain - Final 03/23/19 Unknown Foot,Right Wound Culture - Final Corynebacterium species Group B Beta Strep Staph aureus MRSA
--- NOTE | 2019-03-31 16:13 | Hospitalist Progress Note ---
Date of Service March 31, 2019 Assessment & Plan (1) Delirium: Patient has been delirious since 03/27/2019 Received Zyprexa PRN Likely delirious from acute illness Reorient frequently Avoid narcotics as able 1:1 Observation PRN Acute and chronic respiratory failure with hypoxia: Aspiration: Chronic oxygen dependency: Home oxygen: 2 L Day -2.5 L Night at baseline Per had an episode of aspiration on 03/26/2019 evening while he tried to eat without his dentures. Increasing cough, confusion after the aspiration episode Chest x-ray: aspiration, volume overload Continue Zosyn started on 03/26: Day #5 for possible aspiration pneumonia Aspiration precautions Speech evaluation as able CHF(congestive heart failure): Echo in 11/05 - EF 55-60%, Moderate Likely diastolic CHF exacerbation, Valvular Heart Disease- Received lasix Continue diuretics PRN Gangrene: RLE Gangrenous Diabetic foot infection: Large diabetic foot ulcer.- Suspected osteomyelitis (MRI inconclusive). IV vancomycin and cefepime transitioned to Daptomycin. Day #7 S/P RLE Angiogram on 03/26/19- Distal obstruction not amenable to angioplasty or stent. Vascular surgery signed off. S/P R BKA POD #1 ID- Appreciate inputs re: antibiotics Needs Right BKA: Appreciate Orthopedics Input Wound culture: Corynebacterium, Group B strep, MRSA Continue IV antibiotics as per ID Planned for dressing change from yesterday Peripheral vascular disease in diabetes mellitus: --Arterial Duplex: Occlusion of the proximal to mid posterior tibial artery with distal reconstitution. Elevated peak systolic velocities about the peroneal and anterior tibial arteries suggestive of high-grade stenosis. Extensive calcified plaque throughout the right lower extremity arterial structures. --Right lower extremity angiogram on 03/26/2019distal obstruction not amenable to angioplasty/stent --on aspirin S/P Right BKA Coronary artery disease: Continue aspirin, carvedilol. Hold statin while on daptomycin. Aortic stenosis: Moderate to Severe aortic stenosis Hypertension: Stable On carvedilol. COPD (chronic obstructive pulmonary disease): No signs of exacerbation DM II: Hold metformin HBA1C- 9.7 Basal Lantus / Novolog per protocol. Pharmacology glycemic control consult in place DVT Px: Resume Heparin SQ when OK with Ortho Code Status DNI/DNR Disposition: Will get PT/OT once patient is more alert Medicine follow-up with Dr. Dela Cruz. Subjective Patient is seen and examined at bedside More alert awake today No apparent distress on exam Mild leukocytosis noted Follows simple commands family at bedside Review of Systems Review of Systems: Unobtainable due to cognitive status Physical Exam Physical Exam: Physical Exam: Vitals signs as noted above General Appearance: Chronically ill-appearing, elderly, disoriented Head: normocephalic, Atraumatic, + hearing aids Eyes: normal inspection, EOMI Neck: supple, Trachea midline Respiratory/Chest: Normal breath sounds, CTA Cardiovascular: S1, S2, + systolic murmur Abdomen/GI:Soft, Non tender, Bowel sounds present Extremities/Musculoskelatal:normal inspection, no edema, + R BKA Neurologic/Psych:grossly no focal neurological deficits Skin: normal color, warm Results & Data Vital Signs (Past 12 Hours) Vital Signs Temp Pulse Resp BP Pulse Ox 03/31/19 15:00 36.9 C 74 19 104/57 L 94 03/31/19 11:49 96 03/31/19 07:00 36.8 C 97 H 18 160/79 H 92 Laboratory Results Short CBC 03/31/19 Range/Units 06:12 WBC 11.77 H (4.8-10.8) K/uL Hgb 11.8 L (14.0-18.0) g/dL Hct 36.6 L (42-52) % Plt Count 452 H (130-400) K/uL BMP 03/31/19 06:12 Sodium 137 Potassium 4.3 Chloride 99 Carbon Dioxide 32 BUN 29 H Creatinine 1.17 Glucose 247 H Calcium 8.4 L Cardiac Enzymes 03/31/19 Range/Units 06:12 Total Creatine Kinase 187 (39-308) U/L
--- NOTE | 2019-03-31 16:34 | Pharmacy Report ---
Pharmacy Glycemic Short Note 2 - Date of Service March 31, 2019 - Glycemic Short BSG Results (Last 24 hours): 03/30/19 03/30/19 03/31/19 17:18 20:45 06:12 Glucose 247 H POC Glucose 264 H 280 H 03/31/19 03/31/19 03/31/19 08:10 11:53 14:54 Glucose POC Glucose 252 H 373 H* 228 H ASSESSMENT: 03/31 * Patient received total of 45 units of insulin yesterday, of which 20 were basal due to NPO status * Diet resumed last evening - fasting BSG this morning elevated at 252 mg/dL - continued with home lantus but tightened CF/CR * Lunchtime BSG trended up to 375 mg/dL - spoke with nurse, unsure if snacking in between. No steroids given in the OR yesterday, but could be related to stress from surgery * Gave IV bolus of insulin for lunchtime - recheck after 2 hours trending down to 288 mg/dL * Will continue with same parameters for CF/CR for now but will monitor closely * Will add a scale for additional Lantus for this evening based upon BSG 03/30 * Pt NPO for BKA amputation this afternoon, will provide reduced lantus dose: 30-->20 units. Further, will loosen correctional insulin slightly. He did have a low with dinner yesterday, likely due to the 23units of novolog given with lunch. PLAN FOR INPATIENT GLYCEMIC CONTROL: * Basal insulin * Lantus 30 and then scale HS (0 for less than 140, 5 for 140-200, 10 for greater then 200) * Bolus insulin - tighten * NovoLog per scale ACHS or Q6hrs while NPO * Goal Range: Low 110 mg/dL - High 140 mg/dL * Correction Factor: 15 mg/dL/unit * Nutritional / Prandial insulin per carb ratio of 1 unit per 4 grams CHO consumed
[2019-03-31] MEDS ORDERED: INSULIN GLARGINE SOLOSTAR 100 UNITS/ML 3 ML PEN SC SCH (21:00)
[2019-03-31] MEDS: MELATONIN PO SCH (21:34)
[2019-03-31] MEDS: SENNA 8.6 MG TAB PO SCH (21:35)
[2019-04-01] MEDS: INSULIN ASPART 100 UNITS/ML 3 ML PEN SC SCH ×5 (00:27→21:57)
[2019-04-01] MEDS: PIPERACILLIN/TAZOBACTAM 3.375 GM in DEXTROSE 5% 100 ML IV SCH ×3 (02:22→18:58)
[2019-04-01 08:44] LABS: Hematocrit (blood only) 34.7 % (42-52); Hemoglobin 11.4 g/dL (14.0-18.0); Mean Corpuscular Hgb Conc 32.9 g/dL (32-36); Mean Corpuscular Volume 86.1 fL (80-100); Mean Platelet Volume 9.8 fL (7.4-10.4); Platelet Count 385 K/uL (130-400); RDW Coefficient of Variation 14.7 % (11.5-14.5); RDW Standard Deviation 45.6 fL (36.4-46.3); Red Blood Count 4.03 M/uL (4.7-6.1); White Blood Count 9.59 K/uL (4.8-10.8)
[2019-04-01] MEDS: SIMBRINZA OPR SCH ×2 (09:13→21:55)
[2019-04-01] MEDS ORDERED: INSULIN GLARGINE SOLOSTAR 100 UNITS/ML 3 ML PEN SC ONE (09:15)
[2019-04-01] MEDS ORDERED: INSULIN GLARGINE SOLOSTAR 100 UNITS/ML 3 ML PEN SC SCH ×2 (09:15→21:00)
[2019-04-01] MEDS: ASCORBIC ACID 500 MG TAB PO SCH ×2 (09:15→21:56)
[2019-04-01] MEDS: TAMSULOSIN HCL 0.4 MG CAP PO SCH (09:16)
[2019-04-01] MEDS: SACCHAROMYCES BOULARDII 250 MG CAP PO SCH (09:17)
[2019-04-01] MEDS: ARTIFICIAL TEARS OPB SCH ×4 (09:17→21:52)
[2019-04-01] MEDS: CARVEDILOL 6.25 MG TAB PO SCH ×2 (09:18→21:53)
[2019-04-01] MEDS: ASPIRIN 81 MG ECTAB PO SCH (09:18)
[2019-04-01] MEDS: FINASTERIDE 5 MG TAB PO SCH (09:18)
[2019-04-01 09:24] LABS: BUN Creatinine Ratio 20.6 (10-20); Creatinine Clr Calc Pharmacy 66.2 ml/min; Est GFR (African American) 84.1; Est GFR (Non-African American) 72.5; Magnesium 1.7 mg/dl (1.8-2.4); Potassium 3.6 mmol/L (3.5-5.1)
[2019-04-01] MEDS: CYANOCOBALAMIN 500 MCG TABLET (VITAMIN B-12) PO SCH (11:28)
[2019-04-01] MEDS: DOCUSATE SODIUM 100 MG CAP PO SCH ×3 (11:29→21:39)
[2019-04-01] MEDS: CHOLECALCIFEROL 1,000 UNITS TAB PO SCH (11:29)
[2019-04-01] MEDS: MULTIVITAMIN TAB PO SCH (11:30)
[2019-04-01] MEDS: DAPTOmycin 475 MG in SYRINGE 0 ML IV SCH (11:36)
[2019-04-01] MEDS ORDERED: MAGNESIUM SULFATE / D5W 1 GM/100 ML BAG IV ONE (11:45)
[2019-04-01] MEDS ORDERED: INSULIN ASPART 100 UNITS/ML 3 ML PEN SC SCH ×2 (12:00)
[2019-04-01] MEDS ORDERED: INSULIN ASPART 100 UNITS/ML 3 ML PEN SC ONE ×2 (14:30)
--- NOTE | 2019-04-01 14:38 | Pharmacy Report ---
Pharmacy Glycemic Short Note 2 - Date of Service April 01, 2019 - Glycemic Short BSG Results (Last 24 hours): 03/31/19 03/31/19 03/31/19 14:54 17:01 20:56 Glucose POC Glucose 228 H 181 H 168 H 03/31/19 04/01/19 04/01/19 23:59 04:20 08:14 Glucose POC Glucose 172 H 130 H 201 H 04/01/19 04/01/19 04/01/19 08:34 11:02 11:09 Glucose 170 H POC Glucose 306 H* 299 H 04/01/19 04/01/19 12:01 14:10 Glucose POC Glucose 246 H 220 H ASSESSMENT: 04/01 * Patient received total of 85 units of insulin yesterday, of which 35 were basal insulin * Fasting BSG improving at 170 mg/dL - will increase to Lantus 35 units this am and add scale for tonight * Lunch BSG checked early at 299 and hour later down to 246. Patient never ate lunch, no correctional given at that time. * Spoke with nurse and patient started to eat around 2pm today. BSG never was checked prior. BSG after eating at 220 mg/dL. Had nurse cover carbs and added an additional 2 units for correctional * Did adjust CF/CR to 15/4 for breakfast and dinner, and 15/9 all other times. Previous admission suggests this helps to prevent lows 03/31 * Patient received total of 45 units of insulin yesterday, of which 20 were basal due to NPO status * Diet resumed last evening - fasting BSG this morning elevated at 252 mg/dL - continued with home lantus but tightened CF/CR * Lunchtime BSG trended up to 375 mg/dL - spoke with nurse, unsure if snacking in between. No steroids given in the OR yesterday, but could be related to stress from surgery * Gave IV bolus of insulin for lunchtime - recheck after 2 hours trending down to 288 mg/dL * Will continue with same parameters for CF/CR for now but will monitor closely * Will add a scale for additional Lantus for this evening based upon BSG 03/30 * Pt NPO for BKA amputation this afternoon, will provide reduced lantus dose: 30-->20 units. Further, will loosen correctional insulin slightly. He did have a low with dinner yesterday, likely due to the 23units of novolog given with lunch. PLAN FOR INPATIENT GLYCEMIC CONTROL: * Basal insulin * Lantus 35 and then scale HS (0 for less than 200, 5 for greater than 200) * Bolus insulin - tighten * NovoLog per scale ACHS or Q6hrs while NPO * Goal Range: Low 110 mg/dL - High 140 mg/dL * Correction Factor: 15 mg/dL/unit * Nutritional / Prandial insulin per carb ratio of 1 unit per 4 grams CHO consumed (breakfast and dinner, changed to 9 for lunch and HS)
--- NOTE | 2019-04-01 15:06 | Orthopedic Progress Note ---
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 PT/OT as able. Subjective POD 2 s/p Right BKA Pt lying in bed. Seems to be moving around a bit more today but is somewhat confused currently. Pt's states he was much more alert this AM. Sat up at the bedside etc and participated with PT to some extent. His states that after sitting in the chair for an hour or so, he was very tired and was put back into bed. No new complaints noted from family. Pt currently appears comfortable. Physical Exam Physical Exam: Dressings removed. BKA wound very benign. No ecchymosis. No overt drainage. Wound edges approximated well. No erythema. Hemovac drain removed. Wound redressed. Pt showed signs of pain during dressing change but appeared comfortable after the dressing was changed. Results & Data Vital Signs (Past 12 Hours) Vital Signs Pulse Resp BP Pulse Ox 04/01/19 07:31 80 18 165/79 H 96
--- NOTE | 2019-04-01 15:32 | Infectious Disease Progress Nt ---
Date of Service April 01, 2019 Assessment & Plan (1) Gangrene: Patient with gangrenous foot infection, cultures positive for MRSA and group B strep, in the setting of severe peripheral arterial disease, unable to improve via angiography. Patient now status post BKA amputation, would continue IV antibiotics for now follow-up of wound healing. Will follow. (2) Cellulitis of foot without toes, right: (3) Aspiration into airway: (4) Infection due to Streptococcus group B: Subjective Patient somewhat confused, offers no new specific complaints. Remains afebrile and hemodynamically stable. Review of Systems Review of Systems: Unobtainable due to cognitive status Physical Exam Constitutional: WD/WN, vitals as above comfortable; no acute distress Eyes: PERRL, conjunctivae normal, anicteric sclerae ENMT: external ear and nose normal, oropharynx normal Neck: trachea midline, no thyromegaly neck nontender Respiratory: normal respiratory effort, lungs clear to auscultation normal percussion; does not use accessory muscles Cardiovascular: Rate/Rhythm: regular rate and regular rhythm Heart Sounds: normal S1, normal S2 and + murmur (Systolic); no gallop and no cardiac rub Vessels: no JVD Extremities: + abnormal capillary refill (Poor capillary refill, absent distal pulses) Gastrointestinal (Abdomen): normal bowel sounds, soft, nontender, no hepatosplenomegaly Musculoskeletal: no cyanosis or clubbing, extremities motor strength 5/5 Spine: thoracic spine normal to inspection and lumbar spine normal to inspection; no cervical spinal tenderness Skin: no rashes, warm and dry normal turgor and + wound (Right medial foot gangrenous changes with surrounding erythema, purulent drainage); no rashes Neurologic: moves all extremities; no focal motor deficits Motor/Sensory: + sensory deficit (Decrease in feet bilaterally) Psychiatric: A+Ox3, euthymic affect Orientation: cooperative Lymphatic: no cervical or axillary lymphadenopathy no inguinal lymphadenopathy Results & Data Vital Signs (Past 12 Hours) Vital Signs Pulse Resp BP Pulse Ox 04/01/19 07:31 80 18 165/79 H 96 Laboratory Results Short CBC 04/01/19 Range/Units 08:34 WBC 9.59 (4.8-10.8) K/uL Hgb 11.4 L (14.0-18.0) g/dL Hct 34.7 L (42-52) % Plt Count 385 (130-400) K/uL BMP 04/01/19 08:34 Sodium 137 Potassium 3.6 D Chloride 100 Carbon Dioxide 30 BUN 19 H Creatinine 0.93 Glucose 170 H Calcium 9.0 Diagnostic Findings Microbiology 03/23/19 18:49 Blood Aerobic Blood Culture - Final No growth in Aerobic bottle after 5 days. 03/23/19 18:49 Blood Anaerobic Blood Culture - Final No growth in Anaerobic bottle after 5 days. 03/23/19 19:01 Blood Aerobic Blood Culture - Final No growth in Aerobic bottle after 5 days. 03/23/19 19:01 Blood Anaerobic Blood Culture - Final No growth in Anaerobic bottle after 5 days. 03/23/19 Unknown Foot,Right Gram Stain - Final 03/23/19 Unknown Foot,Right Wound Culture - Final Corynebacterium species Group B Beta Strep Staph aureus MRSA
--- NOTE | 2019-04-01 17:03 | Hospitalist Progress Note ---
Date of Service April 01, 2019 Assessment & Plan (1) Delirium: Patient has been delirious since 03/27/2019 Received Zyprexa PRN Likely delirious from acute illness Reorient frequently Avoid narcotics as able Acute and chronic respiratory failure with hypoxia: Aspiration: Chronic oxygen dependency: Home oxygen: 2 L Day -2.5 L Night at baseline Per had an episode of aspiration on 03/26/2019 evening while he tried to eat without his dentures. Increasing cough, confusion after the aspiration episode Chest x-ray: aspiration, volume overload Continue Zosyn started on 03/26: Day #7 for possible aspiration pneumonia Aspiration precautions Speech evaluation as able CHF(congestive heart failure): Echo in 11/05 - EF 55-60%, Moderate Likely diastolic CHF exacerbation, Valvular Heart Disease- Received lasix Continue diuretics PRN Gangrene: RLE Gangrenous Diabetic foot infection: Large diabetic foot ulcer.- Suspected osteomyelitis (MRI inconclusive). IV vancomycin and cefepime transitioned to Daptomycin. Day #8 S/P RLE Angiogram on 03/26/19- Distal obstruction not amenable to angioplasty or stent. Vascular surgery signed off. S/P R BKA POD #2 ID- Appreciate inputs re: antibiotics Needs Right BKA: Appreciate Orthopedics Input Wound culture: Corynebacterium, Group B strep, MRSA Continue IV antibiotics as per ID Diarrhea dressing change as per Ortho Appreciate ID input Peripheral vascular disease in diabetes mellitus: --Arterial Duplex: Occlusion of the proximal to mid posterior tibial artery with distal reconstitution. Elevated peak systolic velocities about the peroneal and anterior tibial arteries suggestive of high-grade stenosis. Extensive calcified plaque throughout the right lower extremity arterial structures. --Right lower extremity angiogram on 03/26/2019distal obstruction not amenable to angioplasty/stent --on aspirin S/P Right BKA Coronary artery disease: Continue aspirin, carvedilol. Hold statin while on daptomycin. Aortic stenosis: Moderate to Severe aortic stenosis Hypertension: Stable On carvedilol. COPD (chronic obstructive pulmonary disease): No signs of exacerbation DM II: Hold metformin HBA1C- 9.7 Basal Lantus / Novolog per protocol. Pharmacology glycemic control consult in place DVT Px: Resume Heparin SQ--OK with Ortho Code Status DNI/DNR Disposition: Needs Rehab placement Medicine follow-up with Dr. Dela Cruz. Subjective Patient is seen and examined at bedside More alert awake this morning as per patient's Family states that patient is very tired after having physical therapy today Patient unable to provide any history today No apparent distress on exam leukocytosis resolved Was able to move his extremity more today Follows simple commands family at bedside Review of Systems Review of Systems: Unobtainable due to cognitive status Physical Exam Physical Exam: Physical Exam: Vitals signs as noted above General Appearance: Chronically ill-appearing, elderly, disoriented Head: normocephalic, Atraumatic, + hearing aids Eyes: normal inspection, EOMI Neck: supple, Trachea midline Respiratory/Chest: Normal breath sounds, CTA Cardiovascular: S1, S2, + systolic murmur Abdomen/GI:Soft, Non tender, Bowel sounds present Extremities/Musculoskelatal:normal inspection, no edema, + R BKA Neurologic/Psych:grossly no focal neurological deficits Skin: normal color, warm Results & Data Vital Signs (Past 12 Hours) Vital Signs Temp Pulse Resp BP Pulse Ox 04/01/19 15:51 36.5 C 82 18 154/79 H 93 04/01/19 07:31 80 18 165/79 H 96 Laboratory Results Short CBC 04/01/19 Range/Units 08:34 WBC 9.59 (4.8-10.8) K/uL Hgb 11.4 L (14.0-18.0) g/dL Hct 34.7 L (42-52) % Plt Count 385 (130-400) K/uL BMP 04/01/19 08:34 Sodium 137 Potassium 3.6 D Chloride 100 Carbon Dioxide 30 BUN 19 H Creatinine 0.93 Glucose 170 H Calcium 9.0
[2019-04-01] MEDS: SENNA 8.6 MG TAB PO SCH (21:39)
[2019-04-01] MEDS: HEPARIN SOD 5,000 UNIT/0.5 ML VIAL SQ SCH (21:53)
[2019-04-01] MEDS: MELATONIN PO SCH (21:54)
[2019-04-02] MEDS: INSULIN ASPART 100 UNITS/ML 3 ML PEN SC SCH ×6 (00:12→21:54)
[2019-04-02] MEDS: PIPERACILLIN/TAZOBACTAM 3.375 GM in DEXTROSE 5% 100 ML IV SCH ×3 (02:13→18:43)
[2019-04-02 08:27] LABS: Hematocrit (blood only) 35.6 % (42-52); Hemoglobin 11.6 g/dL (14.0-18.0)
[2019-04-02] MEDS ORDERED: INSULIN GLARGINE SOLOSTAR 100 UNITS/ML 3 ML PEN SC SCH (09:00)
[2019-04-02 09:02] LABS: Creatinine Clr Calc Pharmacy 69.2 ml/min; Est GFR (African American) 87.9; Est GFR (Non-African American) 75.8; Magnesium 1.8 mg/dl (1.8-2.4)
[2019-04-02] MEDS: HEPARIN SOD 5,000 UNIT/0.5 ML VIAL SQ SCH ×2 (10:13→21:49)
[2019-04-02] MEDS: SIMBRINZA OPR SCH ×2 (10:20→21:50)
[2019-04-02] MEDS: CARVEDILOL 6.25 MG TAB PO SCH ×2 (10:20→21:49)
[2019-04-02] MEDS: CHOLECALCIFEROL 1,000 UNITS TAB PO SCH (10:22)
[2019-04-02] MEDS: DOCUSATE SODIUM 100 MG CAP PO SCH ×2 (10:22→21:44)
[2019-04-02] MEDS: CYANOCOBALAMIN 500 MCG TABLET (VITAMIN B-12) PO SCH (10:22)
[2019-04-02] MEDS: FINASTERIDE 5 MG TAB PO SCH (10:23)
[2019-04-02] MEDS: ASCORBIC ACID 500 MG TAB PO SCH ×2 (10:23→21:51)
[2019-04-02] MEDS: MULTIVITAMIN TAB PO SCH (10:23)
[2019-04-02] MEDS: ASPIRIN 81 MG ECTAB PO SCH (10:23)
[2019-04-02] MEDS: SACCHAROMYCES BOULARDII 250 MG CAP PO SCH (10:23)
[2019-04-02] MEDS: TAMSULOSIN HCL 0.4 MG CAP PO SCH (10:23)
[2019-04-02] MEDS: ARTIFICIAL TEARS OPB SCH ×4 (10:24→21:47)
[2019-04-02] MEDS: DAPTOmycin 475 MG in SYRINGE 0 ML IV SCH (10:29)
--- NOTE | 2019-04-02 17:11 | Hospitalist Progress Note ---
Date of Service April 02, 2019 Assessment & Plan (1) Delirium: Patient has been delirious since 03/27/2019 Received Zyprexa PRN Likely delirious from acute illness Reorient frequently Avoid narcotics as able Less confused today per family Acute and chronic respiratory failure with hypoxia: Aspiration: Chronic oxygen dependency: Home oxygen: 2 L Day -2.5 L Night at baseline Per had an episode of aspiration on 03/26/2019 evening while he tried to eat without his dentures. Increasing cough, confusion after the aspiration episode Chest x-ray: aspiration, volume overload Continue Zosyn started on 03/26: Day #8/10 for possible aspiration pneumonia Aspiration precautions Speech evaluation as able CHF(congestive heart failure): Echo in 11/05 - EF 55-60%, Moderate Likely diastolic CHF exacerbation, Valvular Heart Disease- Received lasix Continue diuretics PRN Gangrene: RLE Gangrenous Diabetic foot infection: Large diabetic foot ulcer.- Suspected osteomyelitis (MRI inconclusive). IV vancomycin and cefepime transitioned to Daptomycin. Day #9 S/P RLE Angiogram on 03/26/19- Distal obstruction not amenable to angioplasty or stent. Vascular surgery signed off. S/P R BKA POD #3 ID- Appreciate inputs re: antibiotics Needs Right BKA: Appreciate Orthopedics Input Wound culture: Corynebacterium, Group B strep, MRSA Continue IV antibiotics as per ID Diarrhea dressing change as per Ortho Appreciate ID input Peripheral vascular disease in diabetes mellitus: --Arterial Duplex: Occlusion of the proximal to mid posterior tibial artery with distal reconstitution. Elevated peak systolic velocities about the peroneal and anterior tibial arteries suggestive of high-grade stenosis. Extensive calcified plaque throughout the right lower extremity arterial structures. --Right lower extremity angiogram on 03/26/2019distal obstruction not amenable to angioplasty/stent --on aspirin S/P Right BKA Coronary artery disease: Continue aspirin, carvedilol. Hold statin while on daptomycin. Aortic stenosis: Moderate to Severe aortic stenosis Hypertension: Stable On carvedilol. COPD (chronic obstructive pulmonary disease): No signs of exacerbation DM II: Hold metformin HBA1C- 9.7 Basal Lantus / Novolog per protocol. Pharmacology glycemic control consult in place DVT Px: Heparin SQ Code Status DNI/DNR Disposition: Needs Rehab placement. Plan to discharge once cleared by Ortho Medicine follow-up with Dr. Dela Cruz. Subjective Patient is seen and examined at bedside Mostly nonverbal during my encounter Less confused as per family at bedside Lying in bed comfortably No apparent distress during my exam Review of Systems Review of Systems: Unobtainable due to cognitive status Physical Exam Physical Exam: Physical Exam: Vitals signs as noted above General Appearance: Chronically ill-appearing, elderly, disoriented Head: normocephalic, Atraumatic, + hearing aids Eyes: normal inspection, EOMI Neck: supple, Trachea midline Respiratory/Chest: Normal breath sounds, CTA Cardiovascular: S1, S2, + systolic murmur Abdomen/GI:Soft, Non tender, Bowel sounds present Extremities/Musculoskelatal:normal inspection, no edema, + R BKA Neurologic/Psych:grossly no focal neurological deficits Skin: normal color, warm Results & Data Vital Signs (Past 12 Hours) Vital Signs Temp Pulse Resp BP Pulse Ox 04/02/19 15:00 36.8 C 83 16 127/80 95 04/02/19 07:35 36.7 C 83 17 168/82 H 95 Laboratory Results Short CBC 04/02/19 Range/Units 08:13 Hgb 11.6 L (14.0-18.0) g/dL Hct 35.6 L (42-52) % BMP 04/02/19 08:13 Creatinine 0.89
--- NOTE | 2019-04-02 18:54 | Orthopedic Progress Note ---
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 PT/OT as able. Subjective Patient is seen and examined at bedside Mostly nonverbal during my Exam. Still confused per at bedside Lying in bed comfortably No apparent distress during my exam. Somnolent Physical Exam Physical Exam: Right lower extremity dressing intact. This was changed yesterday. The calf is soft and warm. Cap refill is brisk 3 seconds. Minimal tenderness at the amputation site. is present at bedside. Patient is somewhat confused and somnolent. No change from previous baseline observed per my examination. Results & Data Vital Signs (Past 12 Hours) Vital Signs Temp Pulse Resp BP Pulse Ox 04/02/19 15:00 36.8 C 83 16 127/80 95 04/02/19 07:35 36.7 C 83 17 168/82 H 95
--- NOTE | 2019-04-02 20:24 | Infectious Disease Progress Nt ---
Date of Service April 02, 2019 Assessment & Plan (1) Gangrene: Patient with gangrenous foot infection, cultures positive for MRSA and group B strep, in the setting of severe peripheral arterial disease, unable to improve via angiography. Patient now status post BKA amputation, would continue IV antibiotics for now follow-up of wound healing. Will follow. (2) Cellulitis of foot without toes, right: (3) Aspiration into airway: (4) Infection due to Streptococcus group B: Subjective Patient seen in follow-up for gangrenous foot infection, now status post amputation. Remains confused, appears relatively comfortable, remains afebrile. Review of Systems Review of Systems: Unobtainable due to cognitive status Physical Exam Constitutional: WD/WN, vitals as above comfortable; no acute distress Eyes: PERRL, conjunctivae normal, anicteric sclerae ENMT: external ear and nose normal, oropharynx normal Neck: trachea midline, no thyromegaly neck nontender Respiratory: normal respiratory effort, lungs clear to auscultation normal percussion; does not use accessory muscles Cardiovascular: Rate/Rhythm: regular rate and regular rhythm Heart Sounds: normal S1, normal S2 and + murmur (Systolic); no gallop and no cardiac rub Vessels: no JVD Extremities: + abnormal capillary refill (Poor capillary refill, absent distal pulses) Gastrointestinal (Abdomen): normal bowel sounds, soft, nontender, no hepatosplenomegaly Musculoskeletal: no cyanosis or clubbing, extremities motor strength 5/5 Spine: thoracic spine normal to inspection and lumbar spine normal to inspection; no cervical spinal tenderness Skin: no rashes, warm and dry normal turgor and + wound (Right medial foot gangrenous changes with surrounding erythema, purulent drainage); no rashes Neurologic: moves all extremities; no focal motor deficits Motor/Sensory: + sensory deficit (Decrease in feet bilaterally) Psychiatric: A+Ox3, euthymic affect Orientation: cooperative Lymphatic: no cervical or axillary lymphadenopathy no inguinal lymphadenopathy Results & Data Vital Signs (Past 12 Hours) Vital Signs Temp Pulse Resp BP Pulse Ox 04/02/19 15:00 36.8 C 83 16 127/80 95 Laboratory Results Short CBC 04/02/19 Range/Units 08:13 Hgb 11.6 L (14.0-18.0) g/dL Hct 35.6 L (42-52) % BMP 04/02/19 08:13 Creatinine 0.89 Diagnostic Findings Microbiology 03/23/19 18:49 Blood Aerobic Blood Culture - Final No growth in Aerobic bottle after 5 days. 03/23/19 18:49 Blood Anaerobic Blood Culture - Final No growth in Anaerobic bottle after 5 days. 03/23/19 19:01 Blood Aerobic Blood Culture - Final No growth in Aerobic bottle after 5 days. 03/23/19 19:01 Blood Anaerobic Blood Culture - Final No growth in Anaerobic bottle after 5 days. 03/23/19 Unknown Foot,Right Gram Stain - Final 03/23/19 Unknown Foot,Right Wound Culture - Final Corynebacterium species Group B Beta Strep Staph aureus MRSA
[2019-04-02] MEDS: SENNA 8.6 MG TAB PO SCH (21:44)
[2019-04-02] MEDS: MELATONIN PO SCH (21:49)
[2019-04-03] MEDS: PIPERACILLIN/TAZOBACTAM 3.375 GM in DEXTROSE 5% 100 ML IV SCH ×3 (02:27→19:44)
[2019-04-03] MEDS: CYANOCOBALAMIN 500 MCG TABLET (VITAMIN B-12) PO SCH (08:54)
[2019-04-03] MEDS: CARVEDILOL 6.25 MG TAB PO SCH ×2 (08:54→22:00)
[2019-04-03] MEDS: FINASTERIDE 5 MG TAB PO SCH (08:55)
[2019-04-03] MEDS: ASCORBIC ACID 500 MG TAB PO SCH ×2 (08:55→22:06)
[2019-04-03] MEDS: CHOLECALCIFEROL 1,000 UNITS TAB PO SCH (08:55)
[2019-04-03] MEDS: MULTIVITAMIN TAB PO SCH (08:55)
[2019-04-03] MEDS: SACCHAROMYCES BOULARDII 250 MG CAP PO SCH (08:55)
[2019-04-03] MEDS: ASPIRIN 81 MG ECTAB PO SCH (08:55)
[2019-04-03] MEDS: TAMSULOSIN HCL 0.4 MG CAP PO SCH (08:55)
[2019-04-03] MEDS: SIMBRINZA OPR SCH ×2 (08:55→22:09)
[2019-04-03] MEDS: DOCUSATE SODIUM 100 MG CAP PO SCH ×2 (08:55→21:59)
[2019-04-03] MEDS: ARTIFICIAL TEARS OPB SCH ×4 (08:56→21:58)
[2019-04-03] MEDS: HEPARIN SOD 5,000 UNIT/0.5 ML VIAL SQ SCH ×2 (08:59→22:04)
[2019-04-03] MEDS: INSULIN GLARGINE SOLOSTAR 100 UNITS/ML 3 ML PEN SC SCH (09:00)
[2019-04-03] MEDS: INSULIN ASPART 100 UNITS/ML 3 ML PEN SC SCH ×4 (09:04→21:58)
[2019-04-03 09:05] LABS: Hematocrit (blood only) 35.2 % (42-52); Hemoglobin 11.5 g/dL (14.0-18.0)
[2019-04-03 09:40] LABS: Creatinine Clr Calc Pharmacy 64.1 ml/min; Est GFR (African American) 80.9; Est GFR (Non-African American) 69.8
[2019-04-03] MEDS: DAPTOmycin 475 MG in SYRINGE 0 ML IV SCH (10:41)
--- NOTE | 2019-04-03 14:41 | Pharmacy Report ---
Pharmacy Glycemic Short Note 2 - Date of Service April 03, 2019 - Glycemic Short BSG Results (Last 24 hours): 04/02/19 04/02/19 04/03/19 17:44 21:29 08:29 POC Glucose 78 127 H 181 H 04/03/19 12:01 POC Glucose 275 H ASSESSMENT: 04/03 * Patient received 67 units of insulin yesterday, 35 of which were basal * Fasting BSG still above goal range- increased lantus to 37 units this AM * Lunch BSG 275; continue to have eating/timing issues with lunch bsg * Will adjust CF/CR at lunch to 15/3 for breakfast, also adjusted correction factor for lunch as BSG was lower at dinner (although this could be due to the correction given at 2pm) 04/01 * Patient received total of 85 units of insulin yesterday, of which 35 were basal insulin * Fasting BSG improving at 170 mg/dL - will increase to Lantus 35 units this am and add scale for tonight * Lunch BSG checked early at 299 and hour later down to 246. Patient never ate lunch, no correctional given at that time. * Spoke with nurse and patient started to eat around 2pm today. BSG never was checked prior. BSG after eating at 220 mg/dL. Had nurse cover carbs and added an additional 2 units for correctional * Did adjust CF/CR to 15/4 for breakfast and dinner, and 15/9 all other times. Previous admission suggests this helps to prevent lows 03/31 * Patient received total of 45 units of insulin yesterday, of which 20 were basal due to NPO status * Diet resumed last evening - fasting BSG this morning elevated at 252 mg/dL - continued with home lantus but tightened CF/CR * Lunchtime BSG trended up to 375 mg/dL - spoke with nurse, unsure if snacking in between. No steroids given in the OR yesterday, but could be related to stress from surgery * Gave IV bolus of insulin for lunchtime - recheck after 2 hours trending down to 288 mg/dL * Will continue with same parameters for CF/CR for now but will monitor closely * Will add a scale for additional Lantus for this evening based upon BSG 03/30 * Pt NPO for BKA amputation this afternoon, will provide reduced lantus dose: 30-->20 units. Further, will loosen correctional insulin slightly. He did have a low with dinner yesterday, likely due to the 23units of novolog given with lunch. PLAN FOR INPATIENT GLYCEMIC CONTROL: * Basal insulin * Lantus 37 and then scale HS * Bolus insulin - tighten * NovoLog per scale ACHS or Q6hrs while NPO * Goal Range: Low 110 mg/dL - High 140 mg/dL * Correction Factor: 15 mg/dL/unit for lunch, dinner; 18 mg/dL/unit for lunch,bed * Nutritional / Prandial insulin per carb ratio of 1 unit per 3 grams CHO consumed (breakfast and dinner, changed to 9 for lunch and HS)
--- NOTE | 2019-04-03 17:16 | Hospitalist Progress Note ---
Date of Service April 03, 2019 Assessment & Plan (1) Delirium: Patient has been delirious since 03/27/2019 Received Zyprexa PRN Likely delirious from acute illness Reorient frequently Avoid narcotics as able Less confused today per family Acute and chronic respiratory failure with hypoxia: Aspiration: Chronic oxygen dependency: Home oxygen: 2 L Day -2.5 L Night at baseline Per had an episode of aspiration on 03/26/2019 evening while he tried to eat without his dentures. Increasing cough, confusion after the aspiration episode Chest x-ray: aspiration, volume overload Continue Zosyn started on 03/26: Day #9/10 for possible aspiration pneumonia Aspiration precautions Speech evaluation as able CHF(congestive heart failure): Echo in 11/05 - EF 55-60%, Moderate Likely diastolic CHF exacerbation, Valvular Heart Disease- Received lasix Continue diuretics PRN Gangrene: RLE Gangrenous Diabetic foot infection: Large diabetic foot ulcer.- Suspected osteomyelitis (MRI inconclusive). IV vancomycin and cefepime transitioned to Daptomycin. Day #10 S/P RLE Angiogram on 03/26/19- Distal obstruction not amenable to angioplasty or stent. Vascular surgery signed off. S/P R BKA POD #4 ID- Appreciate inputs re: antibiotics Needs Right BKA: Appreciate Orthopedics Input Wound culture: Corynebacterium, Group B strep, MRSA Continue IV antibiotics as per ID Diarrhea dressing change as per Ortho Appreciate ID input Likely discharge to rehab facility tomorrow if cleared by Ortho Peripheral vascular disease in diabetes mellitus: --Arterial Duplex: Occlusion of the proximal to mid posterior tibial artery with distal reconstitution. Elevated peak systolic velocities about the peroneal and anterior tibial arteries suggestive of high-grade stenosis. Extensive calcified plaque throughout the right lower extremity arterial structures. --Right lower extremity angiogram on 03/26/2019distal obstruction not amenable to angioplasty/stent --on aspirin S/P Right BKA Coronary artery disease: Continue aspirin, carvedilol. Hold statin while on daptomycin. Aortic stenosis: Moderate to Severe aortic stenosis Hypertension: Stable On carvedilol. COPD (chronic obstructive pulmonary disease): No signs of exacerbation DM II: Hold metformin HBA1C- 9.7 Basal Lantus / Novolog per protocol. Pharmacology glycemic control consult in place DVT Px: Heparin SQ Code Status DNI/DNR Disposition: Needs Rehab placement. Plan to discharge once cleared by Ortho Medicine follow-up with Dr. Dela Cruz. Subjective Patient is seen and examined at bedside More verbal today Confusion slowly seemed to be improving Family at bedside Leg pain seemed to be controlled Accepted at [facility]. Plan to discharge tomorrow if OK with Ortho Review of Systems Review of Systems: All systems reviewed & are unremarkable except as noted in HPI & below Physical Exam Physical Exam: Physical Exam: Vitals signs as noted above General Appearance: Chronically ill-appearing, elderly, no apparent distress Head: normocephalic, Atraumatic, + hearing aids Eyes: normal inspection, EOMI Neck: supple, Trachea midline Respiratory/Chest: Normal breath sounds, CTA Cardiovascular: S1, S2, + systolic murmur Abdomen/GI:Soft, Non tender, Bowel sounds present Extremities/Musculoskelatal:normal inspection, no edema, + R BKA in dressing Neurologic/Psych:grossly no focal neurological deficits Skin: normal color, warm Results & Data Vital Signs (Past 12 Hours) Vital Signs Temp Pulse Resp BP Pulse Ox 04/03/19 16:00 36.2 C L 80 16 144/67 H 98 04/03/19 07:54 36.9 C 87 18 126/75 99 Laboratory Results Short CBC 04/03/19 Range/Units 08:49 Hgb 11.5 L (14.0-18.0) g/dL Hct 35.2 L (42-52) % BMP 04/03/19 08:49 Creatinine 0.96
[2019-04-03] MEDS: SENNA 8.6 MG TAB PO SCH (22:07)
[2019-04-03] MEDS: HYDROCORTISONE 1% CRM 30 GM TUBE EXT PRN (22:08)
[2019-04-03] MEDS: MELATONIN PO SCH (22:08)
[2019-04-04] MEDS: PIPERACILLIN/TAZOBACTAM 3.375 GM in DEXTROSE 5% 100 ML IV SCH ×3 (02:23→12:55)
[2019-04-04 08:16] LABS: Creatinine Clr Calc Pharmacy 65.5 ml/min; Est GFR (Non-African American) 71.6
[2019-04-04] MEDS: INSULIN GLARGINE SOLOSTAR 100 UNITS/ML 3 ML PEN SC SCH (10:25)
[2019-04-04] MEDS: INSULIN ASPART 100 UNITS/ML 3 ML PEN SC SCH ×4 (10:25→21:17)
[2019-04-04] MEDS: HEPARIN SOD 5,000 UNIT/0.5 ML VIAL SQ SCH ×2 (10:27→21:16)
[2019-04-04] MEDS: ARTIFICIAL TEARS OPB SCH ×4 (11:30→21:12)
[2019-04-04] MEDS: SIMBRINZA OPR SCH ×2 (11:30→21:13)
[2019-04-04] MEDS: DAPTOmycin 475 MG in SYRINGE 0 ML IV SCH ×2 (11:31→12:55)
[2019-04-04] MEDS: TAMSULOSIN HCL 0.4 MG CAP PO SCH (12:53)
[2019-04-04] MEDS: ASPIRIN 81 MG ECTAB PO SCH (12:53)
[2019-04-04] MEDS: DOCUSATE SODIUM 100 MG CAP PO SCH ×2 (12:53→21:12)
[2019-04-04] MEDS: CARVEDILOL 6.25 MG TAB PO SCH ×2 (12:53→21:12)
[2019-04-04] MEDS: ASCORBIC ACID 500 MG TAB PO SCH ×2 (12:54→21:12)
[2019-04-04] MEDS: FINASTERIDE 5 MG TAB PO SCH (12:54)
[2019-04-04] MEDS: SACCHAROMYCES BOULARDII 250 MG CAP PO SCH (12:54)
[2019-04-04] MEDS: CHOLECALCIFEROL 1,000 UNITS TAB PO SCH (12:54)
[2019-04-04] MEDS: CYANOCOBALAMIN 500 MCG TABLET (VITAMIN B-12) PO SCH (12:54)
[2019-04-04] MEDS: MULTIVITAMIN TAB PO SCH (12:54)
[2019-04-04] MEDS ORDERED: CYCLOBENZAPRINE HCL 10 MG TAB PO SCH (17:55)
--- NOTE | 2019-04-04 19:11 | Hospitalist Progress Note ---
Date of Service April 04, 2019 Assessment & Plan (1) Delirium: Patient has been delirious since 03/27/2019 Received Zyprexa PRN Likely delirious from acute illness Reorient frequently Avoid narcotics as able Delirium seems to be improving Acute and chronic respiratory failure with hypoxia: Aspiration: Chronic oxygen dependency: Home oxygen: 2 L Day -2.5 L Night at baseline Per had an episode of aspiration on 03/26/2019 evening while he tried to eat without his dentures. Increasing cough, confusion after the aspiration episode Chest x-ray: aspiration, volume overload Continue Zosyn started on 03/26: Day #10 for possible aspiration pneumonia Aspiration precautions Speech evaluation requested Discussed with ID today we will discontinue antibiotics CHF(congestive heart failure): Echo in 11/05 - EF 55-60%, Moderate Likely diastolic CHF exacerbation, Valvular Heart Disease- Received lasix Continue diuretics PRN Gangrene: RLE Gangrenous Diabetic foot infection: Large diabetic foot ulcer.- Suspected osteomyelitis (MRI inconclusive). IV vancomycin and cefepime transitioned to Daptomycin. Day #11 S/P RLE Angiogram on 03/26/19- Distal obstruction not amenable to angioplasty or stent. Vascular surgery signed off. S/P R BKA POD #5 ID- Appreciate inputs re: antibiotics Needs Right BKA: Appreciate Orthopedics Input Wound culture: Corynebacterium, Group B strep, MRSA Discontinue IV antibiotics as per ID Dressing change as per Ortho Appreciate ID input Likely discharge to rehab facility tomorrow if cleared by Ortho Peripheral vascular disease in diabetes mellitus: --Arterial Duplex: Occlusion of the proximal to mid posterior tibial artery with distal reconstitution. Elevated peak systolic velocities about the peroneal and anterior tibial arteries suggestive of high-grade stenosis. Extensive calcified plaque throughout the right lower extremity arterial structures. --Right lower extremity angiogram on 03/26/2019distal obstruction not amenable to angioplasty/stent --on aspirin S/P Right BKA Coronary artery disease: Continue aspirin, carvedilol. Hold statin while on daptomycin. Aortic stenosis: Moderate to Severe aortic stenosis Hypertension: Stable On carvedilol. COPD (chronic obstructive pulmonary disease): No signs of exacerbation DM II: Hold metformin HBA1C- 9.7 Basal Lantus / Novolog per protocol. Pharmacology glycemic control consult in place DVT Px: Heparin SQ Code Status DNI/DNR Disposition: Needs Rehab placement. Plan to discharge to [facility] Medicine follow-up with Dr. Dela Cruz. Subjective Patient is seen and examined at bedside Very lethargic earlier this morning Mental status much more improved later part of the day Feels restless but unable to explain the reason Denies any pain at surgical site Family at bedside Denies any chest pain, shortness of breath, dizziness, abd pain Review of Systems Review of Systems: All systems reviewed & are unremarkable except as noted in HPI & below Physical Exam Physical Exam: Physical Exam: Vitals signs as noted above General Appearance: Chronically ill-appearing, elderly, no apparent distress Head: normocephalic, Atraumatic, + hearing aids Eyes: normal inspection, EOMI Neck: supple, Trachea midline Respiratory/Chest: Normal breath sounds, CTA Cardiovascular: S1, S2, + systolic murmur Abdomen/GI:Soft, Non tender, Bowel sounds present Extremities/Musculoskelatal:normal inspection, no edema, + R BKA in dressing Neurologic/Psych:grossly no focal neurological deficits Skin: normal color, warm Results & Data Vital Signs (Past 12 Hours) Vital Signs Temp Pulse Resp BP Pulse Ox 04/04/19 15:28 36.3 C L 71 16 106/61 98 04/04/19 08:16 34.6 C L 79 18 148/84 H 97 Laboratory Results BMP 04/04/19 07:25 Creatinine 0.94
--- NOTE | 2019-04-04 19:27 | Infectious Disease Progress Nt ---
Date of Service April 04, 2019 Assessment & Plan (1) Gangrene: Patient with gangrenous foot infection, cultures positive for MRSA and group B strep, in the setting of severe peripheral arterial disease, unable to improve via angiography. Patient now status post BKA amputation. Given that in fected foot has been removed, think that antibiotics can be discontinued at this point. Will follow closely off antibiotics, discussed with hospitalist service. Will follow. (2) Cellulitis of foot without toes, right: (3) Aspiration into airway: (4) Infection due to Streptococcus group B: Subjective Very lethargic earlier this morning Mental status much more improved later part of the day Feels restless but unable to explain the reason Denies any pain at surgical site Family at bedside Denies any chest pain, shortness of breath, dizziness, abd pain Review of Systems Review of Systems: All systems reviewed & are unremarkable except as noted in HPI & below Physical Exam Constitutional: WD/WN, vitals as above comfortable; no acute distress Eyes: PERRL, conjunctivae normal, anicteric sclerae ENMT: external ear and nose normal, oropharynx normal Neck: trachea midline, no thyromegaly neck nontender Respiratory: normal respiratory effort, lungs clear to auscultation normal percussion; does not use accessory muscles Cardiovascular: Rate/Rhythm: regular rate and regular rhythm Heart Sounds: normal S1, normal S2 and + murmur (Systolic); no gallop and no cardiac rub Vessels: no JVD Extremities: + abnormal capillary refill (Poor capillary refill, absent distal pulses) Gastrointestinal (Abdomen): normal bowel sounds, soft, nontender, no hepatosplenomegaly Musculoskeletal: no cyanosis or clubbing, extremities motor strength 5/5 Spine: thoracic spine normal to inspection and lumbar spine normal to inspection; no cervical spinal tenderness Skin: no rashes, warm and dry normal turgor and + wound (Right medial foot gangrenous changes with surrounding erythema, purulent drainage); no rashes Neurologic: moves all extremities; no focal motor deficits Motor/Sensory: + sensory deficit (Decrease in feet bilaterally) Psychiatric: A+Ox3, euthymic affect Orientation: cooperative Lymphatic: no cervical or axillary lymphadenopathy no inguinal lymphadenopathy Results & Data Vital Signs (Past 12 Hours) Vital Signs Temp Pulse Resp BP Pulse Ox 04/04/19 15:28 36.3 C L 71 16 106/61 98 04/04/19 08:16 34.6 C L 79 18 148/84 H 97
[2019-04-04] MEDS: MELATONIN PO SCH (21:12)
[2019-04-04] MEDS: SENNA 8.6 MG TAB PO SCH (21:12)
[2019-04-04] MEDS: HYDROCORTISONE 1% CRM 30 GM TUBE EXT PRN (21:28)
[2019-04-05] MEDS: INSULIN ASPART 100 UNITS/ML 3 ML PEN SC SCH ×3 (10:07→18:14)
[2019-04-05] MEDS: INSULIN GLARGINE SOLOSTAR 100 UNITS/ML 3 ML PEN SC SCH (10:09)
[2019-04-05] MEDS: HEPARIN SOD 5,000 UNIT/0.5 ML VIAL SQ SCH (10:11)
[2019-04-05] MEDS: MULTIVITAMIN TAB PO SCH (10:16)
[2019-04-05] MEDS: ASPIRIN 81 MG ECTAB PO SCH (10:16)
[2019-04-05] MEDS: SACCHAROMYCES BOULARDII 250 MG CAP PO SCH (10:16)
[2019-04-05] MEDS: FINASTERIDE 5 MG TAB PO SCH (10:16)
[2019-04-05] MEDS: ASCORBIC ACID 500 MG TAB PO SCH (10:16)
[2019-04-05] MEDS: TAMSULOSIN HCL 0.4 MG CAP PO SCH (10:16)
[2019-04-05] MEDS: ARTIFICIAL TEARS OPB SCH ×3 (10:17→17:16)
[2019-04-05] MEDS: SIMBRINZA OPR SCH (10:18)
[2019-04-05] MEDS: DOCUSATE SODIUM 100 MG CAP PO SCH (10:19)
[2019-04-05] MEDS: CYANOCOBALAMIN 500 MCG TABLET (VITAMIN B-12) PO SCH (10:19)
[2019-04-05] MEDS: CARVEDILOL 6.25 MG TAB PO SCH (10:19)
[2019-04-05] MEDS: CHOLECALCIFEROL 1,000 UNITS TAB PO SCH (10:19)
--- NOTE | 2019-04-05 12:34 | Hospitalist Progress Note ---
Date of Service April 05, 2019 Assessment & Plan (1) Delirium: Received Zyprexa PRN Likely delirious from acute illness Reorient frequently Avoid narcotics as able Mental status seems to be slowly improving Acute and chronic respiratory failure with hypoxia: Aspiration: Chronic oxygen dependency: Home oxygen: 2 L Day -2.5 L Night at baseline Per had an episode of aspiration on 03/26/2019 evening while he tried to eat without his dentures. Increasing cough, confusion after the aspiration episode Chest x-ray: aspiration, volume overload Continue Zosyn started on 03/26/19: Day #10/10 for possible aspiration pneumonia Aspiration precautions Speech evaluation requested Appreciate ID Input Completed antibiotic course CHF(congestive heart failure): Echo in 11/05 - EF 55-60%, Moderate Likely diastolic CHF exacerbation, Valvular Heart Disease- Received lasix Continue diuretics PRN Gangrene: RLE Gangrenous Diabetic foot infection: Large diabetic foot ulcer.- Suspected osteomyelitis (MRI inconclusive). IV vancomycin and cefepime transitioned to Daptomycin. Day #11 S/P RLE Angiogram on 03/26/19- Distal obstruction not amenable to angioplasty or stent. Vascular surgery signed off. S/P R BKA POD #6 ID- Appreciate inputs re: antibiotics Needs Right BKA: Appreciate Orthopedics Input Wound culture: Corynebacterium, Group B strep, MRSA IV antibiotics discontinued as per ID Dressing change as per Ortho Appreciate ID input Peripheral vascular disease in diabetes mellitus: --Arterial Duplex: Occlusion of the proximal to mid posterior tibial artery with distal reconstitution. Elevated peak systolic velocities about the peroneal and anterior tibial arteries suggestive of high-grade stenosis. Extensive calcified plaque throughout the right lower extremity arterial structures. --Right lower extremity angiogram on 03/26/2019distal obstruction not amenable to angioplasty/stent --on aspirin S/P Right BKA Coronary artery disease: Continue aspirin, carvedilol. Resume statin as able Statin held while on daptomycin. Aortic stenosis: Moderate to Severe aortic stenosis Hypertension: Stable On carvedilol. COPD (chronic obstructive pulmonary disease): No signs of exacerbation DM II: Hold metformin HBA1C- 9.7 Basal Lantus / Novolog per protocol. Pharmacology glycemic control consult in place DVT Px: Heparin SQ Code Status DNI/DNR Disposition: Needs Rehab placement. Plan to discharge to [facility] Medicine follow-up with Dr. Dela Cruz. Subjective Patient is seen and examined at bedside Lying in bed comfortably today Denies any leg pain Family at bedside Plan to discharge to rehab facility Review of Systems Review of Systems: All systems reviewed & are unremarkable except as noted in HPI & below Physical Exam Physical Exam: Physical Exam: Vitals signs as noted above General Appearance: Chronically ill-appearing, elderly, no apparent distress Head: normocephalic, Atraumatic, + hearing aids Eyes: normal inspection, EOMI Neck: supple, Trachea midline Respiratory/Chest: Normal breath sounds, CTA Cardiovascular: S1, S2, + systolic murmur Abdomen/GI:Soft, Non tender, Bowel sounds present Extremities/Musculoskelatal:normal inspection, no edema, + R BKA in dressing Neurologic/Psych:grossly no focal neurological deficits Skin: normal color, warm Results & Data Vital Signs (Past 12 Hours) Vital Signs Temp Pulse Resp BP Pulse Ox 04/05/19 07:20 36.6 C 72 16 158/74 H 94
--- NOTE | 2019-04-05 13:43 | Pharmacy Report ---
Pharmacy Glycemic Short Note 2 - Date of Service April 05, 2019 - Glycemic Short BSG Results (Last 24 hours): 04/04/19 04/04/19 04/05/19 17:15 20:42 08:13 POC Glucose 86 207 H 144 H 04/05/19 12:16 POC Glucose 262 H ASSESSMENT: 04/05 * Fasting blood sugars at goal past two days, continue basal * Blood sugars still high prior to lunch and bedtime, the lunch blood sugars are high d/t late administration of insulin at breakfast (giving doses around 1000 instead of when ordered with blood sugar), will tighten CR at dinnertime to help with elevated HS blood sugars. 04/03 * Patient received 67 units of insulin yesterday, 35 of which were basal * Fasting BSG still above goal range- increased lantus to 37 units this AM * Lunch BSG 275; continue to have eating/timing issues with lunch bsg * Will adjust CF/CR at lunch to 15/3 for breakfast, also adjusted correction factor for lunch as BSG was lower at dinner (although this could be due to the correction given at 2pm) 04/01 * Patient received total of 85 units of insulin yesterday, of which 35 were basal insulin * Fasting BSG improving at 170 mg/dL - will increase to Lantus 35 units this am and add scale for tonight * Lunch BSG checked early at 299 and hour later down to 246. Patient never ate lunch, no correctional given at that time. * Spoke with nurse and patient started to eat around 2pm today. BSG never was checked prior. BSG after eating at 220 mg/dL. Had nurse cover carbs and added an additional 2 units for correctional * Did adjust CF/CR to 15/4 for breakfast and dinner, and 15/9 all other times. Previous admission suggests this helps to prevent lows 03/31 * Patient received total of 45 units of insulin yesterday, of which 20 were basal due to NPO status * Diet resumed last evening - fasting BSG this morning elevated at 252 mg/dL - continued with home lantus but tightened CF/CR * Lunchtime BSG trended up to 375 mg/dL - spoke with nurse, unsure if snacking in between. No steroids given in the OR yesterday, but could be related to stress from surgery * Gave IV bolus of insulin for lunchtime - recheck after 2 hours trending down to 288 mg/dL * Will continue with same parameters for CF/CR for now but will monitor closely * Will add a scale for additional Lantus for this evening based upon BSG 03/30 * Pt NPO for BKA amputation this afternoon, will provide reduced lantus dose: 30-->20 units. Further, will loosen correctional insulin slightly. He did have a low with dinner yesterday, likely due to the 23units of novolog given with lunch. PLAN FOR INPATIENT GLYCEMIC CONTROL: * Basal insulin * Lantus 37 SQ QAM * Bolus insulin - * NovoLog per scale ACHS or Q6hrs while NPO * Goal Range: Low 110 mg/dL - High 140 mg/dL * Correction Factor: 15 mg/dL/unit for lunch, dinner; 18 mg/dL/unit for lunch,bed * Nutritional / Prandial insulin per carb ratio of 1 unit per 3 grams CHO consumed at breakfast and dinner, 9 grams consumed at lunch and HS
--- NOTE | 2019-04-05 15:39 | Discharge Summary ---
Date of Service April 05, 2019 Admission HPI Per Admitting Provider 88-year-old male who presents the ED for evaluation of right foot wound. is the bedside who provides some history. She reports that a couple of months ago, patient was treated [facility] for a [facility] foot [facility]. Reports that he was on doxycycline and wound had completely healed. Wound has been progressing again over the past few weeks with an acute worsening yesterday. 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 Today, patient was very weak and lethargic. He had a fever of 100.3. No chills or rigors. Patient denies chest pain shortness of breath. No lightheadedness, dizziness, diaphoresis, syncopal events. Denies abdominal pain, nausea, vomiting, diarrhea. No urinary symptoms. In the ED, patient is hemodynamically stable and labs are unremarkable with exception of hyperglycemia. Right foot x-ray is showing osteomyelitis of the first metatarsal. Patient was given IVF, IV Vanco, IV cefepime, IV Zofran. Admission Exam Per Admitting Provider Physical Exam: Vitals signs as noted above General Appearance: Chronically ill-appearing, elderly, no apparent distress Head: normocephalic, Atraumatic, + hearing aids Eyes: normal inspection, EOMI Neck: supple, Trachea midline Respiratory/Chest: Normal breath sounds, CTA Cardiovascular: S1, S2, + systolic murmur Abdomen/GI:Soft, Non tender, Bowel sounds present Extremities/Musculoskelatal:normal inspection, no edema, + Right foot erythematous, gangrenous medical right foot ulceration with yellowish discharge Neurologic/Psych:AAOX3, grossly no focal neurological deficits Skin: normal color, warm Principal Diagnosis Discharge Information Discharge Diagnosis Gangrenous Diabetic foot infection S/P Below Knee Amputation Possible Aspiration Pneumonia Delirium cute and chronic respiratory failure with hypoxia Discharge Goals Decrease discomfort,Improve disease control, Improve function Discharge Activity Limitations Per instructions/follow-up Discharge Data Allergies Allergy/AdvReac Type Severity Reaction Status Date / Time Iodinated Contrast- Oral and Allergy Severe Edema-face/lips/tongue. Verified 03/23/19 18:48 IV Dye Hives/Rash. dipyridamole Allergy Intermediate Hallucinati Verified 03/23/19 18:48 ons formaldehyde Allergy Intermediate Hives/Rash Verified 03/23/19 18:48 Cipro Allergy Unknown Hives Verified 07/15/17 11:48 lisinopril Allergy Unknown UNKNOWN Verified 03/23/19 18:48 ciprofloxacin AdvReac Unknown CONSTIPATIO Verified 03/23/19 18:48 N yellow socks Allergy Intermediate contact Uncoded 03/23/19 18:48 rash (formaldehyde used to preserve yellow color) Consultations 03/23/19 19:16 ED Decision to Admit Stat 03/23/19 20:47 Consult Case Management - Discharge Planning Routine Consult Orthopedic Surgery Routine 03/24/19 12:49 Consult Vascular Surgery Routine 03/24/19 22:38 Consult Infectious Diseases Routine 03/30/19 16:00 Consult Case Management - Discharge Planning Routine Procedures Performed Operation Date: 03/26/19 12:30 Actual Procedures p Right Lower Extremity Angiogram Third Order, Ultrasound Localziation of Left Femoral Artery, Mechanical Closure of Left Femoral Artery, Moderate Sedation [id number](Left) - Edil Ruffin MD Operation Date: 03/30/19 13:00 Actual Procedures p Right Below Knee Amputation(Right) - Twin Rivera DO CXR: 1. Stable mild cardiomegaly. 2. Mild diffuse interstitial thickening has improved. This could represent mild congestive change or a chronic interstitial process. Foot X ray: Focal skin ulceration at the medial forefoot at the level of the first metatarsal shaft. This measures 1 cm. There appears to be subtle cortical lucency/erosion near the medial neck of the first metatarsal which measures 3 mm. This is concerning for a small focus of osteomyelitis. LE Arterial Doppler: 1. Occlusion of the proximal to mid posterior tibial artery with distal reconstitution. 2. Elevated peak systolic velocities about the peroneal and anterior tibial arteries suggestive of high-grade stenosis. 3. Extensive calcified plaque throughout the right lower extremity arterial structures. Foot MRI: 1. Redemonstration of the 1.4 cm focal skin ulceration within the medial aspect of the forefoot at the level of the first metatarsal neck. 2. Nondiagnostic evaluation for osteomyelitis at the first metatarsal and first toe due to the significant motion artifact. 3. Soft tissue edema within the plantar surface of the foot. Ordered Studies 03/23/19 20:47 US arterial duplex LE RT Urgent 03/24/19 13:40 MR foot RT w/o con Routine 03/26/19 12:23 EV angio LE RT Routine US guide vascular access Routine Hospital Course (1) Delirium: Received Zyprexa PRN Likely delirious from acute illness Reorient frequently Avoid narcotics as able Mental status seems to be slowly improving Acute and chronic respiratory failure with hypoxia: Aspiration: Chronic oxygen dependency: Home oxygen: 2 L Day -2.5 L Night at baseline Per had an episode of aspiration on 03/26/2019 evening while he tried to eat without his dentures. Increasing cough, confusion after the aspiration episode Chest x-ray: aspiration, volume overload Continue Zosyn started on 03/26/19: Day #06/26 for possible aspiration pneumonia Aspiration precautions Speech evaluation requested Appreciate ID Input Completed antibiotic course CHF(congestive heart failure): Echo in 11/05 - EF 55-60%, Moderate Likely diastolic CHF exacerbation, Valvular Heart Disease- Received lasix Continue diuretics PRN Gangrene: RLE Gangrenous Diabetic foot infection: Large diabetic foot ulcer.- Suspected osteomyelitis (MRI inconclusive). IV vancomycin and cefepime transitioned to Daptomycin. Day #11 S/P RLE Angiogram on 03/26/19- Distal obstruction not amenable to angioplasty or stent. Vascular surgery signed off. S/P R BKA POD #6 ID- Appreciate inputs re: antibiotics Needs Right BKA: Appreciate Orthopedics Input Wound culture: Corynebacterium, Group B strep, MRSA IV antibiotics discontinued as per ID Dressing change as per Ortho Appreciate ID input Peripheral vascular disease in diabetes mellitus: --Arterial Duplex: Occlusion of the proximal to mid posterior tibial artery with distal reconstitution. Elevated peak systolic velocities about the peroneal and anterior tibial arteries suggestive of high-grade stenosis. Extensive calcified plaque throughout the right lower extremity arterial structures. --Right lower extremity angiogram on 03/26/2019distal obstruction not amenable to angioplasty/stent --on aspirin S/P Right BKA Coronary artery disease: Continue aspirin, carvedilol. Resume statin as able Statin held while on daptomycin. Aortic stenosis: Moderate to Severe aortic stenosis Hypertension: Stable On carvedilol. COPD (chronic obstructive pulmonary disease): No signs of exacerbation DM II: Hold metformin HBA1C- 9.7 Basal Lantus / Novolog per protocol. Pharmacology glycemic control consult in place DVT Px: Heparin SQ Code Status DNI/DNR Disposition: Needs Rehab placement. Plan to discharge to [facility] Medicine follow-up with Dr. Dela Cruz. Total Time Total Time Spent Total Time Spent (In Minutes): 45 minutes Total Time Includes: Examination of the Patient, Discharge Planning, Medication Reconciliation, Communication With Other Providers and Other Discharge Plan Discharge Items Patient Disposition: Transfer [facility] Fac Reason For Visit: INFECTED DIABETIC FOOT Discharge Diagnosis: Gangrenous Diabetic foot infection S/P Below Knee Amputation Possible Aspiration Pneumonia Delirium cute and chronic respiratory failure with hypoxia Discharge Goals: Decrease discomfort, Improve disease control and Improve function Activity: Per 'Additional Instructions' section Exercise/Sports: Gradually increase as tolerated Non-emergency contact: Primary Care Provider and Surgeon Call non-emergency contact if: you have any medication questions, your symptoms worsen, your pain is not controlled, your pain is worsening, your pain is unusual for you, your pain is concerning for you, you have a fever, your wound has increased redness, your wound has increased drainage and your wound pain has increased Follow-up/Referrals: Shin Dela Cruz MD [Primary Care Provider] - Diet: Carb Consistent or DM2 and Heart Healthy Addtl Provider Instructions: Follow up with your PCP in 1 week after being discharged from Rehab Facility Follow up with your Orthopedic Surgeon as advised Seek immediate medical attention if your symptoms reoccur or worsen Orthopedic Instructions: Keep a light dressing on the wound at all times. Use adaptic, 4x4's, and Kerlix wrap all covered with an ceci wrap. Change dressing daily until seen back in the clinic for a wound check. No creams or ointments on the wound. You can shower or bathe. No tub baths. DO NOT SOAK THE WOUND. No direct shower pressure on the wound. Call Dr Rivera's office if the wound area becomes reddened through out the flap, there is increased drainage, or patient has a temp of 101 or greater. [phone] Rivera in 1 week for a wound check. Please call for an appointment. [phone] Prescriptions: New heparin, porcine (PF) 5,000 unit/0.5 mL Syringe 5,000 unit subcut Q12 30 Days Qty: 30 RF: 0 bisacodyl [Laxative (bisacodyl)] 10 mg Suppository 10 mg DE DAILY PRN (Reason: constipation) 30 Days Qty: 30 RF: 0 Continued carvedilol 6.25 mg Tablet 6.25 mg PO BID Qty: 20 RF: 0 Novolin N NPH U-100 Insulin 100 unit/mL suspension 50 unit SC QAM RF: 0 gabapentin 300 mg Capsule 300 mg PO TID RF: 0 melatonin 10 mg Tablet 10 mg PO HS PRN (Reason: Insomnia) RF: 0 tramadol [Ultram] 50 mg tablet 50 mg PO Q6 PRN (Reason: Pain, Moderate) Qty: 10 RF: 0 Novolog Flexpen U-100 Insulin 100 unit/mL insulin pen 16 unit SC QDD Qty: 0 RF: 0 cyclobenzaprine 10 mg Tablet 10 mg PO HS RF: 0 hydrocortisone 1 % Lotion 1 applic TOPICAL BID RF: 0 aspirin [Aspir-81] 81 mg Tablet,Delayed Release (Dr/Ec) 81 mg PO DAILY RF: 0 TheraTears 0.25 % Drops 1 drp OPB QID RF: 0 benzoyl peroxide 10 % Lotion 1 applic TOPICAL DAILY PRN (Reason: WHEN SHOWERS) RF: 0 cyanocobalamin (vitamin B-12) 500 mcg Tablet 1,000 mcg PO DAILY RF: 0 tamsulosin 0.4 mg Capsule 0.4 mg PO DAILY RF: 0 simvastatin [Zocor] 20 mg Tablet 10 mg PO Q2D RF: 0 metformin 1,000 mg Tablet 1,000 mg PO BIDM RF: 0 nystatin 100,000 unit/gram Cream 1 applic TOPICAL UD PRN (Reason: Unknown) RF: 0 nitroglycerin [Nitrostat] 0.4 mg Tablet, Sublingual 0.4 mg Sublingual UD PRN (Reason: Chest Pain) RF: 0 finasteride 5 mg Tablet 5 mg PO DAILY RF: 0 lutein 20 mg Capsule 20 mg PO DAILY RF: 0 cholecalciferol (vitamin D3) [Vitamin D3] 2,000 unit Capsule 2,000 unit PO DAILY RF: 0 Eucerin Skin Calming Cream 1 applic topical UD RF: 0 Simbrinza 1-0.2 % Drops,Suspension 1 drp OPR BID RF: 0 selenium sulfide 2.5 % Lotion 1 applic topical UD RF: 0 acetaminophen [Mapap (acetaminophen)] 325 mg Tablet 650 mg PO Q4H PRN (Reason: fever or pain) Qty: 100 RF: 0 ascorbic acid (vitamin C) [Vitamin C] 500 mg Tablet 1,000 mg PO BID Qty: 90 RF: 0 Changed docusate sodium 100 mg Tablet 100 mg PO BID Qty: 0 RF: 0 Stand-Alone Forms: My [facility]/Other Patient Handouts: Amputation Leg Surgery Discharge Orders: Discharge Order (Routine); Ordered 04/05/19 Ordered By: Barry Rodriguez Skilled Items Patient informed of condition?: Yes DNR: Yes Discharge Level of Care: Skilled Communicable Disease: No Discharge Prognosis: Improving Admission Data Admit Date/Time: 03/23/19 19:43 Attending Provider: Barry Rodriguez Admit Provider: Barry Rodriguez Primary Care Provider: Shin Dela Cruz Other Providers: August Garrett ; Rosa Phillips ; Jd Kellogg ; Edil Ruffin ; Barry Rodriguez ; Twin Rivera Service: Surgical Services Other Interventions: Discharge Summary Assessment (RN) Last Done: 04/05/19 13:25 Pending Studies at Discharge: No
== END 2019-04-05 19:20 | DRG 239 ==
LOC: ED 17:38 → SUATTDRO 19:43 → 3N 19:43